=== PATIENT | male | born 1965 | race Caucasian/White ===

== ENCOUNTER 2023-10-07 11:22 | Outpatient (AMB) | payer OTHER, SELFPAY ==
--- NOTE | 2023-10-07 11:28 | MHC.PC.OV ---
Vital Signs 10/07/23 11:48 Height 6 ft Weight 264 lb 6 oz BMI 35.9 BP 110/60 Respiration 16 Pulse 70 Pulse Source Pulse Oximeter Temp 97.7 F Temp Source Oral Pulse Oximetry (%) 96 Oxygen Delivery Method Room Air Intake Visit Reasons: NPV Intake Note: patient transferring from [facility] [place] [facility] here for new patient visit. 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[employer] Un[employer] Required: No Allergies tetracycline [Tetracycline] Allergy (Mild, Verified 10/07/23 11:35) RASH Medication List - Last Reconciled 10/07/23 by Nhi Conte PA-C atorvastatin 80 mg PO DAILY cholecalciferol (vitamin D3) 50 mcg PO DAILY cyanocobalamin (vitamin B-12) 1,000 mcg sublingual DAILY ezetimibe 10 mg PO DAILY hydrochlorothiazide 25 mg PO DAILY levothyroxine 112 mcg PO DAILY lisinopril 40 mg PO DAILY metformin 500 mg PO DAILY metoprolol succinate ER 100 mg PO DAILY vfmrgbka-tvy-ZT-lycopen-lutein 0.4 mg-300 mcg- 250 mcg (Complete Multivitamin Adult 50 Plus) 1 tab PO DAILY vitamin B complex 1 tab PO DAILY Tobacco use date assessed: 10/07/23 Dental Screening Dental Screen Date: 10/07/23 Did you have a dental visit in the last 12 months?: Yes Did you have a dental problem in the last 6 months where you did not have access to dental care?: No Was dental information given to patient?: Patient has dentist HPI NPV HPI Details Pt is a 58 y/o male who presents today to re-establish care. Endo: DM- Dx last year. Last a1c was 6.6. He is on metformin 500 mg daily. He lost 25 lbs with diet and exercise. Last eye exam within the year and no retinopathy. Follows annually. CV: bp is 110/60.He is on hctz 25 mg, norvasc 10 mg, netoprolol 100 mg, and lisinopril 40 mg. Cholesterol controlled with zetia and atorvastatin. Colonoscopy: 01/2023- polyps due in 2027 [facility] Medical History (Updated 10/07/23 @ 12:24 by Nhi Conte PA-C) Cancer Arthritis Diabetes High cholesterol High blood pressure Carpal tunnel syndrome Surgical History (Updated 10/07/23 @ 11:57 by Mel Sinha) History of knee replacement Family History (Updated 10/07/23 @ 12:02 by Mel Sinha) Father High blood pressure Diabetes Cardiovascular disease Maternal Grandfather Diabetes Mother Cancer Social History Housing: House Patient Tobacco Use Status: Never used Tobacco e-Cigarette/Vaping Use: Never Used Second Hand Smoke Exposure: No service: No Current occupational status: employed 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 1. Little interest or pleasure in doing things: not at all 2. Feeling down, depressed, or hopeless: not at all 3. Trouble falling or staying asleep, or sleeping too much: not at all 4. Feeling tired or having little energy: not at all 5. Poor appetite or overeating: not at all 6. Feeling bad about yourself - or that you are a failure or have let yourself or your family down: not at all 7. Trouble concentrating on things, such as reading the newspaper or watching television: not at all 8. Moving or speaking so slowly that other people could have noticed. Or the opposite - being so fidgety or restless that you have been moving around a lot more than usual: not at all 9. Thoughts that you would be better off or of hurting yourself in some way: not at all Total score: 0 62425 - PHQ-9 Billing: Yes Source: Developed by Drs. Monty Vaughn, Sofia Woods, Chava Leonardo and colleagues, with an educational kenji from [employer]. Thrive Questionnaire Date Thrive assessed: 10/07/23 I am a: Patient What is your living situation today?: I have a steady place to live Within the past 12 months, did the food you bought not last and you didn't have the money to get more?: Never true Within the past 12 months, did you worry whether your food would run out before you got money to buy more?: Never true Do you have trouble paying for medicines?: No Do you have trouble getting transportation to medical appointments?: No Do you have trouble paying your heating and electricity bill?: No Do you have trouble taking care of your child, family member or friend?: No Do you have trouble with day-to-day activities such as bathing, preparing meals, shopping, managing finances, etc.?: No Are you currently unemployed and looking for a job?: No Are you interested in more education?: No Please select the resources that you would like help with: None Currently or been in a relationship where the following occur: No concerns reported THRIVE Score: 0 AUDIT C Alcohol Use Questionnaire (AUDIT-C) 1. How often do you have a drink containing alcohol?: 4 or more times a week 2. How many drinks containing alcohol do you have on a typical day when you are drinking?: 1 or 2 3. How often do you have six or more drinks on one occasion?: Less than monthly Total Score: 5 PAM-7 AMB Questionnaire PAM-7 Date PAM - 7 assessed: 10/07/23 Feeling nervous, anxious, or on edge: 0 = Not at all Not being able to stop or control worryin = Not at all Worrying too much about different things: 0 = Not at all Trouble relaxin = Not at all Being so restless that it is hard to sit still: 0 = Not at all Becoming easily annoyed or irritable: 0 = Not at all Feeling afraid as if something awful might happen: 0 = Not at all Total PAM-7 score (0-4 normal; 5-9 mild; 10-14 moderate; 15-21 severe): 0 Source: Developed by Drs. Monty Vaughn, Sofia Woods, Chava Leonardo and colleagues, with an educational kenji from [employer]. PAM-7 Assessment Billing PAM-7 Assessment Tool: PAM-7 Assessment 38563 Physical exam (Primary Care) Vital Signs: Last Vital Signs Temp 97.7 F 10/07/23 11:48 Pulse 70 10/07/23 11:48 Resp 16 10/07/23 11:48 Pulse Ox 96 10/07/23 11:48 Oxygen Delivery Method Room Air 10/07/23 11:48 BMI result Body Mass Index 35.9 Tobacco/Smoking Status: Tobacco use Status Tobacco use date assessed 10/07/23 10/07/23 11:45 Patient Tobacco Use Status Never used Tobacco 10/07/23 11:45 e-Cigarette/Vaping Use Never Used 10/07/23 11:45 PHQ-9: PHQ-9 Score PHQ-9: Total score 0 10/07/23 11:53 Thrive Assessment: Date of Thrive Assessment Date Thrive assessed 10/07/23 10/07/23 11:53 Currently or been in a relationship where the following occur: No concerns reported Const Orientation/consciousness: patient oriented x3 HENMT Ears: hearing grossly normal bilaterally Neck Thyroid: Thyroid normal Lymphatic: no lymphadenopathy noted Resp Auscultation: clear to auscultation bilaterally Cardio Rate: regular rate Rhythm: regular rhythm Heart sounds: S1 normal heart sound present and S2 normal heart sound present GI Inspection: Yes normal to inspection Palpation (GI): Soft to palpation and Other GI palpation findings present (nontender, no cva tenderness) Auscultation: normoactive bowel sounds Rectal Exam - Male: Yes deferred Skin General skin exam: no rashes or lesions noted Neuro General: patient oriented x3, gait normal and no focal motor deficits Assessment and Plan Assessment & Plan (1) HTN (hypertension), benign: Code(s): I10 - Essential (primary) hypertension Plan: will stop hctz. bps at home have been on the lower side and here today 108/56 and 110/60. He has lost 25 lbs with diet and exercise since our last visit. (2) Well controlled type 2 diabetes mellitus with peripheral neuropathy: Code(s): E11.42 - Type 2 diabetes mellitus with diabetic polyneuropathy Plan: labs ordered today. will follow up pending results. does not want diabetic education. (3) Hyperlipidemia: Code(s): E78.5 - Hyperlipidemia, unspecified Plan: continue current plan will follow up pending labs Orders: Orders Comprehensive [place]. Panel Fast Today E11.42 - Type 2 diabetes mellitus with diabetic polyneuropathy, E78.5 - Hyperlipidemia, unspecified, I10 - Essential (primary) hypertension Lipid Panel Today E11.42 - Type 2 diabetes mellitus with diabetic polyneuropathy, E78.5 - Hyperlipidemia, unspecified, I10 - Essential (primary) hypertension Hemoglobin A1c Today E11.42 - Type 2 diabetes mellitus with diabetic polyneuropathy, E78.5 - Hyperlipidemia, unspecified, I10 - Essential (primary) hypertension TSH reflex Free T4 Today E11.42 - Type 2 diabetes mellitus with diabetic polyneuropathy, E78.5 - Hyperlipidemia, unspecified, I10 - Essential (primary) hypertension Complete Blood Count Auto Diff Today E11.42 - Type 2 diabetes mellitus with diabetic polyneuropathy, E78.5 - Hyperlipidemia, unspecified, I10 - Essential (primary) hypertension Prostate Specific Antigen Scr Today E11.42 - Type 2 diabetes mellitus with diabetic polyneuropathy, E78.5 - Hyperlipidemia, unspecified, I10 - Essential (primary) hypertension Microalbumin, Random (w Creat) Today E11.42 - Type 2 diabetes mellitus with diabetic polyneuropathy, E78.5 - Hyperlipidemia, unspecified, I10 - Essential (primary) hypertension Medications: New ezetimibe 10 mg PO DAILY 90 tabs 3RF levothyroxine 112 mcg PO DAILY 90 tabs 3RF lisinopril 40 mg PO DAILY 90 tabs 3RF atorvastatin 80 mg PO DAILY 90 tabs 3RF metformin 500 mg PO DAILY 90 tabs 3RF metoprolol succinate ER 100 mg PO DAILY 90 tabs 3RF amlodipine 10 mg PO DAILY 90 tabs 3RF Coding Level of Care Code Est Pt Level 4 (97679) Complex EM visit Add On G2211 Diagnoses HTN (hypertension), benign I10 Well controlled type 2 diabetes mellitus with peripheral neuropathy E11.42 Hyperlipidemia E78.5 Additional Codes PAM-7 Assessment Billing - PAM-7 Assessment Tool: PAM-7 Assessment 85035 ([id number])
[2023-10-07 11:48] VITALS: BP 110/60; PULSE 70; RESP 16; TEMP 36.5; O2SAT 96; BMI 35.9
== END 2023-10-07 12:33 | disposition home or self-care (01) ==
PROVIDERS: PCP Physician Assistant; Visit Provider Physician Assistant
DX: I10 Essential (primary) hypertension (principal); E11.42 Type 2 diabetes mellitus with diabetic polyneuropathy; E78.5 Hyperlipidemia, unspecified
CPT/HCPCS: 99214

== ENCOUNTER 2023-10-12 07:32 | Outpatient (REF) | payer OTHER, SELFPAY ==
[2023-10-12 11:31] LABS: MANUAL DIFF FLAG NO
[2023-10-12 11:37] LABS: Basophils Absolute Auto 0.1 X10*3/uL (0.0-0.2); Basophils Percent Auto 0.7 % (0-2); Eosinophils Absolute Auto 0.3 X10*3/uL (0.0-0.4); Eosinophils Percent Auto 3.4 % (0-4); Hematocrit 40.9 % (42.0-52.0); Hemoglobin 13.5 g/dl (14.0-18.0); Imm Gran Abs Auto 0.03 X10*3/uL (0.00-0.03); Imm Gran Pct Auto 0.3 % (0.0-0.4); Lymphocytes Absolute Auto 1.4 X10*3/uL (1.2-4.9); Lymphocytes Percent Auto 15.2 % (20-40); Mean Corpuscular Hemoglobin 30.6 pg (27.0-33.0); Mean Corpuscular Volume 92.7 fL (80.0-98.0); Mean Platelet Volume 11.4 fL (9.4-12.4); Monocytes Absolute Auto 0.9 X10*3/uL (0.1-1.2); Monocytes Percent Auto 9.9 % (2-11); Neutrophils Absolute Auto 6.3 x10*3/uL (2.0-8.3); Neutrophils Percent Auto 70.5 % (45-73); Platelet Count 287 X10*3/uL (160-400); Red Blood Count 4.41 X10*6/uL (4.60-5.80); Red Cell Distribution Width 14.4 % (11.0-16.0); White Blood Count 8.9 X10*3/uL (4.8-10.8)
[2023-10-12 11:42] LABS: Estimated Average Glucose 123 mg/dL; Hemoglobin A1c % 5.9 % (<6.0)
[2023-10-12 12:06] LABS: Alanine Aminotransferase 24 U/L (0-40); Albumin Level 4.5 g/dL (3.5-5.0); Alkaline Phosphatase 111 U/L (39-117); Anion Gap 13 (12-20); Aspartate Amino Transferase 26 U/L (5-37); Bilirubin Total 0.7 mg/dL (0.0-1.0); Blood Urea Nitrogen 19 mg/dL (9-16); Calcium 9.6 mg/dL (8.4-10.2); Carbon Dioxide 28 mmol/L (22-29); Chloride 107 mmol/L (96-108); Cholesterol 102 mg/dL (<200); Estimated Glomerular Filt Rate > 60; Glucose Fasting 101 mg/dL (60-99); HDL Cholesterol 47 mg/dL (>40); LDL Cholesterol Calculated 45 mg/dL (<100); Potassium 3.9 mmol/L (3.3-5.1); Sodium 144 mmol/L (135-145); Total Protein 7.6 g/dL (6.5-8.0); Triglycerides 54 mg/dL (<150)
[2023-10-12 12:16] LABS: TSH reflex Free T4 0.84 uIU/mL (0.32-4.0)
[2023-10-12 12:20] LABS: Prostate Specific Antigen Scr 3.15 ng/mL (<0.05-4.0)
[2023-10-12 12:25] LABS: Creatinine Urine 99.75 mg/dL
== END 2023-10-12 07:33 | disposition home or self-care (01) ==
LOC: HO.WFDLDS 07:32
PROVIDERS: Visit Provider Physician Assistant
DX: I10 Essential (primary) hypertension (principal); E11.42 Type 2 diabetes mellitus with diabetic polyneuropathy; E78.5 Hyperlipidemia, unspecified; Z12.5 Encounter for screening for malignant neoplasm of prostate
CPT/HCPCS: 36415; 80053; 80061; 82043; 82570; 83036; 84153; 84443; 85025

== ENCOUNTER 2023-11-05 14:25 | Outpatient (REF) | payer OTHER, SELFPAY ==
[2023-11-05 17:57] LABS: MANUAL DIFF FLAG NO
[2023-11-05 18:05] LABS: Basophils Absolute Auto 0.1 X10*3/uL (0.0-0.2); Basophils Percent Auto 0.6 % (0-2); Eosinophils Absolute Auto 0.3 X10*3/uL (0.0-0.4); Eosinophils Percent Auto 2.1 % (0-4); Hematocrit 41.6 % (42.0-52.0); Hemoglobin 13.7 g/dl (14.0-18.0); Imm Gran Abs Auto 0.04 X10*3/uL (0.00-0.03); Imm Gran Pct Auto 0.3 % (0.0-0.4); Lymphocytes Absolute Auto 1.5 X10*3/uL (1.2-4.9); Lymphocytes Percent Auto 12.4 % (20-40); Mean Corpuscular HGB Conc 32.9 g/dl (31.0-36.0); Mean Corpuscular Hemoglobin 30.2 pg (27.0-33.0); Mean Corpuscular Volume 91.6 fL (80.0-98.0); Monocytes Absolute Auto 0.9 X10*3/uL (0.1-1.2); Monocytes Percent Auto 7.9 % (2-11); Neutrophils Percent Auto 76.7 % (45-73); Platelet Count 263 X10*3/uL (160-400); Red Blood Count 4.54 X10*6/uL (4.60-5.80); Red Cell Distribution Width 14.3 % (11.0-16.0); White Blood Count 11.7 X10*3/uL (4.8-10.8)
[2023-11-05 18:24] LABS: Iron 43 mcg/dL (45-160); Percent Iron Saturation 14 % (15-50); Total Iron Binding Capacity 298 mcg/dL (228-428); Unsaturated Iron Binding 255 ug/dL
[2023-11-05 18:39] LABS: Ferritin 53 ng/mL (20-250)
[2023-11-05 18:50] LABS: Folate 14.5 ng/mL (> or = 4.0); Vitamin B12 319 pg/mL (200-900)
== END 2023-11-05 14:26 | disposition home or self-care (01) ==
LOC: HO.WFDLDS 14:25
PROVIDERS: Visit Provider Physician Assistant
DX: D64.9 Anemia, unspecified (principal)
CPT/HCPCS: 36415; 82607; 82728; 82746; 83540; 85025

== ENCOUNTER 2024-01-05 08:32 | Outpatient (AMB) | payer OTHER, SELFPAY ==
--- NOTE | 2024-01-05 08:42 | MHC.PC.OV ---
Vital Signs 01/05/24 08:46 Height 6 ft Weight 262 lb BMI 35.5 BP 136/76 Blood Pressure Location Lt brachial Position Sitting Pulse 79 Pulse Source Pulse Oximeter Pulse Oximetry (%) 96 Oxygen Delivery Method Room Air Intake Visit Reasons: fu lab work Allergies tetracycline [Tetracycline] Allergy (Mild, Verified 10/07/23 11:35) RASH Medication List - Last Reconciled 01/05/24 by Nhi Conte PA-C amlodipine 10 mg PO DAILY atorvastatin 80 mg PO DAILY cholecalciferol (vitamin D3) 50 mcg PO DAILY cyanocobalamin (vitamin B-12) 1,000 mcg sublingual DAILY ezetimibe 10 mg PO DAILY levothyroxine 112 mcg PO DAILY lisinopril 40 mg PO DAILY metformin 500 mg PO DAILY metoprolol succinate ER 100 mg PO DAILY kukyzrax-olc-NK-lycopen-lutein 0.4 mg-300 mcg- 250 mcg (Complete Multivitamin Adult 50 Plus) 1 tab PO DAILY valacyclovir 4,000 mg PO ONCE vitamin B complex 1 tab PO DAILY Tobacco use date assessed: 10/07/23 Dental Screening Dental Screen Date: 10/07/23 HPI fu lab work HPI Details Pt is a 58 y/o male who presents today for a follow up. He has a significant past medical history of type 2 diabetes, hypothyroidism, hypertension, hyperlipidemia and nodular sclerosis Hodgkin lymphoma. Endo: DM- Dx last year. Last a1c was 5.9. He is on metformin 500 mg daily. He lost 25 lbs with diet and exercise. Last eye exam within the year and no retinopathy. Follows annually. CV: bp is 136/76. He is on norvasc 10 mg, netoprolol 100 mg, and lisinopril 40 mg. Cholesterol controlled with zetia and atorvastatin. -at our last visit I did discontinue the hydrochlorothiazide due to the weight loss and lower blood pressure readings. He states that he is still working on diet and weight loss. Heme: Following with Dr. East. 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 He has been in remission for 21 years following diagnosis. recommendation of upper endoscopy given hx of GERD and newer PRISCILLA GI:Has gerd and intermittently symptomatic. No difficulty swallowing. Seeing them in Mar. Urology: following for hematospermia next month. He states that this just started last month. He also has had some increased testicular pain with certain movements. He states that if he lifts heavy he will get pain in either his right or left testes. The pain switches sides. It is very short lasting. He has not noticed any bulges. He denies any testicular swelling. No erythema or discharge. Colonoscopy: 01/2023- polyps due in 2027 [facility] Medical History (Updated 01/05/24 @ 12:21 by Nhi Conte PA-C) Nodular sclerosing Hodgkin lymphoma Cancer Arthritis Diabetes High cholesterol High blood pressure Carpal tunnel syndrome Surgical History History of knee replacement Family History Father High blood pressure Diabetes Cardiovascular disease Maternal Grandfather Diabetes Mother Cancer Social History (Updated 01/05/24 @ 08:50 by Rayne Sidhu CMA) Housing: House Alcohol intake: current Patient Tobacco Use Status: Never used Tobacco e-Cigarette/Vaping Use: Never Used Second Hand Smoke Exposure: No service: No Current occupational status: employed 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 1. Little interest or pleasure in doing things: not at all 2. Feeling down, depressed, or hopeless: not at all 3. Trouble falling or staying asleep, or sleeping too much: not at all 4. Feeling tired or having little energy: not at all 5. Poor appetite or overeating: not at all 6. Feeling bad about yourself - or that you are a failure or have let yourself or your family down: not at all 7. Trouble concentrating on things, such as reading the newspaper or watching television: not at all 8. Moving or speaking so slowly that other people could have noticed. Or the opposite - being so fidgety or restless that you have been moving around a lot more than usual: not at all 9. Thoughts that you would be better off or of hurting yourself in some way: not at all Total score: 0 Source: Developed by Drs. Monty L. RoderickSofia hilliard, Chava Leonardo and colleagues, with an educational kenji from [employer]. Thrive Questionnaire Date Thrive assessed: 12/29/23 I am a: Patient What is your living situation today?: I have a steady place to live Within the past 12 months, did the food you bought not last and you didn't have the money to get more?: I choose not to answer this question Within the past 12 months, did you worry whether your food would run out before you got money to buy more?: I choose not to answer this question Do you have trouble paying for medicines?: I choose not to answer this question Do you have trouble getting transportation to medical appointments?: I choose not to answer this question Do you have trouble paying your heating and electricity bill?: I choose not to answer this question Do you have trouble taking care of your child, family member or friend?: I choose not to answer this question Do you have trouble with day-to-day activities such as bathing, preparing meals, shopping, managing finances, etc.?: I choose not to answer this question Are you currently unemployed and looking for a job?: I choose not to answer this question Are you interested in more education?: I choose not to answer this question Please select the resources that you would like help with: None Currently or been in a relationship where the following occur: I choose not to answer THRIVE Score: 0 AUDIT C Alcohol Use Questionnaire (AUDIT-C) 1. How often do you have a drink containing alcohol?: 4 or more times a week 2. How many drinks containing alcohol do you have on a typical day when you are drinking?: 1 or 2 3. How often do you have six or more drinks on one occasion?: Less than monthly Total Score: 5 PAM-7 AMB Questionnaire PAM-7 Date PAM - 7 assessed: 01/05/24 Feeling nervous, anxious, or on edge: 0 = Not at all Not being able to stop or control worryin = Not at all Worrying too much about different things: 0 = Not at all Trouble relaxin = Not at all Being so restless that it is hard to sit still: 0 = Not at all Becoming easily annoyed or irritable: 0 = Not at all Feeling afraid as if something awful might happen: 0 = Not at all Total PAM-7 score (0-4 normal; 5-9 mild; 10-14 moderate; 15-21 severe): 0 Source: Developed by Drs. Monty Vaughn, Sofia Woods, Chava Leonardo and colleagues, with an educational kenji from [employer]. PAM-7 Assessment Billing PAM-7 Assessment Tool: PAM-7 Assessment 19790 Physical exam (Primary Care) Vital Signs: Last Vital Signs Pulse 79 01/05/24 08:46 BP 136/76 01/05/24 08:46 Pulse Ox 96 01/05/24 08:46 Oxygen Delivery Method Room Air 01/05/24 08:46 BMI result Body Mass Index 35.5 Tobacco/Smoking Status: Tobacco use Status Tobacco use date assessed 10/07/23 01/05/24 08:44 Patient Tobacco Use Status Never used Tobacco 01/05/24 08:50 e-Cigarette/Vaping Use Never Used 01/05/24 08:50 PHQ-9: PHQ-9 Score PHQ-9: Total score 0 01/05/24 09:01 Thrive Assessment: Date of Thrive Assessment Date Thrive assessed 12/29/23 01/05/24 08:44 Currently or been in a relationship where the following occur: I choose not to answer Const Orientation/consciousness: patient oriented x3 HENMT Ears: hearing grossly normal bilaterally Neck Thyroid: Thyroid normal Lymphatic: no lymphadenopathy noted Resp Auscultation: clear to auscultation bilaterally Cardio Rate: regular rate Rhythm: regular rhythm Heart sounds: S1 normal heart sound present and S2 normal heart sound present GI Inspection: Yes normal to inspection Palpation (GI): Soft to palpation and Other GI palpation findings present (nontender, no cva tenderness) Auscultation: normoactive bowel sounds Rectal Exam - Male: Yes deferred Skin General skin exam: no rashes or lesions noted Neuro General: patient oriented x3, gait normal and no focal motor deficits Coding Level of Care Code Est Pt Level 4 (71057) Complex EM visit Add On G2211 Diagnoses Hematospermia R36.1 Pain in both testicles N50.811; N50.812 HTN (hypertension), benign I10 Well controlled type 2 diabetes mellitus with peripheral neuropathy E11.42 PRISCILLA (iron deficiency anemia) D50.9 Additional Codes PAM-7 Assessment Billing - PAM-7 Assessment Tool: PAM-7 Assessment 11787 ([id number]) Assessment & Plan Assessment & Plan (1) Hematospermia: Code(s): R36.1 - Hematospermia Category: Medical Plan: UA and ultrasound ordered. Has follow up arranged with Urology. (2) Pain in both testicles: Code(s): N50.811 - Right testicular pain; N50.812 - Left testicular pain Category: Medical Plan: As above (3) HTN (hypertension), benign: Code(s): I10 - Essential (primary) hypertension Category: Medical Plan: Continue current regimen (4) Well controlled type 2 diabetes mellitus with peripheral neuropathy: Code(s): E11.42 - Type 2 diabetes mellitus with diabetic polyneuropathy Category: Medical Plan: Continue current regimen. Follow up in 3-4 months. Labs prior to appointment. (5) PRISCILLA (iron deficiency anemia): Code(s): D50.9 - Iron deficiency anemia, unspecified Category: Medical Plan: Has a referred to GI and has an appointment. We will discuss the upper endoscopy with GI at that time. Reviewed note from Dr. East. Orders: Orders Vitamin B12 and Folate Today D50.9 - Iron deficiency anemia, unspecified, E11.42 - Type 2 diabetes mellitus with diabetic polyneuropathy, I10 - Essential (primary) hypertension TSH reflex Free T4 Today D50.9 - Iron deficiency anemia, unspecified, E11.42 - Type 2 diabetes mellitus with diabetic polyneuropathy, I10 - Essential (primary) hypertension Comprehensive Met. Panel Today D50.9 - Iron deficiency anemia, unspecified, E11.42 - Type 2 diabetes mellitus with diabetic polyneuropathy, I10 - Essential (primary) hypertension UA CC w/rflx Micro + Cult Today D50.9 - Iron deficiency anemia, unspecified, E11.42 - Type 2 diabetes mellitus with diabetic polyneuropathy, I10 - Essential (primary) hypertension, Z13.220 - Encounter for screening for lipoid disorders US scrotum Today D50.9 - Iron deficiency anemia, unspecified, E11.42 - Type 2 diabetes mellitus with diabetic polyneuropathy, I10 - Essential (primary) hypertension, N50.811 - Right testicular pain, N50.812 - Left testicular pain, R36.1 - Hematospermia B Type Natriuretic Peptide Today E11.42 - Type 2 diabetes mellitus with diabetic polyneuropathy, I10 - Essential (primary) hypertension Complete Blood Count Auto Diff Today D50.9 - Iron deficiency anemia, unspecified, E11.42 - Type 2 diabetes mellitus with diabetic polyneuropathy, I10 - Essential (primary) hypertension IRON PROFILE Today D50.9 - Iron deficiency anemia, unspecified, E11.42 - Type 2 diabetes mellitus with diabetic polyneuropathy, I10 - Essential (primary) hypertension Hemoglobin A1c Today D50.9 - Iron deficiency anemia, unspecified, E11.42 - Type 2 diabetes mellitus with diabetic polyneuropathy, I10 - Essential (primary) hypertension carotid duplex BI Today E11.42 - Type 2 diabetes mellitus with diabetic polyneuropathy, E78.5 - Hyperlipidemia, unspecified, I10 - Essential (primary) hypertension, Z13.6 - Encounter for screening for cardiovascular disorders
[2024-01-05 08:46] VITALS: BP 136/76; PULSE 79; O2SAT 96; BMI 35.5
== END 2024-01-05 09:26 | disposition home or self-care (01) ==
PROVIDERS: PCP Physician Assistant; Visit Provider Physician Assistant
DX: E11.42 Type 2 diabetes mellitus with diabetic polyneuropathy (principal); R36.1 Hematospermia; N50.811 Right testicular pain; N50.812 Left testicular pain; I10 Essential (primary) hypertension; D50.9 Iron deficiency anemia, unspecified

== ENCOUNTER → 2024-01-05 08:32 | Outpatient (BNVA) | payer OTHER, SELFPAY | PROVIDERS: PCP Physician Assistant; Visit Provider Physician Assistant | DX: R36.1 Hematospermia (principal); N50.811 Right testicular pain; N50.812 Left testicular pain; I10 Essential (primary) hypertension; E11.42 Type 2 diabetes mellitus with diabetic polyneuropathy; D50.9 Iron deficiency anemia, unspecified; Z79.84 Long term (current) use of oral hypoglycemic drugs; Z79.899 Other long term (current) drug therapy | CPT/HCPCS: 96127 ==

== ENCOUNTER 2024-01-05 09:33 | Outpatient (REF) | payer OTHER, SELFPAY ==
[2024-01-05 11:24] LABS: Appearance Urine Clear; Color Urine Dark Yellow; Glucose Urine UA Negative (Negative); Leukocyte Esterase Urine Negative (Negative); Nitrite Urine Negative (Negative); Specific Gravity - Urine 1.025 (1.005-1.025); Urine Blood Negative (Negative); Urine Ketones Trace mg/dL (Negative); Urine Protein Negative (Neg-Trace)
[2024-01-05 11:31] LABS: MANUAL DIFF FLAG NO
[2024-01-05 11:38] LABS: Basophils Absolute Auto 0.1 X10*3/uL (0.0-0.2); Basophils Percent Auto 0.7 % (0-2); Eosinophils Absolute Auto 0.3 X10*3/uL (0.0-0.4); Eosinophils Percent Auto 3.5 % (0-4); Hematocrit 43.5 % (42.0-52.0); Hemoglobin 14.5 g/dl (14.0-18.0); Imm Gran Abs Auto 0.02 X10*3/uL (0.00-0.03); Imm Gran Pct Auto 0.2 % (0.0-0.4); Lymphocytes Absolute Auto 1.5 X10*3/uL (1.2-4.9); Lymphocytes Percent Auto 18.2 % (20-40); Mean Corpuscular HGB Conc 33.3 g/dl (31.0-36.0); Mean Corpuscular Hemoglobin 30.3 pg (27.0-33.0); Mean Platelet Volume 11.2 fL (9.4-12.4); Monocytes Absolute Auto 0.8 X10*3/uL (0.1-1.2); Monocytes Percent Auto 10.3 % (2-11); Neutrophils Absolute Auto 5.4 x10*3/uL (2.0-8.3); Neutrophils Percent Auto 67.1 % (45-73); Platelet Count 240 X10*3/uL (160-400); Red Blood Count 4.78 X10*6/uL (4.60-5.80); Red Cell Distribution Width 13.6 % (11.0-16.0); White Blood Count 8.1 X10*3/uL (4.8-10.8)
[2024-01-05 11:46] LABS: Estimated Average Glucose 123 mg/dL; Hemoglobin A1c % 5.9 % (<6.0); Total Hemoglobin (HGBA1C) 3665.4597 umol/L
[2024-01-05 11:59] LABS: Alanine Aminotransferase 31 U/L (0-40); Albumin Level 4.3 g/dL (3.5-5.0); Alkaline Phosphatase 112 U/L (39-117); Anion Gap 14 (12-20); Aspartate Amino Transferase 30 U/L (5-37); Bilirubin Total 0.5 mg/dL (0.0-1.0); Blood Urea Nitrogen 14 mg/dL (9-16); Calcium 9.2 mg/dL (8.4-10.2); Carbon Dioxide 28 mmol/L (22-29); Chloride 106 mmol/L (96-108); Estimated Glomerular Filt Rate > 60; Glucose Random 120 mg/dL (60-115); Iron 69 mcg/dL (45-160); Percent Iron Saturation 23 % (15-50); Potassium 3.8 mmol/L (3.3-5.1); Sodium 144 mmol/L (135-145); Total Iron Binding Capacity 297 mcg/dL (228-428); Total Protein 7.3 g/dL (6.5-8.0); Unsaturated Iron Binding 228 ug/dL
[2024-01-05 12:05] LABS: B Type Natriuretic Peptide 81 pg/mL (<100)
[2024-01-05 12:07] LABS: TSH reflex Free T4 1.52 uIU/mL (0.32-4.0)
[2024-01-05 12:24] LABS: Folate 16.5 ng/mL (> or = 4.0); Vitamin B12 370 pg/mL (200-900)
== END 2024-01-05 09:34 | disposition home or self-care (01) ==
LOC: HO.WFDLDS 09:33
PROVIDERS: Visit Provider Physician Assistant
DX: D50.9 Iron deficiency anemia, unspecified (principal); E11.42 Type 2 diabetes mellitus with diabetic polyneuropathy; I10 Essential (primary) hypertension; Z13.220 Encounter for screening for lipoid disorders
CPT/HCPCS: 36415; 80053; 81003; 82607; 82746; 83036; 83540; 83880; 84443; 85025

== ENCOUNTER 2024-01-17 14:12 | Outpatient (REF) | payer OTHER, SELFPAY ==
--- NOTE | ~2024-01-17 | US_ITS ---
EXAMINATION: US SCROTUM CLINICAL INFORMATION: Hematospermia. COMPARISON: None available. TECHNIQUE: A sonogram of the scrotum was performed assessing mak-scale appearance and color Doppler flow. Spectral Doppler analysis of the arterial and venous flow were performed in the testes bilaterally. Exam submitted for review 03/07/2024 10:17 AM [facility]. FINDINGS: RIGHT: Right testicle measures 0.5 x 2.3 x 3.8 cm, volume 25.1 mL. Parenchymal echotexture is homogeneous. No focal testicular parenchymal lesions are visualized. Spectral Doppler analysis of the arterial and venous flow is normal in the right testis. Right epididymal head is normal in size. No right varicocele is seen. Small right hydrocele. LEFT: Left testicle measures 4.5 x 2.0 x 4.4 cm, volume 20.3 mL. Parenchymal echotexture is homogeneous. Spectral Doppler analysis of the arterial and venous flow is normal in the left testis. Left epididymal head is normal in size. No left varicocele is seen. Small left hydrocele. US/US scrotum IMPRESSION: 1. Normal testis bilaterally. 2. Normal epididymides bilaterally. 3. Small bilateral hydroceles. 4. No varicocele. Electronically signed by: Jeremiah Bates MD 03/07/2024 11:19 AM [facility]
--- NOTE | ~2024-01-17 | US_ITS ---
EXAMINATION: US EXTRACRANIAL CAROTID DUPLEX, BILATERAL CLINICAL INFORMATION: Screening for carotid stenosis COMPARISON: None TECHNIQUE: Real-time ultrasound and Doppler techniques (integrating B-mode 2-D vascular images, Doppler spectral analysis and color-flow Doppler imaging) were utilized to interrogate the extracranial carotid arteries, the vertebral arteries and proximal subclavian arteries bilaterally. The degree of stenosis is determined by criteria similar to NASCET. FINDINGS: Right Side: 1. There is no atherosclerotic plaque seen in the bifurcation/proximal ICA region. 2. The common carotid artery PSV proximally is 76 cm/s and distally 93 cm/s. 3. The proximal internal carotid artery velocities are 71 cm/s systolic and 30 cm/s diastolic. 4. The proximal external carotid artery PSV is 136 cm/s. 5. The vertebral artery shows antegrade flow. 6. The subclavian artery waveforms are normal. Left Side: 1. There is no atherosclerotic plaque seen in the bifurcation/proximal ICA region. 2. The common carotid artery PSV proximally is 87 cm/s and distally 84 cm/s. 3. The proximal internal carotid artery velocities are 73 cm/s systolic and 28 cm/s diastolic. 4. The proximal external carotid artery PSV is 144 cm/s. 5. The vertebral artery shows antegrade flow. 6. The subclavian artery waveforms are normal. US/US carotid duplex BI IMPRESSION: 1. RIGHT: Normal right internal carotid artery without atherosclerotic plaque or hemodynamically significant stenosis. 2. LEFT: Normal left internal carotid artery without atherosclerotic plaque or hemodynamically significant stenosis. Electronically signed by: Rob Thomas MD 01/21/2024 01:07 AM [facility]
== END 2024-01-17 14:13 | disposition home or self-care (01) ==
LOC: HO.US 14:12
PROVIDERS: PCP Physician Assistant; Visit Provider Physician Assistant
DX: R36.1 Hematospermia (principal); N50.811 Right testicular pain; N50.812 Left testicular pain; D50.9 Iron deficiency anemia, unspecified; E11.42 Type 2 diabetes mellitus with diabetic polyneuropathy; I10 Essential (primary) hypertension; E78.5 Hyperlipidemia, unspecified; Z13.6 Encounter for screening for cardiovascular disorders
CPT/HCPCS: 76870; 93880

== ENCOUNTER → 2024-01-17 14:14 | Outpatient (BNV) | payer OTHER, SELFPAY | PROVIDERS: PCP Physician Assistant; Visit Provider Radiology Diagnostic Radiology | DX: N43.3 Hydrocele, unspecified (principal) | CPT/HCPCS: 76870; 93976 ==

== ENCOUNTER 2024-01-21 13:33 | Outpatient (REF) | payer OTHER, SELFPAY ==
[2024-01-22 01:49] LABS: CT PCR NOT DETECTED (Not Detect.); NG PCR NOT DETECTED (Not Detect.)
== END 2024-01-21 13:34 | disposition home or self-care (01) ==
LOC: HO.WFDLDS 13:33
PROVIDERS: Visit Provider Physician Assistant
DX: Z20.2 Contact with and (suspected) exposure to infections with a predominantly sexual mode of transmission (principal)
CPT/HCPCS: 87491; 87591

== ENCOUNTER 2024-01-31 14:27 | Outpatient (AMB) | payer OTHER, SELFPAY ==
--- NOTE | 2024-01-31 14:42 | MHC.OFFVIS ---
Intake Visit Reasons: Hematospermia Intake Note: Patient is present for Hematospermia Urology Medication:VITAMIN B1,VITAMIN B12 Antibiotic Allergy:TETRACYCLINE Blood Thinner:NONE Insights Manager Required: No Allergies tetracycline [Tetracycline] Allergy (Mild, Verified 01/31/24 15:18) RASH Medication List - Last Reconciled 01/31/24 by MARY Clements amlodipine 10 mg PO DAILY atorvastatin 80 mg PO DAILY cholecalciferol (vitamin D3) 50 mcg PO DAILY cyanocobalamin (vitamin B-12) 1,000 mcg sublingual DAILY ezetimibe 10 mg PO DAILY levothyroxine 112 mcg PO DAILY lisinopril 40 mg PO DAILY metformin 500 mg PO DAILY metoprolol succinate ER 100 mg PO DAILY gdyjwrlk-cig-RH-lycopen-lutein 0.4 mg-300 mcg- 250 mcg (Complete Multivitamin Adult 50 Plus) 1 tab PO DAILY valacyclovir 4,000 mg PO ONCE vitamin B complex 1 tab PO DAILY HPI Comments Details: Jermaine is a very pleasant 58-year-old male patient of Dr. Conte. He has a past medical history of nodular sclerosing Hodgkin lymphoma, arthritis, diabetes, hypercholesteremia, hypertension, and carpal tunnel syndrome. He presents to the office today as a new patient for left-sided testicular discomfort as well as hematospermia. He reports having followed up with his PCP at which time recommendations were made for urology referral. In review of patient's chart it appears scrotal ultrasound was ordered and performed however results remain pending. In assessment of the patient today unilateral scrotal tenderness noted. Left epididymis with pain upon palpation. He does have a previous history of a vasectomy. Intact cremasteric refelx noted. We discussed likelihood of left-sided epididymis given physical exam findings. We discussed at length potential causes of epididymitis as well as hematospermia. It also appears PSA was ordered and performed. These results were reviewed with the patient today. 11/01 3.2. He does report noting episodes of urinary urgency and frequency however does not wish to undergo further workup at this time with retroperitoneal ultrasound. He denies incontinence, nocturia, hematuria, dysuria, foul smelling urine, changes to urinary stream, flank pain, fever, and or chills. He is happy with his current voiding parameters. In office urinalysis results reviewed with the patient today. He otherwise offers no other issues or concerns at this time. 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 Current occupational exposures/hazards: No Cognitive needs: No Hearing needs: No Vision needs: Yes Review of Systems Const All systems reviewed & are unremarkable except as noted in HPI and below Physical Exam Const General: cooperative, healthy appearing, comfortable, no acute distress, well developed, alert and awake Nutritional Appearance: overweight Orientation/consciousness: patient oriented x3 Limitations: no limitations HEENT Head: Yes normal to inspection, Yes normocephalic and Yes atraumatic Ears: hearing grossly normal bilaterally Eyes General: appearance normal, both eyes and all related structures Neck Neck: Yes normal visual inspection and Yes trachea midline Chest Chest palpation & inspection: normal inspection of the chest Resp Effort & Inspection: normal respiratory effort and able to speak in complete sentences Cardio Rate: regular rate GI Inspection: Yes normal to inspection General: Yes no CVA tenderness Back/Spine/Pelvis Back: no CVA tenderness Skin General skin exam: no rashes or lesions noted Neuro General: patient oriented x3 Extrem General: Yes normal to inspection Psych Appearance: grossly normal and well kempt Mental Status: mental status grossly normal Speech and movement: Normal speech and movement present and Clear speech present Affect: normal affect Attitude: cooperative Thought process: Normal thought process present Thought content: Normal thought content present Insight: Fair insight present (Psych) Judgement: Fair judgement present (Psych) Results AMB Urinalysis, Automated UA Leukoctes 0 Ej/uL Last Edit by RHINA Vogel on 01/31/24 14:48 UA Nitrite Negative Last Edit by RHINA Vogel on 01/31/24 14:48 UA Urobilinogen 0.2 mg/dL Last Edit by [facility] on 01/31/24 14:48 UA Protein 0 mg/dL Last Edit by [facility] on 01/31/24 14:48 UA pH 6.0 Last Edit by Luis Cardenas [facility] on 01/31/24 14:48 UA Blood 0 Vick/uL Last Edit by Luis Cardenas [facility] on 01/31/24 14:48 UA Specific [place] 1.025 Last Edit by Luis Cardenas [facility] on 01/31/24 14:48 UA Ketone Negative Last Edit by Luis Cardenas [facility] on 01/31/24 14:48 UA Bilirubin 0 mg/dL Last Edit by Luis Cardenas [facility] on 01/31/24 14:48 UA Glucose 0 mg/dL Last Edit by Luis Cardenas [facility] on 01/31/24 14:48 Results Reviewed Results Reviewed: Laboratory Last Values Urine pH (Auto) 6.0 01/31/24 14:47 Specific [place] (Auto) 1.025 01/31/24 14:47 Urine Protein (Auto) 0 mg/dL 01/31/24 14:47 Glucose (UA)(Auto) 0 mg/dL 01/31/24 14:47 Urine Ketones (Auto) Negative 01/31/24 14:47 Urine Blood (Auto) 0 Vick/uL 01/31/24 14:47 Urine Nitrite (Auto) Negative 01/31/24 14:47 Urine Bilirubin (Auto) 0 mg/dL 01/31/24 14:47 Urine Urobilinogen (Auto) 0.2 mg/dL 01/31/24 14:47 Leukocyte Esterase (Auto) 0 Ej/uL 01/31/24 14:47 Assessment & Plan Assessment & Plan (1) Hematospermia: Code(s): R36.1 - Hematospermia Category: Medical (2) Epididymitis: Code(s): N45.1 - Epididymitis Category: Medical (3) Lower urinary tract symptoms: Code(s): R39.9 - Unspecified symptoms and signs involving the genitourinary system Category: Medical Plan In office urinalysis results reviewed with the patient today; as noted above. Scrotal ultrasound remains pending. Recent PSA results reviewed with the patient today. We discussed at length potential causes of epididymitis as well as hematospermia. Start Ciprofloxacin as discussed and prescribed. We discussed OTC measures for epididymitis Discussed further assessment evaluation of lower urinary tract symptoms however patient does not find this bothersome at this time. Follow-up in 1 month; or sooner with any issues, concerns, questions. Orders: Orders AMB Urinalysis Automated Today Z13.9 - Encounter for screening, unspecified Medications: New ciprofloxacin HCl 500 mg PO Q12H 14 days 28 tabs 0RF C61 - Malignant neoplasm of prostate ciprofloxacin HCl 500 mg PO Q12H 14 days 28 tabs 0RF C61 - Malignant neoplasm of prostate Patient Instructions: The patient had an opportunity to ask questions regarding the treatment plan. All questions were answered. Physical exam, labs, and imaging were discussed and reviewed in detail. As well as risks, benefits, and discussion of treatment choices. No major barriers to understanding were identified. The patient expressed understanding and agreement with the above treatment plan. The patient was made aware they should contact our office by phone for worsening of their current condition, the appearance of new symptoms, or with any questions or concerns. Compliance is encouraged with any medications and follow up testing that is ordered. It is a privilege to be allowed the opportunity to participate in? your urological care.? Again, if you have any questions or concerns If you have any questions or concerns please do not hesitate to contact me. The office is [phone]. This note is constructed using voice recognition software. While every effort has been made to ensure accuracy dry molder errors may have been included. Yours sincerely, MARY Clements Coding Level of Care Code New Pt Level 4 (79068) Diagnoses Hematospermia R36.1 Epididymitis N45.1 Lower urinary tract symptoms R39.9
== END 2024-01-31 15:22 | disposition home or self-care (01) ==
PROVIDERS: PCP Physician Assistant; Visit Provider Nurse Practitioner Family
DX: R36.1 Hematospermia (principal); N45.1 Epididymitis; R39.9 Unspecified symptoms and signs involving the genitourinary system; Z13.9 Encounter for screening, unspecified
CPT/HCPCS: 99204

== ENCOUNTER 2024-03-01 16:02 | Outpatient (AMB) | payer OTHER, SELFPAY ==
--- NOTE | 2024-03-01 16:07 | A.OFFVIS_ITS ---
Intake Visit Reasons: 1m follow up Intake Note: Patient is Present for Telephone Follow Up Urology Med: Finished Ciprofloxacin Antibiotic Allergy:Tetracycline Blood Thinner:None Poacher Wringer Operator Required: No Accompanied by: Self / Same As Patient Allergies tetracycline [Tetracycline] Allergy (Mild, Verified 03/01/24 16:35) RASH Medication List - Last Reconciled 03/01/24 by MARY Clements amlodipine 10 mg PO DAILY atorvastatin 80 mg PO DAILY cholecalciferol (vitamin D3) 50 mcg PO DAILY cyanocobalamin (vitamin B-12) 1,000 mcg sublingual DAILY ezetimibe 10 mg PO DAILY levothyroxine 112 mcg PO DAILY lisinopril 40 mg PO DAILY metformin 500 mg PO DAILY metoprolol succinate ER 100 mg PO DAILY qspyedfu-gwv-KH-lycopen-lutein 0.4 mg-300 mcg- 250 mcg (Complete Multivitamin Adult 50 Plus) 1 tab PO DAILY triamcinolone acetonide 0.1% appl topical DAILY valacyclovir 4,000 mg PO ONCE vitamin B complex 1 tab PO DAILY HPI Comments Details: Jermaine is a very pleasant 58-year-old male patient of Dr. Conte. He has a past medical history of nodular sclerosing Hodgkin lymphoma, arthritis, diabetes, hypercholesteremia, hypertension, and carpal tunnel syndrome. He is being followed up on today via video telehealth. Patient was seen approximately 1 month ago as a new patient for left-sided testicular discomfort as well as hematospermia at which time he was treated for presumed epididymitis with ciprofloxacin. In discussion with the patient today he reports having completed antibiotic therapy as prescribed. He reports significant improvement in testicular/scrotal pain/discomfort he had been previously experiencing however he does continue to no hematospermia. We discussed at length potential causes of hematospermia as well as further workup in risks and benefits of these interventions. PSA 11/01 3.2. He denies incontinence, nocturia, hematuria, dysuria, foul smelling urine, changes to urinary stream, flank pain, fever, and or chills. He is happy with his current voiding parameters. He otherwise offers no other issues or concerns at this time. 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 Current occupational exposures/hazards: No Cognitive needs: No Hearing needs: No Vision needs: Yes Review of Systems Const All systems reviewed & are unremarkable except as noted in HPI and below Physical Exam Const General: cooperative, healthy appearing, comfortable, no acute distress, well developed, alert and awake Orientation/consciousness: patient oriented x3 Resp Effort & Inspection: normal respiratory effort and able to speak in complete sentences Neuro General: patient oriented x3 Psych Appearance: grossly normal and well kempt Mental Status: mental status grossly normal Speech and movement: Normal speech and movement present and Clear speech present Affect: normal affect Attitude: cooperative Thought content: Normal thought content present Insight: Fair insight present (Psych) Judgement: Fair judgement present (Psych) Telehealth Telehealth Telehealth Platform: [employer] Location of provider rendering services: practice address Location of patient: address on file Patient Identification confirmed using: Name, : Yes Telehealth method: voice only Patient verbally consented to treatment: Yes Patient verbally consented to billing insurance company: Yes Patient informed of any privacy concerns related to visit: Yes Minutes spent on Phone/Video with Pt.: 15 Assessment & Plan Assessment & Plan (1) Hematospermia: Code(s): R36.1 - Hematospermia Category: Medical (2) Epididymitis: Code(s): N45.1 - Epididymitis Category: Medical Plan Patient reports significant improvement in scrotal/testicular discomfort he had been experiencing. Will obtain PSA for further assessment evaluation. We discussed at length potential causes of hematospermia as well as further workup in risks and benefits of these interventions. Will continue with surveillance monitoring at this time. He currently denies any bothersome urinary issues. He reports be happy with current voiding parameters. Follow-up in 3 months with PSA to be completed prior; or sooner with any issues, concerns, and or questions. Orders: Orders Prostate Specific Antigen 3 Months N45.1 - Epididymitis, R36.1 - Hematospermia Coding Level of Care Code Tele Est Pt Level 3 (14640) Diagnoses Hematospermia R36.1 Epididymitis N45.1
--- OUTSIDE RECORDS SUMMARY | 2024-03-01 18:08 | XMS_ITS | Clinical Summary ---
Author Organization [facility] Address [address] [place] [address] Care Team Providers Care Business Information Analyst Name Role Phone Nhi Conte PA-C Primary Care Provider Allergies Active Allergy Reactions Criticality Noted Date Comments Tetracyclines & Related 11/08/2018 Medications Medication Sig Dispensed Refills Start Date End Date Status Cholecalciferol (VITAMIN D3) 3000 units TABS Take 3,000 Units by mouth daily. 0 Active B Ehudbjy-Qxfrld-MQ (SUPER B-50 COMPLEX PO) Take 1 tablet by mouth daily. 0 Active amLODIPine (NORVASC) tablet 10 mg Take 1 tablet (10 mg total) by mouth daily. 90 tablet 0 10/14/2021 Active atorvastatin (LIPITOR) tablet 80 mg Take 1 tablet (80 mg total) by mouth daily. 90 tablet 0 10/14/2021 Active ezetimibe (ZETIA) tablet 10 mg Take 1 tablet (10 mg total) by mouth daily. 90 tablet 0 10/14/2021 Active hydroCHLOROthiazide (HYDRODIURIL) tablet 25 mg Take 1 tablet (25 mg total) by mouth daily. 90 tablet 0 10/14/2021 Active metoprolol tartrate (LOPRESSOR) 100 MG tablet Take 1 tablet (100 mg total) by mouth daily. 90 tablet 0 10/14/2021 Active levothyroxine (SYNTHROID) tablet 112 mcg Take 1 tablet (112 mcg total) by mouth every morning on an empty stomach. 30 tablet 3 10/15/2021 Active lisinopril (PRINIVIL,ZESTRIL) tablet 20 mg Take 1 tablet (20 mg total) by mouth daily. 0 Active Active Problems Problem Noted Date Diagnosed Date Absolute anemia 04/08/2021 Leukocytosis 04/08/2021 Skin rash 04/08/2021 Nodular sclerosis Hodgkin lymphoma of lymph node s of neck 11/08/2018 Essential hypertension 11/08/2018 Mixed hyperlipidemia 11/08/2018 Gastroesophageal reflux disease 11/08/2018 Acquired hypothyroidism 11/08/2018 Colon adenoma 11/08/2018 Social History Tobacco Use Types Packs/Day Years Used Date Smoking Tobacco: Never Smokeless Tobacco: Never Tobacco Cessation:Counseling Given: Not Answered Alcohol Use Standard Drinks/Week Comments Yes 7 (1 standard drink = 0.6 oz pur e alcohol) Sex and Gender Information Value Date Recorded Sex Assigned at Not on file Gender Identity Not on file Sexual Orientation Not on file Job Start Date Occupation Industry Not on file Not on file Not on file Last Filed Vital Signs Vital Sign Reading Time Taken Comments Blood Pressure 134/71 12/17/2022 9:18 AM EST Pulse 87 12/17/2022 9:18 AM EST Temperature 36.8 ??C (98.3 ??F) 12/17/2022 9:18 AM ES T Respiratory Rate - - Oxygen Saturation 97% 12/17/2022 9:18 AM EST Inhaled Oxygen Concentration - - Weight 132.6 kg (292 lb 6.4 oz) 12/17/2022 9:18 AM EST Height 182.9 cm (6') 04/08/2021 2:53 PM EST Body Mass Index 39.66 04/08/2021 2:53 PM EST Plan of Treatment Health Maintenance Due Date Last Done Comments Hepatitis B Vaccines (1 of 3 - 3-dose series) 1965 Hepatitis C Screening 1965 Pneumococcal Vaccine (1 of 2 - PCV) 05/16/1971 Depression Screening 1977 Preventative Health Evaluation 05/16/1983 Colon Cancer Screening (Colonoscopy) 2010 COVID-19 Vaccine ( season) 2023 12/03/2020, 05/22/2020, 05/01/2020 Influenza Vaccine (#1) 2023 2, 11/30/2020, 10/18/2019, Additional history exists DTap / Tdap / Td (2 - Td or Tdap) 11/07/2024 11/07/2014 Shingrix-Zoster Vaccine Completed 12/19/2018, 10/19 RSV Ped < 20 months Aged Out No longe r eligible based on patient's age to complete this topic Care Teams Business Information Analyst Relationship Specialty Start Date End Date Nhi Conte, SHAWNC PCP - General Physician Education Administrator 01/15/22
--- OUTSIDE RECORDS SUMMARY | 2024-03-01 18:08 | XMS_ITS | Clinical Summary ---
Author Organization [facility] Address [address] [place] [address] Phone Care Team Providers Care School Community Relations Coordinator Name Role Phone Nhi Conte Primary Care Provider [phone] Allergies Active Allergy Reactions Criticality Noted Date Comments Tetracyclines 11/08/2018 Medications Medication Sig Dispensed Refills Start Date End Date Status vit B comp/folic/choline/priscilla si (SUPER B-50 COMPLEX ORAL) Take 1 tablet by mouth daily. Active amLODIPine (NORVASC) 10 mg tablet Take 1 tablet (10 mg total) by mouth 1 (one) time each day. 10/14/2021 Active atorvastatin (LIPITOR) 80 mg tablet Take 1 tablet (80 mg total) by mouth. 10/14/2021 Active cholecalciferol, vitamin D3, 75 mcg (3,000 unit) tablet Take 3,000 Units by mouth daily. Active ezetimibe (ZETIA) 10 mg tablet Take 1 tablet (10 mg total) by mouth 1 (one) time each day. 10/14/2021 Active levothyroxine (SYNTHROID, LEVOTHROID) 112 mcg tablet Take 1 tablet (112 mcg total) by mouth every morning on an empty stomach. Active lisinopril (PRINIVIL,ZESTRIL) 40 mg tablet Take 1 tablet (40 mg total) by mouth 1 (one) time each day. Active metoprolol tartrate (LOPRESSOR) 100 mg tablet Take 1 tablet (100 mg total) by mouth 1 (one) time each day. 10/14/2021 Active metFORMIN (GLUCOPHAGE) 500 mg tablet Take 1 tablet (500 mg total) by mouth 1 (one) time each day. 12/18/2023 Active triamcinolone (KENALOG) 0.1 % cream MIX ENTIRE TUBE INTO ONE POUND JAR OF CERAVE. PUT ON BODY EVERY DAY. NOT FOR FACE 05/31/2023 Active Active Problems Problem Noted Date Diagnosed Date Absolute anemia 04/08/2021 Leukocytosis 04/08/2021 Skin rash 04/08/2021 Acquired hypothyroidism 11/08/2018 Colon adenoma 11/08/2018 Essential hypertension 11/08/2018 Gastroesophageal reflux disease 11/08/2018 Mixed hyperlipidemia 11/08/2018 Nodular sclerosis Hodgkin lymphoma of lymph node s of neck 11/08/2018 Encounters Date Type Department Care Team Description 12/20/2023 9:15 AM EST Office Visit [facility] Hematology Oncology [address] [place] [address] Elsie Chavez MD 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 (CMS/HCC) (Primary Dx); Anemia in neoplastic disease; Colon adenoma; Gastroesophageal reflux disease without esophagitis from Last 3 Months Immunizations Name Administration Dates Next Due Pfizer SARS-CoV-2 COVID-19, mRNA, LNP-S, preservative free 12/03/2020,05/22/2020,05/01/2020 Surgical History Surgery Date Site/Laterality Comments TOTAL KNEE ARTHROPLASTY 10/09/2021 Bilateral PROCEDURE:TOTAL KNEE ARTHROPLASTY CARPAL TUNNEL RELEASE Social History Tobacco Use Types Packs/Day Years Used Date Smoking Tobacco: Never Smokeless Tobacco: Never Tobacco Cessation:Counseling Given: Not Answered Alcohol Use Standard Drinks/Week Comments Yes 7 (1 standard drink = 0.6 oz pur e alcohol) Sex and Gender Information Value Date Recorded Sex Assigned at Male 11/27/2023 4:42 AM EDT Gender Identity Male 11/27/2023 4:42 AM EDT Sexual Orientation Straight 11/27/2023 4: 42 AM EDT Job Start Date Occupation Industry Not on file Not on file Not on file Obstetrics History Last Filed Vital Signs Vital Sign Reading Time Taken Comments Blood Pressure 133/76 12/20/2023 9:22 AM EST Pulse 75 12/20/2023 9:22 AM EST Temperature 36.7 ??C (98.1 ??F) 12/20/2023 9:22 AM ES T Respiratory Rate - - Oxygen Saturation 97% 12/20/2023 9:22 AM EST Inhaled Oxygen Concentration - - Weight 118 kg (260 lb) 12/20/2023 9:22 AM EST Height 182.9 cm (6') 12/20/2023 9:22 AM EST Body Mass Index 35.26 12/20/2023 9:22 AM EST Plan of Treatment Upcoming Encounters Date Type Department Care Team (Late st Contact Info) Description 01/01/2025 9:00 AM EST Office Visit [facility] Hematology Oncology [address] [place] [address] Elsie Chavez MD [address] [place] [address] Health Maintenance Due Date Last Done Comments Pneumococcal Vaccine: Pediatrics (0 to 5 Years) and At-Risk Patients (6 to 64 Years) (1 of 2 - PCV) 05/16/1971 Diabetes: Annual Foot Exam 05/16/1975 Diabetes: Annual Retina Eye Exam 05/16/1975 Hepatitis B Vaccines (1 of 3 - 19+ 3-dose series) 1984 Diabetes: Annual GFR (Glomerular Filtration Rate) 08/23/2018 08/23/2017 Colorectal Cancer Screening: Colonoscopy 01/17/2022 Depression Screening 01/17/2022 HIV Screening 01/17/2022 Hepatitis C Screening 01/17/2022 Medicare Annual Wellness Visit 01/17/2022 Social Influencers of Health Screening 01/17/2022 Hypertension/CHF/CAD Annual BMP Blood Test 01/18/2022 08/23/2017 Cholesterol Screening (Lipid Panel) 08/23/2022 08/23/2017 COVID-19 Vaccine ( season) 2023 12/03/2020, 05/22/2020, 05/01/2020 Diabetes: Annual Urine Albumin-Creatinine Ratio (uACR) 12/20/2023 Diabetes: Blood Sugar Control Test (HGBA1C) 12/20/2023 DTaP,Tdap,and Td Vaccines (3 - Td or Tdap) 08/04/2033 08/05/2023, 11/07/2014 Zoster Vaccines Completed 12/19/2018, 10/19/2018 Influenza Vaccine Completed 11/22/2023, , 11/23/2021, Additional history exists HIB Vaccines Aged Out No longer eligi ble based on patient's age to complete this topic HPV Vaccines Aged Out No longer eligi ble based on patient's age to complete this topic Hepatitis A Vaccines Aged Out No long er eligible based on patient's age to complete this topic IPV Vaccines Aged Out No longer eligi ble based on patient's age to complete this topic MMR Vaccines Aged Out No longer eligi ble based on patient's age to complete this topic Meningococcal ACWY Vaccine Aged Out N o longer eligible based on patient's age to complete this topic RSV Immunization Patients Under 20 months Aged Out No longer eligible based on patient's age to complete this topic Varicella Vaccines Aged Out No longer eligible based on patient's age to complete this topic Procedures Procedure Name Priority Date/Time Associated Diagnosis Comments EXTERNAL ENDOSCOPY REPORT 12/20/2023 from Last 3 Months Results * EXTERNAL ENDOSCOPY REPORT (12/20/2023) Anatomical Region Laterality Modality Endoscopy Provider Onbase GI~PROCEDURE ORDERAB LES from Last 3 Months Care Teams School Community Relations Coordinator Relationship Specialty Start Date End Date Nhi Conte PA [address] [place] [address] PCP - General 01/15/22
== END 2024-03-01 16:34 | disposition home or self-care (01) ==
LOC: HO.HUSH 16:02
PROVIDERS: PCP Physician Assistant; Visit Provider Nurse Practitioner Family
DX: R36.1 Hematospermia (principal); N45.1 Epididymitis
CPT/HCPCS: 98013

== ENCOUNTER 2024-05-10 08:41 | Outpatient (AMB) | payer OTHER, SELFPAY ==
--- NOTE | 2024-05-10 08:54 | A.OFFPC_ITS ---
Vital Signs 05/10/24 08:57 Height 6 ft Weight 265 lb 2 oz BMI 36.0 BP 130/74 Blood Pressure Location Rt brachial Position Sitting Respiration 16 Pulse 81 Pulse Source Pulse Oximeter Pulse Oximetry (%) 97 Oxygen Delivery Method Room Air Intake Visit Reasons: dm Intake Note: Diabetes follow up Propeller Layout Worker Required: No Allergies tetracycline [Tetracycline] Allergy (Mild, Verified 05/10/24 08:56) RASH Medication List - Last Reconciled 05/10/24 by Nhi Conte PA-C amlodipine 10 mg PO DAILY atorvastatin 80 mg PO DAILY cholecalciferol (vitamin D3) 50 mcg PO DAILY cyanocobalamin (vitamin B-12) 1,000 mcg sublingual DAILY ezetimibe 10 mg PO DAILY levothyroxine 112 mcg PO DAILY lisinopril 40 mg PO DAILY metformin 500 mg PO DAILY metoprolol succinate ER 100 mg PO DAILY yqguiwjf-rks-EQ-lycopen-lutein 0.4 mg-300 mcg- 250 mcg (Complete Multivitamin Adult 50 Plus) 1 tab PO DAILY triamcinolone acetonide 0.1% appl topical DAILY valacyclovir 4,000 mg PO ONCE vitamin B complex 1 tab PO DAILY Tobacco use date assessed: 10/07/23 Dental Screening Dental Screen Date: 10/07/23 HPI dm HPI Details Pt is a 58 y/o male who presents today for a follow up. He has a significant past medical history of type 2 diabetes, hypothyroidism, hypertension, hyperlipidemia and nodular sclerosis Hodgkin lymphoma. Endo: DM- Dx last year. A1c today is 5.8. He is on metformin 500 mg daily. He lost 25 lbs with diet and exercise. Last eye exam within the year and no retinopathy. Follows annually. CV: bp is 130/74. He is on norvasc 10 mg, metoprolol 100 mg, and lisinopril 40 mg. Cholesterol controlled with zetia and atorvastatin. Heme: Following with Dr. East. 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 He has been in remission for 21 years following diagnosis. recommendation of upper endoscopy given hx of GERD and newer PRISCILLA GI:Has gerd and intermittently symptomatic. No difficulty swallowing. Seeing them in June. Appointment was switched from March. Urology: following for hematospermia next month. He states that his symptoms have improved.. Colonoscopy: 01/2023- polyps due in 2027 [facility] Medical History Nodular sclerosing Hodgkin lymphoma Cancer Arthritis Diabetes High cholesterol High blood pressure Carpal tunnel syndrome Surgical History History of knee replacement Family History Father High blood pressure Diabetes Cardiovascular disease Maternal Grandfather Diabetes Mother Cancer Social History Housing: House Alcohol intake: current Patient Tobacco Use Status: Former Tobacco user Tobacco use type: Cigar Years Smoked: 2 e-Cigarette/Vaping Use: Never Used Second Hand Smoke Exposure: No service: No Current occupational status: employed 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 1. Little interest or pleasure in doing things: not at all 2. Feeling down, depressed, or hopeless: not at all 3. Trouble falling or staying asleep, or sleeping too much: not at all 4. Feeling tired or having little energy: not at all 5. Poor appetite or overeating: not at all 6. Feeling bad about yourself - or that you are a failure or have let yourself or your family down: not at all 7. Trouble concentrating on things, such as reading the newspaper or watching television: not at all 8. Moving or speaking so slowly that other people could have noticed. Or the opposite - being so fidgety or restless that you have been moving around a lot more than usual: not at all 9. Thoughts that you would be better off or of hurting yourself in some way: not at all Total score: 0 Depression Screening Interpretation: Negative Depression Screening Done: Yes 19006 - PHQ-9 Billing: Yes Source: Developed by Drs. Monty Vaughn, Sofia Woods, Chava Leonardo and colleagues, with an educational kenji from [facility]. Thrive Questionnaire Date Thrive assessed: 05/04/24 I am a: Patient What is your living situation today?: I choose not to answer this question Within the past 12 months, did the food you bought not last and you didn't have the money to get more?: I choose not to answer this question Within the past 12 months, did you worry whether your food would run out before you got money to buy more?: I choose not to answer this question Do you have trouble paying for medicines?: No Do you have trouble getting transportation to medical appointments?: I choose not to answer this question Do you have trouble paying your heating and electricity bill?: I choose not to a nswer this question Do you have trouble taking care of your child, family member or friend?: I choose not to answer this question Do you have trouble with day-to-day activities such as bathing, preparing meals, shopping, managing finances, etc.?: I choose not to answer this question Are you currently unemployed and looking for a job?: I choose not to answer this question Are you interested in more education?: I choose not to answer this question Please select the resources that you would like help with: None Currently or been in a relationship where the following occur: I choose not to answer THRIVE Score: 0 AUDIT C Alcohol Use Questionnaire (AUDIT-C) 1. How often do you have a drink containing alcohol?: 4 or more times a week 2. How many drinks containing alcohol do you have on a typical day when you are drinking?: 1 or 2 3. How often do you have six or more drinks on one occasion?: Never Total Score: 4 PAM-7 AMB Questionnaire PAM-7 Date PAM - 7 assessed: 01/05/24 Feeling nervous, anxious, or on edge: 0 = Not at all Not being able to stop or control worryin = Not at all Worrying too much about different things: 0 = Not at all Trouble relaxin = Not at all Being so restless that it is hard to sit still: 0 = Not at all Becoming easily annoyed or irritable: 0 = Not at all Feeling afraid as if something awful might happen: 0 = Not at all Total PAM-7 score (0-4 normal; 5-9 mild; 10-14 moderate; 15-21 severe): 0 Source: Developed by Drs. Monty LSofia Livingston Kurt Kroenke and colleagues, with an educational kenji from [facility]. PAM-7 Assessment Billing PAM-7 Assessment Tool: PAM-7 Assessment 75197 Physical exam (Primary Care) Vital Signs: Last Vital Signs Pulse 81 05/10/24 08:57 Resp 16 05/10/24 08:57 BP 130/74 05/10/24 08:57 Pulse Ox 97 05/10/24 08:57 Oxygen Delivery Method Room Air 05/10/24 08:57 BMI result Body Mass Index 36.0 Tobacco/Smoking Status: Tobacco use Status Tobacco use date assessed 10/07/23 05/10/24 09:03 Patient Tobacco Use Status Former Tobacco user 05/10/24 09:03 Tobacco use type Cigar 05/10/24 09:03 e-Cigarette/Vaping Use Never Used 05/10/24 09:03 PHQ-9: PHQ-9 Score PHQ-9: Total score 0 05/10/24 09:17 Depression Screening Interpretation: Negative Thrive Assessment: Date of Thrive Assessment Date Thrive assessed 05/04/24 05/10/24 09:03 Currently or been in a relationship where the following occur: I choose not to answer Const Orientation/consciousness: patient oriented x3 HENMT Ears: hearing grossly normal bilaterally Neck Thyroid: Thyroid normal Lymphatic: no lymphadenopathy noted Resp Auscultation: clear to auscultation bilaterally Cardio Rate: regular rate Rhythm: regular rhythm Heart sounds: S1 normal heart sound present and S2 normal heart sound present GI Inspection: Yes normal to inspection Palpation (GI): Soft to palpation and Other GI palpation findings present (nontender, no cva tenderness) Auscultation: normoactive bowel sounds Rectal Exam - Male: Yes deferred Skin General skin exam: no rashes or lesions noted Neuro General: patient oriented x3, gait normal and no focal motor deficits Results Reviewed Results Reviewed: US/US carotid duplex BI IMPRESSION: 1. RIGHT: Normal right internal carotid artery without atherosclerotic plaque or hemodynamically significant stenosis. 2. LEFT: Normal left internal carotid artery without atherosclerotic plaque or hemodynamically significant stenosis Coding Level of Care Code Est Pt Level 4 (78774) Complex EM visit Add On G2211 Diagnoses HTN (hypertension), benign I10 Well controlled type 2 diabetes mellitus with peripheral neuropathy E11.42 Hyperlipidemia E78.5 PRISCILLA (iron deficiency anemia) D50.9 Additional Codes PAM-7 Assessment Billing - PAM-7 Assessment Tool: PAM-7 Assessment [id number] ([id number]) PHQ-9 - 93528 - PHQ-9 Billing: Yes ([id number]) Assessment & Plan Assessment & Plan (1) HTN (hypertension), benign: Code(s): I10 - Essential (primary) hypertension Category: Medical Plan: WNL. Continue current regimen (2) Well controlled type 2 diabetes mellitus with peripheral neuropathy: Code(s): E11.42 - Type 2 diabetes mellitus with diabetic polyneuropathy Category: Medical Plan: As above. Labs ordered. We will monitor (3) Hyperlipidemia: Code(s): E78.5 - Hyperlipidemia, unspecified Category: Medical Plan: Lipids and LFTs were completed today. We will follow up pending test results (4) PRISCILLA (iron deficiency anemia): Code(s): D50.9 - Iron deficiency anemia, unspecified Category: Medical Plan: Labs ordered. We will monitor. Orders: Orders Comprehensive [place]. Panel Fast Today E11.42 - Type 2 diabetes mellitus with diabetic polyneuropathy, E78.5 - Hyperlipidemia, unspecified, I10 - Essential (primary) hypertension TSH reflex Free T4 Today E11.42 - Type 2 diabetes mellitus with diabetic polyneuropathy, E78.5 - Hyperlipidemia, unspecified, I10 - Essential (primary) hypertension Complete Blood Count Auto Diff Today D50.9 - Iron deficiency anemia, unspecified IRON PROFILE Today D50.9 - Iron deficiency anemia, unspecified Lyme IgG/IgM w/reflex to WB Today D50.9 - Iron deficiency anemia, unspecified, E11.42 - Type 2 diabetes mellitus with diabetic polyneuropathy, E78.5 - Hyperlipidemia, unspecified, I10 - Essential (primary) hypertension, M25.551 - Pain in right hip, M25.552 - Pain in left hip Vitamin B12 and Folate Today D50.9 - Iron deficiency anemia, unspecified, E11.42 - Type 2 diabetes mellitus with diabetic polyneuropathy, E78.5 - Hyperlipidemia, unspecified, I10 - Essential (primary) hypertension, M25.551 - Pain in right hip, M25.552 - Pain in left hip Rheumatoid Factor Today M25.551 - Pain in right hip, M25.552 - Pain in left hip Vitamin D 25-OH Total Today D50.9 - Iron deficiency anemia, unspecified, E11.42 - Type 2 diabetes mellitus with diabetic polyneuropathy, E78.5 - Hyperlipidem ia, unspecified, I10 - Essential (primary) hypertension, M25.551 - Pain in right hip, M25.552 - Pain in left hip Medications: New meloxicam 15 mg PO DAILY 90 tabs 1RF
[2024-05-10 08:57] VITALS: BP 130/74; PULSE 81; RESP 16; O2SAT 97; BMI 36.0
--- OUTSIDE RECORDS SUMMARY | 2024-05-10 09:10 | XMS_ITS | Clinical Summary ---
Author Organization [facility] Address [address] [place] [address] Phone Care Team Providers Care Barrel Lathe Operator Inside Name Role Phone Nhi Conte Primary Care Provider [phone] Allergies Active Allergy Reactions Criticality Noted Date Comments Tetracyclines 11/08/2018 Medications vit B comp/folic/chol ine/inosi (SUPER B-50 COMPLEX ORAL) Take 1 tablet by mouth daily. Active amLODIPine (NORVASC) 10 mg tablet Take 1 tablet (10 mg total) by mouth 1 (one) time each day. 10/14/2021 Active atorvastatin (LIPITOR) 80 mg tablet Take 1 tablet (80 mg total) by mouth. 10/14/2021 Active cholecalciferol , vitamin D3, 75 mcg (3,000 unit) tablet Take 3,000 Units by mouth daily. Active ezetimibe (ZETIA) 10 mg tablet Take 1 tablet (10 mg total) by mouth 1 (one) time each day. 10/14/2021 Active levothyroxine (SYNTHROID, LEVOTHROID) 112 mcg tablet Take 1 tablet (112 mcg total) by mouth every morning on an empty stomach. Active lisinopril (PRINIVIL,ZESTR IL) 40 mg tablet Take 1 tablet (40 [...] of lymph node s of neck 11/08/2018 Immunizations Name Administration Dates Next Due Pfizer [...] Assigned at Male 11/27/2023 4:42 AM EDT Legal Sex Male 9:36 PM EST Gender Identity Male 11/27/2023 4:42 AM EDT Sexual Orientation Straight 11/27/2023 4: 42 AM EDT Obstetrics History Last Filed Vital Signs Vital [...] Description 01/01/2025 9:00 AM EST Office Visit [facility] Hematology Oncology [address] [place] [address] Elsie Chavez MD [address] [place] [address] Health Maintenance Due Date Last Done Comments Diabetes: Annual Foot Exam 05/16/1975 Diabetes: Annual Retina Eye Exam 05/16/1975 Hepatitis B Vaccines (1 of 3 - 19+ 3-dose series) 1984 Pneumococcal Vaccine: 50+ Years (1 of 2 - PCV) 1984 Pneumococcal Vaccine: Pediatrics (0 to 5 Years) and At-Risk Patients (6 to 64 Years) (1 of 2 - PCV) 1984 Diabetes: Annual GFR (Glomerular Filtration Rate) [...] patient's age to complete this topic Meningococcal B Vacine Aged Out No lo nger eligible based on patient's age to complete this topic RSV Immunization Patients Under 20 months Aged Out No longer eligible based on patient's age to complete this topic Varicella Vaccines Aged Out No longer eligible based on patient's age to complete this topic Insurance [employer] Care Teams Barrel Lathe Operator Inside Relationship Specialty Start Date End Date Nhi Conte PA [address] [place] [address] PCP - General 01/15/22
--- OUTSIDE RECORDS SUMMARY | 2024-05-10 09:10 | XMS_ITS | Clinical Summary ---
Author Organization [facility] Address [address] [place] [address] Care Team Providers Care Wire Welder Name Role Phone Nhi Conte PA-C Primary Care Provider Allergies Active Allergy Reactions Criticality Noted Date Comments Tetracyclines & Related 11/08/2018 Medications Medication Sig Dispensed Refills Start Date End Date Status Cholecalciferol (VITAMIN D3) 3000 units TABS Take 3,000 Units by mouth daily. 0 Active B Cwyvulo-Uqwblq-DW (SUPER B-50 COMPLEX PO) Take 1 tablet [...] age to complete this topic Care Teams Wire Welder Relationship Specialty Start Date End Date Nhi Conte, SHAWNC PCP - General Physician Chief Procurement Officer 01/15/22
== END 2024-05-10 09:28 | disposition home or self-care (01) ==
LOC: HO.HMCFM 08:41
PROVIDERS: PCP Physician Assistant; Visit Provider Physician Assistant
DX: I10 Essential (primary) hypertension (principal); E11.42 Type 2 diabetes mellitus with diabetic polyneuropathy; E78.5 Hyperlipidemia, unspecified; D50.9 Iron deficiency anemia, unspecified

== ENCOUNTER → 2024-05-10 08:41 | Outpatient (BNVA) | payer OTHER, SELFPAY | PROVIDERS: PCP Physician Assistant; Visit Provider Physician Assistant | DX: E11.42 Type 2 diabetes mellitus with diabetic polyneuropathy (principal); I10 Essential (primary) hypertension; E78.5 Hyperlipidemia, unspecified; D50.9 Iron deficiency anemia, unspecified | CPT/HCPCS: 83036; 96127 ==

== ENCOUNTER 2024-05-10 09:37 | Outpatient (REF) | payer OTHER, SELFPAY ==
--- OUTSIDE RECORDS SUMMARY | 2024-05-10 10:49 | XMS_ITS | Clinical Summary ---
Author Organization [facility] Address [address] [place] [address] Care Team Providers Care Packing House Laborer Name Role Phone Nhi Conte PA-C Primary Care Provider [phone] Allergies Active Allergy Reactions Criticality Noted Date Comments Tetracyclines & Related 11/08/2018 Medications Medication Sig Dispensed Refills Start Date End Date Status Cholecalciferol (VITAMIN D3) 3000 units TABS Take 3,000 Units by mouth daily. 0 Active B Jwtnoqi-Dqkxkf-TW (SUPER B-50 COMPLEX PO) Take 1 tablet [...] age to complete this topic Care Teams Packing House Laborer Relationship Specialty Start Date End Date Nhi Conte, SHAWNC PCP - General Physician Branch Service Representative 01/15/22
--- OUTSIDE RECORDS SUMMARY | 2024-05-10 10:49 | XMS_ITS | Clinical Summary ---
Author Organization [facility] Address [address] [place] [address] Phone Care Team Providers Care Home Health Caregiver Name Role Phone Nhi Cotne Primary Care Provider [phone] Allergies Active Allergy Reactions Criticality Noted Date [...] [facility] Hematology Oncology [address] [place] [address] Elsie Chavez MD [address] [place] [address] Health Maintenance Due Date [...] [employer] Care Teams Home Health Caregiver Relationship Specialty Start Date End Date Nhi Conte PA [address] [place] [address] PCP - General 01/15/22
[2024-05-10 11:18] LABS: MANUAL DIFF FLAG NO
[2024-05-10 11:32] LABS: Basophils Absolute Auto 0.1 X10*3/uL (0.0-0.2); Basophils Percent Auto 0.7 % (0-2); Eosinophils Absolute Auto 0.2 X10*3/uL (0.0-0.4); Eosinophils Percent Auto 1.8 % (0-4); Hematocrit 38.9 % (42.0-52.0); Imm Gran Abs Auto 0.04 X10*3/uL (0.00-0.03); Imm Gran Pct Auto 0.5 % (0.0-0.4); Lymphocytes Absolute Auto 1.3 X10*3/uL (1.2-4.9); Mean Corpuscular HGB Conc 33.4 g/dl (31.0-36.0); Mean Corpuscular Hemoglobin 30.4 pg (27.0-33.0); Mean Corpuscular Volume 90.9 fL (80.0-98.0); Mean Platelet Volume 11.1 fL (9.4-12.4); Monocytes Percent Auto 11.6 % (2-11); Neutrophils Absolute Auto 5.9 x10*3/uL (2.0-8.3); Neutrophils Percent Auto 70.4 % (45-73); Platelet Count 258 X10*3/uL (160-400); Red Blood Count 4.28 X10*6/uL (4.60-5.80); White Blood Count 8.4 X10*3/uL (4.8-10.8)
[2024-05-10 11:48] LABS: Iron 37 mcg/dL (45-160); Percent Iron Saturation 13 % (15-50); Total Iron Binding Capacity 295 mcg/dL (228-428); Unsaturated Iron Binding 258 ug/dL
[2024-05-10 12:02] LABS: Rheumatoid Factor < 13.0 IU/mL (<15.0)
[2024-05-10 12:06] LABS: Prostate Specific Antigen 12.41 ng/mL (<0.05-4.0)
[2024-05-10 12:13] LABS: TSH reflex Free T4 1.78 uIU/mL (0.32-4.0); Vitamin D 25-OH Total 36.6 ng/mL (>30)
[2024-05-10 12:18] LABS: Folate 14.3 ng/mL (> or = 4.0); Vitamin B12 346 pg/mL (200-900)
[2024-05-11 21:43] LABS: Lyme Abs Screen <0.90 index
== END 2024-05-10 09:38 | disposition home or self-care (01) ==
LOC: HO.WFDLDS 09:37
PROVIDERS: Referring Provider Nurse Practitioner Family; Visit Provider Physician Assistant
DX: E11.42 Type 2 diabetes mellitus with diabetic polyneuropathy (principal); D50.9 Iron deficiency anemia, unspecified; I10 Essential (primary) hypertension; E78.5 Hyperlipidemia, unspecified; M25.551 Pain in right hip; M25.552 Pain in left hip; N45.1 Epididymitis; R36.1 Hematospermia; Z12.5 Encounter for screening for malignant neoplasm of prostate
CPT/HCPCS: 36415; 82306; 82607; 82746; 83540; 84153; 84443; 85025; 86431; 86617; 86618; 96127

== ENCOUNTER 2024-05-12 07:55 | Outpatient (REF) | payer OTHER, SELFPAY ==
--- OUTSIDE RECORDS SUMMARY | 2024-05-12 08:00 | XMS_ITS | Clinical Summary ---
Author Organization [facility] Address [address] [place] [address] Phone Care Team Providers Care Video Engineer Name Role Phone Nhi Conte Primary Care Provider [phone] Allergies Active Allergy Reactions Criticality Noted Date [...] Description 01/01/2025 9:00 AM EST Office Visit [facility] Hematology Oncology [address] [place] [address] Elsie Chavez MD [address] [place] [address] Health Maintenance Due Date [...] [employer] Care Teams Video Engineer Relationship Specialty Start Date End Date Nhi Conte PA [address] [place] [address] PCP - General 01/15/22
--- OUTSIDE RECORDS SUMMARY | 2024-05-12 08:01 | XMS_ITS | Clinical Summary ---
Author Organization [facility] Address [address] [place] [address] Care Team Providers Care Fibre Optic Cable Splicer Name Role Phone Nhi Conte PA-C Primary Care Provider Allergies Active Allergy Reactions Criticality Noted Date Comments Tetracyclines & Related 11/08/2018 Medications Medication Sig Dispensed Refills Start Date End Date Status Cholecalciferol (VITAMIN D3) 3000 units TABS Take 3,000 Units by mouth daily. 0 Active B Vxasymt-Nubcui-JL (SUPER B-50 COMPLEX PO) Take 1 tablet [...] age to complete this topic Care Teams Fibre Optic Cable Splicer Relationship Specialty Start Date End Date Nhi Conte, SHAWNC PCP - General Physician Package Line Relief Operator 01/15/22
[2024-05-12 12:20] LABS: PSA,Total (Free>4and<10) 13.37 ng/mL (0.00-4.00)
[2024-05-12 12:38] LABS: Alanine Aminotransferase 20 U/L (0-40); Albumin Level 4.4 g/dL (3.5-5.0); Alkaline Phosphatase 167 U/L (39-117); Anion Gap 13 (12-20); Aspartate Amino Transferase 25 U/L (5-37); Bilirubin Total 0.7 mg/dL (0.0-1.0); Blood Urea Nitrogen 18 mg/dL (9-16); Calcium 9.4 mg/dL (8.4-10.2); Carbon Dioxide 27 mmol/L (22-29); Chloride 106 mmol/L (96-108); Estimated Glomerular Filt Rate > 60; Glucose Fasting 107 mg/dL (60-99); Potassium 3.9 mmol/L (3.3-5.1); Sodium 142 mmol/L (135-145); Total Protein 7.6 g/dL (6.5-8.0)
== END 2024-05-12 07:56 | disposition home or self-care (01) ==
LOC: HO.WFDLDS 07:55
PROVIDERS: Referring Provider Nurse Practitioner Family; Visit Provider Physician Assistant
DX: E11.42 Type 2 diabetes mellitus with diabetic polyneuropathy (principal); I10 Essential (primary) hypertension; E78.5 Hyperlipidemia, unspecified; R97.20 Elevated prostate specific antigen [PSA]
CPT/HCPCS: 36415; 80053; 84153

== ENCOUNTER 2024-05-17 15:34 | Outpatient (REF) | payer OTHER, SELFPAY ==
--- NOTE | ~2024-05-17 | XR_ITS ---
EXAMINATION: XR LUMBOSACRAL SPINE CLINICAL INFORMATION: M54.50 - Low back pain, unspecified COMPARISON: August 01, 2007 is not available on PACS. TECHNIQUE: Three views of the lumbosacral spine. FINDINGS: Endplate sclerosis marginal osteophyte formation and decreased intervertebral disc height at L4-5 and L5-S1 level. Endplate sclerosis and marginal osteophyte formation T11-12. No acute cortical disruption or gross malalignment. Spina bifida occulta, S1. XR/XR lumbar spine 2-3V IMPRESSION: Spondylosis T11-12 and from L4-5 to L5-S1. Electronically signed by: Tejas Daley MD 05/18/2024 08:19 AM EDT
--- NOTE | ~2024-05-17 | XR_ITS ---
EXAMINATION: XR HIP 2 OR MORE VIEWS BILATERAL HISTORY: M25.551 - Pain in right hip COMPARISON: There are no prior studies for comparison. FINDINGS: Two views of each hip are submitted. Osseous mineralization is normal. There is no fracture or dislocation. The joint spaces are maintained. The soft tissues are unremarkable. XR/XR hips MU min 3V IMPRESSION: Unremarkable examination of the bilateral hips. Electronically signed by: Monty Eldridge MD 05/18/2024 08:28 AM EDT
--- OUTSIDE RECORDS SUMMARY | 2024-05-17 17:29 | XMS_ITS | Clinical Summary ---
Author Organization [facility] Address [address] [place] [address] Phone Care Team Providers Care Hr Administrator Name Role Phone Nhi Conte Primary Care Provider [phone] Allergies Active Allergy Reactions Criticality Noted Date [...] Description 01/01/2025 9:00 AM EST Office Visit [facility] Hematology Oncology [address] [place] [address] Elsie Chavez MD [address] [place] [address] Health Maintenance Due Date Last [...] - Td or Tdap) 08/04/2033 08/05/2023, 11/07/2014 RSV Immunization Adult Patients (1 - 1-dose 75+ series) 2040 Zoster Vaccines Completed 12/19/2018, 10/19/2018 Influenza Vaccine [...] age to complete this topic Meningococcal B Vaccine Aged Out No l onger eligible based on patient's age to complete this topic RSV Immunization Patients Under 20 months Aged Out No longer eligible based on patient's age to complete this topic Varicella Vaccines Aged Out No longer eligible based on patient's age to complete this topic Insurance [employer] Care Teams Hr Administrator Relationship Specialty Start Date End Date Nhi Conte PA [address] [place] [address] PCP - General 01/15/22
== END 2024-05-17 15:35 | disposition home or self-care (01) ==
LOC: HO.XRAY 15:34
PROVIDERS: PCP Physician Assistant; Visit Provider Physician Assistant
DX: M25.551 Pain in right hip (principal); M25.552 Pain in left hip; M54.50 Low back pain, unspecified
CPT/HCPCS: 72100; 73522

== ENCOUNTER → 2024-05-17 15:38 | Outpatient (BNV) | payer OTHER, SELFPAY | PROVIDERS: PCP Physician Assistant; Visit Provider Radiology Diagnostic Radiology | DX: M25.551 Pain in right hip (principal); M47.896 Other spondylosis, lumbar region | CPT/HCPCS: 72100; 73522 ==

== ENCOUNTER 2024-05-18 07:44 | Outpatient (REF) | payer OTHER, SELFPAY ==
--- OUTSIDE RECORDS SUMMARY | 2024-05-18 07:50 | XMS_ITS | Clinical Summary ---
Author Organization [facility] Address [address] [place] [address] Care Team Providers Care [employer] Teacher Name Role Phone Nhi Conte PA-C Primary Care Provider Allergies Active Allergy Reactions Criticality Noted Date Comments Tetracyclines & Related 11/08/2018 Medications Medication Sig Dispensed Refills Start Date End Date Status Cholecalciferol (VITAMIN D3) 3000 units TABS Take 3,000 Units by mouth daily. 0 Active B Vwpsaot-Phqnzj-ZI (SUPER B-50 COMPLEX PO) Take 1 tablet [...] age to complete this topic Care Teams [employer] Teacher Relationship Specialty Start Date End Date Nhi Conte, SHAWNC PCP - General Physician Spanish Tutor 01/15/22
--- OUTSIDE RECORDS SUMMARY | 2024-05-18 07:50 | XMS_ITS | Clinical Summary ---
Author Organization [facility] Address [address] [place] [address] Phone Care Team Providers Care Psychological Science Professor Name Role Phone Nhi Conte Primary Care Provider [phone] Allergies Active Allergy Reactions Criticality Noted Date [...] 11/08/2018 Mixed hyperlipidemia 11/08/2018 Nodular sclerosis Hodgkin ly mphoma of lymph nodes of neck ([facility] V24, [facility] V28) 11/08/2018 Immunizations Name Administration Dates Next Due [...] 01/01/2025 9:00 AM EST Office Visit [facility] Hematology Oncology [address] [place] [address] Elsie Chavez MD [address] [place] [address] Health Maintenance Due Date Last [...] [employer] Care Teams Psychological Science Professor Relationship Specialty Start Date End Date Nhi Conte PA [address] [place] [id number] PCP - General 01/15/22
[2024-05-18 12:22] LABS: Alanine Aminotransferase 26 U/L (0-40); Albumin Level 4.3 g/dL (3.5-5.0); Alkaline Phosphatase 202 U/L (39-117); Aspartate Amino Transferase 32 U/L (5-37); Bilirubin Direct 0.4 mg/dL (0.0-0.5); Bilirubin Total 0.9 mg/dL (0.0-1.0); Total Protein 7.4 g/dL (6.5-8.0)
[2024-05-18 12:29] LABS: Vitamin D 25-OH Total 28.8 ng/mL (>30)
[2024-05-23 11:58] LABS: Alk.Phos Iso. Macrohepatic 0 % (<=0); Alk.Phos Isoenzymes Bone 49 % (28-66); Alk.Phos Isoenzymes Intest 0 % (1-24); Alk.Phos Isoenzymes Liver 51 % (25-69); Alk.Phos Isoenzymes Placental 0 % (<=0); Alk.Phos Isoenzymes Total 186 U/L (35-144)
== END 2024-05-18 07:45 | disposition home or self-care (01) ==
LOC: HO.WFDLDS 07:44
PROVIDERS: Visit Provider Physician Assistant
DX: R97.20 Elevated prostate specific antigen [PSA] (principal); R74.8 Abnormal levels of other serum enzymes
CPT/HCPCS: 36415; 80076; 82306; 84080

== ENCOUNTER 2024-05-30 09:24 | Outpatient (REF) | payer OTHER, SELFPAY ==
--- NOTE | ~2024-05-30 | US_ITS ---
CLINICAL HISTORY: R74.8 - Abnormal levels of other serum enzymes --- Additional Notes or Special Inst ructions: please measure and assess prostate as well if possible; thank you US abdomen complete Comparison: None Findings: Gallbladder unremarkable, no stone formation or wall thickening. Common duct measures 4.6 mm. No sonographic Chen sign. Liver is homogeneous and normal in size and echogenicity. Main portal vein patent with normal direction of flow. Pancreas is unremarkable. Aorta and IVC patent and normal in caliber. The right kidney is normal, 12.0 cm in length. No focal abnormality or hydronephrosis. The left kidney is normal, 12.8 cm in length. No focal abnormality or hydronephrosis. The spleen is normal, 12.1 cm in length. No focal abnormality. Impression: No significant abnormalities. This document has been electronically signed by: Edmund Trevino MD on 05/30/2024 22:19:04
--- OUTSIDE RECORDS SUMMARY | 2024-05-30 10:14 | XMS_ITS | Clinical Summary ---
Author Organization [facility] Address [address] [place] [address] Care Team Providers Care Branding Specialist Name Role Phone Nhi Conte PA-C Primary Care Provider Allergies Active Allergy Reactions Criticality Noted Date Comments Tetracyclines & Related 11/08/2018 Medications Medication Sig Dispensed Refills Start Date End Date Status Cholecalciferol (VITAMIN D3) 3000 units TABS Take 3,000 Units by mouth daily. 0 Active B Uweokwy-Ubmlih-JW (SUPER B-50 COMPLEX PO) Take 1 tablet [...] age to complete this topic Care Teams Branding Specialist Relationship Specialty Start Date End Date Nhi Conte, SHAWNC PCP - General Physician Instrument Designer 01/15/22
--- OUTSIDE RECORDS SUMMARY | 2024-05-30 10:14 | XMS_ITS | Clinical Summary ---
Author Organization [facility] Address [address] [place] [address] Phone Care Team Providers Care Is Support Analyst Name Role Phone Nhi Conte Primary Care Provider [phone] Allergies Active Allergy Reactions Criticality Noted Date [...] ly mphoma of lymph nodes of neck ([facility] V24, [facility] V28) 11/08/2018 Immunizations Name Administration Dates [...] Description 01/01/2025 9:00 AM EST Office Visit [facility] Hematology Oncology [address] [place] [address] Elsie Chavez MD [address] [place] [address] Health Maintenance Due Date Last [...] [employer] Care Teams Is Support Analyst Relationship Specialty Start Date End Date Nhi Conte PA [address] [place] [address] PCP - General 01/15/22
== END 2024-05-30 09:25 | disposition home or self-care (01) ==
LOC: HO.US 09:24
PROVIDERS: PCP Physician Assistant; Visit Provider Nurse Practitioner Family
DX: R74.8 Abnormal levels of other serum enzymes (principal)
CPT/HCPCS: 76700

== ENCOUNTER → 2024-05-30 09:26 | Outpatient (BNV) | payer OTHER, SELFPAY | PROVIDERS: PCP Physician Assistant; Visit Provider Radiology Diagnostic Radiology | DX: R74.8 Abnormal levels of other serum enzymes (principal) | CPT/HCPCS: 76700 ==

== ENCOUNTER → 2024-06-02 08:19 | Outpatient (BNV) | payer OTHER, SELFPAY | PROVIDERS: PCP Physician Assistant; Visit Provider Radiology Diagnostic Radiology | DX: C79.51 Secondary malignant neoplasm of bone (principal); R59.0 Localized enlarged lymph nodes | CPT/HCPCS: 72197 ==

== ENCOUNTER 2024-06-02 08:21 | Outpatient (REF) | payer OTHER, SELFPAY ==
--- NOTE | ~2024-06-02 | MR_ITS ---
EXAMINATION: MR PROSTATE WITHOUT THEN WITH IV CONTRAST HISTORY: R97.20 - Elevated prostate specific antigen [PSA] TECHNIQUE: 1.5T body coil survey of the pelvis was performed. Phase array coil imaging of the prostate was performed in multiplanar high resolution axial, coronal, sagittal fast spin echo T2 and axial T1 weighted imaging sequences. Axial diffusion imaging at intermediate and high field performed with ADC mapping. Next, mL Gadavist was given by intravenous infusion, and dynamic axial imaging performed. COMPARISON: There are no prior studies for comparison. CLINICAL DATA: Most recent PSA: 13.37 ng/mL on 05/12/2024 PSA Density: 0.19 ng/mL squared Prostate Biopsy: None reported FINDINGS: Prostate size: 5.2 x 5.3 x 4.9 cm. Calculated prostate volume is 70.2 mL. Hemorrhage: None. Transitional Zone: There is mild heterogeneous nodular hypertrophy of the transitional zone. Peripheral Zone: There is a mass involving nearly the entire peripheral zone measuring approximately 4.7 cm in size. The mass appears to be centered on the right and demonstrates imaging characteristics as follows: Lesion #1: DWI PI-RADS v2.1 score: 5 T2 PI-RADS v2.1 score: 5 DCE PI-RADS v2.1 score: + Overall PI-RADS v2.1 score: 5 Capsular contact: yes Extracapsular extension: There is evidence for extracapsular extension on the right posteriorly. Seminal vesicle invasion: There is evidence of invasion of the seminal vesicles bilaterally, right greater than left. Neurovascular bundle involvement: Likely on the right. There is extension of the mass into the perirectal fat and invasion of the anterior wall of the rectum with lack of a normal fat plane. Pelvic Lymph Nodes: Multiple enlarged lymph nodes are noted, including a 1.4 cm right internal iliac node, a 1.2 cm left perirectal node, and a 1.5 cm left internal iliac lymph node. Marrow Signal: Multiple lesions are noted within the bilateral iliac bones, the bilateral proximal femora, and the bilateral ischial bones, consistent with metastatic disease. MR/MR Prostate wo/w con IMPRESSION: Findings consistent with prostate carcinoma involving the entire prostate gland with invasion of the rectum. There is associated pelvic lymphadenopathy as described as well as multiple bone metastases. PI-RADS 5: Very high (clinically significant cancer is highly likely to be present) PI-RADS Assessment Categories PI-RADS 1: Very low (clinically significant cancer is highly unlikely to be present) PI-RADS 2: Low (clinically significant cancer is unlikely to be present) PI-RADS 3: Intermediate (the presence of clinically significant cancer is equivocal) PI-RADS 4: High (clinically significant cancer is likely to be present) PI-RADS 5: Very high (clinically significant cancer is highly likely to be present) [employer]. MR Prostate Imaging Reporting and Data System version 2.1. [email or web address]-[email or web address] Electronically signed by: Monty Eldridge MD 06/02/2024 10:25 AM EDT
--- OUTSIDE RECORDS SUMMARY | 2024-06-02 08:26 | XMS_ITS | Clinical Summary ---
Author Organization [facility] Address [address] [place] [address] Phone Care Team Providers Care Fire Boss Name Role Phone Nhi Conte Primary Care Provider Allergies Active Allergy Reactions [...] ly mphoma of lymph nodes of neck ([facility] V24, [facility] V28) 11/08/2018 Immunizations Name Administration Dates Next [...] Description 01/01/2025 9:00 AM EST Office Visit [facility] Hematology Oncology [address] [place] [address] Elsie Chavez MD [address] [place] [address] Health Maintenance Due Date Last [...] [employer] [place] [employer] Care Teams Fire Boss Relationship Specialty Start Date End Date Nhi Conte PA [address] [place] [id number] PCP - General 01/15/22
--- OUTSIDE RECORDS SUMMARY | 2024-06-02 08:26 | XMS_ITS | Clinical Summary ---
Author Organization [facility] Address [address] [place] [address] Care Team Providers Care Quantitative Researcher Name Role Phone Nhi Conte PA-C Primary Care Provider Allergies Active Allergy Reactions Criticality Noted Date Comments Tetracyclines & Related 11/08/2018 Medications Medication Sig Dispensed Refills Start Date End Date Status Cholecalciferol (VITAMIN D3) 3000 units TABS Take 3,000 Units by mouth daily. 0 Active B Ppozebt-Lulwzy-SD (SUPER B-50 COMPLEX PO) Take 1 tablet [...] age to complete this topic Care Teams Quantitative Researcher Relationship Specialty Start Date End Date Nhi Conte, SHAWNC PCP - General Physician Jute Bag Cutting Machine Operator 01/15/22
[2024-06-02] MEDS: gadobutroL 10 ML VIAL IVPUSH (09:32)
== END 2024-06-02 08:22 | disposition home or self-care (01) ==
LOC: HO.MRI 08:21
PROVIDERS: PCP Physician Assistant; Visit Provider Nurse Practitioner Family
DX: R97.20 Elevated prostate specific antigen [PSA] (principal)
CPT/HCPCS: 72197; A9585

== ENCOUNTER 2024-06-05 15:11 | Outpatient (AMB) | payer OTHER, SELFPAY ==
--- NOTE | 2024-06-05 15:13 | A.OFFVIS_ITS ---
Intake Visit Reasons: 3m/PSA Intake Note: Patient presents today for follow up on: PSA lab and MRI results PSA: 13.37 Imaging Completed: 06/02/24 Urology Med: none Antibiotic Allergy:Tetracycline Blood Thinner:None [employer] Required: No Accompanied by: Unknown Allergies tetracycline [Tetracycline] Allergy (Mild, Verified 06/05/24 15:47) RASH Medication List - Last Reconciled 06/05/24 by YAHAIRA Clements- amlodipine 10 mg PO DAILY atorvastatin 80 mg PO DAILY cholecalciferol (vitamin D3) 50 mcg PO DAILY cyanocobalamin (vitamin B-12) 1,000 mcg sublingual DAILY ezetimibe 10 mg PO DAILY levothyroxine 112 mcg PO DAILY lisinopril 40 mg PO DAILY meloxicam 15 mg PO DAILY metformin 500 mg PO DAILY metoprolol succinate ER 100 mg PO DAILY hngdzmta-fqw-OX-lycopen-lutein 0.4 mg-300 mcg- 250 mcg (Complete Multivitamin Adult 50 Plus) 1 tab PO DAILY triamcinolone acetonide 0.1% appl topical DAILY valacyclovir 4,000 mg PO ONCE vitamin B complex 1 tab PO DAILY HPI Comments Details: Jermaine is a very pleasant 59-year-old male patient of Dr. Conte was accompanied by his at today's office visit. He has a past medical history of nodular sclerosing Hodgkin lymphoma, arthritis, diabetes, hypercholesteremia, hypertension, and carpal tunnel syndrome. He presents to the office today for follow-up of his elevated PSA. Of note, patient was seen approximately 3 months ago via telehealth for follow-up of his epididymitis at which time he had noted significant improvement status post completion of ciprofloxacin. Recent PSA results were reviewed with the patient today as noted and trended below: 11/01 3.2, 06/01 12.4, 06/01 13.4 Recent MRI results were reviewed with the patient and his today. Calculated prostate volume of 70.2 mL. There is a mass involving nearly the entire peripheral zone measuring a proximally 4.7 cm in size. The mass appears to be centered on the right. There is a mass involving nearly the entire peripheral zone measuring approximately 4.7 cm in size. Findings consistent with prostate carcinoma involving the entire prostate gland with invasion of the rectum. There is associated pelvic lymphadenopathy as well as multiple bone metastases. He discusses he continues to follow-up with Dr. East his oncologist as well as his PCP. We discussed findings at length. Questions were answered to the best of m y ability. We discussed proceeding with prostate biopsy. Risks and benefits of these interventions were discussed. He otherwise denies any bothersome urinary issues. He does however continue to report bilateral hip discomfort and back pain. He denies incontinence, nocturia, hematuria, dysuria, foul smelling urine, changes to urinary stream, flank pain, fever, and or chills. He is happy with his current voiding parameters. He otherwise offers no other issues or concerns at this time. History of Present Illness The patient is a 59-year-old male presenting with suspected prostate cancer fol lowing a significant rise in PSA levels from 3.2 to 13.4 since October of the previous year. An MRI suggested possible malignancy, and the patient has noted increasing soreness since May. Examination history involved testicular issues in January, with symptoms improving by February follow-up. Plan Focused on the suspected prostate cancer due to elevated PSA and MRI findings, a prostate biopsy is advised to delineate the malignancy. Prophylactic antibiotics are scheduled around the procedure to prevent infection. The biopsy results are critical for further management, considering interventions based on malignancy aspects. Patient was informed and verbally consented to the use of an ambient scribe for clinic note documentation during this visit. Discussion Notes I discussed with the patient the abnormal elevations in PSA and the MRI findings suggesting prostate malignancy. We reviewed the biopsy procedure, emphasizing it as a critical step to confirm diagnosis and determine the appropriate treatment path. Risks and benefits of the procedure were explained, including potential bleeding and infection prevented through a course of levofloxacin. The likelihood of malignancy was discussed, given the significant PSA increase and symptomatic presentation. The role and expertise of Dr. Woodruff for further management were conveyed along with the possibility of second opinions to ensure comprehensive care. I emphasized the importance of stratified management based on biopsy outcomes. Follow-up discussions and potential implications of treatment options were reviewed, ensuring understanding and consent for the outlined plan. [facility] Medical History Nodular sclerosing Hodgkin lymphoma Cancer Arthritis Diabetes High cholesterol High blood pressure Carpal tunnel syndrome Surgical History History of knee replacement Family History Father High blood pressure Diabetes Cardiovascular disease Maternal Grandfather Diabetes Mother Cancer Social History Housing: House Alcohol intake: current Patient Tobacco Use Status: Former Tobacco user Tobacco use type: Cigar Years Smoked: 2 e-Cigarette/Vaping Use: Never Used Second Hand Smoke Exposure: No service: No Current occupational status: employed 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 Current occupational exposures/hazards: No Cognitive needs: No Hearing needs: No Vision needs: Yes Review of Systems Const All systems reviewed & are unremarkable except as noted in HPI and below Physical Exam Const General: cooperative, healthy appearing, comfortable, no acute distress, well developed, alert and awake Nutritional Appearance: overweight Orientation/consciousness: patient oriented x3 Limitations: no limitations HEENT Head: Yes normal to inspection, Yes normocephalic and Yes atraumatic Ears: hearing grossly normal bilaterally Eyes General: appearance normal, both eyes and all related structures Neck Neck: Yes normal visual inspection and Yes trachea midline Chest Chest palpation & inspection: normal inspection of the chest Resp Effort & Inspection: normal respiratory effort and able to speak in complete sentences Cardio Rate: regular rate GI Inspection: Yes normal to inspection General: Yes no CVA tenderness Back/Spine/Pelvis Back: no CVA tenderness Skin General skin exam: no rashes or lesions noted Neuro General: patient oriented x3 Extrem General: Yes normal to inspection Psych Appearance: grossly normal and well kempt Mental Status: mental status grossly normal Speech and movement: Normal speech and movement present and Clear speech present Affect: normal affect Attitude: cooperative Thought process: Normal thought process present Thought content: Normal thought content present Insight: Fair insight present (Psych) Judgement: Fair judgement present (Psych) Results AMB Urinalysis, Automated UA Leukoctes 0 Ej/uL Last Edit by Hugo Landers on 06/05/24 15:39 UA Nitrite Last Edit by Hugo Landers on 06/05/24 15:39 UA Urobilinogen 0.2 mg/dL Last Edit by Hugo Landers on 06/05/24 15:39 UA Protein 30 mg/dL Last Edit by Hugo Landers on 06/05/24 15:39 UA pH 6.0 Last Edit by Hugo Landers on 06/05/24 15:39 UA Blood 10 Vick/uL Last Edit by Hugo Landers on 06/05/24 15:39 UA Specific [place] 1.015 Last Edit by Hugo Landers on 06/05/24 15:39 UA Ketone Last Edit by Hugo Landers on 06/05/24 15:39 UA Bilirubin 0 mg/dL Last Edit by Hugo Landers on 06/05/24 15:39 UA Glucose 0 mg/dL Last Edit by Hugo Landers on 06/05/24 15:39 Results Reviewed Results Reviewed: Laboratory Last Values Urine pH (Auto) 6.0 06/05/24 15:37 Specific [place] (Auto) 1.015 06/05/24 15:37 Urine Protein (Auto) 30 mg/dL 06/05/24 15:37 Glucose (UA)(Auto) 0 mg/dL 06/05/24 15:37 Urine Blood (Auto) 10 Vick/uL 06/05/24 15:37 Urine Bilirubin (Auto) 0 mg/dL 06/05/24 15:37 Urine Urobilinogen (Auto) 0.2 mg/dL 06/05/24 15:37 Leukocyte Esterase (Auto) 0 Ej/uL 06/05/24 15:37 Date of Service: 06/02/24 Procedure(s): MR Prostate wo/w con FINDINGS: Prostate size: 5.2 x 5.3 x 4.9 cm. Calculated prostate volume is 70.2 mL. Hemorrhage: None. Transitional Zone: There is mild heterogeneous nodular hypertrophy of the transitional zone. Peripheral Zone: There is a mass involving nearly the entire peripheral zone measuring approximately 4.7 cm in size. The mass appears to be centered on the right and demonstrates imaging characteristics as follows: Lesion #1: DWI PI-RADS v2.1 score: 5 T2 PI-RADS v2.1 score: 5 DCE PI-RADS v2.1 score: + Overall PI-RADS v2.1 score: 5 Capsular contact: yes Extracapsular extension: There is evidence for extracapsular extension on the right posteriorly. Seminal vesicle invasion: There is evidence of invasion of the seminal vesicles bilaterally, right greater than left. Neurovascular bundle involvement: Likely on the right. There is extension of the mass into the perirectal fat and invasion of the anterior wall of the rectum with lack of a normal fat plane. Pelvic Lymph Nodes: Multiple enlarged lymph nodes are noted, including a 1.4 cm right internal iliac node, a 1.2 cm left perirectal node, and a 1.5 cm left internal iliac lymph node. Marrow Signal: Multiple lesions are noted within the bilateral iliac bones, the bilateral proximal femora, and the bilateral ischial bones, consistent with metastatic disease. IMPRESSION: Findings consistent with prostate carcinoma involving the entire prostate gland with invasion of the rectum. There is associated pelvic lymphadenopathy as described as well as multiple bone metastases. PI-RADS 5: Very high (clinically significant cancer is highly likely to be present) Assessment & Plan Assessment & Plan (1) Elevated PSA: Code(s): R97.20 - Elevated prostate specific antigen [PSA] Category: Medical (2) Prostate mass: Code(s): N42.89 - Other specified disorders of prostate Category: Medical Plan: Plan Risks and benefits regarding trans rectal ultrasound with prostate biopsy were discussed.? Options of continued surveillance, no treatment and biopsy were offered. The risks include but are not limited to, urinary tract infection, sepsis, difficulty urinating, bleeding into the rectum or bladder that requires intervention and transfusion,and failure to diagnose prostate cancer. The patient understands the options and the risks involved. They wish to proceed. Printed information was provided to ensure he remains off anticoagulation for the appropriate length of time. He may require cardiology or PCP clearance.? An antibiotic will be administered prior to, and following the procedure Plan In office urinalysis results reviewed with the patient today; as noted above. Recent PSA results results were reviewed with the patient today; as noted above. Recent MRI results reviewed with the patient today; as noted above. We discussed risks and benefits of prostate biopsy All questions were answered Prescription provided for antibiotic therapy; we discussed specific instructions of taking antibiotic day before procedure, morning of procedure, and day after surgical procedure. Follow-up per doctor's orders; or sooner with any issues, concerns, and or questions. Orders: Orders AMB Urinalysis Automated Today Z13.9 - Encounter for screening, unspecified Medications: New levofloxacin take 1 tablet day before procedure, 1 tablet day of procedure and 1 tablet day after procedure 500 mg PO DAILY 3 tabs 0RF 3 days Patient Instructions: The patient had an opportunity to ask questions regarding the treatment plan. All questions were answered. Physical exam, labs, and imaging were discussed and reviewed in detail. As well as risks, benefits, and discussion of treatment choices. No major barriers to understanding were identified. The patient expressed understanding and agreement with the above treatment plan. The patient was made aware they should contact our office by phone for worsening of their current condition, the appearance of new symptoms, or with any questions or concerns. Compliance is encouraged with any medications and follow up testing that is ordered. It is a privilege to be allowed the opportunity to participate in? your urological care.? Again, if you have any questions or concerns If you have any questions or concerns please do not hesitate to contact me. The office is [phone]. This note is constructed using voice recognition software. While every effort has been made to ensure accuracy plant engineer errors may have been included. Yours sincerely, MARY Clements Coding Level of Care Code Est Pt Level 4 (63463) Diagnoses Elevated PSA R97.20 Prostate mass N42.89
--- OUTSIDE RECORDS SUMMARY | 2024-06-05 18:00 | XMS_ITS | Clinical Summary ---
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
--- OUTSIDE RECORDS SUMMARY | 2024-06-05 18:00 | XMS_ITS | Clinical Summary ---
Author Organization [facility] Address [address] [place] [address] Care Team Providers Care Otologist Name Role Phone Nhi Conte PA-C Primary Care Provider [phone] Allergies Active Allergy Reactions Criticality Noted Date Comments Tetracyclines & Related 11/08/2018 Medications Medication Sig Dispensed Refills Start Date End Date Status Cholecalciferol (VITAMIN D3) 3000 units TABS Take 3,000 Units by mouth daily. 0 Active B Jjnvlyz-Wxxifs-EY (SUPER B-50 COMPLEX PO) Take 1 tablet [...] age to complete this topic Care Teams Otologist Relationship Specialty Start Date End Date Nhi Conte, SHAWNC PCP - General Physician Wet Process Miller 01/15/22
== END 2024-06-05 15:46 | disposition home or self-care (01) ==
LOC: HO.HUSH 15:12
PROVIDERS: PCP Physician Assistant; Visit Provider Nurse Practitioner Family
DX: R97.20 Elevated prostate specific antigen [PSA] (principal); N42.89 Other specified disorders of prostate; Z13.9 Encounter for screening, unspecified
CPT/HCPCS: 99214

== ENCOUNTER → 2024-06-05 15:11 | Outpatient (BNVA) | payer OTHER, SELFPAY | PROVIDERS: PCP Physician Assistant; Visit Provider Nurse Practitioner Family | DX: R97.20 Elevated prostate specific antigen [PSA] (principal); N42.89 Other specified disorders of prostate | CPT/HCPCS: 81003 ==

== ENCOUNTER 2024-06-09 14:57 | Outpatient (REF) | payer OTHER, SELFPAY ==
--- OUTSIDE RECORDS SUMMARY | 2024-06-09 15:58 | XMS_ITS | Encounter Summary ---
Author Organization [facility] [place] [address] Care Team Providers Care Oracle Applications Analyst Name Role Phone Nhi Conte Primary Care Provider [phone] Reason for Visit * Reason Onset Date Comments PET 06/08/2024 Encounter Details Date Type Department Care Team (Late st Contact Info) Description 06/08/[address] [facility] Hematology Oncology [address] [place] [phone] Elsie Chavez MD [address] [place] [address] PET Social History Tobacco Use [...] of getting prior authorization. HNE Case #: [id number] documented in this encounter Plan of Treatment Upcoming Encounters Date Type Department Care Team (Late st Contact Info) Description 06/16/2024 3:00 PM EDT Office Visit [facility] Hematology Oncology [address] [place] [phone] Elsie Chavez MD [address] [place] [phone] 01/01/2025 9:00 AM EST Office Visit [facility] Hematology Oncology [address] [place] [phone] Elsie Chavez MD [address] [place] [phone] documented as of this encounter Visit Diagnoses Not on filedocumented in this encounter Care Teams Oracle Applications Analyst Relationship Specialty Start Date End Date Nhi Conte PA [address] [place] [address] PCP - General 01/15/22 documented as of this encounter
--- OUTSIDE RECORDS SUMMARY | 2024-06-09 15:58 | XMS_ITS | Clinical Summary ---
Author Organization [facility] Address [address] [place] [address] Care Team Providers Care Auto Garage Attendant Name Role Phone Nhi Conte PA-C Primary Care Provider Allergies Active Allergy Reactions Criticality Noted Date Comments Tetracyclines & Related 11/08/2018 Medications Medication Sig Dispensed Refills Start Date End Date Status Cholecalciferol (VITAMIN D3) 3000 units TABS Take 3,000 Units by mouth daily. 0 Active B Xhtkytj-Bpktkq-WV (SUPER B-50 COMPLEX PO) Take 1 tablet [...] age to complete this topic Care Teams Auto Garage Attendant Relationship Specialty Start Date End Date Nhi Conte, SHAWNC PCP - General Physician Ripshear Operator 01/15/22
--- OUTSIDE RECORDS SUMMARY | 2024-06-09 15:58 | XMS_ITS | Clinical Summary ---
Author Organization [facility] Address [address] [place] [address] Phone Care Team Providers Care [employer] Teacher Name Role Phone Nhi Conte Primary Care Provider [phone] Allergies Active Allergy Reactions Criticality Noted Date [...] ly mphoma of lymph nodes of neck ([facility] V24, [facility] V28) 11/08/2018 Encounters Date Type Department Care Team Description 06/08/2024 Telephone [facility] Hematology Oncology [address] [place] [phone] Elsie Chavez MD PET 06/07/2024 4:00 PM EDT Office Visit [facility] Hematology Oncology [address] [place] [address] Elsie Chavez MD Elevated PSA (Primary Dx); Malignant neoplasm metastatic to bone ([facility] V24, 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 V24, [facility] V28) from Last 3 Months [...] Description 06/16/2024 3:00 PM EDT Office Visit [facility] Hematology Oncology [address] [place] [phone] Elsie Chavez MD [address] [place] [phone] 01/01/2025 9:00 AM EST Office Visit [facility] Hematology Oncology [address] [place] [phone] Elsie Chavez MD [address] [place] [phone] Health Maintenance Due Date Last Done Comments [...] LAB CHEMISTRY METHOD 06/07/2024 10:58 PM EDT [facility] Blood Venous blood specimen / Unknown Venipuncture / Unknown 06/07/2024 4:23 PM EDT 06/07/2024 4:35 PM EDT Narrative [facility] - 06/07/2024 10:58 PM EDT The Siemens Advia Centaur Chemiluminescent Immunoassay is used. Results obtained with different assay methods or kits cannot be used interchangeably. Results cannot be interpreted as absolute evidence of the presence or absence of malignant disease. Subramveronica Chavez MD LAB BLOOD ORDERABLE S Final Result [facility] [address] [place] [address], * (ABNORMAL) CBC auto differential (06/07/2024 4:23 PM EDT) [facility] Signature WBC 11.0(H) 4.8 - 10.8 K/mcL LAB HEMETOLOGY METHOD 06/07/2024 4:45 PM EDT [facility] RBC 4.70 4.50 - 5.50 M/mcL LAB HEMETOLOGY METHOD 06/07/2024 4:45 PM EDT [facility] Hemoglobin 13.8 13.5 - 17.5 g/dL LAB HEMETOLOGY METHOD 06/07/2024 4:45 PM EDT [facility] Hematocrit 41.9(L) 42.0 - 54.0 % LAB HEMETOLOGY METHOD 06/07/2024 4:45 PM EDT [facility] MCV 89.9 79.0 - 98.0 FL LAB HEMETOLOGY METHOD 06/07/2024 4:45 PM EDT [facility] MCH 29.6 27.0 - 32.0 pcg LAB HEMETOLOGY METHOD 06/07/2024 4:45 PM EDT [facility] MCHC 32.9 32.0 - 37.0 g/dL LAB HEMETOLOGY METHOD 06/07/2024 4:45 PM EDT [facility] RDW 13.5 11.0 - 15.0 % LAB HEMETOLOGY METHOD 06/07/2024 4:45 PM EDT [facility] Platelets 272 130 - 400 K/mcL LAB HEMETOLOGY METHOD 06/07/2024 4:45 PM EDT [facility] MPV 10.2 7.0 - 11.0 FL LAB HEMETOLOGY METHOD 06/07/2024 4:45 PM EDT [facility] NRBC 0.0 <1.0 % LAB HEMETOLOGY METHOD 06/07/2024 4:45 PM EDT [facility] NRBC Absolute 0.00 <0.10 K/mcL LAB [facility]EMETOLOGY [facility] Neutrophils Relative 73.9 % LAB HEMETOLOGY METHOD 06/07[facility]2024 4:[facility] Lymphocytes Relative 12.0 % LAB HEMETOLOGY METHOD 06/07/2024 4:45 PM EDT [facility] Monocytes Relative 11.2 % LAB HEMETOLOGY METHOD 06/07/2024 4:[facility] Eosinophils Relative 2.1 % LAB HEMETOLOGY METHOD 06/07/2024 4:45 PM [facility] Basophils Relative 0.5 % LAB HEMETOLOGY METHOD 06/07/2024 4:45 PM [facility] Immature Granulocytes Relative 0.3 % LAB HEMETOLOGY METHOD 06/07/2024 4:45 PM [facility] Neutrophils Absolute 8.16(H) 1.50 - 7.00 K/mcL LAB HEMETOLOGY METHOD 06/07/2024 4:45 PM [facility] Lymphocytes Absolute 1.33 1.00 - 5.00 K/mcL LAB HEMETOLOGY METHOD 06/07/2024 4:45 PM EDT [facility] Monocytes Absolute 1.24(H) 0.20 - 1.00 K/mcL LAB HEMETOLOGY METHOD 06/07/2024 4:[facility] Eosinophils Absolute 0.23 0.00 - 0.50 K/mcL LAB HEMETOLOGY METHOD 06/07/2024 4:45 PM [facility] Basophils Absolute 0.05 0.00 - 0.20 K/mcL LAB HEMETOLOGY METHOD 06/07/2024 4:45 PM EDT [facility] Immature Granulocytes Absolute 0.03 0.00 - 0.03 K/mcL LAB HEMETOLOGY METHOD 06/07/2024 4:45 PM EDT [facility] Blood Venous blood specimen / Unknown Venipuncture / Unknown 06/07/2024 4:23 PM EDT 06/07/2024 4:36 PM EDT us Elsie Chavez MD LAB BLOOD ORDERABLE S Final Result Performing Organization Address [facility]/ZIP Co de Phone Number [facility] [address] [place] [address], [place] [phone] * (ABNORMAL) Testosterone, total (06/07/2024 4:23 PM EDT) Testosterone 192(L) 229 - 902 ng/dL LAB CHEMISTRY METHOD 06/07/2024 7:46 PM EDT [facility] Blood Venous blood specimen / Unknown Venipuncture / Unknown 06/07/2024 4:23 PM EDT 06/07/2024 4:35 PM EDT us Elsie Chavez MD LAB BLOOD ORDERABLE S Final Result Performing Organization Address City/[facility]/ZIP Co de Phone Number [facility] [address] [place] [address], [place] [phone] * (ABNORMAL) Comprehensive metabolic panel (06/07/2024 4:23 PM EDT) Sodium 141 133 - 145 mmol/L LAB CHEMISTRY METHOD 06/07/2024 7:05 PM EDT [facility] Potassium 3.8 3.5 - 5.5 mmol/L LAB CHEMISTRY METHOD 06/07/2024 7:05 PM EDT [facility] Chloride 106 96 - 110 mmol/L LAB CHEMISTRY METHOD 06/07/2024 7:05 PM [facility] CO2 26 21 - 32 mmol/L LAB CHEMISTRY METHOD 06/07/2024 7:05 PM [facility] Anion Gap 9 3 - 11 LAB CHEMISTRY METHOD 06/07/2024 7:05 PM [facility] Glucose 125(H) 70 - 100 mg/dL LAB CHEMISTRY METHOD 06/07/2024 7:05 PM [facility] BUN 17 5 - 25 mg/dL LAB CHEMISTRY METHOD 06/07/2024 7:05 PM [facility] Creatinine 0.72 0.70 - 1.30 mg/dL LAB CHEMISTRY METHOD 06/07/2024 7:05 PM [facility] eGFR 105 >=60 mL/min/1. 73m2 LAB CHEMISTRY METHOD 06/07/2024 7:05 PM [facility] Comment:Calculation based on the??Chronic Kidney Disease Epidemiology Collaboration (CKD-EPI) equation refit??without adjustment for race. BUN/Creatinine Ratio 23.6 LAB CHEMISTRY METHOD 06/07/2024 7:05 PM [facility] Calcium 8.9 8.5 - 10.5 mg/dL LAB CHEMISTRY METHOD 06/07/2024 7:05 [facility] AST (SGOT) 28 10 - 42 unit/L LAB CHEMISTRY METHOD 06/07/2024 7:05 [facility] ALT (SGPT) 30 10 - 60 unit/L LAB CHEMISTRY METHOD 06/07/2024 7:05 PM [facility] Alkaline Phosphatase 271(H) 42 - 121 unit/L LAB CHEMISTRY METHOD 06/07/2024 7:05 PM [facility] Total Protein 7.2 6.0 - 8.0 g/dL LAB CHEMISTRY METHOD 06/07/2024 7:05 PM [facility] Albumin 3.8 3.2 - 5.0 g/dL LAB CHEMISTRY METHOD 06/07/2024 7:05 PM EDT [facility] Total Bilirubin 0.5 0.0 - 1.4 mg/dL LAB CHEMISTRY METHOD 06/07/2024 7:05 PM EDT [facility] Blood Venous blood specimen / Unknown Venipuncture / Unknown 06/07/2024 4:23 PM EDT 06/07/2024 4:35 PM EDT us Elsie Chavez MD LAB BLOOD ORDERABLE S Final Result [facility] [address] [place] [address], from Last 3 Months Insurance [employer] Care Teams [employer] Teacher Relationship Specialty Start Date End Date Nhi Conte PA [address] [place] [address] PCP - General 01/15/22
--- OUTSIDE RECORDS SUMMARY | 2024-06-09 15:58 | XMS_ITS | Encounter Summary ---
Author Organization [facility] Address [address] [place] [address] Care Team Providers Care Radiation Control Worker Name Role Phone Nhi Conte Primary Care Provider [phone] Reason for Referral * Consultation (Routine) - Authorized Specialty Diagnoses / Procedures Referred By Contac t Referred To Contact Radiation Oncology Diagnoses Prostate mass Elsie Chavez MD [address] [place] [phone] Phone: tel: fax: Layla Rivera MD [address] [place] [address] Phone: tel: fax: Referral ID Status Reason Start Date Expiration Date Visits Requested Visits Authorized [id number] Authorized Specialty Services Required 06/07/2024 06/07/2025 1 1 * Imaging (Routine) - Canceled Specialty Diagnoses / Procedures Referred By Contac t Referred To Contact Radiology Diagnoses Elevated PSA Malignant neoplasm metastatic to bone (CMS/HCC V24, CMS/HCC V28) Prostate mass Pelvic lymphadenopathy Procedures PET CT Skull to Mid Thigh Initial Elsei Chavez MD [address] [place] [phone] Phone: tel: fax: [address] [phone] Phone: tel: Referral ID Status Reason Start Date Expiration Date V isits Requested Visits Authorized [id number] Canceled 06/07/2024 06/07/2025 1 1 Reason for Visit * Reason Comments Follow-up Encounter Details Date Type Department Care Team (Late st Contact Info) Description 06/07/2024 4:00 PM EDT Office Visit [facility] Hematology Oncology [address] [place] [phone] Elsie Chavez MD [address] [place] [address] Elevated PSA (Primary Dx); Malignant neoplasm metastatic to bone (CMS/HCC V24, CMS/HCC V28); Prostate mass; Pelvic lymphadenopathy; 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 Lab reports were reviewed from [facility] system. For details of initial diagnosis and follow up until DEC 10, 2023- please refer to notes from prior [facility] EMR last note dated 12/17/2022 His ongoing issues include intermittent leukocytosis, hypothyroidism, diabetes mellitus, hyperlipidemia, essential hypertension, on lisinopril, peripheral neuropathy s/p chemotherapy, He has now registered with a new PCP Dr. Conte at the [facility] system. Patient was last seen in clinic [...] and an MRI was set up at [place] [facility]. Unfortunately the results indicated a prostatic mass, [...] I am seeing the patient upon his assisted. He has been doing well over the last year. 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 [...] subtype Hodgkin disease. He was treated with [place] V regimen from August to October 1999 [...] a new PCP Dr. Conte at the [facility] system. Over the last 10 months he [...] had repeat colonoscopy in January, at the [facility]. Results to be reviewed. 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/REG CLI Mnemonic/Ordering Site: GALLBLADDR/SPUS Ordering Physician: ELSIE [...] or pericholecystic fluid. There is no sonographic Cehn's sign per technologist notes. Survey images of the right kidney demonstrate no hydronephrosis. The right kidney measures 12.3 cm in length. No ascites is seen. IMPRESSION: Hepatomegaly. Coarsened hepatic echotexture consistent with fatty infiltration and/or hepatocellular disease. There is no biliary dilatation and the gallbladder is of normal appearance. The pancreas is incompletely evaluated on this study. 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 ([facility] V24, [facility] V28) PLAN: 59-year-old man, long-term survivor [...] do that within the next week at [facility] -- In terms of treatment, several different [...] Care Proxy--no one Elsie Chavez MD Cc Nhi Conte, PA Cc Kvng Woodruff , urology, [place] [facility] Cc Sharmila Mondragon [employer] CAR CLE[employer]ER documented in this encounter Plan of Treatment Upcoming Encounters Date Type Department Care Team (Late st Contact Info) Description 06/16/2024 3:00 PM EDT Office Visit [facility] Hematology Oncology [address] [place] [phone] Elsie Chavez MD [address] [place] [phone] 01/01/2025 9:00 AM EST Office Visit [facility] Hematology Oncology [address] [place] [phone] Elsie Chavez MD [address] [place] [phone] Scheduled Orders Name Type Priority Associated Diagnoses [...] LAB CHEMISTRY METHOD 06/07/2024 10:58 PM EDT [facility] Blood Venous blood specimen / Unknown Venipuncture / Unknown 06/07/2024 4:23 PM EDT 06/07/2024 4:35 PM EDT Narrative [facility] - 06/07/2024 10:58 PM EDT The Siemens Advia Centaur Chemiluminescent Immunoassay is used. Results obtained with different assay methods or kits cannot be used interchangeably. Results cannot be interpreted as absolute evidence of the presence or absence of malignant disease. us Elsie Chavez MD LAB BLOOD ORDERABLE S Final Result Performing Organization Address [facility] Co de Phone Number [facility] [address] [place] [address], [place] [phone] * (ABNORMAL) Testosterone, total (06/07/2024 4:23 PM EDT) Testosterone 192(L) 229 - 902 ng/dL LAB CHEMISTRY METHOD 06/07/2024 7:46 PM EDT [facility] Blood Venous blood specimen / Unknown Venipuncture / Unknown 06/07/2024 4:23 PM EDT 06/07/2024 4:35 PM EDT us Elsie Chavez MD LAB BLOOD ORDERABLE S Final Result Performing Organization Address [facility] de Phone Number [facility] [address] [place] [address], [place] [phone] * (ABNORMAL) Comprehensive metabolic panel (06/07/2024 4:23 PM EDT) Sodium 141 133 - 145 mmol/L LAB CHEMISTRY METHOD 06/07/2024 7:05 PM EDT [facility] Potassium 3.8 3.5 - 5.5 mmol/L LAB CHEMISTRY METHOD 06/07/2024 7:05 PM EDT [facility] Chloride 106 96 - 110 mmol/L LAB CHEMISTRY METHOD 06/07/2024 7:05 PM EDT [facility] CO2 26 21 - 32 mmol/L LAB CHEMISTRY METHOD 06/07/2024 7:05 PM [facility] Anion Gap 9 3 - 11 LAB CHEMISTRY METHOD 06/07/2024 7:05 PM [facility] Glucose 125(H) 70 - 100 mg/dL LAB CHEMISTRY METHOD 06/07/2024 7:05 PM [facility] BUN 17 5 - 25 mg/dL LAB CHEMISTRY METHOD 06/07/2024 7:05 PM [facility] Creatinine 0.72 0.70 - 1.30 mg/dL LAB CHEMISTRY METHOD 06/07/2024 7:05 PM [facility] eGFR 105 >=60 mL/min/1. 73m2 LAB CHEMISTRY METHOD 06/07/2024 7:05 PM [facility] Comment:Calculation based on the??Chronic Kidney Disease Epidemiology Collaboration (CKD-EPI) equation refit??without adjustment for race. BUN/Creatinine Ratio 23.6 LAB CHEMISTRY METHOD 06/07/2024 7:05 PM [facility] Calcium 8.9 8.5 - 10.5 mg/dL LAB CHEMISTRY METHOD 06/07/2024 7:05 PM [facility] AST (SGOT) 28 10 - 42 unit/L LAB CHEMISTRY METHOD 06/07/2024 7:05 PM [facility] ALT (SGPT) 30 10 - 60 unit/L LAB CHEMISTRY METHOD 06/07/2024 7:05 PM [facility] Alkaline Phosphatase 271(H) 42 - 121 unit/L LAB CHEMISTRY METHOD 06/07/2024 7:05 PM [facility] Total Protein 7.2 6.0 - 8.0 g/dL LAB CHEMISTRY METHOD 06/07/2024 7:05 PM [facility] Albumin 3.8 3.2 - 5.0 g/dL LAB CHEMISTRY METHOD 06/07/2024 7:05 PM [facility] Total Bilirubin 0.5 0.0 - 1.4 mg/dL LAB CHEMISTRY METHOD 06/07/2024 7:05 PM EDT [facility] Blood Venous blood specimen / Unknown Venipuncture / Unknown 06/07/2024 4:23 PM EDT 06/07/2024 4:35 PM EDT Subramony Kathy CANTRELL LAB BLOOD ORDERABLE S Final Result [facility] [address] [place] [address], documented in this encounter Visit Diagnoses Diagnosis Elevated PSA- Primary Elevated prostate specific antigen (PSA) Malignant neoplasm metastatic to bone (CMS/HCC V24, CMS/HCC V28) Prostate mass Unspecified disorder of prostate Pelvic lymphadenopathy 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 Medication Sig Dispense Quantity Refills Last Filled Start D ate End Date bicalutamide (CASODEX) 50 mg tablet 06/06/2024 added in this encounter Care Teams Radiation Control Worker Relationship Specialty Start Date End Date Nhi Conte PA [address] [place] [address] PCP - General 01/15/22 documented as of this encounter
[2024-06-09 17:37] LABS: Lipase 34 U/L (8-78)
[2024-06-12 22:07] LABS: Transglutaminase IgA <1.0 U/mL
== END 2024-06-09 14:58 | disposition home or self-care (01) ==
LOC: HO.LAB 14:57
PROVIDERS: PCP Physician Assistant; Visit Provider Nurse Practitioner Family
DX: R10.13 Epigastric pain (principal)
CPT/HCPCS: 36415; 83690; 86364

== ENCOUNTER 2024-06-09 14:57 | Outpatient (AMB) | payer OTHER, SELFPAY ==
--- OUTSIDE RECORDS SUMMARY | 2024-06-09 15:00 | XMS_ITS | Encounter Summary ---
Author Organization [facility] Address [address] [place] [address] Care Team Providers Care Paper Cone Maker Name Role Phone Nhi Conte Primary Care Provider [phone] Reason for Referral * Consultation (Routine) - Authorized Specialty Diagnoses / Procedures Referred By Contac t Referred To Contact Radiation Oncology Diagnoses Prostate mass Elsie Chavez MD [address] [place] [phone] Phone: tel: fax: Layla Rivera MD [address] [place] [address] Phone: tel: fax: Referral ID Status Reason Start Date Expiration Date Visits Requested Visits Authorized [id number] Authorized Specialty Services Required 06/07/2024 06/07/2025 1 1 * Imaging (Routine) - Canceled Specialty Diagnoses / Procedures Referred By Contac t Referred To Contact Radiology Diagnoses Elevated PSA Malignant neoplasm metastatic to bone (CMS/HCC V24, CMS/HCC V28) Prostate mass Pelvic lymphadenopathy Procedures PET CT Skull to Mid Thigh Initial Elsie Chavez MD [address] [place] [phone] Phone: tel: fax: [address] [phone] Phone: tel: Referral ID Status Reason Start Date Expiration Date V isits Requested Visits Authorized [id number] Canceled 06/07/2024 06/07/2025 1 1 Reason for Visit * Reason Comments Follow-up Encounter Details Date Type Department Care Team (Late st Contact Info) Description 06/07/2024 4:00 PM EDT Office Visit [facility] Hematology Oncology [address] [place] [address] Elsie Chavez MD [address] [place] [address] Elevated PSA (Primary Dx); Malignant neoplasm metastatic to bone (CMS/HCC V24, CMS/HCC V28); Prostate mass; Pelvic lymphadenopathy; 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 ([facility]/HCC V24, [facility]/HCC V28) Social History Tobacco Use Types Packs/Day Years [...] Orientation Straight 11/27/2023 4: 42 AM EDT documented as of this encounter Last Filed Vital Signs Vital Sign Reading Time Taken Comments Blood Pressure 159/79 06/07/2024 3:54 PM EDT Pulse 88 06/07/2024 3:54 PM EDT Temperature 37.1 ??C (98.7 ??F) 06/07/2024 3:54 PM ED T Respiratory Rate - - Oxygen Saturation 96% 06/07/2024 3:54 PM EDT Inhaled Oxygen Concentration - - Weight 118 kg (260 lb 3.2 oz) 06/07/2024 3:54 PM EDT Height 182.9 cm (6') 06/07/2024 3:54 PM EDT Body Mass Index 35.29 06/07/2024 3:54 PM EDT documented in this encounter Ordered Prescriptions Prescription Sig Dispense Quantity Refills Last Filled Start Date End Date oxyCODONE (ROXICODONE) 5 mg immediate release tablet Take 1 tablet (5 mg total) by mouth every 8 (eight) hours if needed for moderate pain or severe pain. Max Daily Amount: 15 mg 60 tablet 06/07/2024 documented in this encounter Progress Notes * Elsie Chavez MD - 06/07/2024 4:00 PM EDT Update-plan today-I ordered PET CT scan, will await prostate biopsy results, I will send in the prescription for abiraterone/prednisone to be initiated once biopsy results are available, agree with bicalutamide for now and Lupron injection. I will check with urology whether they can arrange the Lupron/Eligard or whether they would like our office to do that CHIEF COMPLAINT: Chief Complaint Patient presents with Follow-up New diagnosis-suspected prostate cancer History of Hodgkin disease IDENTIFIER:Gissell Biggs is a 59 y.o. male. HPI: The patient returns for follow up of Hodgkin lymphoma, anemia . Lab reports were reviewed from [facility] system. For details of initial diagnosis and follow up until DEC 10, 2023- please refer to notes from prior [facility] EMR last note dated 12/17/2022 His ongoing issues include intermittent leukocytosis, hypothyroidism, diabetes mellitus, hyperlipidemia, essential hypertension, on lisinopril, peripheral neuropathy s/p chemotherapy, He has now registered with a new PCP Dr. Conte at the [facility] system. Patient was last seen in clinic in December. Thereafter he had an episode of epididymitis and was following with urology. In early May he contacted our clinic with concerns about elevated PSA. Patient had experienced hematospermia. He had PSA performed 10/12/2023-was at 3.15. Thereafter it increased to 12.41 and 13.37 on respectively. I recommended an MRI of the pelvis. Patient forwarded the request to his urologist and an MRI was set up at [facility]. Unfortunately the results indicated a prostatic mass, compressing on the rectum and infiltrating it, as well as pelvic lymphadenopathy along with multiple lesions in the pelvic bone concerning for metastasis. Therefore urology has started him on bicalutamide he has obtained medication starting tomorrow He has a biopsy arranged for next week Patient comes in for further discussion, accompanied by his Patient reports fatigue, as well as severe pelvic discomfort, using intermittently Motrin, Aleve, Tylenol. He has not had any further hematuria. He denies any constipation. He has occasional difficulty initiating micturition. The following is copied, reviewed and edited 11/2018 -- Patient was previously following with Dr. Foster, and I am seeing the patient upon his alf. He has been doing well over the last year. 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 He has close follow-up with his PCP regarding chronic medical conditions. He george thyroid supplement for acquired hypothyroidism, presumably secondary to radiation. He has not felt any new lymph node enlargement. His initial symptoms included lymph node swelling, weight loss, drenching night sweats. He has not experienced any recently. He denies any cough or shortness of breath. No chest pain, palpitations or chest pressure. Patient initially presented in the year 1999, at 35 years of age. 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 He was treated with [place] V regimen from August to October 1999 and had consolidation radiation to modified mantle field. This was delivered during November to December 1999 on the [facility] protocol. Patient has been in complete remission since then. His other medical history reviewed below, includes hypertension, hypercholesteremia, hypothyroidism, arthritis. Screening, patient recently had colonoscopy in 2017 showed hemorrhoids, left colon tubular adenoma. Family history is remarkable for diabetes, heart disease in father, and breast cancer in his mother. 04/2021 - Patient returns for an earlier appointment due to concerns for lab abnormalities. At the last visit in November 2020, he had reported skin rash, elevated ESR etc. The skin rash improved with steroids, but on recurrence, there was concern for hives, dermatology referral was considered Patient reports bilateral carpal tunnel syndrome symptoms. He is awaiting surgery on April 17 He had further lab work that showed persistent leukocytosis This is predominantly neutrophilic Sed rate/CRP have improved Latest lab work also showed a low B12 level Of concern is elevated alkaline phosphatase. Patient also reports abdominal discomfort, he has to stop eating salads, this may be related to underlying diverticulitis B12 deficiency also may point towards issues such as celiac disease, further lab work was ordered today per his PCP He has skin rash persistent in the neck area No lymphocytosis, therefore less likely to be a lymphomatous relapse 12/2022- His ongoing issues include intermittent leukocytosis, hypothyroidism, diabetes mellitus, hyperlipidemia, essential hypertension, on lisinopril, peripheral neuropathy s/p chemotherapy, He has now registered with a new PCP Dr. Conte at the [facility] system. Over the last 10 months he has gained about 12 pounds in weight. He feels well. He offers no new symptoms. He has not noticed any new lymphadenopathy. He is awaiting GI follow-up, needs another colonoscopy--has appointment in mid January Previously work-up for rash, including tryptase, was low at 2 Latest lab work 12/12 reviewed in detail, CBC-D in the normal range except slight increase in the neutrophils. WBC count is normal 10.4 HbA1c at 6.7, alkaline phosphatase slightly high last year patient was noted to be mildly anemic. He had further follow-up lab work Patient has extensive arthritis may be contributing. lab work is reviewed hemoglobin is 13.5-30 - range. He was also concerned about WBC count was 11.7. He also had repeat colonoscopy in January, at the [facility]. Results to be reviewed. Has follow-up with PCP in 2 weeks and GI evaluation in March, may need an upper GI evaluation particularly, with history of GE reflux, and question of mild anemia 58 Cancer Staging No matching staging information was found for the patient. Oncology History No history exists. ROS: GENERAL: No malaise, significant weight loss or fever NECK: No lumps, goiter, pain or significant neck swelling RESPIRATORY: No cough, wheezing or shortness of breath CARDIOVASCULAR: No chest pain, leg swelling or palpitations GI: No abdominal discomfort, blood in stools or black stools MUSCULOSKELETAL: No joint pain or swelling, back pain, or muscle pain. 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 Current Outpatient Medications: amLODIPine (NORVASC) 10 mg tablet, Take 1 tablet (10 mg total) by mouth 1 (one) time each day., Disp: , Rfl: atorvastatin (LIPITOR) 80 mg tablet, Take 1 tablet (80 mg total) by mouth., Disp: , Rfl: bicalutamide (CASODEX) 50 mg tablet, , Disp: , Rfl: cholecalciferol, vitamin D3, 75 mcg (3,000 unit) tablet, Take 3,000 Units by mouth daily., Disp: , Rfl: ezetimibe (ZETIA) 10 mg tablet, Take 1 tablet (10 mg total) by mouth 1 (one) time each day., Disp: , Rfl: levothyroxine (SYNTHROID, LEVOTHROID) 112 mcg tablet, Take 1 tablet (112 mcg total) by mouth every morning on an empty stomach., Disp: , Rfl: lisinopril (PRINIVIL,ZESTRIL) 40 mg tablet, Take 1 tablet (40 mg total) by mouth 1 (one) time each day., Disp: , Rfl: metFORMIN (GLUCOPHAGE) 500 mg tablet, Take 1 tablet (500 mg total) by mouth 1 (one) time each day.,Disp: , Rfl: metoprolol tartrate (LOPRESSOR) 100 mg tablet, Take 1 tablet (100 mg total) by mouth 1 (one) time each day., Disp: , Rfl: triamcinolone (KENALOG) 0.1 % cream, MIX ENTIRE TUBE INTO ONE POUND JAR OF CERAVE. PUT ON BODY EVERY DAY. NOT FOR FACE, Disp: , Rfl: vit B comp/folic/choline/inosi (SUPER B-50 COMPLEX ORAL), Take 1 tablet by mouth daily., Disp: , Rfl: oxyCODONE (ROXICODONE) 5 mg immediate release tablet, Take 1 tablet (5 mg total) by mouth every 8 (eight) hours if needed for moderate pain or severe pain. Max Daily Amount: 15 mg, Disp: 60 tablet, Rfl: 0 Allergies Allergen Reactions Tetracyclines PHYSICAL EXAM: Visit Vitals BP (!) 159/79 (BP Location: Left arm, Patient Position: Sitting, BP Cuff Size: Large adult long) Pulse 88 Temp 37.1 ??C (98.7 ??F) (Temporal) Ht 1.829 m (72 ) Wt 118 kg (260 lb 3.2 oz) SpO2 96% BMI 35.29 kg/m?? Smoking Status Never BSA 2.38 m?? APPEARANCE: Alert and in no acute distress Fatigued, looks uncomfortable EYES: PERRL, conjunctiva pink and sclera are Normal without icterus ORAL CAVITY: No erythema or exudates NECK: Neck supple, no adenopathy, HEART: RRR with normal S1 and S2, no murmurs, no gallops, no JVD appreciated LUNG: clear to auscultation bilaterally Percussion note normal LYMPH NODES: No palpable superficial adenopathy ABDOMEN: Bowel sounds normoactive, no bruits, soft, non-tender, without organomegaly or palpable masses EXTREMITIES: Extremities warm and well perfused without clubbing, cyanosis, rash or edema NEURO: Oriented X 3, no focal weakness; sensation is normal Slow gait LABS: Review of Lab results , interpreted Lab Results Component Value Date WBC 11.0 (H) 06/07/2024 HGB 13.8 06/07/2024 HCT 41.9 (L) 06/07/2024 MCV 89.9 06/07/2024 PLT 272 06/07/2024 No results found for: NA , K , CL , CO2 , GLUCOSE , BUN , CREATININE , CALCIUM , PROT , ALBUMIN , BILITOT , AST , ALT , URICACID , PHOS , MG , ALKPHOS , CKTOTAL , EGFR Review of Imaging, interpreted US GALL BLADDER [facility] Diagnostic Imaging Department [address] [place] [address] Patient: GISSELL BIGGS /Age/Sex: 1965 - 55 - M Unit#: [id number] Location/Status: [facility]/REG CLI Mnemonic/Ordering Site: GALLBLADDR/SPUS Ordering Physician: ELSIE HANSON MD US Gall Bladder - 04/22/21 - 715 HISTORY: The patient is a 55-year-old male with right upper quadrant abdominal pain. The patient has a history of Hodgkin's lymphoma. FINDINGS: Real-time ultrasonography of the abdominal right upper quadrant is performed. The head and proximal body of the pancreas are of normal appearance; the remainder of the pancreas is obscured by overlying bowel. The liver is enlarged with a span of 18.9 cm. There is diffuse coarsening of the hepatic echotexture consistent with fatty infiltration and/or hepatocellular disease. No hepatic mass is seen. The portal vein is patent with hepatopetal flow. There is no intra- or extra-hepatic biliary dilatation. The gallbladder is of normal appearance without calculus, wall thickening, or pericholecystic fluid. There is no sonographic Chen's sign per technologist notes. Survey images of the right kidney demonstrate no hydronephrosis. The right kidney measures 12.3 cm in length. No ascites is seen. IMPRESSION: Hepatomegaly. Coarsened hepatic echotexture consistent with fatty infiltration and/or hepatocellular disease. There is no biliary dilatation and the gallbladder is of normal appearance. The pancreas is incompletely evaluated on this study. Code 78411 [id number] Dictating Physician: CHANDAN BALDERAS MD Electronically Signed by: CHANDAN BALDERAS MD Dic Date/Time: 04/22/21822 Sign date/Time: 04/22/21825 Review of External Documentation Notes from PCP office Tests ordered -lab work per PCP CBC-D, CMP, reviewed in detail IMPRESSION: 1. Elevated PSA 2. Malignant neoplasm metastatic to bone (CMS/HCC V24, CMS/HCC V28) 3. Prostate mass 4. Pelvic lymphadenopathy 5. 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 Foster --remains in remission-currently 21 years from diagnosis #1 new diagnosis suspected prostate cancer with elevated PSA, prostatic mass and pelvic lymphadenopathy/possible skeletal metastatic disease and an MRI pelvis -- Recommend follow-up with urology and prostatic biopsy latest PSA is 13.3, recheck today along with testosterone -- Other labs-obtain CBC-D, CMP -- Staging-I recommend a PSMA PET CT scan will try to do that within the next week at [facility] -- In terms of treatment, several different treatment options are available and discussed with the patient in detail #2 systemic therapy Mainstay of treatment is androgen deprivation, I agree with initiating bicalutamide -- Will check with urology department whether they would proceed with Lupron injection or whether they would like our office to arrange it -- He would be also a candidate for abiraterone plus prednisone or enzalutamide Preferably abiraterone plus prednisone, I will send in a prescription once biopsy is completed In future, options such as chemotherapy docetaxel/cabazitaxel versus lutetium injections with Pluvicto would be available Likely good disease control and prognosis of several years was discussed with the patient and his #3 palliative radiation Since the mass appears to be infiltrating the rectum, to obtain adequate local control I recommend consideration of palliative radiation, I will send in a request to radiation oncology department Dr.Jennifer Rivera #4 Hodgkin's disease-currently in remission #5 acquired hypothyroidism On levothyroxine 112 MCG, follows with PCP, latest TSH is in the normal range #6 diabetes mellitus Improvement in A1c noted, currently 6.7 Consider stress test/echocardiogram at 10-year intervals Consider carotid ultrasound at 10-year intervals, as he has had neck irradiation Monitor for TIA/CVA symptoms #7 anemia-mild, asymptomatic continue to monitor lab work #8 pelvic pain secondary to likely underlying prostate cancer adenopathy and skeletal disease, started on oxycodone 5 mg 1 2-3 times a day as needed, I sent in a prescription Bowel regimen to avoid constipation Total time today, including review of clinical information, examination, counseling, care coordination, documentation, updating orders in epic, 45 minutes Pain Control--started oxycodone Health Care Proxy--no one Elsie Chavez MD Cc hNi Conte, PA Cc Kvng Woodruff , urology, [facility] Cc Sharmila Mondragon CHANGE PERSON documented in this encounter Plan of Treatment Upcoming Encounters Date Type Department Care Team (Late st Contact Info) Description 06/16/2024 3:00 PM EDT Office Visit [facility] Hematology Oncology [address] [place] [phone] Elsie Chavez MD [address] [place] [phone] 01/01/2025 9:00 AM EST Office Visit [facility] Hematology Oncology [address] [place] [phone] Elsie Chavez MD [address] [place] [phone] Scheduled Orders Name Type Priority Associated Diagnoses Orde r Schedule PET CT Skull to Mid Thigh Initial Imaging Routine Elevated PSA Malignant neoplasm metastatic to bone (CMS/HCC V24, CMS/HCC V28) Prostate mass Pelvic lymphadenopathy Expected: 06/14/2024, Expires: 06/07/2025 Scheduled Referrals Name Type Priority Associated Diagnoses Order Schedule Ambulatory referral to Radiation Oncology Outpatient Referral Routine Prostate mass Expected: 06/21/2024, Expires: 06/07/2025 documented as of this encounter Results * (ABNORMAL) Prostate specific antigen diagnostic (06/07/2024 4:23 PM EDT) PSA 15.41(H) 0.00 - 4.00 ng/mL LAB CHEMISTRY METHOD 06/07/2024 10:58 PM EDT [facility] Blood Venous blood specimen / Unknown Venipuncture / Unknown 06/07/2024 4:23 PM EDT 06/07/2024 4:35 PM EDT Narrative [facility] - 06/07/2024 10:58 PM EDT The Siemens Advia Centaur Chemiluminescent Immunoassay is used. Results obtained with different assay methods or kits cannot be used interchangeably. Results cannot be interpreted as absolute evidence of the presence or absence of malignant disease. us Elsie Chavez MD LAB BLOOD ORDERABLE S Final Result Performing Organization Address [facility] Co de Phone Number [facility] [address] [place] [address], [place] [phone] * (ABNORMAL) Testosterone, total (06/07/2024 4:23 PM EDT) Testosterone 192(L) 229 - 902 ng/dL LAB CHEMISTRY METHOD 06/07/2024 7:46 PM EDT [facility] Blood Venous blood specimen / Unknown Venipuncture / Unknown 06/07/2024 4:23 PM EDT 06/07/2024 4:35 PM EDT us Elsie Chavez MD LAB BLOOD ORDERABLE S Final Result Performing Organization Address [facility] de Phone Number [facility] [address] [place] [address], [place] [phone] * (ABNORMAL) Comprehensive metabolic panel (06/07/2024 4:23 PM EDT) Sodium 141 133 - 145 mmol/L LAB CHEMISTRY METHOD 06/07/2024 7:05 PM EDT [facility] Potassium 3.8 3.5 - 5.5 mmol/L LAB CHEMISTRY METHOD 06/07/2024 7:05 PM EDT [facility] Chloride 106 96 - 110 mmol/L LAB CHEMISTRY METHOD 06/07/2024 7:05 PM EDT [facility] CO2 26 21 - 32 mmol/L LAB CHEMISTRY METHOD 06/07/2024 7:05 PM [facility] Anion Gap 9 3 - 11 LAB CHEMISTRY METHOD 06/07/2024 7:05 PM [facility] Glucose 125(H) 70 - 100 mg/dL LAB CHEMISTRY METHOD 06/07/2024 7:05 PM [facility] BUN 17 5 - 25 mg/dL LAB CHEMISTRY METHOD 06/07/2024 7:05 PM [facility] Creatinine 0.72 0.70 - 1.30 mg/dL LAB CHEMISTRY METHOD 06/07/2024 7:05 PM [facility] eGFR 105 >=60 mL/min/1. 73m2 LAB CHEMISTRY METHOD 06/07/2024 7:05 PM [facility] Comment:Calculation based on the??Chronic Kidney Disease Epidemiology Collaboration (CKD-EPI) equation refit??without adjustment for race. BUN/Creatinine Ratio 23.6 LAB CHEMISTRY METHOD 06/07/2024 7:05 PM [facility] Calcium 8.9 8.5 - 10.5 mg/dL LAB CHEMISTRY METHOD 06/07/2024 7:05 PM [facility] AST (SGOT) 28 10 - 42 unit/L LAB CHEMISTRY METHOD 06/07/2024 7:05 PM [facility] ALT (SGPT) 30 10 - 60 unit/L LAB CHEMISTRY METHOD 06/07/2024 7:05 PM [facility] Alkaline Phosphatase 271(H) 42 - 121 unit/L LAB CHEMISTRY METHOD 06/07/2024 7:05 PM [facility] Total Protein 7.2 6.0 - 8.0 g/dL LAB CHEMISTRY METHOD 06/07/2024 7:05 PM [facility] Albumin 3.8 3.2 - 5.0 g/dL LAB CHEMISTRY METHOD 06/07/2024 7:05 PM [facility] Total Bilirubin 0.5 0.0 - 1.4 mg/dL LAB CHEMISTRY METHOD 06/07/2024 7:05 PM EDT [facility] Blood Venous blood specimen / Unknown Venipuncture / Unknown 06/07/2024 4:23 PM EDT 06/07/2024 4:35 PM EDT Subramony Kathy CANTRELL LAB BLOOD ORDERABLE S Final Result [facility] [address] [place] [address], documented in this encounter Visit Diagnoses Diagnosis Elevated PSA- Primary Elevated prostate specific antigen (PSA) Malignant neoplasm metastatic to bone (CMS/HCC V24, CMS/HCC V28) Prostate mass Unspecified disorder of prostate Pelvic lymphadenopathy 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 Medication Sig Dispense Quantity Refills Last Filled Start D ate End Date bicalutamide (CASODEX) 50 mg tablet 06/06/2024 added in this encounter Care Teams Paper Cone Maker Relationship Specialty Start Date End Date Nhi Conte PA [address] [place] [id number] PCP - General 01/15/22 documented as of this encounter
--- OUTSIDE RECORDS SUMMARY | 2024-06-09 15:00 | XMS_ITS | Encounter Summary ---
Author Organization [facility] [place] [address] Care Team Providers Care Communications Technologist Name Role Phone Nhi Conte Primary Care Provider [phone] Reason for Visit * Reason Onset Date Comments PET 06/08/2024 Encounter Details Date Type Department Care Team (Late st Contact Info) Description 06/08/2024 Telephone [facility] Hematology Oncology [address] [place] [address] Elsie Chavez MD [address] [place] [address] PET Social History Tobacco Use Types Packs/Day Years Used Date Smoking Tobacco: Never Smokeless Tobacco: Never Alcohol Use Standard Drinks/Week Comments Yes 7 (1 standard drink = 0.6 oz pur e alcohol) Sex and Gender Information Value Date Recorded Sex Assigned at Male 11/27/2023 4:42 AM EDT Legal Sex Male 9:36 PM EST Gender Identity Male 11/27/2023 4:42 AM EDT Sexual Orientation Straight 11/27/2023 4: 42 AM EDT documented as of this encounter Progress Notes * Daisha Salinas - 06/08/2024 8:56 AM EDT Order for PET scan withdrawn. Dr Kvng Woodruff in urology has already ordered this scan and is currently in the process of getting prior authorization. HNE Case #: [id number] documented in this encounter Plan of Treatment Upcoming Encounters Date Type Department Care Team (Late st Contact Info) Description 06/16/2024 3:00 PM EDT Office Visit [facility] Hematology Oncology [address] [place] [phone] Elsie Chavez MD [address] [place] [phone] 01/01/2025 9:00 AM EST Office Visit [facility] Hematology Oncology [address] [place] [phone] Elsie Chavez MD [address] [place] [phone] documented as of this encounter Visit Diagnoses Not on filedocumented in this encounter Care Teams Communications Technologist Relationship Specialty Start Date End Date Nhi Conte PA [address] [place] [address] PCP - General 01/15/22 documented as of this encounter
--- OUTSIDE RECORDS SUMMARY | 2024-06-09 15:00 | XMS_ITS | Clinical Summary ---
Author Organization [facility] Address [address] [place] [address] Care Team Providers Care Supply Technician Name Role Phone Nhi Conte PA-C Primary Care Provider [phone] Allergies Active Allergy Reactions Criticality Noted Date Comments Tetracyclines & Related 11/08/2018 Medications Medication Sig Dispensed Refills Start Date End Date Status Cholecalciferol (VITAMIN D3) 3000 units TABS Take 3,000 Units by mouth daily. 0 Active B Wwkffdd-Kficfv-KM (SUPER B-50 COMPLEX PO) Take 1 tablet [...] age to complete this topic Care Teams Supply Technician Relationship Specialty Start Date End Date Nhi Conte, SHAWNC PCP - General Physician Production Aide 01/15/22
--- OUTSIDE RECORDS SUMMARY | 2024-06-09 15:00 | XMS_ITS | Clinical Summary ---
Author Organization [facility] Address [address] [place] [address] Phone Care Team Providers Care Endodontics Dentist Name Role Phone Nhi Conte Primary Care Provider [phone] Allergies Active Allergy Reactions Criticality Noted Date [...] EVERY DAY. NOT FOR FACE 05/31/2023 Active bicalutamide (CASODEX) 50 mg tablet 06/06/2024 Active oxyCODONE (ROXICODONE) 5 mg immediate release tablet Take 1 tablet (5 mg total) by mouth every 8 (eight) hours if needed for moderate pain or severe pain. 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 Hematology Oncology [address] [place] [phone] Elsie Chavez MD PET 06/07/2024 4:00 PM EDT Office Visit 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 Hematology Oncology [address] [place] [phone] Elsie Chavez MD [address] [place] [phone] 01/01/2025 9:00 AM EST Office Visit [facility] Hematology Oncology [address] [place] [phone] Elsie Chavez MD [address] [place] [phone] Health Maintenance Due Date Last Done Comments Diabetes: Annual Foot Exam 05/16/1975 Diabetes: Annual Retina Eye Exam 05/16/1975 Hepatitis B Vaccines (1 of 3 - 19+ 3-dose series) 1984 Pneumococcal Vaccine: 50+ Years (1 of 2 - PCV) 1984 Pneumococcal Vaccine: Pediatrics (0 to 5 Years) and At-Risk Patients (6 to 64 Years) (1 of 2 - PCV) 1984 Colorectal Cancer Screening: Colonoscopy 01/17/2022 Depression Screening 01/17/2022 HIV Screening 01/17/2022 Hepatitis C Screening 01/17/2022 Medicare Annual Wellness Visit 01/17/2022 Social Influencers of Health Screening 01/17/2022 Cholesterol Screening (Lipid Panel) 08/23/2022 08/23/2017 COVID-19 Vaccine ( season) 2023 12/03/2020, 05/22/2020, 05/01/2020 Diabetes: Annual Urine Albumin-Creatinine Ratio (uACR) 12/20/2023 Diabetes: Blood Sugar Control Test (HGBA1C) 12/20/2023 Diabetes: Annual GFR (Glomerular Filtration Rate) 06/07/2025 06/07/2024, 08/23/2017 Hypertension/CHF/CAD Annual BMP Blood Test 06/07/2025 06/07/2024, 08/23/2017 DTaP,Tdap,and Td Vaccines (3 - Td or [...] Procedure Name Priority Date/Time Associated Diagnosis Comments CBC WITH AUTO DIFFERENTIAL Routine 06/07/2024 4:23 PM EDT Elevated PSA Malignant neoplasm metastatic to bone (CMS/HCC V24, CMS/HCC V28) Prostate mass PROSTATE SPECIFIC ANTIGEN DIAGNOSTIC Routine 06/07/2024 4:23 PM EDT Elevated PSA Malignant neoplasm metastatic to bone (CMS/HCC V24, CMS/HCC V28) Prostate mass TESTOSTERONE, TOTAL Routine 06/07/2024 4 :23 PM EDT Elevated PSA Malignant neoplasm metastatic to bone (CMS/HCC V24, CMS/HCC V28) Prostate mass COMPREHENSIVE METABOLIC PANEL Routine 06/07/2024 4:23 PM EDT Elevated PSA Malignant neoplasm metastatic to bone (CMS/HCC V24, CMS/HCC V28) Prostate mass CBC AND DIFFERENTIAL Routine 06/07/2024 4:23 PM EDT Elevated PSA Malignant neoplasm metastatic to bone (CMS/HCC V24, CMS/HCC V28) Prostate mass from Last 3 Months Results * (ABNORMAL) Prostate specific antigen diagnostic (06/07/2024 4:23 PM EDT) PSA 15.41(H) 0.00 - 4.00 ng/mL LAB CHEMISTRY METHOD 06/07/2024 10:58 PM EDT [facility] Blood Venous blood specimen / Unknown Venipuncture / Unknown 06/07/2024 4:23 PM EDT 06/07/2024 4:35 PM EDT Narrative [facility] - 06/07/2024 10:58 PM EDT The Siemens Advia Centaur Chemiluminescent Immunoassay is used. Results obtained with different assay methods or kits cannot be used interchangeably. Results cannot be interpreted as absolute evidence of the presence or absence of malignant disease. Subramveronica Chavez MD LAB BLOOD ORDERABLE S Final Result [facility] [address] [place] [address], * (ABNORMAL) CBC auto differential (06/07/2024 4:23 PM EDT) [facility] Signature WBC 11.0(H) 4.8 - 10.8 K/mcL LAB HEMETOLOGY METHOD 06/07/2024 4:45 PM EDT [facility] RBC 4.70 4.50 - 5.50 M/mcL LAB HEMETOLOGY METHOD 06/07/2024 4:45 PM EDT [facility] Hemoglobin 13.8 13.5 - 17.5 g/dL LAB HEMETOLOGY METHOD 06/07/2024 4:45 PM EDT [facility] Hematocrit 41.9(L) 42.0 - 54.0 % LAB HEMETOLOGY METHOD 06/07/2024 4:45 PM EDT [facility] MCV 89.9 79.0 - 98.0 FL LAB HEMETOLOGY METHOD 06/07/2024 4:45 PM EDT [facility] MCH 29.6 27.0 - 32.0 pcg LAB HEMETOLOGY METHOD 06/07/2024 4:45 PM EDT [facility] MCHC 32.9 32.0 - 37.0 g/dL LAB HEMETOLOGY METHOD 06/07/2024 4:45 PM EDT [facility] RDW 13.5 11.0 - 15.0 % LAB HEMETOLOGY METHOD 06/07/2024 4:45 PM EDT [facility] Platelets 272 130 - 400 K/mcL LAB HEMETOLOGY METHOD 06/07/2024 4:45 PM EDT [facility] MPV 10.2 7.0 - 11.0 FL LAB HEMETOLOGY METHOD 06/07/2024 4:45 PM EDT [facility] NRBC 0.0 <1.0 % LAB HEMETOLOGY METHOD 06/07/2024 4:45 PM EDT [facility] NRBC Absolute 0.00 <0.10 K/mcL LAB HEMETOLOGY METHOD [facility]/07[facility]24 [facility] Neutrophils Relative 73.9 % LAB HEMETOLOGY METHOD 06/07/2024 4:45 [facility] Lymphocytes Relative 12.0 % LAB HEMETOLOGY METHOD 06/07/2024 4:45 PM EDT [facility] Monocytes Relative 11.2 % LAB HEMETOLOGY METHOD 06/07/2024 4:[facility] Eosinophils Relative 2.1 % LAB HEMETOLOGY METHOD 06/07/2024 4:45 PM [facility] Basophils Relative 0.5 % LAB HEMETOLOGY METHOD 06/07/2024 4:45 PM [facility] Immature Granulocytes Relative 0.3 % LAB HEMETOLOGY METHOD 06/07/2024 4:45 PM [facility] Neutrophils Absolute 8.16(H) 1.50 - 7.00 K/mcL LAB HEMETOLOGY METHOD 06/07/2024 4:45 PM [facility] Lymphocytes Absolute 1.33 1.00 - 5.00 K/mcL LAB HEMETOLOGY METHOD 06/07/2024 4:45 PM EDT [facility] Monocytes Absolute 1.24(H) 0.20 - 1.00 K/mcL LAB HEMETOLOGY METHOD 06/07/2024 4:[facility] Eosinophils Absolute 0.23 0.00 - 0.50 K/mcL LAB HEMETOLOGY METHOD 06/07/2024 4:45 PM [facility] Basophils Absolute 0.05 0.00 - 0.20 K/mcL LAB HEMETOLOGY METHOD 06/07/2024 4:45 PM EDT [facility] Immature Granulocytes Absolute 0.03 0.00 - 0.03 K/mcL LAB HEMETOLOGY METHOD 06/07/2024 4:45 PM EDT [facility] Blood Venous blood specimen / Unknown Venipuncture / Unknown 06/07/2024 4:23 PM EDT 06/07/2024 4:36 PM EDT us Elsie Chavez MD LAB BLOOD ORDERABLE S Final Result Performing Organization Address [facility]/ZIP Co de Phone Number [facility] [address] [place] [address], [place] [phone] * (ABNORMAL) Testosterone, total (06/07/2024 4:23 PM EDT) Testosterone 192(L) 229 - 902 ng/dL LAB CHEMISTRY METHOD 06/07/2024 7:46 PM EDT [facility] Blood Venous blood specimen / Unknown Venipuncture / Unknown 06/07/2024 4:23 PM EDT 06/07/2024 4:35 PM EDT us Elsie Chavez MD LAB BLOOD ORDERABLE S Final Result Performing Organization Address City/[facility]/ZIP Co de Phone Number [facility] [address] [place] [address], [place] [phone] * (ABNORMAL) Comprehensive metabolic panel (06/07/2024 4:23 PM EDT) Sodium 141 133 - 145 mmol/L LAB CHEMISTRY METHOD 06/07/2024 7:05 PM EDT [facility] Potassium 3.8 3.5 - 5.5 mmol/L LAB CHEMISTRY METHOD 06/07/2024 7:05 PM EDT [facility] Chloride 106 96 - 110 mmol/L LAB CHEMISTRY METHOD 06/07/2024 7:05 PM [facility] CO2 26 21 - 32 mmol/L LAB CHEMISTRY METHOD 06/07/2024 7:05 PM [facility] Anion Gap 9 3 - 11 LAB CHEMISTRY METHOD 06/07/2024 7:05 PM [facility] Glucose 125(H) 70 - 100 mg/dL LAB CHEMISTRY METHOD 06/07/2024 7:05 PM [facility] BUN 17 5 - 25 mg/dL LAB CHEMISTRY METHOD 06/07/2024 7:05 PM [facility] Creatinine 0.72 0.70 - 1.30 mg/dL LAB CHEMISTRY METHOD 06/07/2024 7:05 PM [facility] eGFR 105 >=60 mL/min/1. 73m2 LAB CHEMISTRY METHOD 06/07/2024 7:05 PM [facility] Comment:Calculation based on the??Chronic Kidney Disease Epidemiology Collaboration (CKD-EPI) equation refit??without adjustment for race. BUN/Creatinine Ratio 23.6 LAB CHEMISTRY METHOD 06/07/2024 7:05 PM [facility] Calcium 8.9 8.5 - 10.5 mg/dL LAB CHEMISTRY METHOD 06/07/2024 7:05 [facility] AST (SGOT) 28 10 - 42 unit/L LAB CHEMISTRY METHOD 06/07/2024 7:05 [facility] ALT (SGPT) 30 10 - 60 unit/L LAB CHEMISTRY METHOD 06/07/2024 7:05 PM [facility] Alkaline Phosphatase 271(H) 42 - 121 unit/L LAB CHEMISTRY METHOD 06/07/2024 7:05 PM [facility] Total Protein 7.2 6.0 - 8.0 g/dL LAB CHEMISTRY METHOD 06/07/2024 7:05 PM [facility] Albumin 3.8 3.2 - 5.0 g/dL LAB CHEMISTRY METHOD 06/07/2024 7:05 PM EDT [facility] Total Bilirubin 0.5 0.0 - 1.4 mg/dL LAB CHEMISTRY METHOD 06/07/2024 7:05 PM EDT [facility] Blood Venous blood specimen / Unknown Venipuncture / Unknown 06/07/2024 4:23 PM EDT 06/07/2024 4:35 PM EDT us Elsie Chavez MD LAB BLOOD ORDERABLE S Final Result [facility] [address] [place] [address], from Last 3 Months Insurance [employer] Care Teams Endodontics Dentist Relationship Specialty Start Date End Date Nhi Conte PA [address] [place] [address] PCP - General 01/15/22
--- NOTE | 2024-06-09 15:01 | MHC.OFFVIS ---
Vital Signs 06/09/24 15:25 Height 6 ft Weight 265 lb BMI 35.9 BP 136/68 Blood Pressure Location Rt brachial Position Sitting Pulse 88 Pulse Source Pulse Oximeter Pulse Oximetry (%) 93 Oxygen Delivery Method Room Air Intake Visit Reasons: anemia Intake Note: NEW PATIENT for initial eval of anemia. Chief Complaint; C/O dysphagia, reflux, gas and bloating intermittently. Pt reports having colo within the last 2 years (via [facility]). Pt denies ever having EGD. No tx for GI sx at this time. Pt receiving tx for prostate ca at this time. Credit Operations Specialist Required: No Accompanied by: Self / Same As Patient Allergies tetracycline [Tetracycline] Allergy (Mild, Verified 06/09/24 15:01) RASH HPI HPI anemia: Details: 59-year-old male with past medical history of Hodgkin lymphoma, arthritis, iron deficiency anemia, hyperlipidemia, diabetes, hypertension is here today for initial consultation. Patient was sent by his PCP for worsening symptoms of acid reflux. Patient reports that his symptoms are worse when he is eating something more aggravating. Patient also reports trouble swallowing. Patient had colonoscopy at [facility] in January of 2023. Two hyperplastic polyps found in rectum otherwise normal. Five year follow-up screening due to previous history of tubular adenoma per patient. Patient never had upper endoscopy in the past. Currently not on any PPI. Patient denies any nausea or vomiting. Denies any dyspepsia or reports dysphagia, denies odynophagia. Denies melena, hematochezia, unintentional weight loss or ribbon like stools. 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 Current occupational exposures/hazards: No Cognitive needs: No Hearing needs: No Vision needs: Yes Review of Systems Const Denies weight gain and Denies weight loss ENT Reports no additional complaints, Reports dysphagia and Denies odynophagia Card Reports no additional complaints Resp Reports no additional complaints GI Denies abdominal pain, Denies belching, Denies melena, Denies bloating, Denies change in bowel habits, Reports dysphagia, Denies excessive flatus, Denies dyspepsia, Reports heartburn, Denies diarrhea, Denies loose stools, Denies nausea, Denies odynophagia and Denies vomiting Reports no additional complaints Musc Reports no additional complaints Neuro Reports no additional complaints Psych Reports no additional complaints Endo Reports no additional complaints Physical Exam Vital Signs: Last Vital Signs Pulse 88 06/09/24 15:25 BP 136/68 06/09/24 15:25 Pulse Ox 93 06/09/24 15:25 Oxygen Delivery Method Room Air 06/09/24 15:25 BMI result Body Mass Index 35.9 Const General: healthy appearing, no acute distress and well developed Nutritional Appearance: well nourished Orientation/consciousness: patient oriented x3 HEENT Head: Yes normal to inspection, Yes normocephalic and Yes atraumatic Face and sinus: Yes normal facial exam Mouth: Normal oral and palatal mucosa present Throat: Yes posterior oropharynx normal, Yes tonsils normal and Yes uvula midline Eyes General: appearance normal, both eyes and all related structures Neck Neck: Yes normal visual inspection, Yes full ROM and Yes trachea midline Thyroid: Thyroid normal Resp Effort & Inspection: normal respiratory effort, able to speak in complete sentences, no tracheal deviation and symmetric chest movement Auscultation: clear to auscultation bilaterally Cardio Jugular venous distension: no JVD Rate: regular rate Heart sounds: S1 normal heart sound present, S2 normal heart sound present, no gallops and no murmurs GI Inspection: Yes normal to inspection and No distended Palpation (GI): Soft to palpation, not firm, nontender and No hepatosplenomegaly present Auscultation: normal bowel sounds General: Yes no CVA tenderness Back/Spine/Pelvis Back: no CVA tenderness Skin General skin exam: elasticity normal, turgor normal and dry skin Neuro General: patient oriented x3 Psych Appearance: grossly normal Mental Status: mental status grossly normal Speech and movement: Normal speech and movement present Affect: normal affect Attitude: cooperative Thought process: Normal thought process present Thought content: Normal thought content present Insight: Good insight present (Psych) Judgement: Good judgement present (Psych) Assessment & Plan Assessment & Plan (1) Postprandial epigastric pain: Code(s): R10.13 - Epigastric pain (2) Dysphagia: Code(s): R13.10 - Dysphagia, unspecified Qualifiers: Dysphagia type: pharyngoesophageal phase Qualified Code(s): R13.14 - Dysphagia, pharyngoesophageal phase Plan Patient has epigastric pain and dysphagia. Epigastric pain only occasional depending on what he eats. Currently not on any PPI will hold off on sending script for anything. Patient will avoid dietary triggers. Avoid late night snacking. Staying upright for minimum 3 hours after meals discussed with patient. Will check lipase and transglutaminase rule out chronic pancreatitis and celiac. Patient will be sent for upper GI series with barium swallow. Patient will follow-up in 3-4 months, sooner on as needed basis. He is agreeable to this plan and verbalizes understanding of instructions. He was given the opportunity to ask questions and all questions answered. Thank you for allowing me to participate in his care Orders: Orders Lipase 06/09/24 R10.9 - Unspecified abdominal pain Transglutaminase IgA 06/09/24 R10.9 - Unspecified abdominal pain FL upper GI w Ba Swallow 06/09/24 K21.9 - Gastro-esophageal reflux disease without esophagitis Coding Level of Care Code New Pt Level 3 (72713) Diagnoses Postprandial epigastric pain R10.13 Pharyngoesophageal dysphagia R13.14 Dysphagia type: pharyngoesophageal phase Time Spent (min) 40 Comment 30 minutes spent with patient and additional 10 minutes spent reviewing his records
[2024-06-09 15:25] VITALS: BP 136/68; PULSE 88; O2SAT 93; BMI 35.9
== END 2024-06-09 15:47 | disposition home or self-care (01) ==
LOC: HO.HGI 14:58
PROVIDERS: PCP Physician Assistant; Visit Provider Nurse Practitioner Family
DX: R10.13 Epigastric pain (principal); R13.14 Dysphagia, pharyngoesophageal phase
CPT/HCPCS: 99203

== ENCOUNTER 2024-06-14 07:45 | Outpatient (REF) | payer OTHER, SELFPAY ==
--- OUTSIDE RECORDS SUMMARY | 2024-06-14 07:47 | XMS_ITS | Clinical Summary ---
Author Organization [facility] Address [address] [place] [address] Care Team Providers Care American Studies Professor Name Role Phone Nhi Conte PA-C Primary Care Provider Allergies Active Allergy Reactions Criticality Noted Date Comments Tetracyclines & Related 11/08/2018 Medications Medication Sig Dispensed Refills Start Date End Date Status Cholecalciferol (VITAMIN D3) 3000 units TABS Take 3,000 Units by mouth daily. 0 Active B Cbmxtmz-Hedmhz-TF (SUPER B-50 COMPLEX PO) Take 1 tablet [...] age to complete this topic Care Teams American Studies Professor Relationship Specialty Start Date End Date Nhi Conte, SHAWNC PCP - General Physician Telephone Order Dispatcher 01/15/22
[2024-06-14] MEDS: Lidocaine HCl 1 % MPF 5 ML VIAL 10 ML SUBCUT (08:32)
--- NOTE | 2024-06-14 08:35 | P.OP_ITS ---
Operative Note Operative Note Date of Service: 06/14/24 Narrative: Preoperative diagnosis: Elevated PSA Postoperative diagnosis: Elevated PSA Procedure: 1. transrectal ultrasound measurement of prostate 2. transrectal ultrasound-guided pudendal nerve block 3. transrectal ultrasound-guided prostate biopsy 12 core Surgeon: Dr. Kvng Woodruff Anesthetic: 10cc 1% lidocaine Indications for procedure: Elevated PSA - PSA jump from 3.1 to 13.5, MRI with 4.5 cm posterior mass involving SV - clinical pT3b, MRI with enlarged nodes Counselling: Technical aspects, risks and benefits of proposed procedure were discussed in full. All questions have been answered, written consent has been obtained and patient agrees to proceed. Procedure: The patient was brought into the procedure area and placed in a left lateral decubitus position. Patient identity confirmed. Perioperative antibiotics confirmed. Safety pause time out performed. ARMOND was performed to dilate rectal sphincter Iodine 10cc with 60 cc gel was placed per rectum to reduce infection risk using a catheter tip syringe. 8 Hz Theodore rectal end-fire ultrasound probe was placed transrectally without difficulty. The prostate was visualized. Seminal vesicles were normal. Prostate margins were clearly demarcated. Bladder was seen superiorly. No cystic structures were noted Yes calcifications were noted at the surgical margin The prostate was otherwise heterogenous in nature, ultrasound evidence suggested invasive disease beyond the prostate base The prostate was measured in 3 dimensions Prostatic Width: 5.0 cm Prostatic Height: 4.6 cm Urethral Length: 5.4 cm Total volume equals : 64 ml An ultrasound-guided pudendal nerve block was performed using a 22 gauge spinal needle in the sagittal plane. 4 cc of 1% lidocaine placed at the junction of each seminal vesicle and 2 cc placed at the apex of the prostate. A 12 core biopsy was performed with 6 cores each side using an 18 gauge prostate biopsy gun. Two cores each were taken at the prostate apex, mid and base on each side. Cores were spaced between lateral and medial aspects. Each core was examined as placed on specimen foam as part of fiberglass quality technician to ensure a minimum 1 cm of length and minimal discontinuity. He tolerated the procedure well with minimal rectal bleeding. Blood pressure remained stable following procedure. He was able to ambulate to bathroom after 5 minutes. Printed instructions regarding antibiotic use and common adverse events from the procedure such as low-grade temperature, potential infection and bleeding were given. He understands to call the office or go to an emergency room should any of these events arise. Pathology: 12 core prostate biopsy. CPT code 17662: Transrectal ultrasound; this is a diagnostic test for evaluation of the prostate and surrounding structures, looking for abnormalities or suspicious areas worrisome for cancer CPT code 94775: Biopsy, prostate; needle or punch, single or multiple, any approach CPT code 29832: Ultrasonic guidance for needle placement (eg, biopsy, aspiration, injection, localization device), imaging supervision and interpretation
== END 2024-06-14 07:46 | disposition home or self-care (01) ==
LOC: HO.US 07:45
PROVIDERS: PCP Physician Assistant; Visit Provider Urology
DX: C61 Malignant neoplasm of prostate (principal)
CPT/HCPCS: 55700; 76942; 88305; 88344; J2003

== ENCOUNTER → 2024-06-14 07:45 | Outpatient (BNV) | payer OTHER, SELFPAY | PROVIDERS: PCP Physician Assistant; Visit Provider Urology | DX: R97.20 Elevated prostate specific antigen [PSA] (principal) | CPT/HCPCS: 55700; 76872; 76942 ==

== ENCOUNTER 2024-06-23 13:42 | Outpatient (AMB) | payer OTHER, SELFPAY ==
--- OUTSIDE RECORDS SUMMARY | 2024-06-23 13:45 | XMS_ITS | Encounter Summary ---
Author Organization [facility] [place] [address] Care Team Providers Care Architectural Job Captain Name Role Phone Nhi Conte Primary Care Provider [phone] Encounter Details Date Type Department Care Team (Latest Contact Info) Description 06/16/2024 3:00 PM EDT Office Visit [facility] Hematology Oncology [address] [place] [phone] Elsie Chavez MD [address] [place] [phone] Elevated PSA (Primary Dx); Prostate mass; Malignant neoplasm metastatic to bone (CMS/HCC V24, CMS/HCC V28); Pelvic lymphadenopathy Social History Tobacco Use Types Packs/Day Years [...] Sign Reading Time Taken Comments Blood Pressure 142/76 06/16/2024 3:12 PM EDT Pulse 81 06/16/2024 3:12 PM EDT Temperature 36.2 ??C (97.2 ??F) 06/16/2024 3:12 PM ED T Respiratory Rate - - Oxygen Saturation 98% 06/16/2024 3:12 PM EDT Inhaled Oxygen Concentration - - Weight 116 kg (255 lb 12.8 oz) 06/16/2024 3:12 P M EDT Height 182.9 cm (6') 06/16/2024 3:12 PM EDT Body Mass Index 34.69 06/16/2024 3:12 PM EDT documented in this encounter Ordered Prescriptions Prescription Sig Dispense Quantity Refills Last Filled Start Date End Date abiraterone (ZYTIGA) 250 mg Take 4 tablets (1,000 mg total) by mouth 1 (one) time each day Take with a full glass of water. Swallow whole. Do not eat anything for at least 2 hours before and for at least 1 hour after you have taken the medicine. 120 tablet 5 06/22/2024 predniSONE (DELTASONE) 5 mg tablet Take 1 tablet (5 mg total) by mouth 2 (two) times a day. 180 each 1 06/22/2024 5 documented in this encounter Progress Notes * Elsie Chavez MD - 06/16/2024 3:00 PM EDTAddended by: ELSIE SOMERS on: 06/22/2024 09:00 AM Modules accepted: Orders * Elsie Chavez MD - 06/16/2024 3:00 PM EDT CHIEF COMPLAINT: No chief complaint on file. New diagnosis-suspected prostate cancer History of Hodgkin disease IDENTIFIER:Gissell Biggs is a 59 y.o. male. HPI: The patient returns for follow up of Hodgkin lymphoma, anemia . Lab reports were reviewed from [facility]. For details of initial diagnosis and follow up until DEC 10, 2023- please refer to notes from prior [facility] EMR last note dated 12/17/2022 His ongoing issues include intermittent leukocytosis, hypothyroidism, diabetes mellitus, hyperlipidemia, essential hypertension, on lisinopril, peripheral neuropathy s/p chemotherapy, He has now registered with a new PCP Dr. Conte at the [facility]. Patient was last seen in clinic in [...] and an MRI was set up at [place]. Unfortunately the results indicated a prostatic mass, [...] constipation. He has occasional difficulty initiating micturition. Update-since last clinic visit, patient has started on bicalutamide. He had a biopsy on Wednesday results are not yet available. He is awaiting Lupron injection, and PET CT scan likely after the biopsy results are available as well. He reports that pain has improved he used only a couple of doses of oxycodone. Detailed discussion today regarding Enhancement of the androgen deprivation with the use of abiraterone/prednisone. I will send in the prescription as soon as biopsy results are available. Since his symptoms appear to be stable at thistime, no need to consider chemotherapy, patient is quite reassured The following is copied, reviewed and edited 11/2018 -- Patient was previously following with Dr. Foster, and I am seeing the patient upon his long-term. He has been doing well over the last year. 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 He [...] subtype Hodgkin disease. He was treated with Mervin V regimen from August to October 1999 and had consolidation radiation to modified mantle field. This was delivered during November to December 1999 on the ECOG protocol. Patient has been in complete remission since then. His other medical history reviewed below, includes hypertension, hypercholesteremia, hypothyroidism, arthritis. Screening, patient recently had colonoscopy in 2016 showed hemorrhoids, left colon tubular adenoma. Family [...] a new PCP Dr. Conte at the [facility]. Over the last 10 months he [...] HbA1c at 6.7, alkaline phosphatase slightly high 137 /2023 last year patient was noted to be mildly anemic. He had further follow-up lab work Patient has extensive arthritis may be contributing. lab work is reviewed hemoglobin is 13.5-30 - range. He was also concerned about WBC count was 11.7. He also had repeat colonoscopy in January, at the [facility]. Results to be reviewed. Has [...] Hodgkin lymphoma of lymph nodes of neck ([facility]/HCC V24, [facility]/HCC V28) 11/08/2018 Skin rash 04/08/2021 Resolved Ambulatory [...] (one) time each day., Disp: , Rfl: oxyCODONE (ROXICODONE) 5 mg immediate release tablet, Take 1 tablet (5 mg total) by mouth every 8 (eight) hours if needed for moderate pain or severe pain. Max Daily Amount: 15 mg, Disp: 60 tablet, Rfl: 0 triamcinolone (KENALOG) 0.1 % cream, MIX ENTIRE TUBE INTO ONE POUND JAR OF CERAVE. PUT ON BODY EVERY DAY. NOT FOR FACE, Disp: , Rfl: vit B comp/folic/choline/inosi (SUPER B-50 COMPLEX ORAL), Take 1 tablet by mouth daily., Disp: , Rfl: Allergies Allergen Reactions Tetracyclines PHYSICAL EXAM: Visit Vitals Smoking Status Never APPEARANCE: Alert and in no acute distress [...] 06/07/2024 MCV 89.9 06/07/2024 PLT 272 06/07/2024 Lab Results Component Value Date NA 141 06/07/2024 K 3.8 06/07/2024 CL 106 06/07/2024 CO2 26 06/07/2024 GLUCOSE 125 (H) 06/07/2024 BUN 17 06/07/2024 CREATININE 0.72 06/07/2024 CALCIUM 8.9 06/07/2024 PROT 7.2 06/07/2024 ALBUMIN 3.8 06/07/2024 BILITOT 0.5 06/07/2024 AST 28 06/07/2024 ALT 30 06/07/2024 ALKPHOS 271 (H) 06/07/2024 EGFR 105 06/07/2024 Review of Imaging, interpreted US GALL BLADDER [facility] Diagnostic Imaging Department [address] [place] [address] Patient: GISSELL BIGGS /Age/Sex: 1965 - 55 - M Unit#: [id number] Location/Status: [facility]/REG CLI Mnemonic/Ordering Site: GALLBLADDR/SPUS Ordering Physician: ELSIE HANSON MD Gall Bladder - 04/22/21715 HISTORY: The patient is a 55-year-old male [...] is incompletely evaluated on this study. Code 60848 G9551 Dictating Physician: CHANDAN BALDERAS MD Electronically Signed by: CHANDAN BALDERAS MD Dic Date/Time: 04/22/21822 Sign date/Time: 04/22/21825 Review of External Documentation Notes from PCP office Tests ordered -lab work per PCP CBC-D, CMP, reviewed in detail IMPRESSION: No diagnosis found. PLAN: 59-year-old man, long-term survivor after diagnosis [...] 13.3, recheck today along with testosterone -- Continuing on bicalutamide -- Biopsy results to be reviewed once available, he had biopsy last Wednesday --Awaiting PET CT scan apparently to be approved only after the biopsy results are available -- In terms of treatment, several different treatment options are available and discussed with the patient in detail #2 systemic therapy Mainstay of treatment is androgen deprivation, I agree with initiating bicalutamide He is tolerating it well, but insurance did not approve the 150 Mg dose, may need to cut back once the Lupron injection is completed -- He would be also a candidate for abiraterone plus prednisone or enzalutamide Preferably abiraterone plus prednisone, I will send in a prescription once biopsy is completed, will review results once they are available In future, options such as chemotherapy docetaxel/cabazitaxel [...] mg 1 2-3 times a day as needed he has medication available needed to use only a couple of doses, likely that he has improvement due to the bicalutamide use Bowel regimen to avoid constipation Pain Control--started oxycodone Health Care Proxy--no one Elsie Chavez MD Cc PATTIE Rodriguez Cc Kvng Woodruff , urology, [place] Cc Sharmila Mondragon IMPROVEMENT AUDITOR * Elsie Chavez MD - 06/16/2024 3:00 PM EDT Update-06/22/2024 Patient underwent prostatic biopsy at [place], per Dr. Villalta, on 06/14/2024. Pathology results are available and reviewed in detail. Biopsy revealed prostatic adenocarcinoma, acinar type, revealed high-grade high risk prostate cancer with Denise score 9 equals 5+4 in the left base, lateral and medial, left mid lateral and medial,left apex lateral, right apex medial Denise score 9 equals 4+5 in the right base lateral and medial, right mid lateral and medial, right apex lateral, and left apex medial 51% pattern 4, 49% pattern 5, grade group 5. 13 out of the 16 cores were positive and 59% of the tissue was involved. There was periprostatic fat invasion and perineural invasion. Lymphatic/vascular invasion not identified. Patient has high-grade, high risk prostate cancer, with skeletal metastasis, stage IV disease Recommended continuation of androgen deprivation therapy He will be receiving Eligard injections at the urology office In addition I recommend abiraterone plus prednisone, will send in prescriptions to his pharmacy Nurse navigator involved for arranging prescription, any grants, financial assistance as needed. Will follow-up Cc PATTIE Rodriguez, Urology [place] documented in this encounter Plan of Treatment Upcoming Encounters Date Type Department Care Team (Late st Contact Info) Description 07/14/2024 3:15 PM EDT Office Visit [facility] Hematology Oncology [address] [place] [phone] Elsie Chavez MD [address] [place] [phone] 01/01/2025 9:00 AM EST Office Visit [facility] Hematology Oncology [address] [place] [phone] Elsie Chavez MD [address] [place] [phone] documented as of this encounter Visit Diagnoses Diagnosis Elevated PSA- Primary Elevated prostate specific antigen (PSA) Prostate mass Unspecified disorder of prostate Malignant neoplasm metastatic to bone (CMS/HCC V24, CMS/HCC V28) Pelvic lymphadenopathy documented in this encounter Care Teams Architectural Job Captain Relationship Specialty Start Date End Date Nhi Conte PA [facility] [place] [address] PCP - General 01/15/22 documented as of this encounter
--- OUTSIDE RECORDS SUMMARY | 2024-06-23 13:45 | XMS_ITS | Encounter Summary ---
Author Organization [place] [address] Care Team Providers Care Foot Cutter Name Role Phone Nhi Conte Primary Care Provider [phone] Encounter Details Date Type Department Care Team (Late Contact Info) Description 06/22/2024 Telephone [facility] Radiation Oncology [address] [place] [phone] Celestina Tam MA Social History Tobacco Use Types Packs/Day Years [...] as of this encounter Progress Notes * Celestina Tam MA - 06/22/2024 9:31 AM EDT Spoke with pt he is still awaiting his PET scan yuki. Pt has a follow up with his urologist scheduled for tomorrow and will be discussing tx options. Pt will call us back if he would like to proceed with scheduling consult. Office contact # given to pt. documented in this encounter Plan of Treatment Upcoming Encounters Date Type Department Care Team (Late Contact Info) Description 07/14/2024 3:15 PM EDT Office Visit [facility] Hematology Oncology [address] [place] [phone] Elsie Chavez MD [address] [place] [phone] 01/01/2025 9:00 AM EST Office Visit [facility] Hematology Oncology [address] [place] [phone] Elsie Chavez MD [address] [place] [phone] documented as of this encounter Visit Diagnoses Not on filedocumented in this encounter Care Teams Foot Cutter Relationship Specialty Start Date End Date Nhi Conte PA [address] [place] [address] PCP - General 01/15/22 documented as of this encounter
--- OUTSIDE RECORDS SUMMARY | 2024-06-23 13:45 | XMS_ITS | Clinical Summary ---
Author Organization [facility] Address [address] [place] [address] Phone Care Team Providers Care Special Education Instructor Name Role Phone Nhi Conte Primary Care Provider [phone] Allergies Active Allergy Reactions Criticality Noted Date [...] mg 60 tablet 06/07/2024 07/08/19 25 Active predniSONE (DELTASONE) 5 mg tablet Take 1 tablet (5 mg total) by mouth 2 (two) times a day. 180 each 1 06/22/2024 12/20/19 25 Active abiraterone (ZYTIGA) 250 mg Take 4 tablets (1,000 mg total) by mouth 1 (one) time each day Take with a full glass of water. Swallow whole. Do not eat anything for at least 2 hours before and for at least 1 hour after you have taken the medicine. 120 tablet 5 06/22/2024 12/20/19 25 Active abiraterone (ZYTIGA) 250 mg Take 4 tablets by mouth once daily. take with a full glass of water. Swallow whole. Do not east for at least 2 hours before or at least 1 hour after you have taken the medication. 120 tablet 5 06/22/2024 Active Active Problems Problem Noted Date Diagnosed Date Absolute anemia 04/08/2021 Leukocytosis 04/08/2021 Skin rash 04/08/2021 Acquired hypothyroidism 11/08/2018 Colon adenoma 11/08/2018 Essential hypertension 11/08/2018 Gastroesophageal reflux disease 11/08/2018 Mixed hyperlipidemia 11/08/2018 Nodular sclerosis Hodgkin ly mphoma of lymph nodes of neck ([facility]/HCC V24, CMS/HCC V28) 11/08/2018 Encounters Date Type Department Care Team Description 06/23/2024 Telephone [facility] Hematology Oncology [address] [place] [address] Melissa Chang RN THPS ZYTIGA 06/22/2024 Telephone [facility] Radiation Oncology [address] [place] [address] Celestina Tam, BRENT 06/16/2024 3:00 PM EDT Office Visit [facility] Hematology Oncology [address] [place] [phone] Elsie Ybarra MD Elevated PSA (Primary Dx); Prostate mass; Malignant neoplasm metastatic to bone ([facility] V24, [facility] V28); Pelvic lymphadenopathy 06/08/2024 Telephone [facility] Hematology Oncology [address] [place] [phone] Elsie Ybarra MD PET 06/07/2024 4:00 PM EDT Office Visit [facility] Hematology Oncology [address] [place] [phone] Elsie Ybarra MD Elevated PSA (Primary Dx); Malignant neoplasm metastatic to bone ([facility] V24, [facility] V28); Prostate mass; Pelvic lymphadenopathy; 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 ([facility] V24, [facility] V28) from Last 3 Months Immunizations Name [...] Mass Index 34.69 06/16/2024 3:12 PM EDT Plan of Treatment Upcoming Encounters Date Type Department Care Team (Late st Contact Info) Description 07/14/2024 3:15 PM EDT Office Visit [facility] Hematology Oncology [address] [place] [phone] Elsie Chavez MD [address] [place] [phone] 01/01/2025 9:00 AM EST Office Visit [facility] Hematology Oncology [address] [place] [phone] Elsie Chavez MD [address] [place] [phone] Health Maintenance Due Date Last Done Comments [...] specific antigen diagnostic (06/07/2024 4:23 PM EDT) Pathologist [facility] PSA 15.41(H) 0.00 - 4.00 ng/mL LAB CHEMISTRY METHOD 06/07/2024 10:58 PM EDT [facility] Blood Venous blood specimen / Unknown Venipuncture / Unknown 06/07/2024 4:23 PM EDT 06/07/2024 4:35 PM EDT Narrative [facility] - 06/07/2024 10:58 PM EDT The Siemens Advia Centaur Chemiluminescent Immunoassay is used. Results obtained with different assay methods or kits cannot be used interchangeably. Results cannot be interpreted as absolute evidence of the presence or absence of malignant disease. us Elsie Chavez MD LAB BLOOD ORDERABLE S Final Result [facility] [address] [place] [address], * (ABNORMAL) CBC auto differential (06/07/2024 4:23 PM EDT) Pathologist [facility] WBC 11.0(H) 4.8 - 10.8 K/[facility] LAB HEMETOLOGY METHOD 06/07/2024 4:45 PM EDT [facility] RBC 4.70 4.50 - 5.50 M/[facility] LAB HEMETOLOGY METHOD 06/07/2024 4:45 PM EDT [facility] Hemoglobin 13.8 13.5 - 17.5 g/dL LAB HEMETOLOGY METHOD 06/07/2024 4:45 PM EDT [facility] Hematocrit 41.9(L) 42.0 - 54.0 % LAB HEMETOLOGY METHOD 06/07/2024 4:45 PM EDT [facility] MCV 89.9 79.0 - 98.0 FL LAB HEMETOLOGY METHOD 06/07/2024 4:45 PM EDT [facility] MCH 29.6 27.0 - 32.0 pcg LAB HEMETOLOGY METHOD [facility] MCHC 32.9 32.0 - 37.0 g/dL LAB HEMETOLOGY METHOD 06/07/2024 4:45 PM [facility] RDW 13.5 11.0 - 15.0 % LAB HEMETOLOGY METHOD 06/07/2024 4:45 PM EDT [facility] Platelets 272 130 - 400 K/mcL LAB HEMETOLOGY METHOD 06/07[facility]2024 4:[facility] MPV 10.2 7.0 - 11.0 FL LAB HEMETOLOGY METHOD 06/07/2024 4:[facility] NRBC 0.0 <1.0 % LAB HEMETOLOGY METHOD 06/07/2024 4:45 PM EDT [facility] NRBC Absolute 0.00 <0.10 K/mcL LAB HEMETOLOGY METHOD 06/07/2024 4:[facility] Neutrophils Relative 73.9 % LAB HEMETOLOGY METHOD 06/07/2024 4:[facility] Lymphocytes Relative 12.0 % LAB HEMETOLOGY METHOD 06/07/2024 4:[facility] Monocytes Relative 11.2 % LAB HEMETOLOGY METHOD 06/07/2024 4:45 PM EDT [facility] Eosinophils Relative 2.1 % LAB HEMETOLOGY METHOD 06/07/2024 4:45 PM [facility] Basophils Relative 0.5 % LAB HEMETOLOGY METHOD 06/07/2024 4:45 PM EDT [facility] Immature Granulocytes Relative 0.3 % LAB HEMETOLOGY METHOD 06/07/2024 4:45 PM EDT [facility] Neutrophils Absolute 8.16(H) 1.50 - 7.00 K/mcL LAB HEMETOLOGY METHOD 06/07[facility]2024 4[facility] Lymphocytes Absolute 1.33 1.00 - 5.00 K/mcL LAB HEMETOLOGY METHOD 06/07/2024 4:45 PM EDT [facility] Monocytes Absolute 1.24(H) 0.20 - 1.00 K/mcL LAB HEMETOLOGY METHOD 06/07/2024 4:45 PM EDT [facility] Eosinophils Absolute 0.23 0.00 - 0.50 K/mcL LAB HEMETOLOGY METHOD 06/07/2024 4:45 PM [facility] Basophils Absolute 0.05 0.00 - 0.20 K/mcL LAB HEMETOLOGY METHOD 06/07/2024 4:45 PM EDT [facility] Immature Granulocytes Absolute 0.03 0.00 - 0.03 K/mcL LAB HEMETOLOGY METHOD 06/07/2024 4:45 PM [facility] Blood Venous blood specimen / Unknown Venipuncture / Unknown 06/07/2024 4:23 PM EDT 06/07/2024 4:36 PM EDT us Elsie Chavez MD LAB BLOOD ORDERABLE S Final Result [facility] [address] [place] [address], [place] [phone] * (ABNORMAL) Testosterone, total (06/07/2024 4:23 PM EDT) Testosterone 192(L) 229 - 902 ng/dL LAB CHEMISTRY METHOD 06/07/2024 7:46 PM EDT [facility] Blood Venous blood specimen / Unknown Venipuncture / Unknown 06/07/2024 4:23 PM EDT 06/07/2024 4:35 PM EDT Elsie Chavez MD LAB BLOOD ORDERABLE S Final Result Performing Organization Address [facility] Co de Phone Number [facility] [address] [place] [address], [place] [phone] * (ABNORMAL) Comprehensive metabolic panel (06/07/2024 4:23 PM EDT) Sodium 141 133 - 145 mmol/L LAB CHEMISTRY METHOD 06/07/2024 7:05 PM [facility] Potassium 3.8 3.5 - 5.5 mmol/L LAB CHEMISTRY METHOD 06/07/2024 7:05 PM [facility] Chloride 106 96 - 110 mmol/L LAB CHEMISTRY METHOD 06/07/2024 7:05 PM [facility] CO2 26 21 - 32 mmol/L LAB CHEMISTRY METHOD 06/07/2024 7:05 PM [facility] Anion Gap 9 3 - 11 LAB CHEMISTRY METHOD 06/07/2024 7:05 PM [facility] Glucose 125(H) 70 - 100 mg/dL LAB CHEMISTRY METHOD 06/07/2024 7:05 PM [facility] BUN 17 5 - 25 mg/dL LAB CHEMISTRY METHOD 06/07/2024 7:05 PM [facility] Creatinine 0.72 0.70 - 1.30 mg/dL LAB CHEMISTRY METHOD 06/07/2024 7:05 PM [facility] eGFR 105 >=60 mL/min/1. 73m2 LAB CHEMISTRY METHOD 06/07/2024 7:05 PM [facility] Comment:Calculation based on the??Chronic Kidney Disease Epidemiology Collaboration (CKD-EPI) equation refit??without adjustment for race. BUN/Creatinine Ratio 23.6 LAB CHEMISTRY METHOD 06/07/2024 7:05 PM [facility] Calcium 8.9 8.5 - 10.5 mg/dL LAB CHEMISTRY METHOD 06/07/2024 7:05 PM [facility] AST (SGOT) 28 10 - 42 unit/L LAB CHEMISTRY METHOD 06/07/2024 7:05 PM [facility] ALT (SGPT) 30 10 - 60 unit/L LAB CHEMISTRY METHOD 06/07/2024 7:05 PM [facility] Alkaline Phosphatase 271(H) 42 - 121 unit/L LAB CHEMISTRY METHOD 06/07/2024 7:05 PM [facility] Total Protein 7.2 6.0 - 8.0 g/dL LAB CHEMISTRY METHOD 06/07/2024 7:05 PM [facility] Albumin 3.8 3.2 - 5.0 g/dL LAB CHEMISTRY METHOD 06/07/2024 7:05 PM [facility] Total Bilirubin 0.5 0.0 - 1.4 mg/dL LAB CHEMISTRY METHOD 06/07/2024 7:05 PM [facility] Blood Venous blood specimen / Unknown Venipuncture / Unknown 06/07/2024 4:23 PM EDT 06/07/2024 4:35 PM EDT Elsie Chavez MD LAB BLOOD ORDERABLE S Final Result [facility] [address] [place] [address], from Last 3 Months Insurance [employer] Care Teams Special Education Instructor Relationship Specialty Start Date End Date Nhi Conte PA [address] [place] [id number] PCP - General 01/15/22
--- OUTSIDE RECORDS SUMMARY | 2024-06-23 13:45 | XMS_ITS | Encounter Summary ---
Author Organization [facility] [place] [address] Care Team Providers Care Blow Mold Machine Operator Name Role Phone Nhi Conte Primary Care Provider [phone] Reason for Visit * Reason Onset Date Comments ROLANDO MILLS 06/23/2024 Encounter Details Date Type Department Care Team ([facility] Contact Info) Description 06/23/2024 Telephone [facility] Hematology Oncology [address] [place] [phone] Melissa Chang RN [facility] ZYTIGA Social History Tobacco Use Types Packs/Day Years [...] as of this encounter Progress Notes * Melissa Chang RN - 06/23/2024 9:57 AM EDT THPS, The RX and supporting documents were faxed to you yesterday. documented in this encounter Plan of Treatment Upcoming Encounters Date Type Department Care Team ([facility] Contact Info) Description 07/14/2024 3:15 PM EDT Office Visit [facility] Hematology Oncology [address] [place] [phone] Elsie Chavez MD [address] [place] [phone] 01/01/2025 9:00 AM EST Office Visit [facility] Hematology Oncology [address] [place] [phone] Elsie Chavez MD [address] [place] [phone] documented as of this encounter Visit Diagnoses Not on filedocumented in this encounter Care Teams Blow Mold Machine Operator Relationship Specialty [place] [address] [place] [address] PCP - General 01/15/22 documented as of this encounter
--- OUTSIDE RECORDS SUMMARY | 2024-06-23 13:45 | XMS_ITS | Clinical Summary ---
Author Organization [facility] Address [address] [place] [address] Care Team Providers Care Reproductive Surgeon Name Role Phone Nhi Conte PA-C Primary Care Provider [phone] Allergies Active Allergy Reactions Criticality Noted Date Comments Tetracyclines & Related 11/08/2018 Medications Medication Sig Dispensed Refills Start Date End Date Status Cholecalciferol (VITAMIN D3) 3000 units TABS Take 3,000 Units by mouth daily. 0 Active B Hkzfxyl-Vjzhbn-OA (SUPER B-50 COMPLEX PO) Take 1 tablet [...] age to complete this topic Care Teams Reproductive Surgeon Relationship Specialty Start Date End Date Nhi Conte, SHAWNC PCP - General Physician Power Operator 01/15/22
--- NOTE | 2024-06-23 13:46 | MHC.OFFVIS ---
Intake Visit Reasons: Prostate biopsy results Intake Note: Patient is present for PROSTATE BIOPSY RESULTS Urology Medication:VITAMIN B,VITAMIN B12 Antibiotic Allergy:TETRACYLINE Blood Thinner:NONE Abrasives Sales Representative Required: No Allergies tetracycline [Tetracycline] Allergy (Mild, Verified 06/23/24 13:47) RASH HPI Comments Details: Jermaine is a very pleasant male. He is a patient of Dr. Conte. He is seen for the following urologic conditions - metastatic prostate cancer Background of Hodgkin's lymphoma, arthritis diabetes. Is followed by Dr. East - oncology down at [facility] Telemedicine Evaluation 15 min Consultation ElasticBox Itzel Video Discussed prostate biopsy finding Grade group 5 disease Has PET-CT pending Plan degarelix GnRH injection to occur late next week after PET-CT complete - will do germline DNA testing at same time Has been on bicalutamide t.i.d. as initial therapy Will transition to antiandrogen with Dr. East. Depending on PET-CT findings there may be a role upfront docetaxel and/or CAMACHO 177 Prostate cancer grade group 5 MRI prostate volume 70 cc, PI-RADS 5 4.7 cm mass involving the entire peripheral zone. Findings consistent with prostate carcinoma involving the entire prostate gland with invasion of the rectum. There is associated pelvic lymphadenopathy as described as well as multiple bone metastases. 11/01 3.2, 06/01 12.4, 06/01 13.4 Histologic type: Prostatic adenocarcinoma, acinar type Histologic grade: [place] score: 9 (5+4) (left base lateral and medial, left midlateral and medial, left apex lateral,and right apex medial) 9 (4+5) (right base lateral and medial, right mid lateral and medial, right apex lateral,and left apex medial) % of pattern 4: 51% % of pattern 5: 49% Grade group: 5 Tumor quantitation: Number cores positive: 13 Total number of cores: 16 % of tissue involved: 59% Periprostatic fat inv.: Present Seminal vesicle inv.: Not identified Perineural inv.: Present Lymphatic and/or vascular invasion: No PFSH Medical History Nodular sclerosing Hodgkin lymphoma Cancer Arthritis Diabetes High cholesterol High blood pressure Carpal tunnel syndrome Surgical History History of knee replacement Family History Father High blood pressure Diabetes Cardiovascular disease Maternal Grandfather Diabetes Mother Cancer Social History Housing: House Alcohol intake: current Patient Tobacco Use Status: Former Tobacco user Tobacco use type: Cigar Years Smoked: 2 e-Cigarette/Vaping Use: Never Used Second Hand Smoke Exposure: No service: No Current occupational status: employed 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 Current occupational exposures/hazards: No Cognitive needs: No Hearing needs: No Vision needs: Yes Review of Systems Const All systems reviewed & are unremarkable except as noted in HPI and below Reports no additional complaints Resp Reports no additional complaints GI Reports no additional complaints Reports as per HPI Musc Reports no additional complaints Physical Exam Telemedicine evaluation Appropriate responses Regular breathing rate and rhythm HEENT Head: Yes normal to inspection Ears: hearing grossly normal bilaterally Eyes General: appearance normal, both eyes and all related structures Neck Neck: Yes normal visual inspection Chest Chest palpation & inspection: normal inspection of the chest Resp Effort & Inspection: normal respiratory effort and able to speak in complete sentences Telehealth Telehealth Location of provider rendering services: practice address Location of patient: address on file Patient Identification confirmed using: Name, : Yes Telehealth method: voice only Patient verbally consented to treatment: Yes Patient verbally consented to billing insurance company: Yes Patient informed of any privacy concerns related to visit: Yes Assessment & Plan Assessment & Plan (1) Prostate cancer metastatic to intrapelvic lymph node: Code(s): C61 - Malignant neoplasm of prostate; C77.5 - Secondary and unspecified malignant neoplasm of intrapelvic lymph nodes Category: Medical Plan Planned degarelix next week after PET-CT Genetics in office Antiandrogen through oncology Patient Instructions: This note is constructed using voice recognition software. While every effort has been made to ensure accuracy shorer errors may have been included. Imaging studies, laboratory and physical exam results were discussed and reviewed in detail. No major barriers to patient understanding were identified. An opportunity to ask questions regarding the treatment plan was provided. All questions were answered. The patient expressed understanding and agreement with the above treatment plan. The patient is aware they should contact our office by phone for worsening of their current condition or the appearance of new urologic symptoms. Compliance is encouraged with any medications and followup testing that is ordered. It is a privilege to participate in the urologic care of your patient. If you have any questions or concerns regarding treatment for the above conditions, or other urologic issues, please do not hesitate to contact me. The office telephone contact is [phone]. Sincerely, Dr Kvng Woodruff MD, [facility] - Urology Compassionate Specialist Care for the Genitourinary System Coding Level of Care Code Tele Est Pt Level 4 (83961) Complex EM visit Add On G2211 Diagnoses Prostate cancer metastatic to intrapelvic lymph node C61; C77.5
== END 2024-06-23 15:12 | disposition home or self-care (01) ==
LOC: HO.HUSH 13:42
PROVIDERS: PCP Physician Assistant; Visit Provider Urology
DX: C61 Malignant neoplasm of prostate (principal); C77.5 Secondary and unspecified malignant neoplasm of intrapelvic lymph nodes
CPT/HCPCS: 99214

== ENCOUNTER → 2024-06-23 13:42 | Outpatient (BNVA) | payer OTHER, SELFPAY | PROVIDERS: PCP Physician Assistant; Visit Provider Urology ==

== ENCOUNTER 2024-06-30 14:18 | Outpatient (AMB) | payer OTHER, SELFPAY ==
--- OUTSIDE RECORDS SUMMARY | 2024-06-30 14:21 | XMS_ITS | Encounter Summary ---
Author Organization [facility] [place] [address] Care Ct Scan Technician Name Role Phone Nhi Conte Primary Care Provider [phone] Encounter Details Date Type Department Care Team (Late st Contact Info) Description 06/30/2024 Telephone [facility] Radiation Oncology [address] [place] [phone] Celestina Tam MA Social History Tobacco Use [...] Progress Notes * Celestina Tam MA - 06/30/2024 10:28 AM EDT Spoke with pt confirmed consult appt scheduled for 07/05/24 @ 9:30 documented in this encounter Plan of Treatment Upcoming Encounters Date Type Department Care Team (Late st Contact Info) Description 07/05/2024 9:30 AM EDT Appointment [facility] Radiation Oncology [address] [place] [phone] 07/05/2024 10:00 AM EDT Appointment [facility] Radiation Oncology [address] [place] [phone] Liz Cordova MD [address] [place] [phone] 07/14/2024 3:15 PM EDT Office Visit [facility] Hematology Oncology [address] [place] [phone] Elsie Chavez MD [address] [place] [phone] 01/01/2025 9:00 AM EST Office Visit [facility] Hematology Oncology [address] [place] [phone] Elsie Chavez MD [address] [place] [phone] documented as of this encounter Visit Diagnoses Not on filedocumented in this encounter Care Teams Ct Scan Technician Relationship Specialty Start Date End Date Nhi Conte PA [address] [place] [address] PCP - General 01/15/22 documented as of this encounter
--- NOTE | 2024-06-30 14:53 | AM.OFFVISNUR ---
Intake Visit Reasons: Firmagon Allergies tetracycline [Tetracycline] Allergy (Mild, Verified 06/23/24 13:47) RASH Office Meds degarelix 120 mg subcutaneous solution Performing Provider: Kvng Woodruff MD [facility] Administered by: Anni Wright RN on 06/30/24 14:53 Dose Route Admin Location Dispensed Lot Number Expiration Date [facility] Anatomy Teacher 240 mg subcut R+L Abdomen 240 mg [id number] 01/08/26 [address]-1 [facility] Assessment & Plan Assessment & Plan Orders: Orders AMB Degarelix Injection Practice Supplied Today C61 - Malignant neoplasm of prostate, C77.5 - Secondary and unspecified malignant neoplasm of intrapelvic lymph nodes Medications: New degarelix 240 mg subcut ONCE 1 ea 0RF C61 - Malignant neoplasm of prostate, C77.5 - Secondary and unspecified malignant neoplasm of intrapelvic lymph nodes Coding
== END 2024-06-30 15:01 | disposition home or self-care (01) ==
LOC: HO.HUSH 14:19
PROVIDERS: PCP Physician Assistant; Visit Provider Urology
DX: C61 Malignant neoplasm of prostate (principal); C77.5 Secondary and unspecified malignant neoplasm of intrapelvic lymph nodes

== ENCOUNTER → 2024-06-30 14:18 | Outpatient (BNVA) | payer OTHER, SELFPAY | PROVIDERS: PCP Physician Assistant; Visit Provider Urology | DX: C61 Malignant neoplasm of prostate (principal); C77.5 Secondary and unspecified malignant neoplasm of intrapelvic lymph nodes | CPT/HCPCS: 96402; J9155 ==

== ENCOUNTER 2024-08-01 14:04 | Outpatient (AMB) | payer OTHER, SELFPAY ==
--- NOTE | 2024-08-01 14:18 | AM.OFFVISNUR ---
Intake Visit Reasons: Firmagon Allergies tetracycline (Tetracycline) Allergy (Mild, Verified 06/23/24 13:47) RASH Office Meds degarelix 80 mg subcutaneous solution Performing Provider: Kvng Woodruff MD [place] [facility] [place] [facility] Administered by: Chris Watkins LPN on 08/01/24 14:18 Dose Route Admin Location Dispensed Lot Number Expiration Date [facility] Nurse Ob 80 mg subcut left abdomen 80 mg [id number] 02/08/26 [address]-1 [employer] Total Dispensed Waste 80 mg 0 % Assessment & Plan Assessment & Plan Orders: Orders AMB Degarelix Injection Practice Supplied Today C61 - Malignant neoplasm of prostate, C77.5 - Secondary and unspecified malignant neoplasm of intrapelvic lymph nodes Coding
--- OUTSIDE RECORDS SUMMARY | 2024-08-01 17:11 | XMS_ITS | Clinical Summary ---
Author Organization [facility] Address [address] [place] [address] Care Team Providers Care Product Inspection Supervisor Name Role Phone Nhi Conte PA-C Primary Care Provider [phone] Allergies Active Allergy Reactions Criticality Noted Date Comments Tetracyclines & Related 11/08/2018 Medications Medication Sig Dispensed Refills Start Date End Date Status Cholecalciferol (VITAMIN D3) 3000 units TABS Take 3,000 Units by mouth daily. 0 Active B Fxlhxgj-Ihxmnb-HA (SUPER B-50 COMPLEX PO) Take 1 tablet [...] 87 12/17/2022 9:18 AM EST Temperature 36.8 C (98.3 F) 12/17/2022 9:18 AM EST Respiratory Rate - - Oxygen Saturation 97% [...] season) 2023 12/03/2020, 05/22/2020, 05/01/2020 Influenza Vaccine (Season Ended) 2024 11/23/2021, 11/30/2020, 10/18/2019, Additional history exists DTap / Tdap / Td (2 - Td or Tdap) 11/07/2024 11/07/2014 Shingrix-Zoster Vaccine Completed 12/19/2018, 10/19 RSV Ped < 20 months Aged Out No longe r eligible based on patient's age to complete this topic Care Teams Product Inspection Supervisor Relationship Specialty Start Date End Date Nhi Conte, PAAmiC PCP - General Physician Home Health Care Coordinator 01/15/22
== END 2024-08-01 14:47 | disposition home or self-care (01) ==
LOC: HO.HUSH 14:05
PROVIDERS: PCP Physician Assistant; Visit Provider Urology
DX: C61 Malignant neoplasm of prostate (principal); C77.5 Secondary and unspecified malignant neoplasm of intrapelvic lymph nodes

== ENCOUNTER → 2024-08-01 14:04 | Outpatient (BNVA) | payer OTHER, SELFPAY | PROVIDERS: PCP Physician Assistant; Visit Provider Urology | DX: C61 Malignant neoplasm of prostate (principal); C77.5 Secondary and unspecified malignant neoplasm of intrapelvic lymph nodes | CPT/HCPCS: 96402; J9155 ==

== ENCOUNTER 2024-08-08 15:08 | Outpatient (AMB) | payer OTHER, SELFPAY ==
--- NOTE | 2024-08-08 15:08 | A.OFFVIS_ITS ---
Intake Visit Reasons: PET CT f/u Intake Note: Patient is present for follow up PET CT results Urology Medication:VITAMIN B,VITAMIN B12 Antibiotic Allergy:TETRACYLINE Blood Thinner:NONE imaging :06/28/24 Regional Forester Required: No Accompanied by: Self / Same As Patient Allergies tetracycline (Tetracycline) Allergy (Mild, Verified 08/08/24 15:10) RASH HPI Comments Details: Jermaine is a very pleasant male. He is a patient of Dr. Conte. He is seen for the following urologic conditions - metastatic prostate cancer Background of Hodgkin's lymphoma, arthritis diabetes. Is followed by Dr. East - oncology down at [facility] Accompanied by his daughter who is a mid-level with medical oncology at [employer] Here for follow-up from PET-CT Shows extensive metastatic disease to pelvic lymph nodes and skeleton Printed copies of prostate biopsy and imaging results from PET-CT plus prostate MRI were given to the patient and discussed Receiving degarelix GnRH monthly Given extensive nature metastatic disease recommend bone support with monthly Xgeva Consult effect from combination hormonal blockade was discussed Recommend assessment with Medical Oncology for upfront docetaxel Lu177 be another possibility if metastatic castrate resistant disease Prostate cancer grade group - June 202407/02 initial therapy abiraterone plus prednisone through Medical Oncology, degarelix GnRH through urology PET-CT 07/02 metabolically active prostate, pelvic lymph node iliac metabolically active and extensive skeletal bone uptake consistent with metastatic disease MRI 06/02 prostate volume 70 cc, PI-RADS 5 4.7 cm mass involving the entire peripheral zone. Findings consistent with prostate carcinoma involving the entire prostate gland with invasion of the rectum. There is associated pelvic lymphadenopathy as described as well as multiple bone metastases. 11/01 3.2, 06/01 12.4, 06/01 13.4 Biopsy June 2024 Histologic type: Prostatic adenocarcinoma, acinar type Histologic grade: [place] score: 9 (5+4) (left base lateral and medial, left midlateral and medial, left apex lateral,and right apex medial) 9 (4+5) (right base lateral and medial, right mid lateral and medial, right apex lateral,and left apex medial) % of pattern 4: 51% % of pattern 5: 49% Grade group: 5 Tumor quantitation: Number cores positive: 13 Total number of cores: 16 % of tissue involved: 59% Periprostatic fat inv.: Present Seminal vesicle inv.: Not identified Perineural inv.: Present Lymphatic and/or vascular invasion: No PFSH Medical History Nodular sclerosing Hodgkin lymphoma Cancer Arthritis Diabetes High cholesterol High blood pressure Carpal tunnel syndrome Surgical History History of knee replacement Family History Father High blood pressure Diabetes Cardiovascular disease Maternal Grandfather Diabetes Mother Cancer Social History Housing: House Alcohol intake: current Patient Tobacco Use Status: Former Tobacco user Tobacco use type: Cigar Years Smoked: 2 e-Cigarette/Vaping Use: Never Used Second Hand Smoke Exposure: No service: No Current occupational status: employed 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 Current occupational exposures/hazards: No Cognitive needs: No Hearing needs: No Vision needs: Yes Review of Systems Const Denies chills and Denies fever(s) Card Reports no additional complaints and Denies syncope Resp Denies cough GI Denies abdominal pain and Denies heartburn Reports as per HPI and Denies change in libido Neuro Denies syncope Psych Denies change in libido Endo Denies change in libido Physical Exam Const General: cooperative, healthy appearing, comfortable and no acute distress Orientation/consciousness: patient oriented x3 HEENT Face and sinus: Yes normal facial exam Mouth: moist mucous membranes Neck Neck: Yes normal visual inspection, Yes full ROM and Yes trachea midline Chest Chest palpation & inspection: normal inspection of the chest Resp Effort & Inspection: normal respiratory effort, able to speak in complete sentences and no respiratory distress GI Inspection: Yes normal to inspection Back/Spine/Pelvis Cervical Spine: normal cervical lordosis Thoracic/Lumbar Spine: thoracic and lumbar spine normal to inspection Skin General skin exam: no rashes or lesions noted Neuro General: patient oriented x3, gait normal, tone normal and moves all extremities Extrem General: Yes normal to inspection and Yes capillary refill normal Results AMB Urinalysis, Automated UA Leukoctes 0 Ej/uL Last Edit by Lakesha Hallman MA on 08/08/24 16:00 UA Nitrite Negative Last Edit by Lakesha Hallman MA on 08/08/24 16:00 UA Urobilinogen 3.5 mg/dL Last Edit by Lakesha Hallman MA on 08/08/24 16:00 UA Protein 15 mg/dL Last Edit by Lakesha Hallman BRENT on 08/08/24 16:00 UA pH 6.0 Last Edit by Lakesha Hallman MA on 08/08/24 16:00 UA Blood 0 Vick/uL Last Edit by Lakesha Hallman BRENT on 08/08/24 16:00 UA Specific [place] 1.025 Last Edit by Lakesha Hallman BRENT on 08/08/24 16:00 UA Ketone Negative Last Edit by Lakesha Hallman BRENT on 08/08/24 16:00 UA Bilirubin 0 mg/dL Last Edit by Lakesha Hallman BRENT on 08/08/24 16:00 UA Glucose 0 mg/dL Last Edit by Lakesha Hallman BRENT on 08/08/24 16:00 Assessment & Plan Assessment & Plan (1) Prostate cancer metastatic to intrapelvic lymph node: Code(s): C61 - Malignant neoplasm of prostate; C77.5 - Secondary and unspecified malignant neoplasm of intrapelvic lymph nodes Category: Medical Plan Continue monthly degarelix And Xgeva Start Citracal support Three-month follow-up lab work Consider upfront docetaxel Orders: Orders AMB Urinalysis Automated Today Z13.9 - Encounter for screening, unspecified Patient Instructions: This note is constructed using voice recognition software. While every effort has been made to ensure accuracy grease packer errors may have been included. Imaging studies, laboratory and physical exam results were discussed and reviewed in detail. No major barriers to patient understanding were identified. An opportunity to ask questions regarding the treatment plan was provided. All questions were answered. The patient expressed understanding and agreement with the above treatment plan. The patient is aware they should contact our office by phone for worsening of their current condition or the appearance of new urologic symptoms. Compliance is encouraged with any medications and followup testing that is ordered. It is a privilege to participate in the urologic care of your patient. If you have any questions or concerns regarding treatment for the above conditions, or other urologic issues, please do not hesitate to contact me. The office telephone contact is [phone]. Sincerely, Dr Kvng Woodruff MD, [facility] - Urology Compassionate Specialist Care for the Genitourinary System Coding Level of Care Code Est Pt Level 4 (61592) Diagnoses Prostate cancer metastatic to intrapelvic lymph node C61; C77.5
--- OUTSIDE RECORDS SUMMARY | 2024-08-08 16:00 | XMS_ITS | Clinical Summary ---
Author Organization [facility] Address [address] [place] [address] Care Team Providers Care Personnel Security Specialist Name Role Phone Nhi Conte PA-C Primary Care Provider Allergies Active Allergy Reactions Criticality Noted Date Comments Tetracyclines & Related 11/08/2018 Medications Medication Sig Dispensed Refills Start Date End Date Status Cholecalciferol (VITAMIN D3) 3000 units TABS Take 3,000 Units by mouth daily. 0 Active B Fxacshj-Oppeek-MP (SUPER B-50 COMPLEX PO) Take 1 tablet [...] age to complete this topic Care Teams Personnel Security Specialist Relationship Specialty Start Date End Date Nhi Conte, PAAmiC PCP - General Physician Cleaner Industrial 01/15/22
--- OUTSIDE RECORDS SUMMARY | 2024-08-08 16:01 | XMS_ITS | Clinical Summary ---
Author Organization [facility] Address [address] [place] [address] Phone Care Team Providers Care Section Weaver Name Role Phone Nhi Conte Primary Care Provider [phone] Allergies Active Allergy Reactions Criticality Noted Date Comments Tetracyclines Rash 11/08/2018 Medications vit B comp/folic/cho line/inosi (SUPER B-50 COMPLEX ORAL) Take 1 tablet by mouth daily. Active amLODIPine (NORVASC) 10 mg tablet Take 1 tablet (10 mg total) by mouth 1 (one) time each day. 10/15/19 22 Active atorvastatin (LIPITOR) 80 mg tablet Take 1 tablet (80 mg total) by mouth. 10/15/19 22 Active cholecalcifero l, vitamin D3, 75 mcg (3,000 unit) tablet Take 3,000 Units by mouth daily. Active ezetimibe (ZETIA) 10 mg tablet Take 1 tablet (10 mg total) by mouth 1 (one) time each day. 10/15/19 Active levothyroxine (SYNTHROID, LEVOTHROID) 112 mcg tablet Take 1 tablet (112 mcg total) by mouth every morning on an empty stomach. Active lisinopril (PRINIVIL,ZEST RIL) 40 mg tablet Take 1 tablet (40 mg total) by mouth 1 (one) time each day. Active metoprolol tartrate (LOPRESSOR) 100 mg tablet Take 1 tablet (100 mg total) by mouth 1 (one) time each day. 10/15/19 22 Active metFORMIN (GLUCOPHAGE) 500 mg tablet Take 1 tablet (500 mg total) by mouth 1 (one) time each day. 12/18/19 24 Active triamcinolone (KENALOG) 0.1 % cream MIX ENTIRE TUBE INTO ONE POUND JAR OF CERAVE. PUT ON BODY EVERY DAY. NOT FOR FACE 05/31/19 24 Active predniSONE (DELTASONE) 5 mg tablet Take 1 tablet (5 mg total) by mouth 2 (two) times a day. 180 each 1 06/23/19 25 025 Active abiraterone (ZYTIGA) 250 mg Take 4 tablets (1,000 mg total) by mouth 1 (one) time each day Take with a full glass of water. Swallow whole. Do not eat anything for at least 2 hours before and for at least 1 hour after you have taken the medicine. 120 tablet 5 06/29/19 25 025 Active metoprolol succinate (TOPROL-XL) 100 mg 24 hr tablet Take 1 tablet (100 mg total) by mouth 1 (one) time each day. 05/07/19 25 Active meloxicam (MOBIC) 15 mg tablet Take 1 tablet (15 mg total) by mouth 1 (one) time each day. 05/11/19 25 Active lancets (OneTouch Delica Plus Lancet) 30 gauge 07/12/19 24 Active hydroCHLOROthi azide (HYDRODIURIL) 25 mg tablet Take 1 tablet (25 mg total) by mouth. 04/06/19 24 Active blood sugar diagnostic (OneTouch Verio test strips) test strip 07/17/19 24 Active tamsulosin (FLOMAX) 0.4 mg 24 hr capsule Take 1 capsule (0.4 mg total) by mouth 1 (one) time each day. Capsules should be taken 30 minutes following the same meal each day. 30 each 1 07/15/19 25 025 Active bicalutamide (CASODEX) 50 mg tablet 06/07/19 025 Discontinued oxyCODONE (ROXICODONE) 5 mg immediate release tablet Take 1 tablet (5 mg total) by mouth every 8 (eight) hours if needed for moderate pain or severe pain. 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 ([facility] V24, [facility] V28) 11/08/2018 Encounters Date Type Department Care Team Description 07/14/2024 3:15 PM EDT Office Visit [facility] Hematology Oncology [address] [place] [phone] Elsie Morillo MD Prostate CA ([facility] V24, [facility] V28) (Primary Dx) 07/13/2024 10:19 AM EDT - 07/13/2024 11:59 PM EDT Hospital Encounter [facility] Radiation Oncology [address] [place] [phone] Discharge Disposition: Home or Self Care 07/11/2024 1:42 PM EDT - 07/11/2024 11:59 PM EDT Hospital Encounter [facility] Radiation Oncology [address] [place] [phone] Liz Cordova MD Prostate CA ([facility] V24, [facility] V28) Discharge Disposition: Home or Self Care 07/11/2024 1:09 PM EDT - 07/11/2024 11:59 PM EDT Hospital Encounter [facility] Radiation Oncology [address] [place] [phone] Prostate CA ([facility] V24, [facility] V28) (Primary Dx) Discharge Disposition: Home or Self Care 07/05/2024 9:28 AM EDT - 07/05/2024 11:59 PM EDT Hospital Encounter [facility] Radiation Oncology [address] [place] [phone] Liz Cordova MD Prostate CA (CMS/HCC V24, CMS/HCC V28) (Primary Dx); Prostate mass Discharge Disposition: Home or Self Care 07/05/2024 9:27 AM EDT - 07/05/2024 11:59 PM EDT Hospital Encounter [facility] Radiation Oncology [address] [place] [phone] Discharge Disposition: Home or Self Care 06/30/2024 Telephone [facility] Radiation Oncology [address] [place] [phone] Celestina Tam [place] 06/28/2024 2:31 PM EDT - 06/28/2024 11:59 PM EDT Hospital Encounter [facility] PET Scan [address] [place] [phone] Rising PSA following treatment for malignant neoplasm of prostate Discharge Disposition: Home or Self Care 06/27/2024 Telephone [facility] Radiation Oncology [address] [place] [phone] Celestina Tam MA 06/23/2024 Telephone [facility] Hematology Oncology [address] [place] [phone] Melissa Chang, KIRK THPS ZYTIGA 06/22/2024 Telephone [facility] Radiation Oncology [address] [place] [phone] Celestina Tam MA 06/16/2024 3:00 PM EDT Office Visit [facility] Hematology Oncology [address] [place] [phone] Elsie Morillo MD Elevated PSA (Primary Dx); Prostate mass; Malignant neoplasm metastatic to bone (CMS/HCC V24, CMS/HCC V28); Pelvic lymphadenopathy 06/08/2024 Telephone [facility] Hematology Oncology [address] [place] [phone] Elsie Morillo MD PET 06/07/2024 4:00 PM EDT Office Visit [facility] Hematology Oncology [address] [place] [phone] Elsie Morillo MD Elevated PSA (Primary Dx); Malignant neoplasm metastatic to bone ([facility] V24, [facility] V28); Prostate mass; Pelvic lymphadenopathy; 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 ([facility] V24, [facility] V28) from Last 3 Months Immunizations Name Administration Dates Next Due Pfizer SARS-CoV-2 COVID-19, mRNA, LNP-S, preservative free 12/03/2020,05/22/2020,05/01/2020 Surgical History Surgery Date Site/Laterality Comments TOTAL KNEE ARTHROPLASTY 10/09/2021 Bilateral PROCEDURE:TOTAL KNEE ARTHROPLASTY CARPAL TUNNEL RELEASE ORTHOPEDIC SURGERY 05/31 Medical History Medical History Date Comments Lymphoma ([facility] V24, [facility] V28) 1999 Anemia 12/01 Diabetes mellitus ([facility] V24, [facility] V28) 10/10 3 Social History Tobacco Use Types Packs/Day Years Used Date Smoking Tobacco: Never Smokeless Tobacco: Never Tobacco Cessation:Counseling Given: Not Answered Alcohol Use Standard Drinks/Week Comments Yes 10 (1 standard drink = 0.6 oz pu re alcohol) Sex and Gender Information Value Date Recorded Sex Assigned at Male 11/27/2023 4:42 AM EDT Legal Sex Male 9:36 PM EST Gender Identity Male 11/27/2023 4:42 AM EDT Sexual Orientation Straight 11/27/2023 4: 42 AM EDT Obstetrics History Last Filed Vital Signs Vital Sign Reading Time Taken Comments Blood Pressure 142/62 07/14/2024 3:17 PM EDT Pulse 80 07/14/2024 3:17 PM EDT Temperature 36.1 C (97 F) 07/14/2024 3:17 PM EDT Respiratory Rate - - Oxygen Saturation 96% 07/14/2024 3:17 PM EDT Inhaled Oxygen Concentration - - Weight 116 kg (256 lb) 07/05/2024 9:42 AM EDT Height 182.9 cm (6') 07/05/2024 9:42 AM EDT Body Mass Index 34.72 07/05/2024 9:42 AM EDT Plan of Treatment Upcoming Encounters Date Type Department Care Team (Late st Contact Info) Description 09/22/2024 9:15 AM EDT Office Visit [facility] Hematology Oncology [address] [place] [phone] Elsie Chavez MD [address] [place] [phone] 01/01/2025 9:00 AM EST Office Visit [facility] Hematology Oncology [address] [place] [phone] Elsie Chavez MD [address] [place] [phone] Health Maintenance Due Date Last Done Comments Diabetes: Annual Foot Exam 05/16/1975 Diabetes: Annual Retina Eye Exam 05/16/1975 Hepatitis B Vaccines (1 of 3 - 19+ 3-dose series) 1984 Colorectal Cancer Screening: Colonoscopy 01/17/2022 Depression Screening 01/17/2022 HIV Screening 01/17/2022 Hepatitis C Screening 01/17/2022 Medicare Annual Wellness Visit 01/17/2022 Social Influencers of Health Screening 01/17/2022 Cholesterol Screening (Lipid Panel) 08/23/2022 08/23/2017 Diabetes: Annual Urine Albumin-Creatinine Ratio (uACR) 12/20/2023 Diabetes: Blood Sugar Control Test (HGBA1C) 12/20/2023 COVID-19 Vaccine (5 - Pfizer risk season) 2024 06/18/2024, 12/03/2020, 05/22/2020, Additional history exists Diabetes: Annual GFR (Glomerular Filtration Rate) 06/07/2025 06/07/2024, 08/23/2017 Hypertension/CHF/CAD Annual BMP Blood Test 06/07/2025 06/07/2024, 08/23/2017 DTaP,Tdap,and Td Vaccines (3 - Td or Tdap) 08/04/2033 08/05/2023, 11/07/2014 RSV Immunization Adult Patients (1 - 1-dose 75+ series) 2040 Zoster Vaccines Completed 12/19/2018, 10/19/2018 Influenza Vaccine Completed 11/22/2023, , 11/23/2021, Additional history exists Pneumococcal Vaccine: 50+ Years Completed 06/18/2024 Pneumococcal Vaccine: Pediatrics (0 to 5 Years) and At-Risk Patients (6 to 64 Years) Completed 06/18/2024 HIB Vaccines Aged Out No longer eligi [...] Procedure Name Priority Date/Time Associated Diagnosis Comments PROSTATE SPECIFIC ANTIGEN DIAGNOSTIC Routine 07/14/2024 3:45 PM EDT Prostate CA (CMS/HCC V24, CMS/HCC V28) PET CT SKULL TO MID THIGH INITIAL Routine 06/28/2024 4:38 PM EDT Rising PSA following treatment for malignant neoplasm of prostate CBC WITH AUTO DIFFERENTIAL Routine 06/07/2024 4:23 [...] mass from Last 3 Months Results * Prostate specific antigen diagnostic (07/14/2024 3:45 PM EDT) Only the most recent of2 resultswithin the time period is included. PSA 1.14 0.00 - 4.00 ng/mL LAB CHEMISTRY METHOD 07/14/2024 5:[address] [facility] Blood Venous blood specimen / Unknown Venipuncture / Unknown 07/14/2024 3:45 PM EDT 07/14/2024 4:[address] [facility] - 07/14/2024 5:26 PM EDT The Siemens Advia Centaur Chemiluminescent Immunoassay is used. Results obtained with different assay methods or kits cannot be used interchangeably. Results cannot be interpreted as absolute evidence of the presence or absence of malignant disease. Elsie Chavez MD LAB BLOOD ORDERABLE S Final Result [facility] [address] [place] [address], * PET CT Skull to Mid Thigh Initial (06/28/2024 4:38 PM EDT) Anatomical Region Laterality Modality Body Radiographic Corazon ging 07/04/2024 12:4 7 PM EDT Addenda Addendum by Danielle Sims MD on 07/26/2024 1:34 PM EDT Addendum: Addendum issued to correct the acquisition technique utilized. Imaging performed from the top of the skull through the distal thighs. -------- ADDENDUM -------- Dictated By: Danielle Sims Dictated Date: 07/26/2024 13:34 ET Assigned Physician: Danielle Sims Reviewed and Electronically Signed By: Danielle Sims Signed Date: 07/26/2024 13:34 ET Workstation ID: [id number] Transcribed By: Self Edit Transcribed Date: 07/26/2024 13:34 ET Impressions 07/04/2024 1:23 PM EDT Metabolically active prostate mass as well as pelvic en and multifocal osseous lesions. -------- FINAL REPORT -------- Dictated By: Danielle Sims Dictated Date: 07/04/2024 12:47 ET Assigned Physician: Danielle Sims Reviewed and Electronically Signed By: Danielle Sims Signed Date: 07/04/2024 13:23 ET Workstation ID: [id number] Transcribed By: Self Edit Transcribed Date: 07/04/2024 13:04 ET Narrative 07/04/2024 1:23 PM EDT HISTORY: Prostate carcinoma, initial treatment strategy, most recent prostate-specific antigen from June 07, 2024 of 15.41 PRIOR IMAGING STUDIES: No prior PET scans available for comparison. RADIOPHARMACEUTICAL: 9.0 mCi F-18 piflufolastat IV INJECTION SITE: Right hand INJECTION TIME TO SCAN TIME: [address] Dose: 1242 DLP (mGy-cm) PROCEDURE: Routine body PET-CT imaging performed from the mid skull to the upper thighs and reconstructed in axial, coronal, sagittal planes at the computer workstation with fused data from both the PET imaging study and attenuation correction CT study. Please note, CT imaging utilized strictly for attenuation correction and anatomic localization: CT not designed to produce and cannot replace ujamf-rn-wdd-art true diagnostic CT examination with specific protocols. Standardized uptake values (SUV) normalized to patient body weight and indicate the highest active concentration (SUV max) in a given disease site. IMAGING FINDINGS: Expected pattern of physiological activity noted. HEAD AND NECK: No abnormal activity. THORAX: No abnormal activity. ABDOMEN: No abnormal activity. PROSTATE/PELVIS/RETROPERITONEUM: Bilateral processes activity greater on the right side with SUV max of 15.5. Focal avid metastatic disease noted between the prostate and the rectum. Metabolically active perirectal and bilateral internal iliac nodes with SUV max of 7.3. Metabolically active right-sided external iliac node with SUV max of 7.8. Mildly active small right-sided retroperitoneal nodes along noted along the right ureter. MUSCULOSKELETAL: Widespread metabolically active osseous lesions are noted including both humeri and femurs, calvarium, both scapula, bilateral ribs, pelvic bones as well as cervical, thoracic and lumbar spine. SUV max up to 18.2 within the L5 vertebral body. Procedure Note Danielle Sims MD - 07/04/2024 HISTORY: Prostate carcinoma, initial treatment strategy, most recentprostate- specific antigen from June 07, 2024 of 15.41 PRIOR IMAGING STUDIES: No prior PET scans available for comparison. RADIOPHARMACEUTICAL: 9.0 mCi F-18 piflufolastat IV INJECTION SITE: Right hand INJECTION TIME TO SCAN TIME: [address] Dose: 1242 DLP (mGy-cm) PROCEDURE: Routine body PET-CT imaging performed from the mid skull to the upperthighs and reconstructed in axial, coronal, sagittal planes at theMIT CSHub workstation with fused data from both the PET imaging study andattenuation correction CT study. Please note, CT imaging utilized strictlyfor attenuation correction and anatomic localization: CT not designed toproduce and cannot replace gwzlt-am-foy-art true diagnostic CT examinationwith specific protocols. Standardized uptake values (SUV) normalized topatient body weight and indicate the highest active concentration (SUVmax) in a given disease site. IMAGING FINDINGS: Expected pattern of physiological activity noted. HEAD AND NECK: No abnormal activity. THORAX: No abnormal activity. ABDOMEN: No abnormal activity. PROSTATE/PELVIS/RETROPERITONEUM: Bilateral processes activity greater onthe right side with SUV max of 15.5. Focal avid metastatic disease notedbetween the prostate and the rectum. Metabolically active perirectal and bilateral internal iliac nodes withSUV max of 7.3. Metabolically active right-sided external iliac node with SUV max of7.8. Mildly active small right-sided retroperitoneal nodes along noted alongthe right ureter. MUSCULOSKELETAL: Widespread metabolically active osseous lesions are notedincluding both humeri and femurs, calvarium, both scapula, bilateral ribs,pelvic bones as well as cervical, thoracic and lumbar spine. SUV max up to18.2 within the L5 vertebral body. IMPRESSION: Metabolically active prostate mass as well as pelvic en and multifocalosseous lesions. -------- FINAL REPORT -------- Dictated By: Danielle Sims Dictated Date: 07/04/2024 12:47 ET Assigned Physician: Danielle Sims Reviewed and Electronically Signed By: Danielle Sims Signed Date: 07/04/2024 13:23 ET Workstation ID: [id number] Transcribed By: Self Edit Transcribed Date: 07/04/2024 13:04 ET Sharmila Mondragon [facility] IMG NM PROCEDURES Edited Re sult - Final * (ABNORMAL) CBC auto differential (06/07/2024 4:23 PM EDT) WBC 11.0(H) 4.8 - 10.8 K/mcL LAB HEMETOLOGY METHOD 06/07/2024 4:[address] [facility] RBC 4.70 4.50 - 5.50 M/mcL LAB HEMETOLOGY METHOD 06/07/2024 4:[address] [facility] Hemoglobin 13.8 13.5 - 17.5 g/dL LAB HEMETOLOGY METHOD 06/07/2024 4:[address] [facility] Hematocrit 41.9(L) 42.0 - 54.0 % LAB HEMETOLOGY METHOD 06/07/2024 4:[address] [facility] MCV 89.9 79.0 - 98.0 FL LAB HEMETOLOGY METHOD 06/07/2024 4:[address] [facility] MCH 29.6 27.0 - 32.0 pcg LAB HEMETOLOGY METHOD 06/07/2024 4:[address] [facility] MCHC 32.9 32.0 - 37.0 g/dL LAB HEMETOLOGY METHOD 06/07/2024 4:[address] [facility] RDW 13.5 11.0 - 15.0 % LAB HEMETOLOGY METHOD 06/07/2024 4:[address] [facility] Platelets 272 130 - 400 K/mcL [facility] MPV 10.2 7.0 - 11.0 FL LAB [facility]Y [facility] NRBC 0.0 <1.0 % LAB HEMETOLOGY METHOD 06/07/2024 4:45 PM [facility] NRBC Absolute 0.00 <0.10 K/mcL LAB HEMETOLOGY METHOD 06/07/2024 4:45 PM [facility] Neutrophils Relative 73.9 % LAB HEMETOLOGY METHOD 06/07/2024 4:45 PM [facility] Lymphocytes Relative 12.0 % LAB HEMETOLOGY METHOD 06/07/2024 4:45 PM [facility] Monocytes Relative 11.2 % LAB HEMETOLOGY METHOD 06/07/2024 4:45 PM [facility] Eosinophils Relative 2.1 % LAB HEMETOLOGY METHOD 06/07/2024 4:45 PM [facility] Basophils Relative 0.5 % LAB HEMETOLOGY METHOD 06/07/2024 4:45 PM [facility] Immature Granulocytes Relative 0.3 % LAB HEMETOLOGY METHOD 06/07/2024 4:45 PM [facility] Neutrophils Absolute 8.16(H) 1.50 - 7.00 K/mcL LAB HEMETOLOGY METHOD 06/07/2024 4:45 PM [facility] Lymphocytes Absolute 1.33 1.00 - 5.00 K/mcL LAB HEMETOLOGY METHOD 06/07/2024 4:45 PM [facility] Monocytes Absolute 1.24(H) 0.20 - 1.00 K/mcL LAB HEMETOLOGY METHOD 06/07/2024 4:[address] [facility] Eosinophils Absolute 0.23 0.00 - 0.50 K/mcL LAB HEMETOLOGY METHOD 06/07/2024 4:[address] [facility] Basophils Absolute 0.05 0.00 - 0.20 K/[facility] LAB HEMETOLOGY METHOD 06/07/2024 4:[address] [facility] Immature Granulocytes Absolute 0.03 0.00 - 0.03 K/mcL LAB HEMETOLOGY METHOD 06/07/2024 4:[address] [facility] Blood Venous blood specimen / Unknown Venipuncture / Unknown 06/07/2024 4:23 PM EDT 06/07/2024 4:36 PM EDT Elsie Chavez MD LAB BLOOD ORDERABLE S Final Result Performing Organization Address City/[facility]/ZIP Co de Phone Number [facility] [address] [place] [address], [place] [phone] * (ABNORMAL) Testosterone, total (06/07/2024 4:23 PM EDT) Testosterone 192(L) 229 - 902 ng/dL LAB CHEMISTRY METHOD 06/07/2024 7:[address] [facility] Blood Venous blood specimen / Unknown Venipuncture / Unknown 06/07/2024 4:23 PM EDT 06/07/2024 4:35 PM EDT us Elsie Chavez MD LAB BLOOD ORDERABLE S Final Result Performing Organization Address City/[facility]/ZIP Co de Phone Number [facility] [address] [place] [address], [place] [phone] * (ABNORMAL) Comprehensive metabolic panel (06/07/2024 4:23 PM EDT) Sodium 141 133 - 145 mmol/L LAB CHEMISTRY METHOD 06/07/2024 7:05 PM [facility] Potassium 3.8 3.5 - 5.5 mmol/L LAB CHEMISTRY METHOD 06/07/2024 7:05 PM [facility] Chloride 106 96 - 110 mmol/L LAB CHEMISTRY METHOD 06/07/2024 7:05 PM [facility] CO2 26 21 - 32 mmol/L LAB CHEMISTRY METHOD 06/07/2024 7:05 PM [facility] Anion Gap 9 3 - 11 LAB CHEMISTRY METHOD 06/07/2024 7:05 PM [facility] Glucose 125(H) 70 - 100 mg/dL LAB CHEMISTRY METHOD 06/07/2024 7:05 PM [facility] BUN 17 5 - 25 mg/dL LAB CHEMISTRY METHOD 06/07/2024 7:05 PM [facility] Creatinine 0.72 0.70 - 1.30 mg/dL LAB CHEMISTRY METHOD 06/07/2024 7:05 PM [facility] eGFR 105 >=60 mL/min/1. 73m2 LAB CHEMISTRY METHOD 06/07/2024 7:05 PM [facility] Comment:Calculation based on the Chronic Kidney Disease Epidemiology Collaboration (CKD-EPI) equation refit without adjustment for race. BUN/Creatinine Ratio 23.6 LAB CHEMISTRY METHOD 06/07/2024 7:05 PM [facility] Calcium 8.9 8.5 - 10.5 mg/dL LAB CHEMISTRY METHOD 06/07/2024 7:05 PM [facility] AST (SGOT) 28 10 - 42 unit/L LAB CHEMISTRY METHOD 06/07/2024 7:05 PM [facility] ALT (SGPT) 30 10 - 60 unit/L LAB CHEMISTRY METHOD 06/07/2024 7:[address] [facility] Alkaline Phosphatase 271(H) 42 - 121 unit/L LAB CHEMISTRY METHOD 06/07/2024 7:[address] [facility] Total Protein 7.2 6.0 - 8.0 g/dL LAB CHEMISTRY METHOD 06/07/2024 7:[address] [facility] Albumin 3.8 3.2 - 5.0 g/dL LAB CHEMISTRY METHOD 06/07/2024 7:[address] [facility] Total Bilirubin 0.5 0.0 - 1.4 mg/dL LAB CHEMISTRY METHOD 06/07/2024 7:[address] [facility] Blood Venous blood specimen / Unknown Venipuncture / Unknown 06/07/2024 4:23 PM EDT 06/07/2024 4:35 PM EDT Elsie Chavez MD LAB BLOOD ORDERABLE S Final Result [facility] [address] [place] [address], from Last 3 Months Insurance [employer]AGE [facility] Care Teams Section Weaver Relationship Specialty Start Date End Date Nhi oCnte PA [address] [place] [id number] PCP - General 01/15/22
== END 2024-08-08 15:58 | disposition home or self-care (01) ==
LOC: HO.HUSH 15:08
PROVIDERS: PCP Physician Assistant; Visit Provider Urology
DX: C61 Malignant neoplasm of prostate (principal); C77.5 Secondary and unspecified malignant neoplasm of intrapelvic lymph nodes; Z13.9 Encounter for screening, unspecified
CPT/HCPCS: 99214

== ENCOUNTER → 2024-08-08 15:08 | Outpatient (BNVA) | payer OTHER, SELFPAY | PROVIDERS: PCP Physician Assistant; Visit Provider Urology | DX: C61 Malignant neoplasm of prostate (principal) | CPT/HCPCS: 81003 ==

== ENCOUNTER 2024-09-01 13:32 | Outpatient (AMB) | payer OTHER, SELFPAY ==
--- OUTSIDE RECORDS SUMMARY | 2024-09-01 13:35 | XMS_ITS | Clinical Summary ---
Author Organization [facility] Address [address] [place] [phone] Phone Care Team Providers Care Master Machinist Name Role Phone Jacky Negron MD Primary Care Provider Social History Tobacco Use Types Packs/Day Years Used Date Smoking Tobacco: Never Assessed Education Answer Date Recorded Are you interested in more education? Not on antonio e 06/05/2022 Are you concerned about learning? Not on file 06/05/2022 No 06/05/2022 No 06/05/2022 Digital Access Answer Date Recorded No 07/06/2022 No 07/06/2022 No 07/06/2022 Reliable internet access at home? Not on file 07/06/2022 Device with a working camera? Not on file Sex and Gender Information Value Date Recorded Sex Assigned at Not on file Legal Sex Male 9:40 PM EDT Gender Identity Not on file Sexual Orientation Not on file Plan of Treatment Health Maintenance Due Date Last Done Comments DEPRESSION SCREENING 1977 SMOKING Hx and SMOKELESS TOBACCO SCREENING 1978 HEPATITIS C SCREENING 05/16/1983 HIV ONE-TIME SCREENING (18-6 5 YEARS) 05/16/1983 COLOGUARD 2010 COLONOSCOPY 2010 COLORECTAL CANCER SCREENING 2010 FIT TEST 2010 FOBT 2010 SIGMOIDOSCOPY 2010 VIRTUAL COLONOSCOPY 2010 PNEUMOCOCCAL VACCINES (50+ years) (1 of 1 - PCV) 05/16/2015 LIPID PANEL 08/23/2022 08/23/2017 COVID-19 VACCINE (2 - 2023-2 5 season) 2023 05/01/2020 Adult Td,Tdap Booster 11/07/2024 11/07/2014 ZOSTER VACCINES Completed 12/19/2018, 10/19/2018 HEPATITIS A VACCINES Aged Out No long er eligible based on patient's age to complete this topic HIB VACCINES Aged Out No longer eligi ble based on patient's age to complete this topic MENINGOCOCCAL VACCINES (ACWY) Aged Out No longer eligible based on patient's age to complete this topic MENINGOCOCCAL VACCINES (B) Aged Out N o longer eligible based on patient's age to complete this topic Medical Devices Not on file Procedures Procedure Name Priority Date/Time Associated Diagnosis Comments LIPID PANEL Routine 08/23/2017 7:42 AM EDT Mixed hyperlipidemia Essential hypertension, malignant from Last 3 Months or Most Recently Relevant to Health Maintenance Results * (ABNORMAL) Lipid panel (08/23/2017 7:42 AM EDT) HDL 53 mg/dL [facility] Comment: Interpretation: Risk Level Males Decreased >45 mg/dL Average 40-45 mg/dL Increased <40 mg/dL CHOLESTEROL 138 0 - 240 mg/dL [facility] TRIGLYCERIDES 133 30 - 160 mg/dL [facility] LDL 58 50 - 129 mg/dL [facility] Comment: LDL levels in terms of risk for coronary heart disease: <100 mg/dL: Optimal 100-129 mg/dL: Near or above optimal 130-159 mg/dL: Borderline high 160-189 mg/dL: High >190 mg/dL: Very High CARDIAC RISK RATIO 2.6(L) 3.4 - 5.0 C [facility] Blood 08/23/2017 7:42 AM EDT 08/23/2017 8:57 AM EDT Jacky Negron MD LAB BLOOD ORDERABLES Fi nal Result [facility] [address] [place] [address] from Last 3 Months or Most Recently Relevant to Health Maintenance Insurance [facility] [address] [place] [id number] [facility] [employer] H[employer] Care Teams Master Machinist Relationship Specialty Start Date End Date Jacky Negron MD [address] [place] [phone] PCP - General Internal Medicine 12/08/16 Additional Source Comments The information contained in this document represents components of the legal health record. It is not the complete legal health record.[facility]
--- OUTSIDE RECORDS SUMMARY | 2024-09-01 13:35 | XMS_ITS | Clinical Summary ---
Author Organization [facility] Address [address] [place] [address] Care Team Providers Care Per Diem Physical Therapist Assistant Name Role Phone Nhi Conte PA-C Primary Care Provider Allergies Active Allergy Reactions Criticality Noted Date Comments Tetracyclines & Related 11/08/2018 Medications Medication Sig Dispensed Refills Start Date End Date Status Cholecalciferol (VITAMIN D3) 3000 units TABS Take 3,000 Units by mouth daily. 0 Active B Ympcdte-Jmbisy-YD (SUPER B-50 COMPLEX PO) Take 1 tablet [...] 2023 12/03/2020, 05/22/2020, 05/01/2020 Influenza Vaccine (#1) 2024 2, 11/30/2020, 10/18/2019, Additional history exists DTap / Tdap / Td (2 - Td or Tdap) 11/07/2024 11/07/2014 Shingrix-Zoster Vaccine Completed 12/19/2018, 10/19 RSV Ped < 20 months Aged Out No longe r eligible based on patient's age to complete this topic Care Teams Per Diem Physical Therapist Assistant Relationship Specialty Start Date End Date Nhi Conte, PAAmiC PCP - General Physician Manager Of Sustainability 01/15/22
--- OUTSIDE RECORDS SUMMARY | 2024-09-01 13:35 | XMS_ITS | Clinical Summary ---
Author Organization [facility] Address [address] [place] [address] Phone Care Team Providers Care Gliding Pilot Instructor Name Role Phone Nhi Conte Primary Care Provider [phone] Allergies Active Allergy Reactions Criticality Noted Date Comments Tetracyclines Rash 11/08/2018 Medications vit B comp/folic/chol ine/inosi (SUPER B-50 COMPLEX ORAL) Take 1 tablet by mouth daily. Active amLODIPine (NORVASC) 10 mg tablet Take 1 tablet (10 mg total) by mouth 1 (one) time each day. 2 Active atorvastatin (LIPITOR) 80 mg tablet Take 1 tablet (80 mg total) by mouth. 2 Active cholecalciferol , vitamin D3, 75 mcg (3,000 unit) tablet Take 3,000 Units by mouth daily. Active ezetimibe (ZETIA) 10 mg tablet Take 1 tablet (10 mg total) by mouth 1 (one) time each day. 2 Active levothyroxine (SYNTHROID, LEVOTHROID) 112 mcg tablet Take 1 tablet (112 mcg total) by mouth every morning on an empty stomach. Active lisinopril (PRINIVIL,ZESTR IL) 40 mg tablet Take 1 tablet (40 mg total) by mouth 1 (one) time each day. Active metoprolol tartrate (LOPRESSOR) 100 mg tablet Take 1 tablet (100 mg total) by mouth 1 (one) time each day. 2 Active metFORMIN (GLUCOPHAGE) 500 mg tablet Take 1 tablet (500 mg total) by mouth 1 (one) time each day. 4 Active triamcinolone (KENALOG) 0.1 % cream MIX ENTIRE TUBE INTO ONE POUND JAR OF CERAVE. PUT ON BODY EVERY DAY. NOT FOR FACE 4 Active predniSONE (DELTASONE) 5 mg tablet Take 1 tablet (5 mg total) by mouth 2 (two) times a day. 180 each 1 5 12/20/19 25 Active abiraterone (ZYTIGA) 250 mg Take 4 tablets (1,000 mg total) by mouth 1 (one) time each day Take with a full glass of water. Swallow whole. Do not eat anything for at least 2 hours before and for at least 1 hour after you have taken the medicine. 120 tablet 5 5 12/26/19 25 Active metoprolol succinate (TOPROL-XL) 100 mg 24 hr tablet Take 1 tablet (100 mg total) by mouth 1 (one) time each day. 5 Active meloxicam (MOBIC) 15 mg tablet Take 1 tablet (15 mg total) by mouth 1 (one) time each day. 5 Active lancets (OneTouch Delica Plus Lancet) 30 gauge 4 Active hydroCHLOROthia zide (HYDRODIURIL) 25 mg tablet Take 1 tablet (25 mg total) by mouth. 4 Active blood sugar diagnostic (OneTouch Verio test strips) test strip 4 Active tamsulosin (FLOMAX) 0.4 mg 24 hr capsule Take 1 capsule (0.4 mg total) by mouth 1 (one) time each day. Capsules should be taken 30 minutes following the same meal each day. 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 ([facility] V24, [facility]/HCC V28) 11/08/2018 Encounters Date Type Department Care Team Description 07/14/2024 3:15 PM EDT Office Visit [facility] Hematology Oncology [address] [place] [phone] Elsie Morillo MD Prostate CA ([facility] V24, [facility] V28) (Primary Dx) 07/13/2024 10:19 AM EDT - 07/13/2024 11:59 PM EDT Hospital Encounter [facility] Radiation Oncology [address] [place] [phone] Discharge Disposition: Home or Self Care 07/11/2024 1:42 PM EDT - 07/11/2024 11:59 PM EDT Hospital Encounter [facility] Radiation Oncology [address] [place] [phone] Liz Cordova MD Prostate CA ([facility] V24, [facility] V28) Discharge Disposition: Home or Self Care 07/11/2024 1:09 PM EDT - 07/11/2024 11:59 PM EDT Hospital Encounter [facility] Radiation Oncology [address] [place] [phone] Prostate CA ([facility] V24, [facility] V28) (Primary Dx) Discharge Disposition: Home or Self Care 07/05/2024 9:28 AM EDT - 07/05/2024 11:59 PM EDT Hospital Encounter [facility] Radiation Oncology [address] [place] [phone] Liz Cordova MD Prostate CA ([facility]/HCC V24, CMS/HCC V28) (Primary Dx); Prostate mass Discharge Disposition: Home or Self Care 07/05/2024 9:27 AM EDT - 07/05/2024 11:59 PM EDT Hospital Encounter [facility] Radiation Oncology [address] [place] [phone] Discharge Disposition: Home or Self Care 06/30/2024 Telephone [facility] Radiation Oncology [address] [place] [phone] Tre [place], [place] 06/28/2024 2:31 PM EDT - 06/28/2024 11:59 PM EDT Hospital Encounter [facility] PET Scan [address] [place] [phone] Rising PSA following treatment for malignant neoplasm of prostate Discharge Disposition: Home or Self Care 06/27/2024 Telephone [facility] Radiation Oncology [address] [place] [phone] Tre [place], [place] 06/23/2024 Telephone [facility] Hematology Oncology [address] [place] [phone] Melissa Chang, KIRK THPS ZYTIGA 06/22/2024 Telephone [facility] Radiation Oncology [address] [place] [phone] Celestina Tam[place], [place] 06/16/2024 3:00 PM EDT Office Visit [facility] Hematology Oncology [address] [place] [phone] Elsie Morillo MD Elevated PSA (Primary Dx); Prostate mass; Malignant neoplasm metastatic to bone (CMS/HCC V24, CMS/HCC V28); Pelvic lymphadenopathy 06/08/2024 Telephone [facility] Hematology Oncology [address] [place] [phone] Elsie Morillo MD PET 06/07/2024 4:00 PM EDT Office Visit [facility] Hematology Oncology [address] [place] [phone] Elsie Morillo MD Elevated PSA (Primary Dx); Malignant neoplasm metastatic to bone (CMS/HCC V24, CMS/HCC V28); Prostate mass; Pelvic lymphadenopathy; 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 ([facility] V24, [facility] V28) from Last 3 Months Immunizations Name Administration Dates Next Due Pfizer SARS-CoV-2 COVID-19, mRNA, LNP-S, preservative free 12/03/2020,05/22/2020,05/01/2020 Surgical History Surgery Date Site/Laterality Comments TOTAL KNEE ARTHROPLASTY 10/09/2021 Bilateral PROCEDURE:TOTAL KNEE ARTHROPLASTY CARPAL TUNNEL RELEASE ORTHOPEDIC SURGERY 05/31 Medical History Medical History Date Comments Lymphoma ([facility] V24, [facility] V28) 2000 Anemia 12/01 Diabetes mellitus ([facility] V24, [facility] V28) 10/10 3 Social History Tobacco Use [...] Description 09/22/2024 9:15 AM EDT Office Visit [facility] Hematology Oncology [address] [place] [phone] Elsie Chavez MD [address] [place] [phone] 01/01/2025 9:00 AM EST Office Visit [facility] Hematology Oncology [address] [place] [phone] Elsie Chavez MD [address] [place] [phone] Health Maintenance Due Date Last Done Comments Diabetes: Annual Foot Exam 05/16/1975 Diabetes: Annual Retina Eye Exam 05/16/1975 Hepatitis B Vaccines (1 of 3 - 19+ 3-dose series) 1984 Colorectal Cancer Screening: Colonoscopy 01/17/2022 HIV Screening 01/17/2022 Hepatitis C Screening 01/17/2022 Medicare Annual Wellness Visit 01/17/2022 Social Influencers of Health Screening 01/17/2022 Cholesterol Screening (Lipid Panel) 08/23/2022 08/23/2017 Diabetes: Annual Urine Albumin-Creatinine Ratio (uACR) 12/20/2023 Diabetes: Blood Sugar Control Test (HGBA1C) 12/20/2023 Depression Screening 02/09/2024 Influenza Vaccine (#1) 2024 , 12/01/2022, 11/23/2021, Additional history exists COVID-19 Vaccine (5 - Pfizer risk 2023- season) 2024 06/18/2024, 12/03/2020, 05/22/2020, Additional history exists Diabetes: Annual GFR (Glomerular Filtration Rate) 06/07/2025 06/07/2024, 08/23/2017 Hypertension/CHF/CAD Annual BMP Blood Test 06/07/2025 06/07/2024, 08/23/2017 DTaP,Tdap,and Td Vaccines (3 - Td or Tdap) 08/04/2033 08/05/2023, 11/07/2014 RSV Immunization Adult Patients (1 - 1-dose 75+ series) 2040 Zoster Vaccines Completed 12/19/2018, 10/19/2018 Pneumococcal Vaccine: 50+ Years Completed 06/18/2024 HIB Vaccines Aged Out No [...] 07/14/2024 5:26 PM EDT The Siemens Advia Forsytheaur Chemiluminescent Immunoassay is used. Results obtained with different assay methods or kits cannot be used interchangeably. Results cannot be interpreted as absolute evidence of the presence or absence of malignant disease. Elsie Chavez MD LAB BLOOD ORDERABLE S Final Result [facility] [address] [place] [address], * PET CT Skull to Mid Thigh [...] Signed Date: 07/26/2024 13:34 ET Workstation ID: [id number] Transcribed By: Self Edit Transcribed Date: 07/26/2024 13:34 ET Impressions 07/04/2024 1:23 PM EDT Metabolically active prostate mass as well as pelvic en and multifocal osseous lesions. -------- FINAL REPORT -------- Dictated By: Danielle Sims Dictated Date: 07/04/2024 12:47 ET Assigned Physician: Danielle Sims Reviewed and Electronically Signed By: Danielle Sims Signed Date: 07/04/2024 13:23 ET Workstation ID: [id number] Transcribed By: Self Edit Transcribed Date: 07/04/2024 [...] not designed to produce and cannot replace voxoh-my-cqo-art true diagnostic CT examination with specific protocols. [...] reconstructed in axial, coronal, sagittal planes at theWanjee Operation and Maintenance workstation with fused data from both the PET imaging study andattenuation correction CT study. Please note, CT imaging utilized strictlyfor attenuation correction and anatomic localization: CT not designed toproduce and cannot replace tgvym-ud-cby-art true diagnostic CT examinationwith specific protocols. Standardized [...] Signed Date: 07/04/2024 13:23 ET Workstation ID: [id number] Transcribed By: Self Edit Transcribed Date: 07/04/2024 13:04 ET Sharmila Mondragon PLASTICS FABRICATOR IMG NM PROCEDURES Edited Re sult - [...] 4:[address] [facility] MPV 10.2 7.0 - 11.0 [place] LAB HEMETOLOGY METHOD 06/07/2024 4:[address] [facility] NRBC 0.0 <1.0 % LAB HEMETOLOGY METHOD 06/07[facility]2024 [facility] NRBC Absolute 0.00 <0.10 K/mcL LAB HEMETOLOGY METHOD 06/07/2024 4:45 PM [facility] Neutrophils Relative 73.9 % LAB HEMETOLOGY METHOD 06/07/2024 4:45 PM [facility] Lymphocytes Relative 12.0 % LAB HEMETOLOGY METHOD 06/07/2024 4:45 PM [facility] Monocytes Relative 11.2 % LAB HEMETOLOGY METHOD 06/07/2024 4:45 PM [facility] Eosinophils Relative 2.1 % LAB HEMETOLOGY METHOD 06/07/2024 4:45 PM [facility] Basophils Relative 0.5 % LAB HEMETOLOGY METHOD 06/07/2024 4:45 PM [facility] Immature Granulocytes Relative 0.3 % LAB HEMETOLOGY METHOD 06/07/2024 4:45 PM [facility] Neutrophils Absolute 8.16(H) 1.50 - 7.00 K/mcL LAB HEMETOLOGY METHOD 06/07/2024 4:45 PM [facility] Lymphocytes Absolute 1.33 1.00 - 5.00 K/mcL LAB HEMETOLOGY METHOD 06/07/2024 4:45 PM [facility] Monocytes Absolute 1.24(H) 0.20 - 1.00 K/mcL LAB HEMETOLOGY METHOD 06/07/2024 4:45 PM [facility] Eosinophils Absolute 0.23 0.00 - 0.50 K/mcL LAB HEMETOLOGY METHOD 06/07/2024 4:45 PM [facility] Basophils Absolute 0.05 0.00 - 0.20 K/mcL LAB HEMETOLOGY METHOD 06/07/2024 4:[address] [facility] Immature Granulocytes Absolute 0.03 0.00 - 0.03 K/[facility] LAB HEMETOLOGY METHOD 06/07/2024 4:[address] [facility] Blood Venous blood specimen / Unknown Venipuncture / Unknown 06/07/2024 4:23 PM EDT 06/07/2024 4:36 PM EDT us Elsie Chavez MD LAB BLOOD ORDERABLE S Final Result Performing Organization Address [facility]/ZIP Co de Phone Number [facility] [address] [place] [address], [place] [phone] * (ABNORMAL) Testosterone, total (06/07/2024 4:23 PM EDT) Testosterone 192(L) 229 - 902 ng/dL LAB CHEMISTRY METHOD 06/07/2024 7:[address] [facility] Blood Venous blood specimen / Unknown Venipuncture / Unknown 06/07/2024 4:23 PM EDT 06/07/2024 4:35 PM EDT us Elsie Chavez MD LAB BLOOD ORDERABLE S Final Result Performing Organization Address City/[facility]/ZIP Co de Phone Number [facility] [address] [place] [address], [place] [phone] * (ABNORMAL) Comprehensive metabolic panel (06/07/2024 4:23 PM EDT) Sodium 141 133 - 145 mmol/L LAB CHEMISTRY METHOD 06/07/2024 7:[address] [facility] Potassium 3.8 3.5 - 5.5 mmol/L LAB CHEMISTRY METHOD 06/07/2024 7:[address] [facility] Chloride 106 96 - 110 mmol/L LAB CHEMISTRY METHOD 06/07/2024 7:05 PM [facility] CO2 26 21 - 32 mmol/L LAB CHEMISTRY METHOD 06/07/2024 7:05 PM [facility] Anion Gap 9 3 - 11 LAB CHEMISTRY METHOD 06/07/2024 7:05 PM [facility] Glucose 125(H) 70 - 100 mg/dL LAB CHEMISTRY METHOD 06/07/2024 7:05 PM [facility] BUN 17 5 - 25 mg/dL LAB CHEMISTRY METHOD 06/07/2024 7:05 PM [facility] Creatinine 0.72 0.70 - 1.30 mg/dL LAB CHEMISTRY METHOD 06/07/2024 7:05 PM [facility] eGFR 105 >=60 mL/min/1. 73m2 LAB CHEMISTRY METHOD 06/07/2024 7:05 PM [facility] Comment:Calculation based on the Chronic Kidney Disease Epidemiology Collaboration (CKD-EPI) equation refit without adjustment for race. BUN/Creatinine Ratio 23.6 LAB CHEMISTRY METHOD 06/07/2024 7:05 PM [facility] Calcium 8.9 8.5 - 10.5 mg/dL LAB CHEMISTRY METHOD 06/07/2024 7:05 PM [facility] AST (SGOT) 28 10 - 42 unit/L LAB CHEMISTRY METHOD 06/07/2024 7:05 PM [facility] ALT (SGPT) 30 10 - 60 unit/L LAB CHEMISTRY METHOD 06/07/2024 7:05 PM [facility] Alkaline Phosphatase 271(H) 42 - 121 unit/L LAB CHEMISTRY METHOD 06/07/2024 7:05 PM [facility] Total Protein 7.2 6.0 - 8.0 g/dL LAB CHEMISTRY METHOD 06/07/2024 7:05 PM [facility] Albumin 3.8 3.2 - 5.0 g/dL LAB CHEMISTRY METHOD 06/07/2024 7:05 PM EDT [facility] Total Bilirubin 0.5 0.0 - 1.4 mg/dL LAB CHEMISTRY METHOD 06/07/2024 7:05 PM EDT [facility] Blood Venous blood specimen / Unknown Venipuncture / Unknown 06/07/2024 4:23 PM EDT 06/07/2024 4:35 PM EDT Elsie Chavez MD LAB BLOOD ORDERABLE S Final Result [facility] [address] [place] [address], from Last 3 Months Insurance [employer] [facility] Care Teams Gliding Pilot Instructor Relationship Specialty Start Date End Date Nhi Conte PA [address] [place] [phone] PCP - General 01/15/22
--- NOTE | 2024-09-01 13:46 | AM.OFFVISNUR ---
Intake Visit Reasons: firmagon/Xgeva Allergies tetracycline (Tetracycline) Allergy (Mild, Verified 08/08/24 15:10) RASH Office Meds degarelix 80 mg subcutaneous solution Performing Provider: Kvng Woodruff MD Performing Location: [facility] Administered by: Chris Watkins LPN on 09/01/24 13:46 Dose Route Admin Location Dispensed Lot Number Expiration Date [facility] Linen Clerk 80 mg subcut abdomen 80 mg [id number] 03/11/26 [address]-1 [employer] Total Dispensed Waste 80 mg 0 % Prolia 60 mg/mL subcutaneous syringe Performing Provider: Kvng Woodruff MD Performing Location: [facility] Administered by: Chris Watkins LPN on 09/01/24 13:46 Dose Route Admin Location Dispensed Lot Number Expiration Date [facility] Linen Clerk 60 mg subcut abdomen 1 mL [id number] 09/07/26 62179-007-63 [employer] Total Dispensed Waste 1 mL 0 % Assessment & Plan Assessment & Plan Orders: Orders AMB Denosumab Injection Practice Supplied Today C61 - Malignant neoplasm of prostate, C79.51 - Secondary malignant neoplasm of bone AMB Degarelix Injection Practice Supplied Today C61 - Malignant neoplasm of prostate, C79.51 - Secondary malignant neoplasm of bone Coding
== END 2024-09-01 13:55 | disposition home or self-care (01) ==
LOC: HO.HUSH 13:33
PROVIDERS: PCP Physician Assistant; Visit Provider Urology
DX: C61 Malignant neoplasm of prostate (principal); C79.51 Secondary malignant neoplasm of bone

== ENCOUNTER → 2024-09-01 13:32 | Outpatient (BNVA) | payer OTHER, SELFPAY | PROVIDERS: PCP Physician Assistant; Visit Provider Urology | DX: C61 Malignant neoplasm of prostate (principal); C79.51 Secondary malignant neoplasm of bone | CPT/HCPCS: 96372; 96402; J0897; J9155 ==

== ENCOUNTER 2024-10-05 08:04 | Outpatient (AMB) | payer OTHER, SELFPAY ==
--- NOTE | 2024-10-05 08:12 | AM.OFFVISNUR ---
Intake Visit Reasons: Xgeva/Firmagon Allergies tetracycline (Tetracycline) Allergy (Mild, Verified 08/08/24 15:10) RASH Office Meds degarelix 80 mg subcutaneous solution Performing Provider: Kvng Woodruff MD Performing Location: [facility] Administered by: Chris Watkins LPN on 10/05/24 08:12 Dose Route Admin Location Dispensed Lot Number Expiration Date [facility] Hand Stapler 80 mg subcut abdomen 80 mg [id number] 03/11/26 [address]-0 [employer] Total Dispensed Waste 80 mg 0 % Xgeva 120 mg/1.7 mL (70 mg/mL) subcutaneous solution Performing Provider: Kvng Woodruff MD Performing Location: [facility] Administered by: Chris Watkins LPN on 10/05/24 08:12 Dose Route Admin Location Dispensed Lot Number Expiration Date [facility] Hand Stapler 120 mg subcut abdomen 1.7 mL [id number] 01/07/27 71412-868-96 [employer] Total Dispensed Waste 1.7 mL 0 % Assessment & Plan Assessment & Plan Orders: Orders AMB Denosumab Injection Practice Supplied Today C61 - Malignant neoplasm of prostate, C79.51 - Secondary malignant neoplasm of bone AMB Degarelix Injection Practice Supplied Today C61 - Malignant neoplasm of prostate, C79.51 - Secondary malignant neoplasm of bone Coding
--- OUTSIDE RECORDS SUMMARY | 2024-10-05 08:26 | XMS_ITS | Clinical Summary ---
Author Organization [facility] Address [address] [place] [phone] Phone Care Team Providers Care Orthotist/Prosthetist Name Role Phone Jacky Negron MD Primary [...] (08/23/2017 7:42 AM EDT) HDL 53 mg/dL [facility] Comment: Interpretation: Risk Level Males Decreased >45 mg/dL Average 40-45 mg/dL Increased <40 mg/dL CHOLESTEROL 138 0 - 240 mg/dL [facility] TRIGLYCERIDES 133 30 - 160 mg/dL [facility] LDL 58 50 - 129 mg/dL [facility] Comment: LDL levels in terms of risk for coronary heart disease: <100 mg/dL: Optimal 100-129 mg/dL: Near or above optimal 130-159 mg/dL: Borderline high 160-189 mg/dL: High >190 mg/dL: Very High CARDIAC RISK RATIO 2.6(L) 3.4 - 5.0 C [facility] Blood 08/23/2017 7:42 AM EDT 08/23/2017 8:57 AM EDT Jacky Negron MD LAB BLOOD ORDERABLES Fi nal Result [facility] [address] [place] [address] from Last 3 Months or Most Recently Relevant to Health Maintenance [facility] [address] [place] [id number] [facility] [employer] Care Teams Orthotist/Prosthetist Relationship Specialty Start Date End Date Jacky Negron MD [address] [place] [phone] PCP - General Internal Medicine 12/08/16 Additional Source Comments The information contained in this document represents components of the legal health record. It is not the complete legal health record.[facility]
--- OUTSIDE RECORDS SUMMARY | 2024-10-05 08:26 | XMS_ITS | Encounter Summary ---
Author Organization [facility] Address [address] [place] [phone] Phone Care Team Providers Care Cnc Field Service Engineer Name Role Phone Jacky Negron MD Primary Care Provider Encounter Details Date Type Department Care Team (Latest Contact Info) Description 08/23/2017 Transcribe Orders [facility] [address] [place] [phone] Jacky Negron MD [address] [place] [phone] Mixed hyperlipidemia (Primary Dx); Essential hypertension, malignant Social History Tobacco Use Types Packs/Day Years Used Date Smoking Tobacco: Never Assessed Sex and Gender Information Value Date Recorded Sex Assigned at Not on file Legal Sex Male 9:40 PM EDT Gender Identity Not on file Sexual Orientation Not on file documented as of this encounter Plan of Treatment Not on file documented as of this encounter Results * C-Reactive Protein (08/23/2017 7:42 AM EDT) C REACTIVE PROTEIN 2.7 0.0 - 4.0 mg/L [facility] Comment:New Reference Range and Measuring Units effective 06/23/17. Blood 08/23/2017 7:42 AM EDT 08/23/2017 8:57 AM EDT Jacky Negron MD LAB BLOOD ORDERABLES Fi nal Result [address] [address] * Sedimentation rate (ESR) (08/23/2017 7:42 AM EDT) ESR 15 0 - 20 mm/h [facility] Blood 08/23/2017 7:42 AM EDT 08/23/2017 8:57 AM EDT Jacky Negron MD LAB BLOOD ORDERABLES Fi nal Result Performing Organization Address [facility] Co de Phone Number [address] [address] * (ABNORMAL) Lipid panel (08/23/2017 7:42 AM EDT) HDL 53 mg/dL [facility] Comment: Interpretation: Risk Level Males Decreased >45 mg/dL Average 40-45 mg/dL Increased <40 mg/dL CHOLESTEROL 138 0 - 240 mg/dL [facility] TRIGLYCERIDES 133 30 - 160 mg/dL [facility] LDL 58 50 - 129 mg/dL [facility] Comment: LDL levels in terms of risk for coronary heart disease: <100 mg/dL: Optimal 100-129 mg/dL: Near or above optimal 130-159 mg/dL: Borderline high 160-189 mg/dL: High >190 mg/dL: Very High CARDIAC RISK RATIO 2.6(L) 3.4 - 5.0 C [facility] Blood 08/23/2017 7:42 AM EDT 08/23/2017 8:57 AM EDT Jacky Negron MD LAB BLOOD ORDERABLES Fi nal Result Performing Organization Address City/[facility]/ZIP Co de Phone Number [address] [address] * (ABNORMAL) Comprehensive metabolic panel (08/23/2017 7:42 AM EDT) SODIUM 138 133 - 146 mmol/L [facility] POTASSIUM 4.1 3.3 - 5.1 mmol/L [facility] CHLORIDE 95(L) 96 - 108 mmol/L [facility] CO2 25 21 - 35 mmol/L [facility] BUN 16 6 - 19 mg/dL [facility] CREATININE 0.90 0.5 - 1.5 mg/dL [facility] GLUCOSE 91 70 - 99 mg/dL [facility] ALBUMIN 4.4 3.9 - 4.8 g/dL [facility] TOTAL PROTEIN 7.8 6.5 - 8.0 g/dL [facility] CALCIUM 9.6 8.4 - 10.3 mg/dL [facility] ALKALINE PHOSPHATASE 115 39 - 117 U/L [facility] TOTAL BILIRUBIN 0.7 0.0 - 1.2 mg/dL [facility] AST 33 0 - 37 U/L [facility] ALT 31 0 - 40 U/L [facility] GLOBULIN 3.4 1 - 4.8 g/dL [facility] EGFR 98 >59 mL/min/1.7 3m2 [facility] Comment:If patient is black, multiply result by 1.159. Estimated glomerular filtration rate calculated using the CKD-EPI equation. ANION GAP 22(H) 10 - 20 mmol/L [facility] Blood 08/23/2017 7:42 AM EDT 08/23/2017 8:57 AM EDT us Jacky Negron MD LAB BLOOD ORDERABLES Fi nal Result [facility] [address] [place] [address] documented in this encounter Visit Diagnoses Diagnosis Mixed hyperlipidemia- Primary Essential hypertension, malignant documented in this encounter Care Teams Cnc Field Service Engineer Relationship Specialty Start Date End Date Jacky Negron MD [address] [place] [phone] PCP - General Internal Medicine 12/08/16 documented as of this encounter Additional Source Comments The information contained in this document represents components of the legal health record. It is not the complete legal health record.[facility]
--- OUTSIDE RECORDS SUMMARY | 2024-10-05 08:27 | XMS_ITS | Clinical Summary ---
Author Organization [facility] Address [address] [place] [address] Care Team Providers Care Border Inspector Name Role Phone Nhi Conte PA-C Primary Care Provider [phone] Allergies Active Allergy Reactions Criticality Noted Date Comments Tetracyclines & Related 11/08/2018 Medications Medication Sig Dispensed Refills Start Date End Date Status Cholecalciferol (VITAMIN D3) 3000 units TABS Take 3,000 Units by mouth daily. 0 Active B [id number] (SUPER B-50 COMPLEX PO) Take 1 tablet [...] age to complete this topic Care Teams Border Inspector Relationship Specialty Start Date End Date Nhi Conte, PAAmiC PCP - General Physician Pay Per Click Strategist 01/15/22
--- OUTSIDE RECORDS SUMMARY | 2024-10-05 08:27 | XMS_ITS | Clinical Summary ---
Author Organization [facility] Address [address] [place] [address] Phone Care Team Providers Care Tenterer Name Role Phone Nhi Conte Primary Care Provider [phone] Allergies Active Allergy Reactions Criticality Noted Date [...] Verio test strips) test strip 4 Active diclofenac (VOLTAREN) 1 % topical gel Apply 4 g topically 2 (two) times a day. 100 g 2 5 Active tamsulosin (FLOMAX) 0.4 mg 24 hr capsule Take 1 capsule (0.4 mg total) by mouth 1 (one) time each day. Capsules should be taken 30 minutes following the same meal each day. 30 each 1 5 09/13/19 25 Active Problems Problem Noted Date Diagnosed Date Prostate CA ([facility] V24, [facility] V28) 5 Controlled type 2 diabetes w ith neuropathy ([facility] V24, [facility] V28) 06/28/2024 Peripheral neuropathy 06/28/2024 Primary osteoarthritis of left knee 06/28/2024 Severe obesity (BMI 35.0-39. 9) with comorbidity ([facility] V24, [facility] V28) 06/28/2024 Absolute anemia 04/08/2021 Leukocytosis 04/08/2021 Skin rash 04/08/2021 Hypothyroidism 11/08/2018 Colon adenoma 11/08/2018 HTN (hypertension) 11/08/2018 Gastroesophageal reflux disease 11/08/2018 Hyperlipidemia 11/08/2018 Nodular sclerosis Hodgkin ly mphoma of lymph nodes of neck ([facility] V24, [facility] V28) 11/08/2018 Encounters Date Type Department Care Team Description 09/22/2024 9:15 AM EDT Office Visit [facility] Hematology Oncology [address] [place] [phone] Elsie Eng MD Prostate CA ([facility] V24, [facility] V28) (Primary Dx); Peripheral polyneuropathy; Primary osteoarthritis of left knee; Anemia in neoplastic disease; Acquired hypothyroidism 07/14/2024 3:15 PM EDT Office Visit [facility] Hematology Oncology [address] [place] [phone] Elsie Eng MD Prostate CA ([facility] V24, [facility] V28) (Primary Dx) 07/13/2024 10:19 AM EDT - 07/13/2024 11:59 PM EDT Hospital Encounter [facility] Radiation Oncology [address] [place] [phone] Discharge Disposition: Home or Self Care 07/11/2024 1:42 PM EDT - 07/11/2024 11:59 PM EDT Hospital Encounter [facility] Radiation Oncology [address] [place] [phone] Liz Cordova MD Prostate CA ([facility] V24, [facility] V28) Discharge Disposition: Home or Self Care 07/11/2024 1:09 PM EDT - 07/11/2024 11:59 PM EDT Hospital Encounter [facility] Radiation Oncology [address] [place] [phone] Prostate CA ([facility] V24, [facility] V28) (Primary Dx) Discharge Disposition: Home or Self Care 07/05/2024 9:28 AM EDT - 07/05/2024 11:59 PM EDT Hospital Encounter [facility] Radiation Oncology [address] [place] [phone] Liz Cordova MD Prostate CA ([facility] V24, [facility] V28) (Primary Dx); Prostate mass Discharge Disposition: Home or Self Care 07/05/2024 9:27 AM EDT - 07/05/2024 11:59 PM EDT Hospital Encounter [facility] Radiation Oncology [address] [place] [phone] Discharge Disposition: Home or Self Care from Last 3 Months Immunizations Name Administration Dates Next Due Pfizer SARS-CoV-2 COVID-19, mRNA, LNP-S, preservative free 12/03/2020,05/22/2020,05/01/2020 Surgical History Surgery Date Site/Laterality Comments TOTAL KNEE ARTHROPLASTY 10/09/2021 Bilateral PROCEDURE:TOTAL KNEE ARTHROPLASTY CARPAL TUNNEL RELEASE ORTHOPEDIC SURGERY 05/31 Medical History Medical History Date Comments Lymphoma ([facility] V24, [facility] V28) 2000 Anemia 12/01 Diabetes mellitus ([facility] V24, [facility] V28) 10/10 3 Social History Tobacco Use [...] Sign Reading Time Taken Comments Blood Pressure 137/67 09/22/2024 9:08 AM EDT Pulse 74 09/22/2024 9:08 AM EDT Temperature 36.7 C (98.1 F) 09/22/2024 9:08 AM EDT Respiratory Rate - - Oxygen Saturation 99% 09/22/2024 9:08 AM EDT Inhaled Oxygen Concentration - - Weight 117 kg (257 lb) 09/22/2024 9:08 AM EDT Height 182.9 cm (6') 09/22/2024 9:08 AM EDT Body Mass Index 34.86 09/22/2024 9:08 AM EDT Plan of Treatment Upcoming Encounters Date Type Department Care Team (Late st Contact Info) Description 11/22/2024 2:15 PM EDT Office Visit [facility] Hematology Oncology [address] [place] [phone] Elsie Chavez MD [address] [place] [phone] 01/01/2025 9:00 AM EST Office Visit [facility] Hematology Oncology [address] [place] [phone] Elsie Chavez MD [address] [place] [phone] Health Maintenance Due Date Last Done Comments [...] exists COVID-19 Vaccine (5 - Pfizer risk season) 2024 06/18/2024, 12/03/2020, 05/22/2020, Additional history exists Diabetes: Annual GFR (Glomerular Filtration Rate) 09/22/2025 09/22/2024, 06/07/2024, 08/23/2017 Hypertension/CHF/CAD Annual BMP Blood Test 09/22/2025 09/22/2024, 06/07/2024, 08/23/2017 DTaP,Tdap,and Td Vaccines (3 - [...] Diagnosis Comments CBC WITH AUTO DIFFERENTIAL Routine 09/22/2024 9:41 AM EDT Prostate CA ([facility] V24, [facility] V28) CBC AND DIFFERENTIAL Routine 09/22/2024 9:41 AM EDT Prostate CA (CMS/HCC V24, CMS/HCC V28) COMPREHENSIVE METABOLIC PANEL Routine 09/22/2024 9:41 AM EDT Prostate CA (CMS/HCC V24, CMS/HCC V28) PROSTATE SPECIFIC ANTIGEN DIAGNOSTIC Routine 09/22/2024 9:41 AM EDT Prostate CA (CMS/HCC V24, CMS/HCC V28) PROSTATE SPECIFIC ANTIGEN DIAGNOSTIC Routine 07/14/2024 3:45 PM EDT Prostate CA ([facility]/HCC V24, [facility] V28) from Last 3 Months Results * Prostate specific antigen diagnostic (09/22/2024 9:41 AM EDT) Only the most recent of2 resultswithin the time period is included. PSA 0.24 0.00 - 4.00 ng/mL LAB CHEMISTRY METHOD 09/22/2024 1:05 PM EDT [facility] Blood Venous blood specimen / Unknown Venipuncture / Unknown 09/22/2024 9:41 AM EDT 09/22/2024 11:19 AM EDT Narrative [facility] - 09/22/2024 1:05 PM EDT The Siemens Advia Hypejaraur Chemiluminescent Immunoassay is used. Results obtained with different assay methods or kits cannot be used interchangeably. Results cannot be interpreted as absolute evidence of the presence or absence of malignant disease. us Elsie Chavez MD LAB BLOOD ORDERABLE S Final Result [facility] [address] [place] [address], [place] [phone] * (ABNORMAL) CBC auto differential (09/22/2024 9:41 AM EDT) WBC 8.8 4.8 - 10.8 K/mcL LAB HEMETOLOGY METHOD 09/22/2024 11:31 AM EDT [facility] RBC 4.00(L) 4.50 - 5.50 M/mcL LAB HEMETOLOGY METHOD 09/22/2024 11:31 AM EDT [facility] Hemoglobin 12.4(L) 13.5 - 17.5 g/dL LAB HEMETOLOGY METHOD 09/22/2024 11:31 AM EDT [facility] Hematocrit 37.1(L) 42.0 - 54.0 % LAB HEMETOLOGY METHOD 09/22/2024 11:31 AM [facility] MCV 91.8 79.0 - 98.0 FL LAB HEMETOLOGY METHOD 09/22/2024 11:31 AM [facility] MCH 30.7 27.0 - 32.0 pcg LAB HEMETOLOGY METHOD 09/22/2024 11:31 AM [facility] MCHC 33.4 32.0 - 37.0 g/dL LAB HEMETOLOGY METHOD 09/22/2024 11:31 AM [facility] RDW 16.5(H) 11.0 - 15.0 % LAB HEMETOLOGY METHOD 09/22/2024 11:31 AM [facility] Platelets 250 130 - 400 K/mcL LAB HEMETOLOGY METHOD 09/22/2024 11:31 AM [facility] MPV 10.6 7.0 - 11.0 FL LAB HEMETOLOGY METHOD 09/22/2024 11:31 AM [facility] NRBC 0.0 <1.0 % LAB HEMETOLOGY METHOD 09/22/2024 11:31 AM [facility] NRBC Absolute 0.00 <0.10 K/mcL LAB HEMETOLOGY METHOD 09/22/2024 11:31 AM [facility] Neutrophils Relative 76.5 % LAB HEMETOLOGY METHOD 09/22/2024 11:31 AM [facility] Lymphocytes Relative 11.4 % LAB HEMETOLOGY METHOD 09/22/2024 11:31 AM [facility] Monocytes Relative 8.8 % LAB HEMETOLOGY METHOD 09/22/2024 11:31 AM [facility] Eosinophils Relative 2.1 % LAB HEMETOLOGY METHOD 09/22/2024 11:31 AM [facility] Basophils Relative 0.7 % LAB HEMETOLOGY METHOD 09/22/2024 11:31 AM EDT [facility] Immature Granulocytes Relative 0.5 % LAB HEMETOLOGY METHOD 09/22/2024 11:31 AM EDT [facility] Neutrophils Absolute 6.76 1.50 - 7.00 K/mcL LAB HEMETOLOGY METHOD 09/22/2024 11:31 AM EDT [facility] Lymphocytes Absolute 1.01 1.00 - 5.00 K/mcL LAB HEMETOLOGY METHOD 09/22/2024 11:31 AM EDT [facility] Monocytes Absolute 0.78 0.20 - 1.00 K/mcL LAB HEMETOLOGY METHOD 09/22/2024 11:31 AM EDT [facility] Eosinophils Absolute 0.19 0.00 - 0.50 K/mcL LAB HEMETOLOGY METHOD 09/22/2024 11:31 AM EDT [facility] Basophils Absolute 0.06 0.00 - 0.20 K/mcL LAB HEMETOLOGY METHOD 09/22/2024 11:31 AM EDT [facility] Immature Granulocytes Absolute 0.04(H) 0.00 - 0.03 K/mcL LAB HEMETOLOGY METHOD 09/22/2024 11:31 AM EDT [facility] Blood Venous blood specimen / Unknown Venipuncture / Unknown 09/22/2024 9:41 AM EDT 09/22/2024 11:19 AM EDT us Frankramveronica Chavez MD LAB BLOOD ORDERABLE S Final Result [facility] [address] [place] [address], * (ABNORMAL) Comprehensive metabolic panel (09/22/2024 9:41 AM EDT) Sodium 139 133 - 145 mmol/L LAB CHEMISTRY METHOD 09/22/2024 11:53 AM [facility] Potassium 3.9 3.5 - 5.5 mmol/L LAB CHEMISTRY METHOD 09/22/2024 11:53 AM [facility] Chloride 103 96 - 110 mmol/L LAB CHEMISTRY METHOD 09/22/2024 11:53 AM [facility] CO2 30 21 - 32 mmol/L LAB CHEMISTRY METHOD 09/22/2024 11:53 AM [facility] Anion Gap 6 3 - 11 LAB CHEMISTRY METHOD 09/22/2024 11:53 AM [facility] Glucose 124(H) 70 - 100 mg/dL LAB CHEMISTRY METHOD 09/22/2024 11:53 AM [facility] BUN 18 5 - 25 mg/dL LAB CHEMISTRY METHOD 09/22/2024 11:53 AM [facility] Creatinine 0.82 0.70 - 1.30 mg/dL LAB CHEMISTRY METHOD 09/22/2024 11:53 AM [facility] eGFR 101 >=60 mL/min/1. 73m2 LAB CHEMISTRY METHOD 09/22/2024 11:53 AM [facility] Comment:Calculation based on the Chronic Kidney Disease Epidemiology Collaboration (CKD-EPI) equation refit without adjustment for race. BUN/Creatinine Ratio 22.0 LAB CHEMISTRY METHOD 09/22/2024 11:53 AM [facility] Calcium 9.0 8.5 - 10.5 mg/dL LAB CHEMISTRY METHOD 09/22/2024 11:53 AM [facility] AST (SGOT) 22 10 - 42 unit/L LAB CHEMISTRY METHOD 09/22/2024 11:53 AM [facility] ALT (SGPT) 31 10 - 60 unit/L LAB CHEMISTRY METHOD 09/22/2024 11:53 AM [facility] Alkaline Phosphatase 156(H) 42 - 121 unit/L LAB CHEMISTRY METHOD 09/22/2024 11:53 AM EDT [facility] Total Protein 7.1 6.0 - 8.0 g/dL LAB CHEMISTRY METHOD 09/22/2024 11:53 AM EDT [facility] Albumin 3.8 3.2 - 5.0 g/dL LAB CHEMISTRY METHOD 09/22/2024 11:53 AM EDT [facility] Total Bilirubin 0.6 0.0 - 1.4 mg/dL LAB CHEMISTRY METHOD 09/22/2024 11:53 AM EDT [facility] Blood Venous blood specimen / Unknown Venipuncture / Unknown 09/22/2024 9:41 AM EDT 09/22/2024 11:19 AM EDT Elsie Chavez MD LAB BLOOD ORDERABLE S Final Result [facility] [address] [place] [address], from Last 3 Months Insurance [employer] [facility] Care Teams Tenterer Relationship Specialty Start Date End Date Nhi Conte PA [address] [place] [address] PCP - General 01/15/22
== END 2024-10-05 08:23 | disposition home or self-care (01) ==
LOC: HO.HUSH 08:05
PROVIDERS: PCP Physician Assistant; Visit Provider Urology
DX: C61 Malignant neoplasm of prostate (principal); C79.51 Secondary malignant neoplasm of bone

== ENCOUNTER → 2024-10-05 08:04 | Outpatient (BNVA) | payer OTHER, SELFPAY | PROVIDERS: PCP Physician Assistant; Visit Provider Urology | DX: C61 Malignant neoplasm of prostate (principal); C79.51 Secondary malignant neoplasm of bone; Z79.620 Long term (current) use of immunosuppressive biologic | CPT/HCPCS: 96372; 96402; J0897; J9155 ==

== ENCOUNTER 2024-10-11 08:31 | Outpatient (AMB) | payer OTHER, SELFPAY ==
--- NOTE | 2024-10-11 08:43 | MHC.PC.OV ---
Vital Signs 10/11/24 08:49 Height 6 ft Weight 255 lb 4 oz BMI 34.6 BP 110/60 Blood Pressure Location Lt brachial Position Sitting Respiration 14 Pulse 79 Pulse Source Pulse Oximeter Pulse Oximetry (%) 97 Oxygen Delivery Method Room Air Intake Visit Reasons: dm, bp Intake Note: Diabetes follow up. Weight Loss Centre Manager Required: No Allergies tetracycline (Tetracycline) Allergy (Mild, Verified 08/08/24 15:10) RASH Tobacco use date assessed: 10/11/24 Dental Screening Dental Screen Date: 10/11/24 Did you have a dental visit in the last 12 months?: Yes Did you have a dental problem in the last 6 months where you did not have access to dental care?: No Was dental information given to patient?: Patient has dentist HPI dm, bp HPI Details Pt is a 59 y/o male who presents today for a follow up. He has a significant past medical history of type 2 diabetes, hypothyroidism, hypertension, hyperlipidemia, metastatic prostate cancer and nodular sclerosis Hodgkin lymphoma. Endo: DM- Dx last year. A1c today is 6. He is on metformin 500 mg daily. CV: bp is 110/60. He is on norvasc 10 mg, metoprolol 100 mg, and lisinopril 40 mg. Cholesterol controlled with zetia and atorvastatin. Heme/Onc: Following with Dr. East. 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 He has been in remission for 21 years following diagnosis. recommendation of upper endoscopy given hx of GERD and newer PRISCILLA Recently diagnosed with metastatic prostate cancer and also following with Urology. He states overall in terms of the diagnosis of the prostate cancer he is doing well. His pain is very minimal. He is tolerating the treatment without difficulty. FORMERLY [facility], [facility] Medical History Nodular sclerosing Hodgkin lymphoma Cancer Arthritis Diabetes High cholesterol High blood pressure Carpal tunnel syndrome Surgical History History of knee replacement Family History Father High blood pressure Diabetes Cardiovascular disease Maternal Grandfather Diabetes Mother Cancer Social History Housing: House Alcohol intake: current Patient Tobacco Use Status: Former Tobacco user Tobacco use type: Cigar Years Smoked: 2 e-Cigarette/Vaping Use: Never Used Second Hand Smoke Exposure: No service: No Current occupational status: employed 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 Current occupational exposures/hazards: No Cognitive needs: No Hearing needs: No Vision needs: Yes Questionnaire Thrive Questionnaire Date Thrive assessed: 05/04/24 I am a: Patient What is your living situation today?: I choose not to answer this question Within the past 12 months, did the food you bought not last and you didn't have the money to get more?: I choose not to answer this question Within the past 12 months, did you worry whether your food would run out before you got money to buy more?: I choose not to answer this question Do you have trouble paying for medicines?: No Do you have trouble getting transportation to medical appointments?: I choose not to answer this question Do you have trouble paying your heating and electricity bill?: I choose not to answer this question Do you have trouble taking care of your child, family member or friend?: I choose not to answer this question Do you have trouble with day-to-day activities such as bathing, preparing meals, shopping, managing finances, etc.?: I choose not to answer this question Are you currently unemployed and looking for a job?: I choose not to answer this question Are you interested in more education?: I choose not to answer this question Please select the resources that you would like help with: None Currently or been in a relationship where the following occur: I choose not to answer THRIVE Score: 0 AUDIT C Alcohol Use Questionnaire (AUDIT-C) 1. How often do you have a drink containing alcohol?: 4 or more times a week 2. How many drinks containing alcohol do you have on a typical day when you are drinking?: 1 or 2 3. How often do you have six or more drinks on one occasion?: Never Total Score: 4 PAM-7 AMB Questionnaire PAM-7 Date PAM - 7 assessed: 01/05/24 Source: Developed by Drs. Monty Vaughn, Sofia Woods, Chava Leonardo and colleagues, with an educational kenji from [employer]. Physical exam (Primary Care) Vital Signs: Last Vital Signs Pulse 79 10/11/24 08:49 Resp 14 10/11/24 08:49 BP 110/60 10/11/24 08:49 Pulse Ox 97 10/11/24 08:49 Oxygen Delivery Method Room Air 10/11/24 08:49 BMI result Body Mass Index 34.6 Tobacco/Smoking Status: Tobacco use Status Tobacco use date assessed 10/11/24 10/11/24 08:54 Patient Tobacco Use Status Former Tobacco user 10/11/24 08:45 Tobacco use type Cigar 10/11/24 08:45 e-Cigarette/Vaping Use Never Used 10/11/24 08:45 Thrive Assessment: Date of Thrive Assessment Date Thrive assessed 05/04/24 10/11/24 08:45 Currently or been in a relationship where the following occur: I choose not to answer Const Orientation/consciousness: patient oriented x3 HENMT Ears: hearing grossly normal bilaterally Neck Thyroid: Thyroid normal Lymphatic: no lymphadenopathy noted Resp Auscultation: clear to auscultation bilaterally Cardio Rate: regular rate Rhythm: regular rhythm Heart sounds: S1 normal heart sound present and S2 normal heart sound present GI Inspection: Yes normal to inspection Palpation (GI): Soft to palpation and Other GI palpation findings present (nontender, no cva tenderness) Auscultation: normoactive bowel sounds Rectal Exam - Male: Yes deferred Skin General skin exam: no rashes or lesions noted Neuro General: patient oriented x3, gait normal and no focal motor deficits Results AMB Hemoglobin A1c AMB Hemoglobin A1c 6.0 % Last Edit by Rayne Sidhu CMA on 10/11/24 14:23 Results Reviewed Results Reviewed: Laboratory Last Values Hgb A1c (Clinic) 6.0 % (4.0-6.0) 10/11/24 08:55 Laboratory Tests 11/05/23 05/10/24 05/12/24 14:26 15:50 07:57 Sodium 142 Potassium 3.9 Chloride 106 Carbon Dioxide 27 Anion Gap 13 BUN 18 H Creatinine 0.84 Estimated GFR > 60 Fasting Glucose 107 H Hgb A1c (Clinic) 5.8 Calcium 9.4 Vitamin B12 319 Folate 14.5 Coding Level of Care Code Est Pt Level 4 (52005) Complex EM visit Add On G2211 Diagnoses Well controlled type 2 diabetes mellitus with peripheral neuropathy E11.42 Prostate cancer metastatic to bone C61; C79.51 HTN (hypertension), benign I10 Assessment & Plan Assessment & Plan (1) Well controlled type 2 diabetes mellitus with peripheral neuropathy: Code(s): E11.42 - Type 2 diabetes mellitus with diabetic polyneuropathy Category: Medical Plan: WNL. Continue current regimen (2) Prostate cancer metastatic to bone: Code(s): C61 - Malignant neoplasm of prostate; C79.51 - Secondary malignant neoplasm of bone Category: Medical Plan: Following with Hematology/Oncology and Urology. (3) HTN (hypertension), benign: Code(s): I10 - Essential (primary) hypertension Category: Medical Plan: WNL. Continue current regimen Orders: Orders AMB Hemoglobin A1c 10/11/24 E11.42 - Type 2 diabetes mellitus with diabetic polyneuropathy
[2024-10-11 08:49] VITALS: BP 110/60; PULSE 79; RESP 14; O2SAT 97; BMI 34.6
--- OUTSIDE RECORDS SUMMARY | 2024-10-11 08:57 | XMS_ITS | Clinical Summary ---
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 ([facility] V24, [facility] V28) 11/08/2018 Encounters Date Type Department Care Team Description 09/22/2024 9:15 AM EDT Office Visit [facility] Hematology Oncology [address] [place] [phone] Elsie Eng MD Prostate CA ([facility] V24, [facility] V28) (Primary Dx); Peripheral polyneuropathy; Primary osteoarthritis of left knee; Anemia in neoplastic disease; Acquired hypothyroidism 07/14/2024 3:15 PM EDT Office Visit [facility] Hematology Oncology [address] [place] [phone] Elsie Eng MD Prostate CA ([facility] V24, [facility] V28) (Primary Dx) 07/13/2024 10:19 AM EDT - 07/13/2024 11:59 PM EDT Hospital Encounter [facility] Radiation Oncology [address] [place] [phone] Discharge Disposition: Home or Self Care 07/11/2024 1:42 PM EDT - 07/11/2024 11:59 PM EDT Hospital Encounter [facility] Radiation Oncology [address] [place] [phone] Liz Cordova MD Prostate CA ([facility] V24, [facility] V28) Discharge Disposition: Home or Self Care 07/11/2024 1:09 PM EDT - 07/11/2024 11:59 PM EDT Hospital Encounter [facility] Radiation Oncology [address] [place] [phone] Prostate CA ([facility] V24, [facility] V28) (Primary Dx) Discharge Disposition: Home or Self Care from Last 3 Months Immunizations Name Administration Dates Next Due Pfizer SARS-CoV-2 COVID-19, mRNA, LNP-S, preservative free 12/03/2020,05/22/2020,05/01/2020 Surgical History Surgery Date Site/Laterality Comments TOTAL KNEE ARTHROPLASTY 10/09/2021 Bilateral PROCEDURE:TOTAL KNEE ARTHROPLASTY CARPAL TUNNEL RELEASE ORTHOPEDIC SURGERY 05/31 Medical History Medical History Date Comments Lymphoma ([facility] V24, [facility] V28) 1999 Anemia 12/01 Diabetes mellitus ([facility] V24, [facility] V28) 10/10 3 Social History Tobacco Use [...] Description 11/22/2024 2:15 PM EDT Office Visit [facility] Hematology Oncology [address] [place] [phone] Emerita-Elsie East MD [address] [place] [phone] 01/01/2025 9:00 AM EST Office Visit [facility] Hematology Oncology [address] [place] [phone] Elsie Chavez MD [address] [place] [phone] Health Maintenance Due Date Last [...] Routine 09/22/2024 9:41 AM EDT Prostate CA ([facility]/HCC V24, [facility]/HCC V28) CBC AND DIFFERENTIAL Routine 09/22/2024 9:41 AM EDT Prostate CA (CMS/HCC V24, CMS/HCC V28) COMPREHENSIVE METABOLIC PANEL Routine 09/22/2024 9:41 AM EDT Prostate CA (CMS/HCC V24, CMS/HCC V28) PROSTATE SPECIFIC ANTIGEN DIAGNOSTIC Routine 09/22/2024 9:41 AM EDT Prostate CA (CMS/HCC V24, CMS/HCC V28) PROSTATE SPECIFIC ANTIGEN DIAGNOSTIC Routine 07/14/2024 3:45 PM EDT Prostate CA (CMS/HCC V24, CMS/HCC V28) from Last 3 Months Results * Prostate specific antigen diagnostic (09/22/2024 9:41 AM EDT) Only the most recent of2 resultswithin the time period is included. PSA 0.24 0.00 - 4.00 ng/mL LAB CHEMISTRY METHOD 09/22/2024 1:05 PM EDT [facility] ([facility]) [facility] Blood Venous blood specimen / Unknown Venipuncture / Unknown 09/22/2024 9:41 AM EDT 09/22/2024 11:19 AM EDT Narrative [facility] - 09/22/2024 1:05 PM EDT The Siemens Advia Centaur Chemiluminescent Immunoassay is used. Results obtained with different assay methods or kits cannot be used interchangeably. Results cannot be interpreted as absolute evidence of the presence or absence of malignant disease. Elsie Chavez MD LAB BLOOD ORDERABLE S Final Result [facility] [address] [place] [address], * (ABNORMAL) CBC auto differential (09/22/2024 9:41 AM EDT) WBC 8.8 4.8 - 10.8 K/mcL LAB HEMETOLOGY METHOD 09/22/2024 11:31 AM [facility] RBC 4.00(L) 4.50 - 5.50 M/mcL LAB HEMETOLOGY METHOD 09/22/2024 11:31 AM [facility] Hemoglobin 12.4(L) 13.5 - 17.5 g/dL LAB HEMETOLOGY METHOD 09/22/2024 11:31 AM [facility] Hematocrit 37.1(L) 42.0 - 54.0 % LAB HEMETOLOGY METHOD 09/22/2024 11:31 AM EDT [facility] MCV 91.8 79.0 - 98.0 FL LAB HEMETOLOGY METHOD 09/22/2024 11:31 AM EDT [facility] MCH 30.7 27.0 - 32.0 pcg LAB HEMETOLOGY METHOD 09/22/2024 11:31 AM [facility] MCHC 33.4 32.0 - 37.0 g/dL LAB HEMETOLOGY METHOD 09/22/2024 11:31 AM [facility] RDW 16.5(H) 11.0 - 15.0 % LAB HEMETOLOGY METHOD 09/22/2024 11:31 AM [facility] Platelets 250 130 - 400 K/mcL LAB HEMETOLOGY METHOD 09/22/2024 11:31 AM [facility] MPV 10.6 7.0 - 11.0 FL LAB HEMETOLOGY METHOD 09/22/2024 11:31 AM [facility] NRBC 0.0 <1.0 % LAB HEMETOLOGY METHOD 09/22/2024 11:31 AM [facility] NRBC Absolute 0.00 <0.10 K/mcL LAB HEMETOLOGY METHOD 09/22/2024 11:31 AM [facility] Neutrophils Relative 76.5 % LAB HEMETOLOGY METHOD 09/22/2024 11:31 AM [facility] Lymphocytes Relative 11.4 % LAB HEMETOLOGY METHOD 09/22/2024 11:31 AM [facility] Monocytes Relative 8.8 % LAB HEMETOLOGY METHOD 09/22/2024 11:31 AM [facility] Eosinophils Relative 2.1 % LAB HEMETOLOGY METHOD 09/22/2024 11:31 AM [facility] Basophils Relative 0.7 % LAB HEMETOLOGY METHOD 09/22/2024 11:31 AM [facility] Immature Granulocytes Relative 0.5 % LAB HEMETOLOGY METHOD 09/22/2024 11:31 AM [facility] Neutrophils Absolute 6.76 1.50 - 7.00 K/mcL LAB HEMETOLOGY METHOD 09/22/2024 11:31 AM [facility] Lymphocytes Absolute 1.01 1.00 - 5.00 K/mcL LAB HEMETOLOGY METHOD 09/22/2024 11:31 AM EDT [facility] Monocytes Absolute 0.78 0.20 - 1.00 K/mcL LAB HEMETOLOGY METHOD 09/22/2024 11:31 AM EDT [facility] Eosinophils Absolute 0.19 0.00 - 0.50 K/mcL LAB HEMETOLOGY METHOD 09/22/2024 11:31 AM EDT [facility] Basophils Absolute 0.06 0.00 - 0.20 K/[facility] LAB HEMETOLOGY METHOD 09/22/2024 11:31 AM EDT [facility] Immature Granulocytes Absolute 0.04(H) 0.00 - 0.03 K/[facility] LAB HEMETOLOGY METHOD 09/22/2024 11:31 AM [facility] Blood Venous blood specimen / Unknown Venipuncture / Unknown 09/22/2024 9:41 AM EDT 09/22/2024 11:19 AM EDT us Elsie Chavez MD LAB BLOOD ORDERABLE S Final Result [facility] [address] [place] [address], * (ABNORMAL) Comprehensive metabolic panel (09/22/2024 9:41 AM EDT) Sodium 139 133 - 145 mmol/L LAB CHEMISTRY METHOD 09/22/2024 11:53 AM EDT [facility] Potassium 3.9 3.5 - 5.5 mmol/L LAB CHEMISTRY METHOD 09/22/2024 11:53 AM T [facility] Chloride 103 96 - 110 mmol/L LAB CHEMISTRY METHOD 09/22/2024 11:53 AM [facility] CO2 30 21 - 32 mmol/L LAB CHEMISTRY METHOD 09/22/2024 11:53 AM T [facility] Anion Gap 6 3 - 11 LAB CHEMISTRY METHOD 09/22/2024 11:53 AM [facility] Glucose 124(H) 70 - 100 mg/dL LAB CHEMISTRY METHOD 09/22/2024 11:53 AM [facility] BUN 18 5 - 25 mg/dL LAB CHEMISTRY METHOD 09/22/2024 11:53 AM [facility] Creatinine 0.82 0.70 - 1.30 mg/dL LAB CHEMISTRY METHOD 09/22/2024 11:53 AM [facility] eGFR 101 >=60 mL/min/1. 73m2 LAB CHEMISTRY METHOD 09/22/2024 11:53 AM [facility] Comment:Calculation based on the Chronic Kidney Disease Epidemiology Collaboration (CKD-EPI) equation refit without adjustment for race. BUN/Creatinine Ratio 22.0 LAB CHEMISTRY METHOD 09/22/2024 11:53 AM [facility] Calcium 9.0 8.5 - 10.5 mg/dL LAB CHEMISTRY METHOD 09/22/2024 11:53 AM [facility] AST (SGOT) 22 10 - 42 unit/L LAB CHEMISTRY METHOD 09/22/2024 11:53 AM [facility] ALT (SGPT) 31 10 - 60 unit/L LAB CHEMISTRY METHOD 09/22/2024 11:53 AM [facility] Alkaline Phosphatase 156(H) 42 - 121 unit/L LAB CHEMISTRY METHOD 09/22/2024 11:53 AM [facility] Total Protein 7.1 6.0 - 8.0 g/dL LAB CHEMISTRY METHOD 09/22/2024 11:53 AM [facility] Albumin 3.8 3.2 - 5.0 g/dL LAB CHEMISTRY METHOD 09/22/2024 11:53 AM [facility] Total Bilirubin 0.6 0.0 - 1.4 mg/dL LAB CHEMISTRY METHOD 09/22/2024 11:53 AM [facility] Blood Venous blood specimen / Unknown Venipuncture / Unknown 09/22/2024 9:41 AM EDT 09/22/2024 11:19 AM EDT Elsie Chavez MD LAB BLOOD ORDERABLE S Final Result [facility] ([facility]) [facility] [address] [place] [address], from Last 3 Months Insurance [employer] [facility] Care Teams Life Skills Coordinator Relationship Specialty Start Date End Date Nhi Conte PA [address] [place] [phone] PCP - General 01/15/22
--- OUTSIDE RECORDS SUMMARY | 2024-10-11 08:57 | XMS_ITS | Encounter Summary ---
Author Organization [facility] Address [address] [place] [phone] Phone Care Team Providers Care Arc Welding Machine Operator Name Role Phone Jacky Negron MD Primary Care Provider Encounter Details Date Type Department Care Team (Latest Contact Info) Description 08/23/2017 Transcribe Orders [facility] [address] [place] [phone] Jacky Negron MD [address] [place] [phone] Mixed hyperlipidemia (Primary Dx); Essential hypertension, malignant [...] REACTIVE PROTEIN 2.7 0.0 - 4.0 mg/L [facility] Comment:New Reference Range and Measuring Units effective 06/23/17. Blood 08/23/2017 7:42 AM EDT 08/23/2017 8:57 AM EDT Jacky Negron MD LAB BLOOD ORDERABLES Fi nal Result [address] [address] * Sedimentation rate (ESR) (08/23/2017 7:42 AM EDT) ESR 15 0 - 20 mm/h [facility] Blood 08/23/2017 7:42 AM EDT 08/23/2017 8:57 AM EDT Jacky Negron MD LAB BLOOD ORDERABLES Fi nal Result Performing Organization Address [facility] Co de Phone Number [address] [address] * (ABNORMAL) Lipid panel (08/23/2017 7:42 AM EDT) HDL 53 mg/dL [facility] Comment: Interpretation: Risk Level Males Decreased >45 mg/dL Average 40-45 mg/dL Increased <40 mg/dL CHOLESTEROL 138 0 - 240 mg/dL [facility] TRIGLYCERIDES 133 30 - 160 mg/dL [facility] LDL 58 50 - 129 mg/dL [facility] Comment: LDL levels in terms of risk for coronary heart disease: <100 mg/dL: Optimal 100-129 mg/dL: Near or above optimal 130-159 mg/dL: Borderline high 160-189 mg/dL: High >190 mg/dL: Very High CARDIAC RISK RATIO 2.6(L) 3.4 - 5.0 [facility] Blood 08/23/2017 7:42 AM EDT 08/23/2017 8:57 AM EDT Jacky Negorn MD LAB BLOOD ORDERABLES Fi nal Result Performing Organization Address City/[facility]/ZIP Co de Phone Number [address] [address] * (ABNORMAL) Comprehensive metabolic panel (08/23/2017 7:42 AM EDT) SODIUM 138 133 - 146 mmol/L [facility] POTASSIUM 4.1 3.3 - 5.1 mmol/L [facility] CHLORIDE 95(L) 96 - 108 mmol/L [facility] CO2 25 21 - 35 mmol/L [facility] BUN 16 6 - 19 mg/dL [facility] CREATININE 0.90 0.5 - 1.5 mg/dL [facility] GLUCOSE 91 70 - 99 mg/dL [facility] ALBUMIN 4.4 3.9 - 4.8 g/dL [facility] TOTAL PROTEIN 7.8 6.5 - 8.0 g/dL [facility] CALCIUM 9.6 8.4 - 10.3 mg/dL [facility] ALKALINE PHOSPHATASE 115 39 - 117 U/L [facility] TOTAL BILIRUBIN 0.7 0.0 - 1.2 mg/dL [facility] AST 33 0 - 37 U/L [facility] ALT 31 0 - 40 U/L [facility] GLOBULIN 3.4 1 - 4.8 g/dL [facility] EGFR 98 >59 mL/min/1.7 3m2 [facility] Comment:If patient is black, multiply result by 1.159. Estimated glomerular filtration rate calculated using the CKD-EPI equation. ANION GAP 22(H) 10 - 20 mmol/L [facility] Blood 08/23/2017 7:42 AM EDT 08/23/2017 8:57 AM EDT us Jacky Negron MD LAB BLOOD ORDERABLES Fi nal Result [facility] [address] [place] [address] documented in this encounter Visit Diagnoses Diagnosis Mixed hyperlipidemia- Primary Essential hypertension, malignant documented in this encounter Care Teams Arc Welding Machine Operator Relationship Specialty Start Date End Date Jacky Negron MD [address] [place] [phone] PCP - General Internal Medicine 12/08/16 documented as of this encounter Additional Source Comments The information contained in this document represents components of the legal health record. It is not the complete legal health record.[facility]
--- OUTSIDE RECORDS SUMMARY | 2024-10-11 08:57 | XMS_ITS | Clinical Summary ---
Author Organization [facility] Address [address] [place] [phone] Phone Care Team Providers Care Dye House Worker Name Role Phone Jacky Negron MD Primary [...] HEPATITIS C SCREENING 05/16/1983 HIV ONE-TIME SCREENING (18-65 YEARS) 05/16/1983 COLOGUARD 2010 COLONOSCOPY 2010 COLORECTAL CANCER SCREENING 2010 FIT TEST 2010 FOBT 2010 SIGMOIDOSCOPY 2010 VIRTUAL COLONOSCOPY 2010 PNEUMOCOCCAL VACCINES (50+ years) (1 of 1 - PCV) 05/16/2015 LIPID PANEL 08/23/2022 08/23/2017 INFLUENZA VACCINE (#1) 2024 9, 10/29/2016, 10/31/2015, Additional history exists COVID-19 VACCINE ( season) 2024 05/01/2020 Adult Td,Tdap Booster 11/07/2024 11/07/2014 ZOSTER [...] (08/23/2017 7:42 AM EDT) HDL 53 mg/dL [facility] Comment: Interpretation: Risk Level Males Decreased >45 mg/dL Average 40-45 mg/dL Increased <40 mg/dL CHOLESTEROL 138 0 - 240 mg/dL [facility] TRIGLYCERIDES 133 30 - 160 mg/dL [facility] LDL 58 50 - 129 mg/dL [facility] Comment: LDL levels in terms of risk for coronary heart disease: <100 mg/dL: Optimal 100-129 mg/dL: Near or above optimal 130-159 mg/dL: Borderline high 160-189 mg/dL: High >190 mg/dL: Very High CARDIAC RISK RATIO 2.6(L) 3.4 - 5.0 C [facility] Blood 08/23/2017 7:42 AM EDT 08/23/2017 8:57 AM EDT Jacky Negron MD LAB BLOOD ORDERABLES Fi nal Result [address] [place] [address] from Last 3 Months or Most Recently Relevant to Health Maintenance [place] [place] [address] HMO [facility] [address] [place] [address] [place] [address] [facility] HMO Care Teams Dye House Worker Relationship Specialty Start Date End Date Jacky Negron MD [address] [place] [phone] PCP - General Internal Medicine 12/08/16 Additional Source Comments The information contained in this document represents components of the legal health record. It is not the complete legal health record.[facility]
--- OUTSIDE RECORDS SUMMARY | 2024-10-11 08:57 | XMS_ITS | Clinical Summary ---
Author Organization [facility] Address [address] [place] [address] Care Team Providers Care Roller Operator Name Role Phone Nhi Conte PA-C Primary Care Provider Allergies Active Allergy Reactions Criticality Noted Date Comments Tetracyclines & Related 11/08/2018 Medications Medication Sig Dispensed Refills Start Date End Date Status Cholecalciferol (VITAMIN D3) 3000 units TABS Take 3,000 Units by mouth daily. 0 Active B Hrwlqdt-Uwibek-RQ (SUPER B-50 COMPLEX PO) Take 1 tablet [...] Screening (Colonoscopy) 2010 COVID-19 Vaccine ( season) 2024 12/03/2020, 05/22/2020, 05/01/2020 Influenza Vaccine (#1) 2024 2, 11/30/2020, 10/18/2019, Additional history exists DTap / Tdap / Td (2 - Td or Tdap) 11/07/2024 11/07/2014 Shingrix-Zoster Vaccine Completed 12/19/2018, 10/19 RSV Ped < 20 months Aged Out No longe r eligible based on patient's age to complete this topic Care Teams Roller Operator Relationship Specialty Start Date End Date Nhi Conte, PAAmiC PCP - General Physician Residential Air Sealing Technician 01/15/22
== END 2024-10-11 09:18 | disposition home or self-care (01) ==
LOC: HO.HMCFM 08:32
PROVIDERS: PCP Physician Assistant; Visit Provider Physician Assistant
DX: E11.42 Type 2 diabetes mellitus with diabetic polyneuropathy (principal)

== ENCOUNTER → 2024-10-11 08:31 | Outpatient (BNVA) | payer OTHER, SELFPAY | PROVIDERS: PCP Physician Assistant; Visit Provider Physician Assistant | DX: E11.42 Type 2 diabetes mellitus with diabetic polyneuropathy (principal); C79.51 Secondary malignant neoplasm of bone; C79.82 Secondary malignant neoplasm of genital organs; E03.9 Hypothyroidism, unspecified; I10 Essential (primary) hypertension; E78.5 Hyperlipidemia, unspecified; K21.9 Gastro-esophageal reflux disease without esophagitis | CPT/HCPCS: 83036 ==

== ENCOUNTER 2024-10-24 06:04 | Outpatient (REF) | payer OTHER, SELFPAY ==
--- OUTSIDE RECORDS SUMMARY | 2024-10-24 06:06 | XMS_ITS | Clinical Summary ---
Author Organization [facility] Address [address] [place] [address] Phone Care Team Providers Care Assembly Inspector Name Role Phone Jacky Negron MD Primary [...] (08/23/2017 7:42 AM EDT) HDL 53 mg/dL [facility] Comment: Interpretation: Risk Level Males Decreased >45 mg/dL Average 40-45 mg/dL Increased <40 mg/dL CHOLESTEROL 138 0 - 240 mg/dL [facility] TRIGLYCERIDES 133 30 - 160 mg/dL [facility] LDL 58 50 - 129 mg/dL [facility] Comment: LDL levels in terms of risk for coronary heart disease: <100 mg/dL: Optimal 100-129 mg/dL: Near or above optimal 130-159 mg/dL: Borderline high 160-189 mg/dL: High >190 mg/dL: Very High CARDIAC RISK RATIO 2.6(L) 3.4 - 5.0 C [facility] Blood 08/23/2017 7:42 AM EDT 08/23/2017 8:57 AM EDT Jacky Negron MD LAB BLOOD ORDERABLES Fi nal Result [address] [place] [address] from Last 3 Months or Most Recently Relevant to Health Maintenance Insurance [place] [address] HMO [facility] [address] [place], [place] [address] [place], [place] [address] [facility] HMO Care Teams Assembly Inspector Relationship Specialty Start Date End Date Jacky Negron MD [address] [place] [address] PCP - General Internal Medicine 12/08/16 Additional Source Comments The information contained in this document represents components of the legal health record. It is not the complete legal health record.[facility]
--- OUTSIDE RECORDS SUMMARY | 2024-10-24 06:06 | XMS_ITS | Clinical Summary ---
Author Organization [facility] Address [address] [place] [address] Phone Care Team Providers Care Supervisor Weaving Name Role Phone Nhi Conte Primary Care Provider [phone] Allergies Active Allergy Reactions Criticality Noted Date [...] (one) time each day. 5 Active lancets (WhateverTouch Delica Plus Lancet) 30 gauge 4 Active hydroCHLOROthia zide (HYDRODIURIL) 25 mg tablet Take 1 tablet (25 mg total) by mouth. 4 Active blood sugar diagnostic (OneTouch Verio test strips) test strip 4 Active diclofenac (VOLTAREN) 1 % topical gel Apply 4 g topically 2 (two) times a day. 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 ([facility] V24, [facility] V28) 11/08/2018 Encounters Date Type Department Care Team Description 09/22/2024 9:15 AM EDT Office Visit [facility] Hematology Oncology [address] [place] [address] Elsie Ybarra MD Prostate CA ([facility] V24, [facility] V28) (Primary Dx); Peripheral polyneuropathy; Primary osteoarthritis of left knee; Anemia in neoplastic disease; Acquired hypothyroidism from Last 3 Months Immunizations Name Administration Dates Next Due Pfizer SARS-CoV-2 COVID-19, mRNA, LNP-S, preservative free 12/03/2020,05/22/2020,05/01/2020 Surgical History Surgery Date Site/Laterality Comments TOTAL KNEE ARTHROPLASTY 10/09/2021 Bilateral PROCEDURE:TOTAL KNEE ARTHROPLASTY CARPAL TUNNEL RELEASE ORTHOPEDIC SURGERY 05/31 Medical History Medical History Date Comments Lymphoma ([facility] V24, [facility] V28) 2000 Anemia 12/01 Diabetes mellitus ([facility] V24, [facility] V28) 10/10 3 Social History Tobacco Use [...] Description 11/22/2024 2:15 PM EDT Office Visit [facility] Hematology Oncology [address] [place] [phone] Elsie Chavez MD [address] [place] [phone] 01/01/2025 9:00 AM EST Office Visit [facility] Hematology Oncology [address] [place] [phone] Elsie Chavez MD [address] [place] [phone] Health Maintenance Due Date Last Done Comments [...] Routine 09/22/2024 9:41 AM EDT Prostate CA ([facility]/HCC V24, [facility] V28) CBC AND DIFFERENTIAL Routine 09/22/2024 9:41 AM EDT Prostate CA ([facility]/HCC V24, CMS/HCC V28) COMPREHENSIVE METABOLIC PANEL Routine 09/22/2024 9:41 AM EDT Prostate CA (CMS/HCC V24, CMS/HCC V28) PROSTATE SPECIFIC ANTIGEN DIAGNOSTIC Routine 09/22/2024 9:41 AM EDT Prostate CA ([facility]/HCC V24, [facility]/HCC V28) from Last 3 Months Results * Prostate specific antigen diagnostic (09/22/2024 9:41 AM EDT) Pathologist [facility] PSA 0.24 0.00 - 4.00 ng/mL LAB CHEMISTRY METHOD 09/22/2024 1:05 PM EDT [facility] Blood Venous blood specimen / Unknown Venipuncture / Unknown 09/22/2024 9:41 AM EDT 09/22/2024 11:19 AM EDT Narrative [facility] - 09/22/2024 1:05 PM EDT The Siemens Advia RightAnswersaur Chemiluminescent Immunoassay is used. Results obtained with different assay methods or kits cannot be used interchangeably. Results cannot be interpreted as absolute evidence of the presence or absence of malignant disease. Elsie Chavez MD LAB BLOOD ORDERABLE S Final Result [facility] [address] [place] [address], * (ABNORMAL) CBC auto differential (09/22/2024 9:41 AM EDT) [facility] WBC 8.8 4.8 - 10.8 K/mcL LAB HEMETOLOGY METHOD 09/22/2024 11:31 AM [facility] RBC 4.00(L) 4.50 - 5.50 M/mcL LAB HEMETOLOGY METHOD 09/22/2024 11:31 AM EDT [facility] Hemoglobin 12.4(L) 13.5 - 17.5 g/dL LAB HEMETOLOGY METHOD 09/22/2024 11:31 AM [facility] Hematocrit 37.1(L) 42.0 - 54.0 % LAB HEMETOLOGY METHOD 09/22/2024 11:31 AM [facility] MCV 91.8 79.0 - 98.0 FL LAB HEMETOLOGY METHOD 09/22/2024 11:31 AM [facility] MCH 30.7 27.0 - 32.0 pcg LAB HEMETOLOGY METHOD 09/22/2024 11:31 AM [facility] MCHC 33.4 32.0 - 37.0 g/dL LAB HEMETOLOGY METHOD 09/22/2024 11:31 AM [facility] RDW 16.5(H) 11.0 - 15.0 % LAB HEMETOLOGY METHOD 09/22/2024 11:31 AM [facility] Platelets 250 130 - 400 K/mcL LAB HEMETOLOGY METHOD 09/22/2024 11:31 AM [facility] MPV 10.6 7.0 - 11.0 FL LAB HEMETOLOGY METHOD 09/22/2024 11:31 AM [facility] NRBC 0.0 <1.0 % LAB HEMETOLOGY METHOD 09/22/2024 11:31 AM [facility] NRBC Absolute 0.00 <0.10 K/mcL LAB HEMETOLOGY METHOD 09/22/2024 11:31 AM [facility] Neutrophils Relative 76.5 % LAB HEMETOLOGY METHOD 09/22/2024 11:31 AM [facility] Lymphocytes Relative 11.4 % LAB HEMETOLOGY METHOD 09/22/2024 11:31 AM [facility] Monocytes Relative 8.8 % LAB HEMETOLOGY METHOD 09/22/2024 11:31 AM [facility] Eosinophils Relative 2.1 % LAB HEMETOLOGY METHOD 09/22/2024 11:31 AM [facility] Basophils Relative 0.7 % LAB HEMETOLOGY METHOD 09/22/2024 11:31 AM [facility] Immature Granulocytes Relative 0.5 % LAB HEMETOLOGY METHOD 09/22/2024 11:31 AM EDT [facility] Neutrophils Absolute 6.76 1.50 - 7.00 K/mcL LAB HEMETOLOGY METHOD 09/22/2024 11:31 AM EDT [facility] Lymphocytes Absolute 1.01 1.00 - 5.00 K/mcL LAB HEMETOLOGY METHOD 09/22/2024 11:31 AM EDT [facility] Monocytes Absolute 0.78 0.20 - 1.00 K/mcL LAB HEMETOLOGY METHOD 09/22/2024 11:31 AM EDT [facility] Eosinophils Absolute 0.19 0.00 - 0.50 K/mcL LAB HEMETOLOGY METHOD 09/22/2024 11:31 AM EDT [facility] Basophils Absolute 0.06 0.00 - 0.20 K/mcL LAB HEMETOLOGY METHOD 09/22/2024 11:31 AM EDT [facility] Immature Granulocytes Absolute 0.04(H) 0.00 - 0.03 K/mcL LAB HEMETOLOGY METHOD 09/22/2024 11:31 AM EDT [facility] Blood Venous blood specimen / Unknown Venipuncture / Unknown 09/22/2024 9:41 AM EDT 09/22/2024 11:19 AM EDT Elsie Chavez MD LAB BLOOD ORDERABLE S Final Result [facility] [address] [place] [address], * (ABNORMAL) Comprehensive metabolic panel (09/22/2024 9:41 AM EDT) Sodium 139 133 - 145 mmol/L LAB CHEMISTRY METHOD 09/22/2024 11:53 AM EDT [facility] Potassium 3.9 3.5 - 5.5 mmol/L LAB CHEMISTRY METHOD [facility]24 [facility] Chloride 103 96 - 110 mmol/L LAB CHEMISTRY METHOD 09/22/2024 11:53 AM [facility] CO2 30 21 - 32 mmol/L LAB CHEMISTRY METHOD 09/22/2024 11:53 AM [facility] Anion Gap 6 3 - 11 LAB CHEMISTRY METHOD 09/22/2024 11:53 AM [facility] Glucose 124(H) 70 - 100 mg/dL LAB CHEMISTRY METHOD 09/22/2024 11:53 AM [facility] BUN 18 5 - 25 mg/dL LAB CHEMISTRY METHOD 09/22/2024 11:53 AM [facility] Creatinine 0.82 0.70 - 1.30 mg/dL LAB CHEMISTRY METHOD 09/22/2024 11:53 AM [facility] eGFR 101 >=60 mL/min/1. 73m2 LAB CHEMISTRY METHOD 09/22/2024 11:53 AM [facility] Comment:Calculation based on the Chronic Kidney Disease Epidemiology Collaboration (CKD-EPI) equation refit without adjustment for race. BUN/Creatinine Ratio 22.0 LAB CHEMISTRY METHOD 09/22/2024 11:53 AM [facility] Calcium 9.0 8.5 - 10.5 mg/dL LAB CHEMISTRY METHOD 09/22/2024 11:53 AM [facility] AST (SGOT) 22 10 - 42 unit/L LAB CHEMISTRY METHOD 09/22/2024 11:53 AM [facility] ALT (SGPT) 31 10 - 60 unit/L LAB CHEMISTRY METHOD 09/22/2024 11:53 AM [facility] Alkaline Phosphatase 156(H) 42 - 121 unit/L LAB CHEMISTRY METHOD 09/22/2024 11:53 AM [facility] Total Protein 7.1 6.0 - 8.0 g/dL LAB CHEMISTRY METHOD 09/22/2024 11:53 AM EDT [facility] Albumin 3.8 3.2 - 5.0 g/dL LAB CHEMISTRY METHOD 09/22/2024 11:53 AM EDT [facility] Total Bilirubin 0.6 0.0 - 1.4 mg/dL LAB CHEMISTRY METHOD 09/22/2024 11:53 AM EDT [facility] Blood Venous blood specimen / Unknown Venipuncture / Unknown 09/22/2024 9:41 AM EDT 09/22/2024 11:19 AM EDT Elsie Chavez MD LAB BLOOD ORDERABLE S Final Result [facility] [address] [place] [address], [place] [phone] from Last 3 Months Insurance [employer] [facility] Care Teams Supervisor Weaving Relationship Specialty [place] [address] [place] [phone] PCP - General 01/15/22
--- OUTSIDE RECORDS SUMMARY | 2024-10-24 06:06 | XMS_ITS | Encounter Summary ---
Author Organization [facility] Address [address] [place] [address] Phone Care Team Providers Care Insurance Broker Name Role Phone Jacky Negron MD Primary Care Provider Encounter Details Date Type Department Care Team (Latest Contact Info) Description 08/23/2017 Transcribe Orders [facility] [address] [place] [address] Jacky Negron MD [address] [place] [address] Mixed hyperlipidemia (Primary Dx); Essential hypertension, malignant [...] REACTIVE PROTEIN 2.7 0.0 - 4.0 mg/L [facility] Comment:New Reference Range and Measuring Units effective 06/23/17. Blood 08/23/2017 7:42 AM EDT 08/23/2017 8:57 AM EDT Jacky Negron MD LAB BLOOD ORDERABLES Fi nal Result [address] [address] * Sedimentation rate (ESR) (08/23/2017 7:42 AM EDT) ESR 15 0 - 20 mm/h [facility] Blood 08/23/2017 7:42 AM EDT 08/23/2017 8:57 AM EDT Jacky Negron MD LAB BLOOD ORDERABLES Fi nal Result Performing Organization Address [facility] Co de Phone Number [address] [address] * (ABNORMAL) Lipid panel (08/23/2017 7:42 AM EDT) HDL 53 mg/dL [facility] Comment: Interpretation: Risk Level Males Decreased >45 mg/dL Average 40-45 mg/dL Increased <40 mg/dL CHOLESTEROL 138 0 - 240 mg/dL [facility] TRIGLYCERIDES 133 30 - 160 mg/dL [facility] LDL 58 50 - 129 mg/dL [facility] Comment: LDL levels in terms of risk for coronary heart disease: <100 mg/dL: Optimal 100-129 mg/dL: Near or above optimal 130-159 mg/dL: Borderline high 160-189 mg/dL: High >190 mg/dL: Very High CARDIAC RISK RATIO 2.6(L) 3.4 - 5.0 C [facility] Blood 08/23/2017 7:42 AM EDT 08/23/2017 8:57 AM EDT Jacky Negron MD LAB BLOOD ORDERABLES Fi nal Result Performing Organization Address City/[facility]/ZIP Co de Phone Number [address] [address] * (ABNORMAL) Comprehensive metabolic panel (08/23/2017 7:42 AM EDT) SODIUM 138 133 - 146 mmol/L [facility] POTASSIUM 4.1 3.3 - 5.1 mmol/L [facility] CHLORIDE 95(L) 96 - 108 mmol/L [facility] CO2 25 21 - 35 mmol/L [facility] BUN 16 6 - 19 mg/dL [facility] CREATININE 0.90 0.5 - 1.5 mg/dL [facility] GLUCOSE 91 70 - 99 mg/dL [facility] ALBUMIN 4.4 3.9 - 4.8 g/dL [facility] TOTAL PROTEIN 7.8 6.5 - 8.0 g/dL [facility] CALCIUM 9.6 8.4 - 10.3 mg/dL [facility] ALKALINE PHOSPHATASE 115 39 - 117 U/L [facility] TOTAL BILIRUBIN 0.7 0.0 - 1.2 mg/dL [facility] AST 33 0 - 37 U/L [facility] ALT 31 0 - 40 U/L [facility] GLOBULIN 3.4 1 - 4.8 g/dL [facility] EGFR 98 >59 mL/min/1.7 3m2 [facility] Comment:If patient is black, multiply result by 1.159. Estimated glomerular filtration rate calculated using the CKD-EPI equation. ANION GAP 22(H) 10 - 20 mmol/L [facility] Blood 08/23/2017 7:42 AM EDT 08/23/2017 8:57 AM EDT us Jacky Negron MD LAB BLOOD ORDERABLES Fi nal Result [facility] [address] [place] [address] documented in this encounter Visit Diagnoses Diagnosis Mixed hyperlipidemia- Primary Essential hypertension, malignant documented in this encounter Care Teams Insurance Broker Relationship Specialty Start Date End Date Jacky Negron MD [address] [place] [phone] PCP - General Internal Medicine 12/08/16 documented as of this encounter Additional Source Comments The information contained in this document represents components of the legal health record. It is not the complete legal health record.[facility]
[2024-10-24 08:48] LABS: Prostate Specific Antigen 0.25 ng/mL (<0.05-4.0)
== END 2024-10-24 06:05 | disposition home or self-care (01) ==
LOC: HO.LAB 06:04
PROVIDERS: PCP Physician Assistant; Visit Provider Urology
DX: Z12.5 Encounter for screening for malignant neoplasm of prostate (principal); R97.20 Elevated prostate specific antigen [PSA]; C61 Malignant neoplasm of prostate; C79.51 Secondary malignant neoplasm of bone; C77.5 Secondary and unspecified malignant neoplasm of intrapelvic lymph nodes
CPT/HCPCS: 36415; 84153; 84403

== ENCOUNTER 2024-11-07 13:22 | Outpatient (AMB) | payer OTHER, SELFPAY ==
--- NOTE | 2024-11-07 13:38 | AM.OFFVISNUR ---
Intake Visit Reasons: Firmagon/Xgeva Allergies tetracycline (Tetracycline) Allergy (Mild, Verified 08/08/24 15:10) RASH Office Meds degarelix 80 mg subcutaneous solution Performing Provider: Kvng Woodruff MD Performing Location: [facility] Administered by: Anni Wright RN on 11/07/24 13:38 Dose Route Admin Location Dispensed Lot Number Expiration Date [facility] [employer] 80 mg subcut right lower abd 80 mg [id number] 03/11/26 [address]-5 [employer] Total Dispensed Waste 80 mg 0 % Xgeva 120 mg/1.7 mL (70 mg/mL) subcutaneous solution Performing Provider: Kvng Woodruff MD Performing Location: [facility] Administered by: Anni Wright RN on 11/07/24 13:38 Dose Route Admin Location Dispensed Lot Number Expiration Date [facility] [employer] 120 mg subcut right lower abd 1.7 mL [id number] 02/07/27 59681-597-02 [employer] Total Dispensed Waste 1.7 mL 0 % Assessment & Plan Assessment & Plan Orders: Orders AMB Degarelix Injection Practice Supplied Today C61 - Malignant neoplasm of prostate, 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
--- OUTSIDE RECORDS SUMMARY | 2024-11-07 14:37 | XMS_ITS | Encounter Summary ---
Author Organization [facility] Address [address] [place] [address] Phone Care Team Providers Care Hvac Technician Name Role Phone Jacky Negron MD Primary Care Provider Encounter Details Date Type Department Care Team (Latest Contact Info) Description 08/23/2017 Transcribe Orders [facility] [address] [place] [address] Jacky Negron MD [address] [place] [address] Mixed hyperlipidemia (Primary Dx); Essential hypertension, malignant [...] REACTIVE PROTEIN 2.7 0.0 - 4.0 mg/L [facility] Comment:New Reference Range and Measuring Units effective 06/23/17. Blood 08/23/2017 7:42 AM EDT 08/23/2017 8:57 AM EDT Jacky Negron MD LAB BLOOD ORDERABLES Fi nal Result [address] [address] * Sedimentation rate (ESR) (08/23/2017 7:42 AM EDT) ESR 15 0 - 20 mm/h [facility] Blood 08/23/2017 7:42 AM EDT 08/23/2017 8:57 AM EDT Jacky Negron MD LAB BLOOD ORDERABLES Fi nal Result Performing Organization Address [facility] Co de Phone Number [address] [address] * (ABNORMAL) Lipid panel (08/23/2017 7:42 AM [...] RISK RATIO 2.6(L) 3.4 - 5.0 C [facility] Blood 08/23/2017 7:42 AM EDT 08/23/2017 8:57 AM EDT Jacky Negron MD LAB BLOOD ORDERABLES Fi nal Result Performing Organization Address City/[facility]/ZIP Co de Phone Number [address] [address] * (ABNORMAL) Comprehensive metabolic panel (08/23/2017 7:42 AM EDT) SODIUM 138 133 - 146 mmol/L [facility] POTASSIUM 4.1 3.3 - 5.1 mmol/L [facility] CHLORIDE 95(L) 96 - 108 mmol/L [facility] CO2 25 21 - 35 mmol/L [facility] BUN 16 6 - 19 mg/dL [facility] CREATININE 0.90 0.5 - 1.5 mg/dL [facility] GLUCOSE 91 70 - 99 mg/dL [facility] ALBUMIN 4.4 3.9 - 4.8 g/dL [facility] TOTAL PROTEIN 7.8 6.5 - 8.0 g/dL [facility] CALCIUM 9.6 8.4 - 10.3 mg/dL [facility] ALKALINE PHOSPHATASE 115 39 - 117 U/L [facility] TOTAL BILIRUBIN 0.7 0.0 - 1.2 mg/dL [facility] AST 33 0 - 37 U/L [facility] ALT 31 0 - 40 U/L [facility] GLOBULIN 3.4 1 - 4.8 g/dL [facility] EGFR 98 >59 mL/min/1.7 3m2 [facility] Comment:If patient is black, multiply result by 1.159. Estimated glomerular filtration rate calculated using the CKD-EPI equation. ANION GAP 22(H) 10 - 20 mmol/L [facility] Blood 08/23/2017 7:42 AM EDT 08/23/2017 8:57 AM EDT us Jacky Negron MD LAB BLOOD ORDERABLES Fi nal Result [facility] [address] [place] [address] documented in this encounter Visit Diagnoses Diagnosis Mixed hyperlipidemia- Primary Essential hypertension, malignant documented in this encounter Care Teams Hvac Technician Relationship Specialty Start Date End Date Jacky Negron MD [address] [place] [phone] PCP - General Internal Medicine 12/08/16 documented as of this encounter Additional Source Comments The information contained in this document represents components of the legal health record. It is not the complete legal health record.[facility]
--- OUTSIDE RECORDS SUMMARY | 2024-11-07 14:37 | XMS_ITS | Clinical Summary ---
Author Organization [facility] Address [address] [place] [phone] Phone Care Team Providers Care Art Teacher Name Role Phone Jacky Negron MD Primary [...] (08/23/2017 7:42 AM EDT) HDL 53 mg/dL [facility] Comment: Interpretation: Risk Level Males Decreased >45 mg/dL Average 40-45 mg/dL Increased <40 mg/dL CHOLESTEROL 138 0 - 240 mg/dL [facility] TRIGLYCERIDES 133 30 - 160 mg/dL [facility] LDL 58 50 - 129 mg/dL [facility] Comment: LDL levels in terms of risk for coronary heart disease: <100 mg/dL: Optimal 100-129 mg/dL: Near or above optimal 130-159 mg/dL: Borderline high 160-189 mg/dL: High >190 mg/dL: Very High CARDIAC RISK RATIO 2.6(L) 3.4 - 5.0 C [facility] Blood 08/23/2017 7:42 AM EDT 08/23/2017 8:57 AM EDT Jacky Negron MD LAB BLOOD ORDERABLES Fi nal Result [address] [place] [address] from Last 3 Months or Most Recently Relevant to Health Maintenance [place] [address] HMO [facility] [address] [place] [address] [place], [place] [address] [facility] HMO Care Teams Art Teacher Relationship Specialty Start Date End Date Jacky Negron MD [address] [place] [address] PCP - General Internal Medicine 12/08/16 Additional Source Comments The information contained in this document represents components of the legal health record. It is not the complete legal health record.[facility]
--- OUTSIDE RECORDS SUMMARY | 2024-11-07 14:37 | XMS_ITS | Clinical Summary ---
Author Organization [facility] Address [address] [place] [address] Phone Care Team Providers Care Banking Assistant Name Role Phone Nhi Conte Primary Care Provider [phone] Allergies Active Allergy Reactions Criticality Noted Date [...] (one) time each day. 5 Active lancets (Dalia ResearchTouch Delica Plus Lancet) 30 gauge 4 Active hydroCHLOROthia zide (HYDRODIURIL) 25 mg tablet Take 1 tablet (25 mg total) by mouth. 4 Active blood sugar diagnostic (OneTouch Verio test strips) test strip 4 Active diclofenac (VOLTAREN) 1 % topical gel Apply 4 g topically 2 (two) times a day. 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 Hematology Oncology [address] [place] [address] Elsie Ybarra MD Prostate CA ([facility] V24, [facility] V28) (Primary Dx); Peripheral polyneuropathy; Primary osteoarthritis of left knee; Anemia in neoplastic disease; Acquired hypothyroidism from Last 3 Months Immunizations Immunization Administration Dates Next Due Pfizer SARS-CoV-2 COVID-19, mRNA, LNP-S, preservative free 12/03/2020,05/22/2020,05/01/2020 Surgical History Surgery Date Site/Laterality Comments TOTAL KNEE ARTHROPLASTY 10/09/2021 Bilateral PROCEDURE:TOTAL KNEE ARTHROPLASTY CARPAL TUNNEL RELEASE ORTHOPEDIC SURGERY 05/31 Medical History Medical History Date Comments Lymphoma ([facility] V24, [facility] V28) 2000 Anemia 12/01 Diabetes mellitus ([facility] V24, [facility] V28) 10/10 3 Social History Tobacco Use [...] Care Team (Late st Contact Info) Description 11/08/2024 2:[address] [facility] PET Scan [address] [place] [address] 11/22/2024 2:15 PM EDT Office Visit [facility] Hematology Oncology [address] [place] [address] Elsie Chavez MD [address] [place] [address] 01/01/2025 9:00 AM EST Office Visit [facility] Hematology Oncology [address] [place] [address] Elsie Chavez MD [address] [place] [phone] Health Maintenance Due Date Last Done Comments Colorectal Cancer Screening: Colonoscopy 1965 Diabetes: Annual Foot Exam 05/16/1975 Diabetes: Annual Retina Eye Exam 05/16/1975 Hepatitis B Vaccines (1 of 3 - 19+ 3-dose series) 1984 HIV Screening 01/17/2022 Hepatitis C Screening 01/17/2022 [...] EDT Prostate CA (CMS/HCC V24, CMS/HCC V28) CBC AND DIFFERENTIAL Routine 09/22/2024 9:41 AM EDT Prostate CA (CMS/HCC V24, CMS/HCC V28) COMPREHENSIVE METABOLIC PANEL Routine 09/22/2024 9:41 AM EDT Prostate CA (CMS/HCC V24, CMS/HCC V28) PROSTATE SPECIFIC ANTIGEN DIAGNOSTIC Routine 09/22/2024 9:41 AM EDT Prostate CA ([facility]/HCC V24, [facility]/HCC V28) from Last 3 Months Results * Prostate specific antigen diagnostic (09/22/2024 9:41 AM EDT) Pathologist [facility] PSA 0.24 0.00 - 4.00 ng/mL LAB CHEMISTRY METHOD 09/22/2024 1:05 PM EDT [facility] Blood Venous blood specimen / Unknown Venipuncture / Unknown 09/22/2024 9:41 AM EDT 09/22/2024 11:19 AM EDT Narrative [facility] - 09/22/2024 1:05 PM EDT The Siemens Advia Kaznacheyaur Chemiluminescent Immunoassay is used. Results obtained with different assay methods or kits cannot be used interchangeably. Results cannot be interpreted as absolute evidence of the presence or absence of malignant disease. Sublinda Chavez MD LAB BLOOD ORDERABLE S Final Result [facility] [address] [place] [address], * (ABNORMAL) CBC auto differential (09/22/2024 9:41 AM EDT) Pathologist [facility] WBC 8.8 4.8 - 10.8 K/mcL LAB HEMETOLOGY METHOD 09/22/2024 11:31 AM EDT [facility] RBC 4.00(L) 4.50 - 5.50 M/mcL LAB HEMETOLOGY METHOD 09/22/2024 11:31 AM EDT [facility] Hemoglobin 12.4(L) 13.5 - 17.5 g/dL LAB HEMETOLOGY METHOD 09/22/2024 11:31 AM EDT [facility] Hematocrit 37.1(L) 42.0 - 54.0 % LAB HEMETOLOGY METHOD 09/22/2024 11:31 AM [facility] MCV 91.8 79.0 - 98.0 FL LAB HEMETOLOGY METHOD 09/22/2024 11:31 AM [facility] MCH 30.7 27.0 - 32.0 pcg LAB HEMETOLOGY METHOD 09/22/2024 11:31 AM [facility] MCHC 33.4 32.0 - 37.0 g/dL LAB HEMETOLOGY METHOD 09/22/2024 11:31 AM [facility] RDW 16.5(H) 11.0 - 15.0 % LAB HEMETOLOGY METHOD 09/22/2024 11:31 AM [facility] Platelets 250 130 - 400 K/mcL LAB HEMETOLOGY METHOD 09/22/2024 11:31 AM [facility] MPV 10.6 7.0 - 11.0 FL LAB HEMETOLOGY METHOD 09/22/2024 11:31 AM [facility] NRBC 0.0 <1.0 % LAB HEMETOLOGY METHOD 09/22/2024 11:31 AM [facility] NRBC Absolute 0.00 <0.10 K/mcL LAB HEMETOLOGY METHOD 09/22/2024 11:31 AM [facility] Neutrophils Relative 76.5 % LAB HEMETOLOGY METHOD 09/22/2024 11:31 AM [facility] Lymphocytes Relative 11.4 % LAB HEMETOLOGY METHOD 09/22/2024 11:31 AM [facility] Monocytes Relative 8.8 % LAB HEMETOLOGY METHOD 09/22/2024 11:31 AM [facility] Eosinophils Relative 2.1 % LAB HEMETOLOGY METHOD 09/22/2024 11:31 AM [facility] Basophils Relative 0.7 % LAB HEMETOLOGY METHOD 09/22/2024 11:31 AM EDT [facility] Immature Granulocytes Relative 0.5 % LAB HEMETOLOGY METHOD 09/22/2024 11:31 AM EDT [facility] Neutrophils Absolute 6.76 1.50 - 7.00 K/mcL LAB HEMETOLOGY METHOD 09/22/2024 11:31 AM EDT [facility] Lymphocytes Absolute 1.01 1.00 - 5.00 K/mcL LAB HEMETOLOGY METHOD 09/22/2024 11:31 AM EDT [facility] Monocytes Absolute 0.78 0.20 - 1.00 K/mcL LAB HEMETOLOGY METHOD 09/22/2024 11:31 AM EDT [facility] Eosinophils Absolute 0.19 0.00 - 0.50 K/mcL LAB HEMETOLOGY METHOD 09/22/2024 11:31 AM [facility] Basophils Absolute 0.06 0.00 - 0.20 K/mcL LAB HEMETOLOGY METHOD 09/22/2024 11:31 AM EDT [facility] Immature Granulocytes Absolute 0.04(H) 0.00 - 0.03 K/mcL LAB HEMETOLOGY METHOD 09/22/2024 11:31 AM [facility] Blood Venous blood specimen / Unknown Venipuncture / Unknown 09/22/2024 9:41 AM EDT 09/22/2024 11:19 AM EDT us Subramveronica Chavez MD LAB BLOOD ORDERABLE S Final Result [facility] [address] [place] [address], * (ABNORMAL) Comprehensive metabolic panel (09/22/2024 9:41 AM EDT) Sodium 139 133 - 145 mmol/L LAB CHEMISTRY METHOD 09/22/2024 11:53 AM EDT [facility] Potassium 3.9 3.5 - 5.5 mmol/L LAB CHEMISTRY METHOD 09/22/2024 11:53 AM [facility] Chloride 103 96 - 110 mmol/L LAB CHEMISTRY METHOD 09/22/2024 11:53 AM [facility] CO2 30 21 - 32 mmol/L LAB CHEMISTRY METHOD 09/22/2024 11:53 AM [facility] Anion Gap 6 3 - 11 LAB CHEMISTRY METHOD 09/22/2024 11:53 AM [facility] Glucose 124(H) 70 - 100 mg/dL LAB CHEMISTRY METHOD 09/22/2024 11:53 AM [facility] BUN 18 5 - 25 mg/dL LAB CHEMISTRY METHOD 09/22/2024 11:53 AM [facility] Creatinine 0.82 0.70 - 1.30 mg/dL LAB CHEMISTRY METHOD 09/22/2024 11:53 AM [facility] eGFR 101 >=60 mL/min/1. 73m2 LAB CHEMISTRY METHOD 09/22/2024 11:53 AM [facility] Comment:Calculation based on the Chronic Kidney Disease Epidemiology Collaboration (CKD-EPI) equation refit without adjustment for race. BUN/Creatinine Ratio 22.0 LAB CHEMISTRY METHOD 09/22/2024 11:53 AM [facility] Calcium 9.0 8.5 - 10.5 mg/dL LAB CHEMISTRY METHOD 09/22/2024 11:53 AM [facility] AST (SGOT) 22 10 - 42 unit/L LAB CHEMISTRY METHOD 09/22/2024 11:53 AM [facility] ALT (SGPT) 31 10 - 60 unit/L LAB CHEMISTRY METHOD 09/22/2024 11:53 AM [facility] Alkaline Phosphatase 156(H) 42 - 121 unit/L LAB CHEMISTRY METHOD 09/22/2024 11:53 AM [facility] Total Protein 7.1 6.0 - 8.0 g/dL LAB CHEMISTRY METHOD 09/22/2024 11:53 AM EDT [facility] Albumin 3.8 3.2 - 5.0 g/dL LAB CHEMISTRY METHOD 09/22/2024 11:53 AM EDT [facility] Total Bilirubin 0.6 0.0 - 1.4 mg/dL LAB CHEMISTRY METHOD 09/22/2024 11:53 AM EDT [facility] Blood Venous blood specimen / Unknown Venipuncture / Unknown 09/22/2024 9:41 AM EDT 09/22/2024 11:19 AM EDT Elsie Chavez MD LAB BLOOD ORDERABLE S Final Result [facility] [address] [place] [address], from Last 3 Months Insurance [employer] [facility] Care Teams Banking Assistant Relationship Specialty Start Date End Date Nhi Conte PA [address] [place] [address] PCP - General 01/15/22
--- OUTSIDE RECORDS SUMMARY | 2024-11-07 14:37 | XMS_ITS | Clinical Summary ---
Author Organization [facility] Address [address] [place] [address] Care Team Providers Care Water Mechanic Name Role Phone Nhi Conte PA-C Primary Care Provider Allergies Active Allergy Reactions Criticality Noted Date Comments Tetracyclines & Related 11/08/2018 Medications Medication Sig Dispensed Refills Start Date End Date Status Cholecalciferol (VITAMIN D3) 3000 units TABS Take 3,000 Units by mouth daily. 0 Active B Incacfh-Dvoofk-PE (SUPER B-50 COMPLEX PO) Take 1 tablet [...] age to complete this topic Care Teams Water Mechanic Relationship Specialty Start Date End Date Nhi Conte, PAAmiC PCP - General Physician Program Strategist 01/15/22
== END 2024-11-07 14:05 | disposition home or self-care (01) ==
LOC: HO.HUSH 13:23
PROVIDERS: PCP Physician Assistant; Visit Provider Urology
DX: C61 Malignant neoplasm of prostate (principal); C79.51 Secondary malignant neoplasm of bone; C77.5 Secondary and unspecified malignant neoplasm of intrapelvic lymph nodes

== ENCOUNTER → 2024-11-07 13:22 | Outpatient (BNVA) | payer OTHER, SELFPAY | PROVIDERS: PCP Physician Assistant; Visit Provider Urology | DX: C61 Malignant neoplasm of prostate (principal); C77.5 Secondary and unspecified malignant neoplasm of intrapelvic lymph nodes; C79.51 Secondary malignant neoplasm of bone | CPT/HCPCS: 96372; 96402; J0897; J9155 ==

== ENCOUNTER 2024-11-10 13:58 | Outpatient (AMB) | payer OTHER, SELFPAY ==
--- OUTSIDE RECORDS SUMMARY | 2024-11-08 13:14 | XMS_ITS | Encounter Summary ---
Author Organization [facility] [place] [address] Care Team Providers Care Supervisor Volunteer Services Name Role Phone Nhi Conte Primary Care Provider [phone] Reason for Referral * Imaging (Routine) - Authorized Specialty Diagnoses / Procedures Referred By Contac t Referred To Contact Radiology Diagnoses Prostate CA (CMS/HCC V24, CMS/HCC V28) Procedures PET CT Skull to Mid Thigh Subsequent Elsie Chavez MD [address] [place] [address] Phone: tel: fax: [address] [address] Phone: tel: Referral ID Status Reason Start Date Expiration Date V isits Requested Visits Authorized [id number] Authorized 09/22/2024 09/22/2025 1 1 Reason for Visit * Imaging (Routine) - Authorized Specialty Diagnoses / Procedures Referred By Contac t Referred To Contact Radiology Diagnoses Prostate CA (CMS/HCC V24, CMS/HCC V28) Procedures PET CT Skull to Mid Thigh Subsequent Elsie Chavez MD [address] [place] [address] Phone: tel: fax: [address] [phone] Phone: tel: Referral ID Status Reason Start Date Expiration Date V isits Requested Visits Authorized [id number] Authorized 09/22/2024 09/22/2025 1 1 Encounter Details Date Type Department Care Team (Latest Contact Info) Description 11/08/2024 1:14 PM EDT Hospital Encounter [facility] PET Scan [address] [place] [phone] Prostate CA (CMS/HCC V24, CMS/HCC V28) Social History Tobacco Use Types Packs/Day Years Used Date Smoking Tobacco: Never Smokeless Tobacco: Never Alcohol Use Standard Drinks/Week Comments Yes 10 (1 standard drink = 0.6 oz pu re alcohol) Sex and Gender Information Value Date Recorded Sex Assigned at Male 11/27/2023 4:42 AM EDT Legal Sex Male 9:36 PM EST Gender Identity Male 11/27/2023 4:42 AM EDT Sexual Orientation Straight 11/27/2023 4: 42 AM EDT documented as of this encounter Plan of Treatment Upcoming Encounters Date Type Department Care Team (Late st Contact Info) Description 11/22/2024 2:15 PM EDT Office Visit [facility] Hematology Oncology [address] [place] [phone] Elsie Chavez MD [address] [place] [phone] 01/01/2025 9:00 AM EST Office Visit [facility] Hematology Oncology [address] [place] [address] Elsie Chavez MD [address] [place] [address] Pending Results Name Type Priority Associated Diagnoses Date /Time PET CT Skull to Mid Thigh Subsequent Imaging Routine Prostate CA (CMS/HCC V24, CMS/HCC V28) 11/08/2024 3:12 PM EDT Scheduled Orders Name Type Priority Associated Diagnoses Orde r Schedule PET CT Skull to Mid Thigh Subsequent Imaging Routine Prostate CA (CMS/HCC V24, CMS/HCC V28) Once for 1 Occurrences starting 11/08/2024 until 11/08/2024 documented as of this encounter Visit Diagnoses Diagnosis Prostate CA (CMS/HCC V24, CMS/[facility] V28) Malignant neoplasm of prostate documented in this encounter Administered Medications Inactive Administered Medications - up to 3 most recent administrations Medication Order MAR Action Action Date Dose Rate Site F-18 FDG pet diag radio-isotope injection 8.6 millicurie 8.6 millicurie, intravenous, Once in imaging, Starting on Wed11/08/24 at 1341, For 1 dose Given 11/08/2024 1:41 PM EDT 8.6 millicuries documented in this encounter Orders Medications Ordered That Torres ht Not Have Been Administered Count Last Ordered Date First Ordered Date F-18 FDG pet diag radio-isot ope injection 8.6 millicurie 1 11/08/2024 documented in this encounter Care Teams Supervisor Volunteer Services Relationship Specialty Start Date End Date Nhi Conte PA [address] [place] [address] PCP - General 01/15/22 documented as of this encounter
--- NOTE | 2024-11-10 13:59 | A.OFFVIS_ITS ---
Intake Visit Reasons: 3m/Testo/PSA Intake Note: Patient is present for 3 mo follow up Telehealth Urology Medication:VITAMIN B,Xgeva,Citracal,Dagarelix Antibiotic Allergy:TETRACYLINE Blood Thinner:NONE Labs done10/24/74 PSA 0.25 Total Testosterone :<1 Laser Beam Color Scanner Operator Required: No Accompanied by: Self / Same As Patient Allergies tetracycline (Tetracycline) Allergy (Mild, Verified 11/10/24 14:01) RASH HPI Comments Details: Jermaine is a very pleasant male. He is a patient of Dr. Conte. He is seen for the following urologic conditions - metastatic prostate cancer Telemedicine Evaluation 15 min Consultation [employer] Video Discussed current labs Has upcoming PET-CT scan with Oncology Plan six-month follow-up lab work with PET-CT Did recommend current vaccines given immunocompromise state Background of Hodgkin's lymphoma, arthritis diabetes. Is followed by Dr. East - oncology down at [facility] who is a mid-level with medical oncology at [employer] [facility] [employer] [facility] Receiving degarelix GnRH monthly Given extensive nature metastatic disease recommend bone support with monthly Xgeva Completed Medical Oncology assessment Labs 11/02 <0.2 <1 Prostate cancer grade group - June 2024 - extensive metabolic activity through pelvic lymph nodes and bony uptake at time of diagnosis 07/02 initial therapy abiraterone plus prednisone through Medical Oncology, degarelix GnRH through urology PET-CT 07/02 metabolically active prostate, pelvic lymph node iliac metabolically active and extensive skeletal bone uptake consistent with metastatic disease MRI 06/02 prostate volume 70 cc, PI-RADS 5 4.7 cm mass involving the entire peripheral zone. Findings consistent with prostate carcinoma involving the entire prostate gland with invasion of the rectum. There is associated pelvic lymphadenopathy as described as well as multiple bone metastases. 11/01 3.2, 06/01 12.4, 06/01 13.4 Biopsy June 2024 Histologic type: Prostatic adenocarcinoma, acinar type Histologic grade: [place] score: 9 (5+4) (left base lateral and medial, left midlateral and medial, left apex lateral,and right apex medial) 9 (4+5) (right b ase lateral and medial, right mid lateral and medial, right apex lateral,and left apex medial) % of pattern 4: 51% % of pattern 5: 49% Grade group: 5 Tumor quantitation: Number cores positive: 13 Total number of cores: 16 % of tissue involved: 59% Periprostatic fat inv.: Present Seminal vesicle inv.: Not identified Perineural inv.: Present Lymphatic and/or vascular invasion: No PFSH Medical History (Reviewed 06/09/24 @ 15:17 by Vincent Wolf [facility] Nodular sclerosing Hodgkin lymphoma Cancer Arthritis Diabetes High cholesterol High blood pressure Carpal tunnel syndrome Surgical History History of knee replacement Family History Father High blood pressure Diabetes Cardiovascular disease Maternal Grandfather Diabetes Mother Cancer Social History Housing: House Alcohol intake: current Patient Tobacco Use Status: Former Tobacco user Tobacco use type: Cigar Years Smoked: 2 e-Cigarette/Vaping Use: Never Used Second Hand Smoke Exposure: No service: No Current occupational status: employed 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 Current occupational exposures/hazards: No Cognitive needs: No Hearing needs: No Vision needs: Yes Review of Systems Const All systems reviewed & are unremarkable except as noted in HPI and below Reports no additional complaints Resp Reports no additional complaints GI Reports no additional complaints Reports as per HPI Musc Reports no additional complaints Physical Exam Telemedicine evaluation Appropriate responses Regular breathing rate and rhythm HEENT Head: Yes normal to inspection Ears: hearing grossly normal bilaterally Eyes General: appearance normal, both eyes and all related structures Neck Neck: Yes normal visual inspection Chest Chest palpation & inspection: normal inspection of the chest Resp Effort & Inspection: normal respiratory effort and able to speak in complete sentences Telehealth Telehealth Telehealth Platform: [employer] Location of provider rendering services: practice address Location of patient: address on file Patient Identification confirmed using: Name, : Yes Telehealth method: video Patient verbally consented to treatment: Yes Patient verbally consented to billing insurance company: Yes Patient informed of any privacy concerns related to visit: Yes Assessment & Plan Assessment & Plan (1) Prostate cancer metastatic to intrapelvic lymph node: Code(s): C61 - Malignant neoplasm of prostate; C77.5 - Secondary and unspecified malignant neoplasm of intrapelvic lymph nodes Category: Medical Plan Reports nocturia x4 Trial of terazosin 6m f/u labs and imaging Orders: Orders Prostate Specific Antigen 6 Months C61 - Malignant neoplasm of prostate, C77.5 - Secondary and unspecified malignant neoplasm of intrapelvic lymph nodes Testosterone, Total 6 Months C61 - Malignant neoplasm of prostate, C77.5 - Secondary and unspecified malignant neoplasm of intrapelvic lymph nodes MR Prostate wo/w con 6 Months C61 - Malignant neoplasm of prostate, C77.5 - Secondary and unspecified malignant neoplasm of intrapelvic lymph nodes Medications: New terazosin 5 mg PO BEDTIME 30 caps 1RF 30 days Patient Instructions: This note is constructed using voice recognition software. While every effort has been made to ensure accuracy labor conciliator errors may have been included. Imaging studies, laboratory and physical exam results were discussed and reviewed in detail. No major barriers to patient understanding were identified. An opportunity to ask questions regarding the treatment plan was provided. All questions were answered. The patient expressed understanding and agreement with the above treatment plan. The patient is aware they should contact our office by phone for worsening of their current condition or the appearance of new urologic symptoms. Compliance is encouraged with any medications and followup testing that is ordered. It is a privilege to participate in the urologic care of your patient. If you have any questions or concerns regarding treatment for the above conditions, or other urologic issues, please do not hesitate to contact me. The office teleph one contact is [phone]. Sincerely, Dr Kvng Woodruff MD, [facility] - Urology Compassionate Specialist Care for the Genitourinary System Coding Level of Care Code Est Pt Level 4 (37961) Complex EM visit Add On G2211 Diagnoses Prostate cancer metastatic to intrapelvic lymph node C61; C77.5
--- OUTSIDE RECORDS SUMMARY | 2024-11-10 14:11 | XMS_ITS | Clinical Summary ---
Author Organization [facility] Address [address] [place] [address] Phone Care Team Providers Care Verification Lead Name Role Phone Nhi Conte Primary Care Provider [phone] Allergies Active Allergy Reactions Criticality Noted Date [...] (one) time each day. 5 Active lancets (KnowtaTouch Delica Plus Lancet) 30 gauge 4 Active hydroCHLOROthia zide (HYDRODIURIL) 25 mg tablet Take 1 tablet (25 mg total) by mouth. 4 Active blood sugar diagnostic (OneTouch Verio test strips) test strip 4 Active diclofenac (VOLTAREN) 1 % topical gel Apply 4 g topically 2 (two) times a day. 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 ([facility] V24, [facility] V28) 11/08/2018 Encounters Date Type Department Care Team Description 11/08/2024 1:14 PM EDT Hospital Encounter [facility] PET Scan [address] [place] [phone] Prostate CA ([facility] V24, [facility] V28) 09/22/2024 9:15 AM EDT Office Visit [facility] Hematology Oncology [address] [place] [address] Elsie Eng MD Prostate CA ([facility] V24, [facility] V28) (Primary Dx); Peripheral polyneuropathy; Primary osteoarthritis of left knee; Anemia in neoplastic disease; Acquired hypothyroidism from Last 3 Months Immunizations Immunization Administration Dates Next Due Pfizer SARS-CoV-2 COVID-19, mRNA, LNP-S, preservative free 12/03/2020,05/22/2020,05/01/2020 Surgical History Surgery Date Site/Laterality Comments TOTAL KNEE ARTHROPLASTY 10/09/2021 Bilateral PROCEDURE:TOTAL KNEE ARTHROPLASTY CARPAL TUNNEL RELEASE ORTHOPEDIC SURGERY 05/31 Medical History Medical History Date Comments Lymphoma ([facility] V24, [facility] V28) 1999 Anemia 12/01 Diabetes mellitus ([facility] V24, [facility] V28) 10/10 3 Social History Tobacco Use [...] Description 11/22/2024 2:15 PM EDT Office Visit [facility] Hematology Oncology [address] [place] [phone] Elsie Chavez MD [address] [place] [phone] 01/01/2025 9:00 AM EST Office Visit [facility] Hematology Oncology [address] [place] [phone] Elsie Chavez MD [address] [place] [phone] Health Maintenance Due Date Last Done Comments [...] specific antigen diagnostic (09/22/2024 9:41 AM EDT) PSA 0.24 0.00 - 4.00 ng/mL LAB CHEMISTRY METHOD 09/22/2024 1:05 PM EDT [facility] Blood Venous blood specimen / Unknown Venipuncture / Unknown 09/22/2024 9:41 AM EDT 09/22/2024 11:19 AM EDT Narrative [facility] - 09/22/2024 1:05 PM EDT The Siemens Advia Times pace Intelligent Technologyaur Chemiluminescent Immunoassay is used. Results obtained with different assay methods or kits cannot be used interchangeably. Results cannot be interpreted as absolute evidence of the presence or absence of malignant disease. us Subramony Kathy CANTRELL LAB BLOOD ORDERABLE S Final Result [facility] [address] [place] [address], * (ABNORMAL) CBC auto differential (09/22/2024 9:41 AM EDT) WBC 8.8 4.8 - 10.8 K/mcL LAB HEMETOLOGY METHOD 09/22/2024 11:31 AM EDT [facility] RBC 4.00(L) 4.50 - 5.50 M/mcL LAB HEMETOLOGY METHOD 09/22/2024 11:31 AM EDT [facility] Hemoglobin 12.4(L) 13.5 - 17.5 g/dL LAB HEMETOLOGY METHOD 09/22/2024 11:31 AM EDT [facility] Hematocrit 37.1(L) 42.0 - 54.0 % LAB HEMETOLOGY METHOD 09/22/2024 11:[address] [facility] MCV 91.8 79.0 - 98.0 FL LAB HEMETOLOGY METHOD 09/22/2024 11:[address] [facility] MCH 30.7 27.0 - 32.0 pcg LAB HEMETOLOGY METHOD 09/22/2024 11:[address] [facility] MCHC 33.4 32.0 - 37.0 g/dL LAB HEMETOLOGY METHOD 09/22/2024 11:[address] [facility] RDW 16.5(H) 11.0 - 15.0 % LAB HEMETOLOGY METHOD 09/22/2024 11:[address] [facility] Platelets 250 130 - 400 K/mcL LAB HEMETOLOGY METHOD 09/22/2024 11:[address] [facility] MPV 10.6 7.0 - 11.0 FL LAB HEMETOLOGY METHOD 09/22/2024 11:[address] [facility] NRBC 0.0 <1.0 % LAB HEMETOLOGY METHOD 09/22/2024 11:[address] [facility] NRBC Absolute 0.00 <0.10 K/mcL LAB HEMETOLOGY METHOD 09/22/2024 11:[address] [facility] Neutrophils Relative 76.5 % LAB HEMETOLOGY METHOD 09/22/2024 11:[address] [facility] Lymphocytes Relative 11.4 % LAB HEMETOLOGY METHOD 09/22/2024 11:[address] [facility] Monocytes Relative 8.8 % LAB HEMETOLOGY METHOD 09/22/2024 11:[address] [facility] Eosinophils Relative 2.1 % LAB HEMETOLOGY METHOD 09/22/2024 11:[address] [facility] Basophils Relative 0.7 % LAB HEMETOLOGY METHOD 09/22/2024 11:31 AM EDT [facility] Immature Granulocytes Relative 0.5 % LAB HEMETOLOGY METHOD 09/22/2024 11:31 AM EDT [facility] Neutrophils Absolute 6.76 1.50 - 7.00 K/mcL LAB HEMETOLOGY METHOD 09/22/2024 11:31 AM EDT [facility] Lymphocytes Absolute 1.01 1.00 - 5.00 K/mcL LAB HEMETOLOGY METHOD 09/22/2024 11:31 AM EDT [facility] Monocytes Absolute 0.78 0.20 - 1.00 K/mcL LAB HEMETOLOGY METHOD 09/22/2024 11:31 AM EDT [facility] Eosinophils Absolute 0.19 0.00 - 0.50 K/mcL LAB HEMETOLOGY METHOD 09/22/2024 11:31 AM EDT [facility] Basophils Absolute 0.06 0.00 - 0.20 K/mcL LAB HEMETOLOGY METHOD 09/22/2024 11:31 AM EDT [facility] Immature Granulocytes Absolute 0.04(H) 0.00 - 0.03 K/mcL LAB HEMETOLOGY METHOD 09/22/2024 11:[address] [facility] Blood Venous blood specimen / Unknown Venipuncture / Unknown 09/22/2024 9:41 AM EDT 09/22/2024 11:19 AM EDT us Elsie Chavez MD LAB BLOOD ORDERABLE S Final Result [facility] [address] [place] [address], * (ABNORMAL) Comprehensive metabolic panel (09/22/2024 9:41 AM EDT) [facility] Sodium 139 133 - 145 mmol/L LAB CHEMISTRY METHOD 09/22/2024 11:[address] [facility] Potassium 3.9 3.5 - 5.5 mmol/L LAB CHEMISTRY METHOD 09/22/2024 11:[address] [facility] Chloride 103 96 - 110 mmol/L LAB CHEMISTRY METHOD 09/22/2024 11:[address] [facility] CO2 30 21 - 32 mmol/L LAB CHEMISTRY METHOD 09/22/2024 11:[address] [facility] Anion Gap 6 3 - 11 LAB CHEMISTRY METHOD 09/22/2024 11:[address] [facility] Glucose 124(H) 70 - 100 mg/dL LAB CHEMISTRY METHOD 09/22/2024 11:[address] [facility] BUN 18 5 - 25 mg/dL LAB CHEMISTRY METHOD 09/22/2024 11:[address] [facility] Creatinine 0.82 0.70 - 1.30 mg/dL LAB CHEMISTRY METHOD 09/22/2024 11:[address] [facility] eGFR 101 >=60 mL/min/1. 73m2 LAB CHEMISTRY METHOD 09/22/2024 11:[address] [facility] Comment:Calculation based on the Chronic Kidney Disease Epidemiology Collaboration (CKD-EPI) equation refit without adjustment for race. BUN/Creatinine Ratio 22.0 LAB CHEMISTRY METHOD 09/22/2024 11:[address] [facility] Calcium 9.0 8.5 - 10.5 mg/dL LAB CHEMISTRY METHOD 09/22/2024 11:[address] [facility] AST (SGOT) 22 10 - 42 unit/L LAB CHEMISTRY METHOD 09/22/2024 11:[address] [facility] ALT (SGPT) 31 10 - 60 unit/L LAB CHEMISTRY METHOD 09/22/2024 11:[address] [facility] Alkaline Phosphatase 156(H) 42 - 121 unit/L LAB CHEMISTRY METHOD 09/22/2024 11:53 AM EDT [facility] Total Protein 7.1 6.0 - 8.0 g/dL LAB CHEMISTRY METHOD 09/22/2024 11:53 AM EDT [facility] Albumin 3.8 3.2 - 5.0 g/dL LAB CHEMISTRY METHOD 09/22/2024 11:53 AM EDT [facility] Total Bilirubin 0.6 0.0 - 1.4 mg/dL LAB CHEMISTRY METHOD 09/22/2024 11:53 AM EDT [facility] Blood Venous blood specimen / Unknown Venipuncture / Unknown 09/22/2024 9:41 AM EDT 09/22/2024 11:19 AM EDT Elsie Chavez MD LAB BLOOD ORDERABLE S Final Result [facility] ([facility]) [facility] [address] [place] [address], from Last 3 Months Insurance [employer] [facility] Care Teams Verification Lead Relationship Specialty Start Date End Date Nhi Conte PA [address] [place] [address] PCP - General 01/15/22
--- OUTSIDE RECORDS SUMMARY | 2024-11-10 14:11 | XMS_ITS | Encounter Summary ---
Author Organization [facility] Address [address] [place] [address] Phone Care Team Providers Care Project Manager Industrial Name Role Phone Jacky Negron MD Primary Care Provider Encounter Details Date Type Department Care Team (Latest Contact Info) Description 08/23/2017 Transcribe Orders [facility] [address] [place] [phone] Jacky Negron MD [address] [place] [phone] Mixed hyperlipidemia (Primary Dx); Essential hypertension, malignant [...] REACTIVE PROTEIN 2.7 0.0 - 4.0 mg/L [facility] Comment:New Reference Range and Measuring Units effective 06/23/17. Blood 08/23/2017 7:42 AM EDT 08/23/2017 8:57 AM EDT Jacky Negron MD LAB BLOOD ORDERABLES Fi nal Result [address] [address] * Sedimentation rate (ESR) (08/23/2017 7:42 AM EDT) ESR 15 0 - 20 mm/h [facility] Blood 08/23/2017 7:42 AM EDT 08/23/2017 8:57 AM EDT Jacky Negron MD LAB BLOOD ORDERABLES Fi nal Result Performing Organization Address [facility] Co de Phone Number [address] [address] * (ABNORMAL) Lipid panel (08/23/2017 7:42 AM EDT) HDL 53 mg/dL [facility] Comment: Interpretation: Risk Level Males Decreased >45 mg/dL Average 40-45 mg/dL Increased <40 mg/dL CHOLESTEROL 138 0 - 240 mg/dL [facility] TRIGLYCERIDES 133 30 - 160 mg/dL [facility] LDL 58 50 - 129 mg/dL [facility] Comment: LDL levels in terms of risk for coronary heart disease: <100 mg/dL: Optimal 100-129 mg/dL: Near or above optimal 130-159 mg/dL: Borderline high 160-189 mg/dL: High >190 mg/dL: Very High CARDIAC RISK RATIO 2.6(L) 3.4 - 5.0 [facility] Blood 08/23/2017 7:42 AM EDT 08/23/2017 8:57 AM EDT Jacky Negron MD LAB BLOOD ORDERABLES Fi nal Result Performing Organization Address City/[facility]/ZIP Co de Phone Number [address] [phone] * (ABNORMAL) Comprehensive metabolic panel (08/23/2017 7:42 AM EDT) SODIUM 138 133 - 146 mmol/L [facility] POTASSIUM 4.1 3.3 - 5.1 mmol/L [facility] CHLORIDE 95(L) 96 - 108 mmol/L [facility] CO2 25 21 - 35 mmol/L [facility] BUN 16 6 - 19 mg/dL [facility] CREATININE 0.90 0.5 - 1.5 mg/dL [facility] GLUCOSE 91 70 - 99 mg/dL [facility] ALBUMIN 4.4 3.9 - 4.8 g/dL [facility] TOTAL PROTEIN 7.8 6.5 - 8.0 g/dL [facility] CALCIUM 9.6 8.4 - 10.3 mg/dL [facility] ALKALINE PHOSPHATASE 115 39 - 117 U/L [facility] TOTAL BILIRUBIN 0.7 0.0 - 1.2 mg/dL [facility] AST 33 0 - 37 U/L [facility] ALT 31 0 - 40 U/L [facility] GLOBULIN 3.4 1 - 4.8 g/dL [facility] EGFR 98 >59 mL/min/1.7 3m2 [facility] Comment:If patient is black, multiply result by 1.159. Estimated glomerular filtration rate calculated using the CKD-EPI equation. ANION GAP 22(H) 10 - 20 mmol/L [facility] Blood 08/23/2017 7:42 AM EDT 08/23/2017 8:57 AM EDT us Jacky Negron MD LAB BLOOD ORDERABLES Fi nal Result [facility] [address] [place] [address] documented in this encounter Visit Diagnoses Diagnosis Mixed hyperlipidemia- Primary Essential hypertension, malignant documented in this encounter Care Teams Project Manager Industrial Relationship Specialty Start Date End Date Jacky Negron MD [address] [place] [address] PCP - General Internal Medicine 12/08/16 documented as of this encounter Additional Source Comments The information contained in this document represents components of the legal health record. It is not the complete legal health record.[facility]
--- OUTSIDE RECORDS SUMMARY | 2024-11-10 14:11 | XMS_ITS | Clinical Summary ---
Author Organization [facility] Address [address] [place] [address] Care Team Providers Care Sales Representative Printing Name Role Phone Nhi Conte PA-C Primary Care Provider Allergies Active Allergy Reactions Criticality Noted Date Comments Tetracyclines & Related 11/08/2018 Medications Medication Sig Dispensed Refills Start Date End Date Status Cholecalciferol (VITAMIN D3) 3000 units TABS Take 3,000 Units by mouth daily. 0 Active B Oxpozcb-Tycfku-AC (SUPER B-50 COMPLEX PO) Take 1 tablet [...] age to complete this topic Care Teams Sales Representative Printing Relationship Specialty Start Date End Date Nhi Conte, PAAmiC PCP - General Physician [employer] Ins[employer] Executive 01/15/22
--- OUTSIDE RECORDS SUMMARY | 2024-11-10 14:11 | XMS_ITS | Clinical Summary ---
Author Organization [facility] Address [address] [place] [address] Phone Care Team Providers Care Component Prep Operator Name Role Phone Jacky Negron MD [...] 10/29/2016, 10/31/2015, Additional history exists COVID-19 VACCINE (2 - 2024- season) 2024 05/01/2020 Adult Td,Tdap Booster 11/07/2024 11/07/2014 RSV VACCINE (1 - 1-dose 75+ series) 2040 ZOSTER VACCINES Completed 12/19/2018, 10/19/2018 HEPATITIS A [...] (08/23/2017 7:42 AM EDT) HDL 53 mg/dL [facility] Comment: Interpretation: Risk Level Males Decreased >45 mg/dL Average 40-45 mg/dL Increased <40 mg/dL CHOLESTEROL 138 0 - 240 mg/dL [facility] TRIGLYCERIDES 133 30 - 160 mg/dL [facility] LDL 58 50 - 129 mg/dL [facility] Comment: LDL levels in terms of risk for coronary heart disease: <100 mg/dL: Optimal 100-129 mg/dL: Near or above optimal 130-159 mg/dL: Borderline high 160-189 mg/dL: High >190 mg/dL: Very High CARDIAC RISK RATIO 2.6(L) 3.4 - 5.0 [facility] Blood 08/23/2017 7:42 AM EDT 08/23/2017 8:57 AM EDT Jackykely Negron MD LAB BLOOD ORDERABLES Fi nal Result [facility] [address] [place] [address] from Last 3 Months or Most Recently Relevant to Health Maintenance [facility] HMO Care Teams Component Prep Operator Relationship Specialty Start Date End Date Jacky Negron MD [address] [place] [address] PCP - General Internal Medicine 12/08/16 Additional Source Comments The information contained in this document represents components of the legal health record. It is not the complete legal health record.[facility]
== END 2024-11-10 14:56 | disposition home or self-care (01) ==
LOC: HO.HUSH 13:58
PROVIDERS: PCP Physician Assistant; Visit Provider Urology
DX: C61 Malignant neoplasm of prostate (principal); C77.5 Secondary and unspecified malignant neoplasm of intrapelvic lymph nodes
CPT/HCPCS: 99214; G2211

== ENCOUNTER 2024-12-08 13:26 | Outpatient (AMB) | payer OTHER, SELFPAY ==
--- NOTE | 2024-12-08 13:49 | AM.OFFVISNUR ---
Intake Visit Reasons: firmagon/xgeva Allergies tetracycline (Tetracycline) Allergy (Mild, Verified 11/10/24 14:01) RASH Office Meds degarelix 80 mg subcutaneous solution Performing Provider: Kvng Woodruff MD Performing Location: [facility] Administered by: Anni Wright RN on 12/08/24 13:50 Dose Route Admin Location Dispensed Lot Number Expiration Date [facility] [employer] 80 mg subcut Right lower abd 80 mg [id number] 07/09/26 [address]-[address] [facility] Total Dispensed Waste 80 mg 0 % Xgeva 120 mg/1.7 mL (70 mg/mL) subcutaneous solution Performing Provider: Kvng Woodruff MD Performing Location: [facility] Administered by: Anni Wright RN on 12/08/24 13:50 Dose Route Admin Location Dispensed Lot Number Expiration Date [facility] [employer] 120 mg subcut Left lower abdomen 1.7 mL [id number] 01/28/27 26046-067-49 [facility] Total Dispensed Waste 1.7 mL 0 % Assessment & Plan Assessment & Plan Orders: Orders AMB Degarelix Injection Practice Supplied Today C61 - Malignant neoplasm of prostate, 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
--- OUTSIDE RECORDS SUMMARY | 2024-12-08 14:29 | XMS_ITS | Clinical Summary ---
Author Organization [facility] Address [address] [place] [phone] Phone Care Team Providers Care Sheeter Waxer Operator Name Role Phone Jacky Negron MD Primary Care Provider Encounters Date Type Department Care Team Description 12/01/2024 Ancillary Orders [facility] [address] [place] [address] Philip Gonzalez MD, PhD 12/01/2024 Ancillary Orders [facility] [address] [place] [address] Philip Gonzalez MD, PhD 11/30/2024 Ancillary Orders [facility] [address] [place] [address] Philip Gonzalez MD, PhD 11/30/2024 Ancillary Orders [facility] [address] [place] [address] Philip Gonzalez MD, PhD 11/08/2024 - 11/08/2024 11:59 PM EDT Hospital Encounter [facility] [address] [place] [address] Philip Gonzalez MD, PhD Discharge Disposition: Home or Self Care from Last 3 Months Social History Tobacco Use Types Packs/Day Years [...] Orientation Not on file Plan of Treatment Upcoming Encounters Date Type Department Care Team (Late st Contact Info) Description 01/08/2025 9:30 AM EST Office Visit [address] [place] [address] Philip Gonzalez MD, PhD [address] [place] [address] [email or web address] Health Maintenance Due Date Last Done Comments [...] (08/23/2017 7:42 AM EDT) HDL 53 mg/dL [facility] Comment: Interpretation: Risk Level Males Decreased >45 mg/dL Average 40-45 mg/dL Increased <40 mg/dL CHOLESTEROL 138 0 - 240 mg/dL [facility] TRIGLYCERIDES 133 30 - 160 mg/dL [facility] LDL 58 50 - 129 mg/dL [facility] Comment: LDL levels in terms of risk for coronary heart disease: <100 mg/dL: Optimal 100-129 mg/dL: Near or above optimal 130-159 mg/dL: Borderline high 160-189 mg/dL: High >190 mg/dL: Very High CARDIAC RISK RATIO 2.6(L) 3.4 - 5.0 [facility] Blood 08/23/2017 7:42 AM EDT 08/23/2017 8:57 AM EDT Jacky Negron MD LAB BLOOD ORDERABLES Fi nal Result Performing Organization Address City/State/[facility] Co de Phone Number [facility] [address] [place], [place] [phone] from Last 3 Months or Most Recently Relevant to Health Maintenance Insurance [facility] [address] [place], [place] [address] [place], [place] [address] Care Teams Sheeter Waxer Operator Relationship Specialty Start Date End Date Jacky Negron MD [address] [place] [phone] PCP - General Internal Medicine 12/08/16 Additional Source Comments The information contained in this document represents components of the legal health record. It is not the complete legal health record.[facility]
--- OUTSIDE RECORDS SUMMARY | 2024-12-08 14:31 | XMS_ITS | Encounter Summary ---
Author Organization [facility] Address [address] [facility] [address] [place] [phone] Phone Care Team Providers Care Theater Set Production Designer Name Role Phone Jacky Negron MD Primary Care Provider Encounter Details Date Type Department Care Team (Latest Contact Info) Description 08/23/2017 Transcribe Orders [facility] [address] [place] [phone] Jacky Negron MD [address] [place] [phone] Mixed hyperlipidemia (Primary Dx); Essential hypertension, malignant [...] Description 01/08/2025 9:30 AM EST Office Visit [address] [place] [address] Philip Gonzalez MD, PhD [address] [address] [email or web address] documented as of this encounter Results * C-Reactive Protein (08/23/2017 7:42 AM EDT) C REACTIVE PROTEIN 2.7 0.0 - 4.0 mg/L [facility] Comment:New Reference Range and Measuring Units effective 06/23/17. Blood 08/23/2017 7:42 AM EDT 08/23/2017 8:57 AM EDT us Jacky Negron MD LAB BLOOD ORDERABLES Fi nal Result Performing Organization Address [facility] [[email or web address]] Co de Phone Number [address] [phone] * Sedimentation rate (ESR) (08/23/2017 7:42 AM EDT) [facility] ESR 15 0 - 20 mm/h [facility] Blood 08/23/2017 7:42 AM EDT 08/23/2017 8:57 AM EDT us Jacky Negron MD LAB BLOOD ORDERABLES Fi nal Result Performing Organization Address [facility] de Phone Number [address] [phone] * (ABNORMAL) Lipid panel (08/23/2017 7:42 AM EDT) [facility] HDL 53 mg/dL [facility] Comment: Interpretation: Risk Level Males Decreased >45 mg/dL Average 40-45 mg/dL Increased <40 mg/dL CHOLESTEROL 138 0 - 240 mg/dL [facility] TRIGLYCERIDES 133 30 - 160 mg/dL [facility] LDL 58 50 - 129 mg/dL [facility] Comment: LDL levels in terms of risk for coronary heart disease: <100 mg/dL: Optimal 100-129 mg/dL: Near or above optimal 130-159 mg/dL: Borderline high 160-189 mg/dL: High >190 mg/dL: Very High CARDIAC RISK RATIO 2.6(L) 3.4 - 5.[address] [facility] Blood 08/23/2017 7:42 AM EDT 08/23/2017 8:57 AM EDT us Jacky Negron MD LAB BLOOD ORDERABLES Fi nal Result Performing Organization Address City/[facility]/ZIP Co de Phone Number [address] [phone] * (ABNORMAL) Comprehensive metabolic panel (08/23/2017 7:42 AM EDT) SODIUM 138 133 - 146 mmol/L [facility] POTASSIUM 4.1 3.3 - 5.1 mmol/L [facility] CHLORIDE 95(L) 96 - 108 mmol/L [facility] CO2 25 21 - 35 mmol/L [facility] BUN 16 6 - 19 mg/dL [facility] CREATININE 0.90 0.5 - 1.5 mg/dL [facility] GLUCOSE 91 70 - 99 mg/dL [facility] ALBUMIN 4.4 3.9 - 4.8 g/dL [facility] TOTAL PROTEIN 7.8 6.5 - 8.0 g/dL [facility] CALCIUM 9.6 8.4 - 10.3 mg/dL [facility] ALKALINE PHOSPHATASE 115 39 - 117 U/L [facility] TOTAL BILIRUBIN 0.7 0.0 - 1.2 mg/dL [facility] AST 33 0 - 37 U/L [facility] ALT 31 0 - 40 U/L [facility] GLOBULIN 3.4 1 - 4.8 g/dL [facility] EGFR 98 >59 mL/min/1.7 3m2 [facility] Comment:If patient is black, multiply result by 1.159. Estimated glomerular filtration rate calculated using the CKD-EPI equation. ANION GAP 22(H) 10 - 20 mmol/L [facility] Blood 08/23/2017 7:42 AM EDT 08/23/2017 8:57 AM EDT Jacky Negron MD LAB BLOOD ORDERABLES Fi nal Result Performing Organization Address City/[facility]/ZIP Co de Phone Number [address] [phone] documented in this encounter Visit Diagnoses Diagnosis Mixed hyperlipidemia- Primary Essential hypertension, malignant documented in this encounter Care Teams Theater Set Production Designer Relationship Specialty Start Date End Date Jacky Negron MD [address] [place] [phone] PCP - General Internal Medicine 12/08/16 documented as of this encounter Additional Source Comments The information contained in this document represents components of the legal health record. It is not the complete legal health record.[facility]
--- OUTSIDE RECORDS SUMMARY | 2024-12-08 14:31 | XMS_ITS | Clinical Summary ---
Author Organization [facility] Address [address] [place] [address] Care Team Providers Care Paper Bag Machine Operator Name Role Phone Nhi Conte PA-C Primary Care Provider [phone] Allergies Active Allergy Reactions Criticality Noted Date Comments Tetracyclines & Related 11/08/2018 Medications Medication Sig Dispensed Refills Start Date End Date Status Cholecalciferol (VITAMIN D3) 3000 units TABS Take 3,000 Units by mouth daily. 0 Active B Feufcex-Nulsvc-SN (SUPER B-50 COMPLEX PO) Take 1 tablet [...] age to complete this topic Care Teams Paper Bag Machine Operator Relationship Specialty Start Date End Date Nhi Conte, PAAmiC PCP - General Physician Candy Dipper Hand 01/15/22
== END 2024-12-08 14:01 | disposition home or self-care (01) ==
LOC: HO.HUSH 13:26
PROVIDERS: PCP Physician Assistant; Visit Provider Urology
DX: C61 Malignant neoplasm of prostate (principal); C77.5 Secondary and unspecified malignant neoplasm of intrapelvic lymph nodes; C79.51 Secondary malignant neoplasm of bone

== ENCOUNTER → 2024-12-08 13:26 | Outpatient (BNVA) | payer OTHER, SELFPAY | PROVIDERS: PCP Physician Assistant; Visit Provider Urology | DX: C61 Malignant neoplasm of prostate (principal); C77.5 Secondary and unspecified malignant neoplasm of intrapelvic lymph nodes; C79.51 Secondary malignant neoplasm of bone | CPT/HCPCS: 96372; 96402; J0897; J9155 ==

== ENCOUNTER 2025-01-09 13:10 | Outpatient (AMB) | payer OTHER, SELFPAY ==
--- OUTSIDE RECORDS SUMMARY | 2025-01-08 09:30 | XMS_ITS | Encounter Summary ---
Author Organization [facility] Address [address] [place] [phone] Phone Care Team Providers Care Clean In Places Operator Name Role Phone Jcaky Negron MD Primary Care Provider Reason for Visit * Reason Comments New Patient Encounter Details Date Type Department Care Team (Late st Contact Info) Description 01/08/2025 9:30 AM EST Office Visit [address] [place] [address] Philip Gonzalez MD, PhD [address] [address] [email or web address] Unknown, Unknown, Malignant neoplasm of prostate (Primary Dx); Malignant neoplasm metastatic to bone Social History Tobacco Use Types Packs/Day Years [...] on file documented as of this encounter Progress Notes * Philip Gonzalez MD, PhD - 01/08/2025 9:30 AM EST [facility] Consult Note REASON FOR VISIT: 59M with metastatic prostate cancer on ADT+abiraterone HPI: 59M with history of diabetes, remote Hodgkin's disease and most recently with metastatic prostate cancer. His PSA in 11/01 was 3.1. Developed increased urinary symptoms in 01/31 and treated with antibiotics with transient improvement. Worsening symptoms again in 06/02 and PSA much higher at 13. 07/02 prostate biopsy showed GG5 prostate cancer in multiple cores. Imaging showed diffuse bone and en metastases. He started ADT with degarelix and then began abiraterone/prednisone as well under the care of Dr. East. Has begun monthly Xgeva as well through Dr. Woodruff's office. Tolerating well though he notes occasional joint pains, at times bothersome. Mild fatigue. Not exercising. Here for second opinion on management. H NIDDM HTN HLD Hodgkins disease MEDICATIONS Firmagon, Xgeva Abiraterone 1000 mg daily Prednisone 5 mg BID Tamsulosin 1)Vitamin D3 2000iu 2)Super B-Complex 3)Amlodipine 10MG 4)lisinopril 40MG 5)Atorvastatin 80MG 6)Metoprolol 100MG 7)L-Thyroxine 112MCG 9)Ezetimibe tabs 10mg 10)B-12 1000MCG Sublingual 11)Complete Multivitamin Men 50+ 12)Metformin 500mg 13)Citracal Calcium supplement +D3 1000IU ALLERGIES Tetracycline SOCIAL HISTORY , 2 children Nonsmoker 2 alcoholic drinks/day FAMILY HISTORY Mother had breast cancer No history of urologic cancers REVIEW OF SYSTEMS: No fevers, chills, sweats No anorexia or weight loss No bone, muscle or joint pains No chest pain, palpitations No shortness of breath, orthopnea or cough No nausea, vomiting, diarrhea, constipation. No hematuria, dysuria or flank pain No rashes or swelling No focal neurologic symptoms, diplopia or headaches No bleeding, ecchymoses or blood clots PHYSICAL EXAMINATION: ECOG PS: 1 ???He was well developed, ambulatory, conversant and in no acute distress. His pupils were reactiveto light. Oropharynx was clear with no erythema or thrush. His neck was supple with no lymphadenopathy. Heart was regular in rate and rhythm with no murmurs. His lungs were clear to auscultation bilaterally. His abdomen was soft, nontender and nondistended with no palpable masses. No tenderness along the ribs or spine. His extremities were thin with no edema or rashes. Neurologic examination showed normal mental status, intact cranial nerves, symmetric strength in the upper and lower extremities bilaterally, and normal gait. ASSESSMENT/PLAN 59M diagnosed in early 2024 with metastatic prostate cancer to skeletal and en sites. We reviewed the diagnosis, prognosis and treatment options. Stage 4 prostate cancer is an incurablecondition that may ultimately progress to life threatening complications. With effective therapy, this can hopefully be delayed by months to years. The mainstay of treatment is ablative hormone therapy. Agreed with continued ADT. May transition to Lupron for convenience. Would stop Xgeva until he develops mCRPC. Monthly treatment not necessary for hormone sensitive disease. Addition of ARPi is appropriate, and proven to extend survival. Reviewed risks, benefits and schedule of abiraterone/prednisone. Strongly encouraged daily exercise as primary antidote to fatigue and body composition changes. Would also consider addition of docetaxel x 6. Its benefit in addition to ARPi is uncertain but there is a potential survival advantage of up to one year. For a young man who has potentially lethal prostate cancer, chemotherapy is appropriate. He will continue under the care of Dr. East. I would be happy to see him at any point in the future. Barbara Gonzalez MD PhD documented in this encounter Plan of Treatment Not on file documented as of this encounter Visit Diagnoses Diagnosis Malignant neoplasm of prostate- Primary Malignant neoplasm metastatic to bone documented in this encounter Care Teams Clean In Places Operator Relationship Specialty Start Date End Date Jacky Negron MD [address] [place] [address] PCP - General Internal Medicine 12/08/16 documented as of this encounter Additional Source Comments The information contained in this document represents components of the legal health record. It is not the complete legal health record.[facility]
--- NOTE | 2025-01-09 13:37 | AM.OFFVISNUR ---
Intake Visit Reasons: firmagon/Xgeva Allergies tetracycline (Tetracycline) Allergy (Mild, Verified 11/10/24 14:01) RASH Office Meds degarelix 80 mg subcutaneous solution Performing Provider: Kvng Woodruff MD Performing Location: [facility] Administered by: Anni Wright RN on 01/09/25 13:37 Dose Route Admin Location Dispensed Lot Number Expiration Date [facility] Tenant Coordinator 80 mg subcut right lower abd 80 mg [id number] 03/11/26 [address]-8 [facility] Total Dispensed Waste 80 mg 0 % Xgeva 120 mg/1.7 mL (70 mg/mL) subcutaneous solution Performing Provider: Kvng Woodruff MD Performing Location: [facility] Administered by: Anni Wright RN on 01/09/25 13:37 Dose Route Admin Location Dispensed Lot Number Expiration Date [facility] Tenant Coordinator 120 mg subcut Right lower abd 1.7 mL [id number] 01/28/27 45789-159-06 [facility] Total Dispensed Waste 1.7 mL 0 % Assessment & Plan Assessment & Plan Orders: Orders AMB Denosumab Injection Practice Supplied Today C61 - Malignant neoplasm of prostate, C79.51 - Secondary malignant neoplasm of bone [facility]B Degarelix Injection Practice Supplied Today C61 - Malignant neoplasm of prostate, C79.51 - Secondary malignant neoplasm of bone Coding
--- OUTSIDE RECORDS SUMMARY | 2025-01-09 15:06 | XMS_ITS | Clinical Summary ---
Author Organization [facility] Address [email or web address] [place] [address] Phone Care Team Providers Care Mechanic Field Service Name Role Phone Jacky Negron MD Primary Care Provider Active Problems Problem Noted Date Diagnosed Date Malignant neoplasm of prostate 01/08/2025 Malignant neoplasm metastatic to bone 01/08/2025 Encounters Date Type Department Care Team Description 01/08/2025 9:30 AM EST Office Visit [address] [place] [address] Philip Gonzalez MD, PhD Unknown, Unknown, MD Malignant neoplasm of prostate (Primary Dx); Malignant neoplasm metastatic to bone 12/01/2024 Ancillary Orders [facility] [address] [place] [address] Philip Gonzalez MD, PhD 12/01/2024 Ancillary Orders [facility] [address] [place] [address] Philip Gonzalez MD, PhD 11/30/2024 Ancillary Orders [facility] [address] [place] [address] Philip Gonzalez MD, PhD 11/30/2024 Ancillary Orders [facility] [address] [place] [address] Philip Gonzalez MD, PhD 11/08/2024 - 11/08/2024 11:59 PM EDT Hospital Encounter [facility] [address] [place] [address] Philip Gonzalez MD, PhD Discharge Disposition: Home [...] FOBT 2010 SIGMOIDOSCOPY 2010 VIRTUAL COLONOSCOPY 2010 LIPID PANEL 08/23/2022 08/23/2017 Adult Td,Tdap Booster 08/04/2033 08/05/2023, 015 ZOSTER VACCINES Completed 12/19/2018, 10/19/2018 PNEUMOCOCCAL VACCINES (50+ years) Completed 06/18/2024 COVID-19 VACCINE Completed 11/12/2024, 12/2024, 12/03/2020, Additional history exists INFLUENZA VACCINE Completed 11/12/2024, , 12/01/2022, Additional history exists RSV VACCINE Completed 11/12/2024 HEPATITIS A VACCINES Aged Out No long [...] Procedure Name Priority Date/Time Associated Diagnosis Comments NM PET WHOLE BODY OUTSIDE WITH INTERPRETATION OR CONSULT Routine 11/08/2024 12:00 AM EDT LIPID PANEL Routine 08/23/2017 7:42 AM EDT Mixed hyperlipidemia Essential hypertension, malignant from Last 3 Months or Most Recently Relevant to Health Maintenance Results * NM PET Whole Body Outside With Interpretation Or Consult (11/08/2024 12:00 AM EDT) [facility] IMG RECOMMENDATION COMMENT intense abnormalities liver; intense radiotracer uptake liver; Differential: liver metastases [facility] 12/07/2024 12:5 5 AM EDT Impressions [facility] - 12/15/2024 3:47 PM EST When compared to 06/28/2024: Substantial decrease in the size, extent, and magnitude of uptake abnormalities in the prostate, pelvic en, and osseous metastases. New multiple intense radiotracer uptake abnormalities in the liver, suspicious for new metastases. RECOMMENDATION: Consider MR abdomen with and without contrast. -------- This report is limited to the body part and modality requested, regardless of which images were uploaded. If additional reports are required, please contact the appropriate Division of the Radiology Department. Narrative [facility] - 12/15/2024 3:47 PM EST EXAM: NM PET WHOLE BODY OUTSIDE WITH INTERPRETATION OR CONSULT REINTERPRETATION INDICATION: Study Description:; Modality: ADDITIONAL INFORMATION: Metastatic prostate cancer PET for subsequent treatment strategy. TECHNIQUE: ---This study was performed and interpreted outside of [facility]. It has been imported to the [facility] Imaging system for review, based upon patient identifier provided by the source institution. TECHNIQUE: An outside PSMA PET/CT from the vertex to mid thigh performed at [facility] on 11/08/2024 with report is provided for review. No oral or IV contrast was given. Attenuation correction CT images were reviewed for localization purposes as part of this interpretation but were not formally reported. IMAGE QUALITY: Adequate, performed with acceptable levels of count-related noise. SERIES SUBMITTED: PET AC, PET NAC, and CT images. COMPARISON: PET/CT 06/28/2024 FINDINGS: HEAD AND NECK: There are no sites of radiotracer uptake outside of physiologic distribution in the neck. CHEST: There are no sites of radiotracer uptake outside physiologic distribution in the chest. ABDOMEN AND PELVIS: There has been substantial decrease in the setting, magnitude, and size of the previously seen radiotracer uptake abnormality within the the posterior peripheral zone of the prostate with direct extension to the anterior surface of the rectum (less than liver; image 211). Multiple new intense radiotracer uptake abnormalities have developed in the liver (image 122, 149, 144). Previously seen external iliac, presacral, internal iliac, and pelvic sidewall en uptake abnormalities have resolved. MUSCULOSKELETAL: There is substantial decrease in the size, extent, magnitude of multifocal osseous uptake abnormalities in the bilateral humeri, left scapula, ribs, lumbar vertebral bodies, pelvic bones, and bilateral proximal femurs. Procedure Note Debby Tolentino MD - 12/15/2024 EXAM: NM PET WHOLE BODY OUTSIDE WITH INTERPRETATION OR CONSULT REINTERPRETATION INDICATION: Study Description:; Modality: ADDITIONAL INFORMATION: Metastatic prostate cancer PET for subsequent treatment strategy. TECHNIQUE: ---This study was performed and interpreted outside of [facility]. It has been imported to the [facility] Imaging system [employer], based upon patient identifier provided by the sourceinstitution. TECHNIQUE: An outside PSMA PET/CT from the vertex to mid thigh performedat [facility] on 11/08/2024 with report is provided for review.No oral or IV contrast was given. Attenuation correction CT images werereviewed for localization purposes as part of this interpretation but werenot formally reported. IMAGE QUALITY: Adequate, performed with acceptable levels of count-relatednoise. SERIES SUBMITTED: PET AC, PET NAC, and CT images. COMPARISON: PET/CT 06/28/2024 FINDINGS: HEAD AND NECK: There are no sites of radiotracer uptake outside of physiologicdistribution in the neck. CHEST: There are no sites of radiotracer uptake outside physiologic distributionin the chest. ABDOMEN AND PELVIS: There has been substantial decrease in the setting, magnitude, and size ofthe previously seen radiotracer uptake abnormality within the theposterior peripheral zone of the prostate with direct extension to theanterior surface of the rectum (less than liver; image 211). Multiple new intense radiotracer uptake abnormalities have developed inthe liver (image 122, 149, 144). Previously seen external iliac, presacral, internal iliac, and pelvicsidewall en uptake abnormalities have resolved. MUSCULOSKELETAL: There is substantial decrease in the size, extent, magnitude of multifocalosseous uptake abnormalities in the bilateral humeri, left scapula, ribs,lumbar vertebral bodies, pelvic bones, and bilateral proximal femurs. IMPRESSION: When compared to 06/28/2024: Substantial decrease in the size, extent, and magnitude of uptakeabnormalities in the prostate, pelvic en, and osseous metastases. New multiple intense radiotracer uptake abnormalities in the liver,suspicious for new metastases. RECOMMENDATION: Consider MR abdomen with and without contrast. -------- This report is limited to the body part and modality requested, regardlessof which images were uploaded. If additional reports are required, pleasecontact the appropriate Division of the Radiology Department. Philip Gonzalez MD, PhD IMG OUTSIDE IMAGING W/ INTERPRETATION Final Result Performing Organization Address [facility] Co de Phone Number [address] [address] * (ABNORMAL) Lipid panel (08/23/2017 7:42 AM EDT) HDL 53 mg/dL [facility] Comment: Interpretation: Risk Level Males Decreased >45 mg/dL Average 40-45 mg/dL Increased <40 mg/dL CHOLESTEROL 138 0 - 240 mg/dL [facility] TRIGLYCERIDES 133 30 - 160 mg/dL [facility] LDL 58 50 - 129 mg/dL [facility] Comment: LDL levels in terms of risk for coronary heart disease: <100 mg/dL: Optimal 100-129 mg/dL: Near or above optimal 130-159 mg/dL: Borderline high 160-189 mg/dL: High >190 mg/dL: Very High CARDIAC RISK RATIO 2.6(L) 3.4 - 5.0 C [facility] Blood 08/23/2017 7:42 AM EDT 08/23/2017 8:57 AM EDT Jacky Negron MD LAB BLOOD BKR ORDERABLE S Final Result Performing Organization Address [facility]/State/ZIP Co de Phone Number [address] [phone] from Last 3 Months or Most Recently Relevant to Health Maintenance Insurance [facility] [place], [place] [address] [place] [address] [facility] [address] [place], [place] [address]O Care Teams Mechanic Field Service Relationship Specialty Start Date End Date Jacky Negron MD [address] [place] [phone] PCP - General Internal Medicine 12/08/16 Additional Source Comments The information contained in this document represents components of the legal health record. It is not the complete legal health record.[facility]
--- OUTSIDE RECORDS SUMMARY | 2025-01-09 15:06 | XMS_ITS | Encounter Summary ---
Author Organization [facility] Address [address] [facility] [address] [place] [phone] Phone Care Team Providers Care Maid Supervisor Name Role Phone Jacky Negron MD Primary Care Provider Encounter Details Date Type Department Care Team (Latest Contact Info) Description 08/23/2017 Transcribe Orders [address] [address] Jacky Negron MD [address] [place] [address] Mixed hyperlipidemia (Primary Dx); Essential hypertension, malignant [...] REACTIVE PROTEIN 2.7 0.0 - 4.0 mg/L [facility] Comment:New Reference Range and Measuring Units effective 06/23/17. Blood 08/23/2017 7:42 AM EDT 08/23/2017 8:57 AM EDT us Jacky Negron MD LAB BLOOD BKR ORDERABLE S Final Result [address] [address] * Sedimentation rate (ESR) (08/23/2017 7:42 AM EDT) ESR 15 0 - 20 mm/h [facility] Blood 08/23/2017 7:42 AM EDT 08/23/2017 8:57 AM EDT Jacky Negron MD LAB BLOOD BKR ORDERABLE S Final Result Performing Organization Address [facility] Co de Phone Number [address] [address] * (ABNORMAL) Lipid panel (08/23/2017 7:42 AM EDT) HDL 53 mg/dL [facility] Comment: Interpretation: Risk Level Males Decreased >45 mg/dL Average 40-45 mg/dL Increased <40 mg/dL CHOLESTEROL 138 0 - 240 mg/dL [facility] TRIGLYCERIDES 133 30 - 160 mg/dL [facility] LDL 58 50 - 129 mg/dL [facility] Comment: LDL levels in terms of risk for coronary heart disease: <100 mg/dL: Optimal 100-129 mg/dL: Near or above optimal 130-159 mg/dL: Borderline high 160-189 mg/dL: High >190 mg/dL: Very High CARDIAC RISK RATIO 2.6(L) 3.4 - 5.0 C [facility] Blood 08/23/2017 7:42 AM EDT 08/23/2017 8:57 AM EDT Jacky Negron MD LAB BLOOD BKR ORDERABLE S Final Result Performing Organization Address City/[facility]/ZIP Co de Phone Number [address] [address] * (ABNORMAL) Comprehensive metabolic panel (08/23/2017 7:42 AM EDT) SODIUM 138 133 - 146 mmol/L [facility] POTASSIUM 4.1 3.3 - 5.1 mmol/L [facility] CHLORIDE 95(L) 96 - 108 mmol/L [facility] CO2 25 21 - 35 mmol/L [facility] BUN 16 6 - 19 mg/dL [facility] CREATININE 0.90 0.5 - 1.5 mg/dL [facility] GLUCOSE 91 70 - 99 mg/dL [facility] ALBUMIN 4.4 3.9 - 4.8 g/dL [facility] TOTAL PROTEIN 7.8 6.5 - 8.0 g/dL [facility] CALCIUM 9.6 8.4 - 10.3 mg/dL [facility] ALKALINE PHOSPHATASE 115 39 - 117 U/L [facility] TOTAL BILIRUBIN 0.7 0.0 - 1.2 mg/dL [facility] AST 33 0 - 37 U/L [facility] ALT 31 0 - 40 U/L [facility] GLOBULIN 3.4 1 - 4.8 g/dL [facility] EGFR 98 >59 mL/min/1.7 3m2 [facility] Comment:If patient is black, multiply result by 1.159. Estimated glomerular filtration rate calculated using the CKD-EPI equation. ANION GAP 22(H) 10 - 20 mmol/L [facility] Blood 08/23/2017 7:42 AM EDT 08/23/2017 8:57 AM EDT us Jacky Negron MD LAB BLOOD BKR ORDERABLE S Final Result Performing Organization Address City/State/[facility] Co de Phone Number [facility] [address] [place] [address] documented in this encounter Visit Diagnoses Diagnosis Mixed hyperlipidemia- Primary Essential hypertension, malignant documented in this encounter Care Teams Maid Supervisor Relationship Specialty Start Date End Date Jacky Negron MD [address] [place] [id number] PCP - General Internal Medicine 12/08/16 documented as of this encounter Additional Source Comments The information contained in this document represents components of the legal health record. It is not the complete legal health record.[facility]
--- OUTSIDE RECORDS SUMMARY | 2025-01-09 15:06 | XMS_ITS | Clinical Summary ---
Author Organization [facility] Address [address] [place] [address] Phone Care Team Providers Care Engineer Soils Name Role Phone Nhi Conte Primary Care Provider [phone] Allergies Active Allergy Reactions Criticality Noted Date [...] EVERY DAY. NOT FOR FACE 05/31/2023 Active metoprolol succinate (TOPROL-XL) 100 mg 24 hr tablet Take 1 tablet (100 mg total) by mouth 1 (one) time each day. 05/06/2024 Active hydroCHLOROthia zide (HYDRODIURIL) 25 mg tablet Take 1 tablet (25 mg total) by mouth. 04/06/2023 Active terazosin (HYTRIN) 5 mg capsule Take 1 capsule (5 mg total) by mouth. at bedtime 11/14/2024 Active abiraterone (ZYTIGA) 250 mg Take 4 tablets (1,000 mg total) by mouth 1 (one) time each day Take with a full glass of water. Swallow whole. Do not eat anything for at least 2 hours before and for at least 1 hour after you have taken the medicine. 120 tablet 5 11/22/2024 05/22/19 26 Active predniSONE (DELTASONE) 5 mg tablet Take 1 tablet (5 mg total) by mouth 2 (two) times a day. 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 ([facility] V24, [facility] V28) 11/08/2018 Encounters Date Type Department Care Team Description 12/11/2024 Telephone [facility] Hematology Oncology [address] [place] [address] Radha Cobb [place] 12/06/2024 10:10 AM EDT - 12/06/2024 11:59 PM EDT Hospital Encounter [facility] Interventional Radiology [address] [place] [address] Liver lesion Discharge Disposition: Home or Self Care 12/06/2024 8:53 AM EDT - 12/06/2024 11:59 PM EDT Hospital Encounter [facility] Ultrasound [address] [place] [address] Prostate CA ([facility] V24, [facility] V28); Liver lesion Discharge Disposition: Home or Self Care 11/22/2024 2:15 PM EDT Office Visit [facility] Hematology Oncology [address] [place] [address] Elsie Morillo MD Prostate CA ([facility] V24, [facility] V28) (Primary Dx); Liver lesion; Acquired hypothyroidism; Peripheral polyneuropathy 11/08/2024 1:14 PM EDT - 11/08/2024 11:59 PM EDT Hospital Encounter [facility] PET Scan [address] [place] [address] Prostate CA ([facility] V24, [facility] V28) Discharge Disposition: Home or Self Care from Last 3 Months Immunizations Immunization Administration Dates Next Due Pfizer SARS-CoV-2 COVID-19, mRNA, LNP-S, preservative free 12/03/2020,05/22/2020,05/01/2020 Surgical History Surgery Date Site/Laterality Comments TOTAL KNEE ARTHROPLASTY 10/09/2021 Bilateral PROCEDURE:TOTAL KNEE ARTHROPLASTY CARPAL TUNNEL RELEASE ORTHOPEDIC SURGERY 05/31 Medical History Medical History Date Comments Lymphoma ([facility] V24, [facility] V28) 2000 Anemia 12/01 Diabetes mellitus ([facility] V24, [facility] V28) 10/10 3 Social History Tobacco Use [...] Sign Reading Time Taken Comments Blood Pressure 143/70 12/06/2024 10:28 AM EDT Pulse 96 12/06/2024 10:28 AM EDT Temperature 35.9 C (96.7 F) 12/06/2024 9:19 AM EDT Respiratory Rate 18 12/06/2024 10:28 AM EDT Oxygen Saturation 97% 12/06/2024 10:28 AM EDT Inhaled Oxygen Concentration - - Weight 118 kg (260 lb) 12/06/2024 9:05 AM EDT Height 182.9 cm (6') 12/06/2024 9:05 AM EDT Body Mass Index 35.26 12/06/2024 9:05 AM EDT Plan of Treatment Upcoming Encounters Date Type Department Care Team (Late st Contact Info) Description 01/24/2025 3:15 PM EST Office Visit [facility] Hematology Oncology [address] [place] [address] Elsie Chavez MD [address] [place] [phone] Health Maintenance Due Date Last Done Comments Colorectal Cancer Screening: Colonoscopy 1965 Diabetes: Annual Foot Exam 05/16/1975 Diabetes: Annual Retina Eye Exam 05/16/1975 Hepatitis B Vaccines (1 of 3 - 19+ 3-dose series) 1984 HIV Screening 01/17/2022 Hepatitis C Screening 01/17/2022 Social Influencers of Health Screening 01/17/2022 Cholesterol Screening (Lipid Panel) 08/23/2022 08/23/2017 Diabetes: Annual Urine Albumin-Creatinine Ratio (uACR) 12/20/2023 Diabetes: Blood Sugar Control Test (HGBA1C) 12/20/2023 Depression Screening 02/09/2024 COVID-19 Vaccine (6 - Pfizer risk ) 05/13/2025 11/12/2024, 06/18/2024, 12/03/2020, Additional history exists Diabetes: Annual GFR (Glomerular Filtration Rate) 09/22/2025 09/22/2024, 06/07/2024, 08/23/2017 Hypertension/CHF/CAD Annual BMP Blood Test 09/22/2025 09/22/2024, 06/07/2024, 08/23/2017 DTaP,Tdap,and Td Vaccines (3 - Td or Tdap) 08/04/2033 08/05/2023, 11/07/2014 Zoster Vaccines Completed 12/19/2018, 10/19/2018 Pneumococcal Vaccine: 50+ Years Completed 06/18/2024 Influenza Vaccine Completed 11/12/2024, , 12/01/2022, Additional history exists RSV Immunization Adult Patients Completed 11/12/2024 HIB Vaccines Aged Out No longer eligi [...] Procedure Name Priority Date/Time Associated Diagnosis Comments IR BX NDL LIVER PERC Routine 12/06/2024 10:40 AM EDT Liver lesion US ABDOMEN LIMITED Routine 12/06/2024 10 :16 AM EDT Prostate CA (CMS/HCC V24, CMS/HCC V28) Liver lesion PROTHROMBIN TIME WITH INR STAT 12/06/2024 9:25 AM EDT COMPLETE BLOOD COUNT Routine 12/06/2024 9:[address] SKULL TO MID THIGH SUBSEQUENT Routine 11/08/2024 3:12 PM EDT Prostate CA (CMS/HCC V24, CMS/HCC V28) COMPREHENSIVE METABOLIC PANEL Routine 09/22/2024 9:41 AM EDT Prostate CA (CMS/HCC V24, CMS/HCC V28) from Last 3 Months or Most Recently Relevant to Health Maintenance Results * IR Bx Ndl Liver Perc (12/06/2024 10:40 AM EDT) Anatomical Region Laterality Modality Liver N/A Interventional R adiology Tissue Liver structure / Unknown 12/06/2024 12:16 PM EDT Impressions 01/07/2025 8:07 PM EST Image guided focal liver biopsy not performed as described above. Recommend dedicated MRI liver protocol for better evaluation/rule out hepatic metastases. -------- FINAL REPORT -------- Dictated By: Shelli Saavedra Dictated Date: 12/06/2024 12:16 ET Assigned Physician: Varun Hitchcock Reviewed and Electronically Signed By: Varun Hitchcock Signed Date: 01/07/2025 20:07 ET Workstation ID: [id number] Transcribed By: Self Edit Transcribed Date: 12/06/2024 12:27 ET Resident/PA/BELL ATTENDANT: Shelli Saavedra Narrative 01/07/2025 8:07 PM EST IMAGE GUIDED FOCAL LIVER BIOPSY HISTORY: Prostate cancer, bony metastases. Abnormal PET scan with question hepatic lesions. TECHNIQUE: Written informed consent was obtained. Patient was given 100 mL of Isovue-300 intravenously with portal venous delay. No hepatic lesions identified with or without IV contrast by standards of CT. Patient additionally underwent ultrasound evaluation of the liver which also demonstrates no targetable hepatic lesions. Case discussed with attending physician Dr. Danielle Sims and Dr. Varun Hitchcock, prior PET/CT reviewed. Question false positive hepatic lesions via PET/CT. Biopsy not performed. Recommend MR liver protocol for better evaluation/rule out hepatic lesion. This was communicated to patient's oncologist, Dr. East via secure messaging system at 10:48 AM on December 06, 2024 with confirmed receipt. DLP: 419.49 mGy-cm Procedure Note Varun Hitchcock MD - 01/07/2025 IMAGE GUIDED FOCAL LIVER BIOPSY HISTORY: Prostate cancer, bony metastases. Abnormal PET scan with questionhepatic lesions. TECHNIQUE: Written informed consent was obtained. Patient was given 100 mL of Isovue-300 intravenously with portal venousdelay. No hepatic lesions identified with or without IV contrast bystandards of CT. Patient additionally underwent ultrasound evaluation of the liver whichalso demonstrates no targetable hepatic lesions. Case discussed with attending physician Dr. Danielle Sims and Dr. Velazquez, prior PET/CT reviewed. Question false positive hepatic lesions viaPET/CT. Biopsy not performed. Recommend MR liver protocol for better evaluation/rule out hepatic lesion.This was communicated to patient's oncologist, Dr. East via secureJada Beaut[employer]aging system at 10:48 AM on December 06, 2024 with confirmed receipt. DLP: 419.49 mGy-cm IMPRESSION: Image guided focal liver biopsy not performed as described above.Recommend dedicated MRI liver protocol for better evaluation/rule outhepatic metastases. -------- FINAL REPORT -------- Dictated By: Shelli Saavedra Dictated Date: 12/06/2024 12:16 ET Assigned Physician: Varun Hitchcock Reviewed and Electronically Signed By: Varun Hitchcock Signed Date: 01/07/2025 20:07 ET Workstation ID: [id number] Transcribed By: Self Edit Transcribed Date: 12/06/2024 12:27 ET Resident/PA/BELL ATTENDANT: Shelli Saavedra us Subramony SubPraveen CANTRELL IMG IR PROCEDURES F inal Result * US Abdomen Limited (12/06/2024 10:16 AM EDT) Anatomical Region Laterality Modality Body Ultrasound 12/06/2024 12:2 7 PM EDT Impressions 01/07/2025 8:06 PM EST Image guided focal liver biopsy not performed as described above. Recommend dedicated MRI liver protocol for better evaluation/rule out hepatic metastases. -------- FINAL REPORT -------- Dictated By: Shelli Saavedra Dictated Date: 12/06/2024 12:27 ET Assigned Physician: Varun Hitchcock Reviewed and Electronically Signed By: Varun Hitchcock Signed Date: 01/07/2025 20:06 ET Workstation ID: [id number] Transcribed By: Self Edit Transcribed Date: 12/06/2024 12:29 ET Resident/PA/BELL ATTENDANT: Shelli Saavedra Narrative 01/07/2025 8:06 PM EST IMAGE GUIDED FOCAL LIVER BIOPSY HISTORY: Prostate cancer, bony metastases. Abnormal PET scan with question hepatic lesions. TECHNIQUE: Written informed consent was obtained. No targetable hepatic lesions by ultrasound evaluation. Of note, patient additionally underwent CT abdomen with contrast also demonstrating no hepatic lesions. Case discussed with attending physician Dr. Danielle Sims and Dr. Varun Hitchcock, prior PET/CT reviewed. Question false positive hepatic lesions via PET/CT. Biopsy not performed. Recommend MR liver protocol for better evaluation/rule out hepatic lesion. This was communicated to patient's oncologist, Dr. East via secure messaging system at 10:48 AM on December 06, 2024 with confirmed receipt. Procedure Note Varun Hitchcock MD - 01/07/2025 IMAGE GUIDED FOCAL LIVER BIOPSY HISTORY: Prostate cancer, bony metastases. Abnormal PET scan with questionhepatic lesions. TECHNIQUE: Written informed consent was obtained. No targetable hepatic lesions by ultrasound evaluation. Of note, patient additionally underwent CT abdomen with contrast alsodemonstrating no hepatic lesions. Case discussed with attending physician Dr. Danielle Sims and Dr. Velazquez, prior PET/CT reviewed. Question false positive hepatic lesions viaPET/CT. Biopsy not performed. Recommend MR liver protocol for better evaluation/rule out hepatic lesion.This was communicated to patient's oncologist, Dr. East via [employer]ada [employer] system at 10:48 AM on December 06, 2024 with confirmed receipt. IMPRESSION: Image guided focal liver biopsy not performed as described above.Recommend dedicated MRI liver protocol for better evaluation/rule outhepatic metastases. -------- FINAL REPORT -------- Dictated By: Shelli Saavedra Dictated Date: 12/06/2024 12:27 ET Assigned Physician: Varun Hitchcock Reviewed and Electronically Signed By: Varun Hitchcock Signed Date: 01/07/2025 20:06 ET Workstation ID: [id number] Transcribed By: Self Edit Transcribed Date: 12/06/2024 12:29 ET Resident/PA/BELL ATTENDANT: Shelli Saavedra us Subramony SubPraveen CANTRELL IMG US PROCEDURES F inal Result * Prothrombin time with INR (12/06/2024 9:25 AM EDT) Pathologist [facility] Protime 12.7 10.6 - 13.9 sec LAB COAGULATION METHOD 12/06/2024 9:46 AM EDT [facility] INR 1.0 LAB COAGULATION METHOD 12/06/2024 9:46 AM EDT [facility] Blood Venous blood specimen / Unknown Venipuncture / Unknown 12/06/2024 9:25 AM EDT 12/06/2024 9:30 AM EDT Dallas Rousseau MD LAB BLOOD ORDERABLES Final Resul t [facility] [address] [place] [address], * (ABNORMAL) CBC (12/06/2024 9:25 AM EDT) [facility] WBC 9.2 4.8 - 10.8 K/mcL LAB HEMETOLOGY METHOD 12/06/2024 9:34 AM EDT [facility] RBC 3.60(L) 4.50 - 5.50 M/[facility] LAB HEMETOLOGY METHOD 12/06/2024 9:34 AM EDT [facility] Hemoglobin 11.1(L) 13.5 - 17.5 g/dL LAB HEMETOLOGY METHOD 12/06/2024 9:34 AM EDT [facility] Hematocrit 33.9(L) 42.0 - 54.0 % LAB HEMETOLOGY METHOD 12/06/2024 9:34 AM EDT [facility] MCV 94.4 79.0 - 98.0 FL LAB HEMETOLOGY METHOD 12/06/2024 9:34 AM EDT [facility] MCH 30.9 27.0 - 32.0 pcg LAB HEMETOLOGY METHOD 12/06/2024 9:34 AM EDT [facility] MCHC 32.7 32.0 - 37.0 g/dL LAB HEMETOLOGY METHOD 12/06/2024 9:34 AM EDT [facility] RDW 13.2 11.0 - 15.0 % LAB HEMETOLOGY METHOD 12/06/2024 9:34 AM T [facility] Platelets 247 130 - 400 K/mcL LAB HEMETOLOGY METHOD 12/06/2024 9:34 AM EDT [facility] MPV 10.1 7.0 - 11.0 FL LAB HEMETOLOGY METHOD 12/06/2024 9:34 AM EDT [facility] NRBC 0.0 <1.0 % LAB HEMETOLOGY METHOD 12/06/2024 9:34 AM T [facility] NRBC Absolute 0.00 <0.10 K/mcL LAB HEMETOLOGY METHOD 12/06/2024 9:34 AM T [facility] Blood Venous blood specimen / Unknown Venipuncture / Unknown 12/06/2024 9:25 AM EDT 12/06/2024 9:30 AM EDT us Dallas Rousseau MD LAB BLOOD ORDERABLES Final Resul t [facility] [address] [place] [address], * PET CT Skull to Mid Thigh Subsequent (11/08/2024 3:12 PM EDT) Anatomical Region Laterality Modality Body Radiographic Corazon ging 11/16/2024 10:5 5 AM EDT Impressions 11/17/2024 6:10 AM EDT Mixed response to treatment with interval decrease in prostatic activity, pelvic lymph nodes and osseous lesions with interval development of multiple hepatic lesions and possible right lung versus liver lesion -------- FINAL REPORT -------- Dictated By: Rachelle Palomo Dictated Date: 11/16/2024 10:55 ET Assigned Physician: Rachelle Palomo Reviewed and Electronically Signed By: Rachelle Palomo Signed Date: 11/17/2024 06:10 ET Workstation ID: [id number] Transcribed By: Self Edit Transcribed Date: 11/16/2024 11:41 ET Narrative 11/17/2024 6:10 AM EDT HISTORY: Prostate carcinoma, restaging. PRIOR IMAGING STUDIES: Prior PSMA dated 06/2024 RADIOPHARMACEUTICAL: 8.6 mCi F-18 piflufolastat IV INJECTION SITE: Left forearm INJECTION TIME TO SCAN TIME: 60 min PROCEDURE: Routine body PET-CT imaging performed from the head to the thighs and reconstructed in axial, coronal, sagittal planes at the computer workstation with fused data from both the PET imaging study and attenuation correction CT study. Please note, CT imaging utilized strictly for attenuation correction and anatomic localization: CT not designed to produce and cannot replace qxpbg-tj-eol-art true diagnostic CT examination with specific protocols. Standardized uptake values (SUV) normalized to patient body weight and indicate the highest active concentration (SUV max) in a given disease site. DLP: 1344 mGy-cm IMAGING FINDINGS: Reference Values SUV Max: Parotid: 10 Blood Pool: 2.4 Liver: 6.5 Expected pattern of physiological activity noted. HEAD AND NECK: No abnormal activity. THORAX: 1-2 mm nodule in the right middle lobe with subjacent metabolic activity which may be located within the lung or liver SUV max 6.4. ABDOMEN/PELVIS: Prostatic activity SUV max 6 (previously 15.5) and activity within the rectum SUV max 5.2 (previously 14.4 when remeasured). Multiple new areas of metabolic activity within the liver which are suspicious for metastatic disease. For example in the inferior right hepatic lobe SUV max 11.5 Interval decrease in activity within lymph nodes. For example, presacral lymph node SUV max 2.2 (previously 4.8), right external iliac SUV max 1.3 (previously 7.8) and perirectal lymph nodes SUV max 1.8 (previously 7.3). MUSCULOSKELETAL: Interval decrease in metabolic active osseous lesions. For example left humerus SUV Max 3.9 (previously 15.2) left scapula SUV max 3.5 (previously 8.5), lumbar spine SUV Max 7.6 (previously 18.2), left iliac crest SUV max 4.1 (previously 13.3). Procedure Note Rachelle Palomo MD - 11/17/2024 HISTORY: Prostate carcinoma, restaging. PRIOR IMAGING STUDIES: Prior PSMA dated 06/2024 RADIOPHARMACEUTICAL: 8.6 mCi F-18 piflufolastat IV INJECTION SITE: Left forearm INJECTION TIME TO SCAN TIME: 60 min PROCEDURE: Routine body PET-CT imaging performed from the head to the thighs andreconstructed in axial, coronal, sagittal planes at the computerworkstation with fused data from both the PET imaging study andattenuation correction CT study. Please note, CT imaging utilized strictlyfor attenuation correction and anatomic localization: CT not designed toproduce and cannot replace ryjpe-mu-dmu-art true diagnostic CT examinationwith specific protocols. Standardized uptake values (SUV) normalized topatient body weight and indicate the highest active concentration (SUVmax) in a given disease site. DLP: 1344 mGy-cm IMAGING FINDINGS: Reference Values SUV Max: Parotid: 10 Blood Pool: 2.4 Liver: 6.5 Expected pattern of physiological activity noted. HEAD AND NECK: No abnormal activity. THORAX: 1-2 mm nodule in the right middle lobe with subjacent metabolicactivity which may be located within the lung or liver SUV max 6.4. ABDOMEN/PELVIS: Prostatic activity SUV max 6 (previously 15.5) andactivity within the rectum SUV max 5.2 (previously 14.4 when remeasured). Multiple new areas of metabolic activity within the liver which aresuspicious for metastatic disease. For example in the inferior righthepatic lobe SUV max 11.5 Interval decrease in activity within lymph nodes. For example, presacrallymph node SUV max 2.2 (previously 4.8), right external iliac SUV max 1.3(previously 7.8) and perirectal lymph nodes SUV max 1.8 (previously7.3). MUSCULOSKELETAL: Interval decrease in metabolic active osseous lesions.For example left humerus SUV Max 3.9 (previously 15.2) left scapula SUVmax 3.5 (previously 8.5), lumbar spine SUV Max 7.6 (previously 18.2), leftiliac crest SUV max 4.1 (previously 13.3). IMPRESSION: Mixed response to treatment with interval decrease in prostatic activity,pelvic lymph nodes and osseous lesions with interval development ofmultiple hepatic lesions and possible right lung versus liver lesion -------- FINAL REPORT -------- Dictated By: Rachelle Palomo Dictated Date: 11/16/2024 10:55 ET Assigned Physician: Rachelle Palomo Reviewed and Electronically Signed By: Rachelle Palomo Signed Date: 11/17/2024 06:10 ET Workstation ID: [id number] Transcribed By: Self Edit Transcribed Date: 11/16/2024 11:41 ET Frankramveronica Chavez MD IM NM PROCEDURES F inal Result * (ABNORMAL) Comprehensive metabolic panel (09/22/2024 9:41 AM EDT) Sodium 139 133 - 145 mmol/L LAB CHEMISTRY METHOD 09/22/2024 11:53 AM [facility] Potassium 3.9 3.5 - 5.5 mmol/L LAB CHEMISTRY METHOD 09/22/2024 11:53 AM [facility] Chloride 103 96 - 110 [...] g/dL LAB CHEMISTRY METHOD 09/22/2024 11:53 AM [facility] Albumin 3.8 3.2 - 5.0 g/dL LAB CHEMISTRY METHOD 09/22/2024 11:53 AM [facility] Total Bilirubin 0.6 0.0 - 1.4 mg/dL LAB CHEMISTRY METHOD 09/22/2024 11:53 AM [facility] Blood Venous blood specimen / Unknown Venipuncture / Unknown 09/22/2024 9:41 AM EDT 09/22/2024 11:19 AM EDT Elsie Chavez MD LAB BLOOD ORDERABLE S Final Result [facility] [address] [place] [address], from Last 3 Months or Most Recently Relevant to Health Maintenance Insurance [facility] [address] [address] [place] [address] Care Teams Engineer Soils Relationship Specialty Start Date End Date Nhi Conte PA [address] [place] [address] PCP - General 01/15/22
--- OUTSIDE RECORDS SUMMARY | 2025-01-09 15:06 | XMS_ITS | Encounter Summary ---
Author Organization [facility] [place] [address] Care Team Providers Care Supervisor Intelligence Analyst Name Role Phone Nhi Conte Primary Care Provider [phone] Reason for Visit * Reason Onset Date Comments [facility] Addendum 12/11/2024 *OON (Out of Network) MRI order 12/20/2024 Encounter Details Date Type Department Care Team (Late st Contact Info) Description 12/11/2024 Telephone [facility] Hematology Oncology [address] [place] [address] [place], [place] Social History Tobacco Use Types Packs/Day [...] encounter Progress Notes * Daisha Salinas - 12/21/2024 11:01 AM EST LAST NOTE FROM 11/22 STATES: obtain another restaging imaging in 3 [address] scan. I do not see any mentioning of MRI. Maybe urologist ordered. * Melissa Chang RN - 12/11/2024 4:08 PM EST Addendum in process - Request faxed to [facility] Dept. documented in this encounter Plan of Treatment Upcoming Encounters Date Type Department Care Team (Late st Contact Info) Description 01/24/2025 3:15 PM EST Office Visit [facility] Hematology Oncology [address] [place] [phone] Elsie Chavez MD [address] [place] [phone] documented as of this encounter Visit Diagnoses Not on filedocumented in this encounter Care Teams Supervisor Intelligence Analyst Relationship Specialty Start Date End Date Nhi Conte PA [address] [place] [address] PCP - General 01/15/22 documented as of this encounter
--- OUTSIDE RECORDS SUMMARY | 2025-01-09 15:06 | XMS_ITS | Clinical Summary ---
Author Organization [facility] Address [address] [place] [address] Care Team Providers Care Corrections Officer Name Role Phone Nhi Conte PA-C Primary Care Provider [phone] Allergies Active Allergy Reactions Criticality Noted Date Comments Tetracyclines & Related 11/08/2018 Medications Medication Sig Dispensed Refills Start Date End Date Status Cholecalciferol (VITAMIN D3) 3000 units TABS Take 3,000 Units by mouth daily. 0 Active B Hkpyfsq-Syvfnx-SS (SUPER B-50 COMPLEX PO) Take 1 tablet [...] age to complete this topic Care Teams Corrections Officer Relationship Specialty Start Date End Date Nhi Conte, PAAmiC PCP - General Physician Personal Computer Network Analyst 01/15/22
== END 2025-01-09 13:58 | disposition home or self-care (01) ==
LOC: HO.HUSH 13:11
PROVIDERS: PCP Physician Assistant; Visit Provider Urology
DX: C61 Malignant neoplasm of prostate (principal); C79.51 Secondary malignant neoplasm of bone

== ENCOUNTER → 2025-01-09 13:10 | Outpatient (BNVA) | payer OTHER, SELFPAY | PROVIDERS: PCP Physician Assistant; Visit Provider Urology | DX: Z51.11 Encounter for antineoplastic chemotherapy (principal); C61 Malignant neoplasm of prostate; C79.51 Secondary malignant neoplasm of bone; Z79.620 Long term (current) use of immunosuppressive biologic | CPT/HCPCS: 96372; 96402; J0897; J9155 ==